=== PATIENT | male | born 1955 | race Caucasian/White ===

== ENCOUNTER 2019-10-31 18:02 | Emergency (ER) | payer MEDICARE, SELFPAY ==
[2019-10-31 18:09] VITALS: BP 168/97; PULSE 69; RESP 18; TEMP 37.2; O2SAT 95
--- NOTE | 2019-10-31 18:10 | ED.WEAKNESS ---
HPI - Weakness General Chief complaint: Weakness Stated complaint: weakness Time Seen by Provider: 10/31/19 18:11 Source: patient, EMS and RN notes reviewed Mode of arrival: EMS Limitations: other (Poor historian) History of Present Illness HPI Narrative: A 64 y/o male presents to the ED via EMS from home d/t generalized weakness. The pt states that he is had some frequent urination but that he is unsure why he is here. Per EMS states that the pt has MS and that he has frequent falls, so they are called out for lift assist. They note that the pt reported generalized weakness and nausea, so they brought him into the ED. The pt denies any fevers, chills, focal weakness, cough, nasal congestion, dysuria, hematuria, diarrhea, vomiting, or ABD pain. MD Complaint: generalized weakness Onset (ago): unknown Location: generalized Associated symptoms: nausea/vomiting (no vomiting) and other (frequent urination) Related Data Home Medications Medication Instructions Recorded Confirmed cholecalciferol (vitamin D3) 10 400 unit PO DAILY 06/18/19 mcg (400 unit) tablet escitalopram oxalate 10 mg tablet 10 mg PO DAILY 06/18/19 melatonin 3 mg capsule 3 mg PO DAILY PRN cap 06/18/19 mirabegron 50 mg tablet,extended 50 mg PO Q24H 06/18/19 release 24 hr pramipexole 0.25 mg tablet 0.25 mg PO TID 06/18/19 teriflunomide 14 mg tablet 14 mg PO DAILY 06/18/19 Allergies Allergy/AdvReac Type Severity Reaction Status Date / Time No Known Allergies Allergy Unknown Verified 07/18/19 15:01 Review of Systems Review of Systems: All systems reviewed & are unremarkable except as noted in HPI and below Constitutional: Constitutional: Denies chills, Denies fever(s) and Reports weakness (generalized) ENT: Denies nasal congestion Respiratory: Respiratory: Denies cough Gastrointestinal: Gastrointestinal: Denies abdominal pain, Denies diarrhea, Reports nausea and Denies vomiting Genitourinary: Genitourinary: Denies hematuria, Denies dysuria and Reports urinary frequency Neurologic: Denies focal weakness PMFSH Past Medical History Medical History Depression Fracture lt wrist Multiple sclerosis Restless leg syndrome Surgical History Surgical History No pertinent past surgical history Family History Family History Father Family history of malignant neoplasm of esophagus Social History Social History Smoking status: Former smoker Smoking end date: 08/06/97 Alcohol intake: never Gender identity (if verbalized by the patient): Male Exam Const: General: healthy appearing and no acute distress Nutritional Appearance: well nourished HENMT: Mouth: Yes lip normal and Yes moist mucous membranes Eyes: Conjunctivae: conjunctivae normal Pupils: Equal, round and reactive pupils present Resp: Effort & Inspection: normal respiratory effort Auscultation: clear to auscultation bilaterally Cardio: Rate: regular rate Rhythm: regular rhythm Heart sounds: no murmurs GI: GI Palp: Yes Soft to palpation and No Tenderness to palpation present (GI) Auscultation: normal bowel sounds Back/Spine/Pelvis: Other: Full ROM. Skin: General skin exam: normal color, dry skin and other (warm) Neuro: General: patient oriented x3 (alert) Speech: normal speech Extrem: General: full ROM Psych: Mental Status: mental status grossly normal Affect: normal affect Course Vital Signs Vital signs: Vital Signs Temperature 37.2 C 10/31/19 18:09 Pulse Rate 69 10/31/19 18:09 Respiratory Rate 18 10/31/19 18:09 Blood Pressure 168/97 H 10/31/19 18:09 Pulse Oximetry 95 10/31/19 18:09 Temperature 37.2 C 10/31/19 18:09 Pulse Rate 89 10/31/19 20:20 Respiratory Rate 16 10/31/19 20:20 Blood Pressure 166/72 H 10/31/19 20:20 Pulse Oximetry 99
--- NOTE | 2019-10-31 18:12 | ECG_ITS ---
Measurements Intervals [place] Rate: 67 P: 45 CT: 213 QRS: 7 QRSD: 104 T: 73 QT: 407 QTc: 430 Interpretive Statements SINUS RHYTHM WITH FIRST DEGREE AV BLOCK NONSPECIFIC T-WAVE ABNORMALITY- LATERAL LEADS BASELINE ARTIFACT- I, III, AVL, V1 ABNORMAL ECG Electronically Signed On 10-31-2019 19:33:18 CDT by Demond Del Valle D.O.
[2019-10-31 18:42] LABS: Basophils Percent Auto 0.5 % (0.2-1.2); Eosinophils Absolute Auto 0.2 K/mm3 (0-0.3); Eosinophils Percent Auto 2.8 % (0-4.4); Hematocrit 38.3 % (42.0-52.0); Hemoglobin 12.4 g/dL (14.0-18.0); Immature Granulocyte Absolute 0.03 K/mm3 (0.00-0.031); Immature Granulocyte Percent A 0.5 % (0-0.5); Lymphocytes Absolute Auto 2.21 K/mm3 (0.9-3.2); Lymphocytes Percent Auto 36.8 % (18.3-44.2); Mean Corpuscular HGB Conc 32.4 g/dl (32-36); Mean Corpuscular Volume 92.7 fl (80-100); Mean Platelet Volume 10.5 fl (7.4-10.4); Monocytes Absolute Auto 0.6 K/mm3 (0.1-0.6); Monocytes Percent Auto 9.3 % (2.6-8.5); Neutrophils Percent Auto 50.1 % (45.5-73.1); Platelet Count Result 180 k/mm3 (150-375); Red Blood Count 4.13 M/mm3 (4.6-6.20); Red Cell Distribution Width 13.7 % (11.5-14.5)
[2019-10-31 18:54] LABS: Alanine Aminotransferase 27 U/L (4-50); Albumin Level 4.2 g/dL (3.5-5.1); Alkaline Phosphatase 46 U/L (38-126); Aspartate Amino Transferase 27 U/L (17-59); Bilirubin,Total 0.2 mg/dL (0.2-1.3); Blood Urea Nitrogen 20 mg/dL (9-20); Calcium 9.2 mg/dL (8.4-10.2); Carbon Dioxide 26 mmol/L (22-30); Chloride 106 mmol/L (98-107); Estimated CRCL calculation 88 ml/min; Estimated Glomerular Filt Rate > 60; Glucose 112 mg/dL (75-110); Potassium 4.2 mmol/L (3.4-5.0); Sodium 138 mmol/L (137-145)
[2019-10-31 19:10] LABS: Add Urine Microscopic? YES; Appearance Urine Clear (Clear); Bilirubin Urine Negative (Negative); Blood Urine 3+ (Negative); Color Urine Straw (Yellow); Glucose Urine UA Negative (Negative); Ketones Urine Negative (Negative); Leukocyte Esterase Ur Trace LEU/UL (Negative); Nitrate Urine Negative (Negative); Protein Urine Negative (Negative); Specific Grav Ur 1.011 (1.001-1.035); Urobilinogen Urine Negative mg/dL (<2.0); WBC Urine 0-3 /hpf
[2019-10-31 19:51] VITALS: BP 155/86; PULSE 63; RESP 18; O2SAT 96
[2019-10-31 20:20] VITALS: BP 166/72; PULSE 89; RESP 16; O2SAT 99
== END 2019-10-31 20:27 | disposition home or self-care (01) ==
PROVIDERS: Emergency Provider Emergency Medicine; PCP Family Medicine
DX: R53.1 Weakness (principal); G25.81 Restless legs syndrome; F32.9 Major depressive disorder, single episode, unspecified; G35 Multiple sclerosis; Z87.891 Personal history of nicotine dependence
CPT/HCPCS: 36415; 80053; 81001; 85025; 93005; 99283

== ENCOUNTER 2020-02-03 19:57 | Emergency (ER) | payer MEDICARE, SELFPAY ==
--- NOTE | ~2020-02-03 | XR_ITS ---
EXAMINATION: XR chest 2V DATE: 02/03/2020 21:18 INDICATION: Weakness, hypotension TECHNIQUE: AP and lateral views of the chest are obtained. COMPARISON: 01/03/2019 FINDINGS: The lungs are free of acute opacities. There is no pleural effusion or pneumothorax. The ca rdiomediastinal silhouette is normal. There is mild thoracic spondylosis. IMPRESSION: 1. No acute cardiopulmonary abnormality. Reviewed, dictated and finalized at location A.
--- NOTE | ~2020-02-03 | XR_ITS ---
EXAMINATION: XR elbow LT min 3V DATE: 02/03/2020 21:19 INDICATION: Left elbow pain TECHNIQUE: Anteroposterior, two oblique and lateral views of the left elbow were obtained. COMPARISON: None. FINDINGS: Alignment is normal. No fracture or joint effusion. Mild osteoarthritis is noted. There is posterior soft tissue swelling of the elbow overlying the olecranon. IMPRESSION: 1. Posterior soft tissue swelling without acute osseous abnormality. Reviewed, dictated and finalized at location A.
--- NOTE | 2020-02-03 20:14 | ECG_ITS ---
Measurements Intervals [place] Rate: 67 P: 44 CA: 215 QRS: 5 QRSD: 100 T: 73 QT: 414 QTc: 440 Interpretive Statements SINUS RHYTHM WITH FIRST DEGREE AV BLOCK NONSPECIFIC T-WAVE ABNORMALITY- ANT/LAT LEADS ABNORMAL ECG Electronically Signed On 02-04-2020 7:08:35 CDT by Demond Del Valle D.O.
[2020-02-03 20:15] VITALS: BP 178/82; PULSE 71; PULSE 78; RESP 18; TEMP 37.1; O2SAT 97
[2020-02-03 20:30] LABS: Basophils Percent Auto 0.5 % (0.2-1.2); Eosinophils Absolute Auto 0.2 K/mm3 (0-0.3); Eosinophils Percent Auto 2.4 % (0-4.4); Hematocrit 38.4 % (42.0-52.0); Hemoglobin 12.8 g/dL (14.0-18.0); Immature Granulocyte Absolute 0.02 K/mm3 (0.00-0.031); Immature Granulocyte Percent A 0.3 % (0-0.5); Lymphocytes Absolute Auto 1.67 K/mm3 (0.9-3.2); Lymphocytes Percent Auto 27.2 % (18.3-44.2); Mean Corpuscular HGB Conc 33.3 g/dl (32-36); Mean Corpuscular Hemoglobin 30.6 pg (26-34); Mean Corpuscular Volume 91.9 fl (80-100); Mean Platelet Volume 10.5 fl (7.4-10.4); Monocytes Absolute Auto 0.6 K/mm3 (0.1-0.6); Monocytes Percent Auto 10.4 % (2.6-8.5); Neutrophils Absolute Auto 3.6 K/mm3 (1.3-6.7); Neutrophils Percent Auto 59.2 % (45.5-73.1); Platelet Count Result 191 k/mm3 (150-375); Red Blood Count 4.18 M/mm3 (4.6-6.20); Red Cell Distribution Width 13.1 % (11.5-14.5); White Blood Count 6.1 K/mm3 (4.5-10.0)
[2020-02-03 20:44] LABS: Alanine Aminotransferase 23 U/L (4-50); Albumin Level 4.1 g/dL (3.5-5.1); Alkaline Phosphatase 53 U/L (38-126); Aspartate Amino Transferase 25 U/L (17-59); Bilirubin,Total 0.3 mg/dL (0.2-1.3); Blood Urea Nitrogen 19 mg/dL (9-20); Carbon Dioxide 27 mmol/L (22-30); Chloride 107 mmol/L (98-107); Estimated CRCL calculation 83 ml/min; Estimated Glomerular Filt Rate > 60; Glucose 115 mg/dL (75-110); Potassium 3.9 mmol/L (3.4-5.0); Sodium 140 mmol/L (137-145)
--- NOTE | 2020-02-03 20:48 | ED.WEAKNESS ---
HPI - Weakness General Chief complaint: Weakness Stated complaint: increasing weakness Time Seen by Provider: 02/03/20 20:39 History of Present Illness HPI Narrative: Patient presents via EMS from home with his for recurrent falls. He has MS and is becoming weak. His neurologist is Dr. Quigley at [facility]. He scheduled to have MRI of his brain and spine on Sunday. They are talking about changing his MS medicine from pills to shots. requests that he be admitted and sent to rehab. He has been falling daily the fire department has been there every day for a week and twice today. He can walk but when he falls she cannot get him up. He has bladder spasm and needs to urinate frequently. She Wants Today to Be Sure That There Is Bladder Emptying. He injured his elbow in a fall last week and they x-rayed the humerus but not the elbow. We will get the elbow x-ray here. She is concerned it might be a UTI which causes him to have increased weakness. He has not been sick in the last 2 weeks he denies fever cough chills sweats. Appetite is good bowels are moving. MD Complaint: generalized weakness Onset (ago): week(s) Duration: constant Location: generalized Relieving factors: none Exacerbating factors: movement and exertion Associated symptoms: denies other symptoms Related Data Home Medications Medication Instructions Recorded Confirmed escitalopram oxalate 20 mg PO DAILY 02/03/20 mirabegron [Myrbetriq] 50 mg PO DAILY 02/03/20 pramipexole 0.25 mg PO TID 02/03/20 Allergies Allergy/AdvReac Type Severity Reaction Status Date / Time No Known Allergies Allergy Unknown Verified 02/03/20 20:19 Review of Systems Review of Systems: Narrative: CONSTITUTIONAL: Denies fever, chills, or sweats. EYES: Denies visual changes, redness, or discharge. ENT: Denies rhinorrhea, congestion, sore throat, or otalgia. CARDIOVASCULAR: Denies chest pain, palpitations, or edema. RESPIRATORY: Denies cough or dyspnea. GASTROINTESTINAL: Denies abdominal pain, nausea, vomiting, or diarrhea. GENITOURINARY: Denies dysuria or hematuria. SKIN: Denies rash or itching. MUSCULOSKELETAL: Denies back pain, joint pain, or myalgia. NEUROLOGIC: Denies headache, numbness, but does have generalized weakness. PSYCHIATRIC: Denies anxiety or depression. PMFSH Past Medical History Medical History Depression Fracture lt wrist Multiple sclerosis Restless leg syndrome Surgical History Surgical History No pertinent past surgical history Social History Social History Smoking status: Former smoker Smoking end date: 08/06/97 Alcohol intake: never Gender identity (if verbalized by the patient): Male Exam Narrative: Exam Narrative: GENERAL: Well-appearing, well-nourished, and in no acute distress. Overweight. Very pleasant. HEAD: Normocephalic, atraumatic. EYES: PERRLA and EOMI. ENT: Nares clear, no rhinorrhea or epistaxis. Mucous membranes moist. NECK: Supple. CHEST: Clear to auscultation. No respiratory distress. HEART: Regular rate and rhythm. No murmur heard. Normal peripheral pulses. ABDOMEN: Soft, nontender, nondistended, normal active bowel sounds. EXTREMITIES: Normal range of motion. No edema. SKIN: Warm, dry, no rash. NEURO: No focal deficits. Alert and oriented x3. PSYCH: Normal mood and affect. Course Reevaluation(s) Reevaluation #1: Went in to tell the patient and his about the good test results, and the admission for rehab. The patient is upset and says he wants to go home, but the says she cannot care for him at home. Date: 02/03/20 Time: 22:54 Consultations Consultation #1: Call Dr. Vargas and she agrees with the admission. She asked me to write for the care coordination consult to get him into rehab. Vital Signs Vital signs: Vital Signs Temperatur
[2020-02-03 21:29] VITALS: BP 169/87; PULSE 76; RESP 17; O2SAT 98
[2020-02-03 21:43] LABS: Add Urine Microscopic? YES; Appearance Urine Clear (Clear); Bilirubin Urine Negative (Negative); Blood Urine 2+ (Negative); Color Urine Yellow (Yellow); Glucose Urine UA Negative (Negative); Ketones Urine Negative (Negative); Leukocyte Esterase Ur Negative LEU/UL (Negative); Mucus Urine Rare /lpf; Nitrate Urine Negative (Negative); Protein Urine 1+ mg/dL (Negative); Specific Grav Ur 1.019 (1.001-1.035); Squamous Epithelial Cell Urine Rare /hpf (Few); Urobilinogen Urine Negative mg/dL (<2.0); WBC Urine 0-3 /hpf
[2020-02-03 22:59] VITALS: BP 172/78; PULSE 82; RESP 18; O2SAT 97
--- NOTE | 2020-02-03 23:00 | PC.NURSE ---
pt in room, arguing with about staying in the hospital. pt adamantly refusing to stay, discharge rn and provider in room speaking to pt and .
--- NOTE | 2020-02-03 23:08 | PC.NURSE ---
PT AND CONTINUE TO ARGUE ABOUT PT STAYING. HE IS ADAMANT ABOUT GOING HOME.
--- NOTE | 2020-02-03 23:39 | PC.NURSE ---
Addendum entered by Juanita Kerr RN 02/03/20 23:43: PT AND TOLD IF THEY NEED TO COME BACK WE ARE MORE THAN HAPPY TO SEE THEM. Original Note: [id number]- THIS RN , DR. SEXTON IN TO SPEAK WITH PATIENT. PT CONTINUES TO REFUSE TO BE ADMITTED TO THE HOSPITAL. PT STATES SHE WILL TAKE HIM HOME PER PERSONAL VEHICLE AND CALL EMS FOR ASSISTANCE ONCE AT HOME. REPORTS SHE IS ATTEMPTING TO GET HELP TO CARE FOR HIM, WELL THE POSSIBILITY OF PLACEMENT. THEY CONTINUE TO ARGUE BACK AND FORTH WITH ONE ANOTHER.
--- NOTE | 2020-02-04 00:06 | PC.NURSE ---
PT LEFT AMA AT [id number]
== END 2020-02-04 00:06 | disposition left against medical advice (07) ==
PROVIDERS: Emergency Provider Emergency Medicine; PCP Family Medicine
DX: G35 Multiple sclerosis (principal); Z91.81 History of falling; Z87.891 Personal history of nicotine dependence; F32.9 Major depressive disorder, single episode, unspecified
CPT/HCPCS: 36415; 71046; 73080; 80053; 81001; 85025; 93005; 99284

== ENCOUNTER 2020-02-22 03:38 | Emergency (ER) | payer MEDICARE, SELFPAY ==
--- NOTE | ~2020-02-22 | XR_ITS ---
EXAMINATION: XR shoulder LT min 2V INDICATION: Left shoulder pain TECHNIQUE: Four views of the left shoulder are obtained on five radiographs. COMPARISON: 02/03/2020 FINDINGS: There is mild widening of the acromioclavicular joint. No fracture is identified. The gleno humeral joint space appears normal. The soft tissues are unremarkable. IMPRESSION: 1. Mild separation of the acromioclavicular joint without acute osseous abnormality. Reviewed, dictated and finalized at location A. IMPRESSION: 1. Mild separation of the acromioclavicular joint without acute osseous abnorma lity.
[2020-02-22 03:39] VITALS: BP 149/75; PULSE 78; RESP 18; TEMP 37.7; O2SAT 95
--- NOTE | 2020-02-22 03:51 | ED.UPPEXIN ---
HPI - Extremity Injury (Upper) General Chief Complaint: Extremity Injury, Upper Stated Complaint: hip pain History of Present Illness HPI narrative: History limited by poor historian. BIBEMS from home for shoulder pain. It is not entirely clear why EMS was called to the house. EMS reports that he was having hip pain. the patient says he was never having hip pain. He reports pain in the left shoulder. This pain has apparently been there since a previous fall. He has had x-rays. He has pain medication, which his is concerned that he may be taking too much of. He has MS and falls frequently. Related Data Home Medications Medication Instructions Recorded Confirmed escitalopram oxalate 20 mg PO DAILY 02/03/20 02/19/20 mirabegron [Myrbetriq] 50 mg PO DAILY 02/03/20 02/19/20 pramipexole 0.25 mg PO TID 02/03/20 02/19/20 gabapentin 300 mg capsule 300 mg PO DAILY 02/19/20 02/19/20 Allergies Allergy/AdvReac Type Severity Reaction Status Date / Time No Known Allergies Allergy Unknown Verified 02/19/20 15:02 Review of Systems Review of Systems: All systems reviewed & are unremarkable except as noted in HPI and below Constitutional: Constitutional: Denies fever(s) Cardiovascular: Cardiovascular: Denies chest pain Respiratory: Respiratory: Denies dyspnea Musculoskeletal: Musculoskeletal: Denies back pain Neurologic: Denies headache(s) [facility] Past Medical History Medical History Depression Fracture lt wrist Multiple sclerosis Restless leg syndrome Surgical History Surgical History No pertinent past surgical history Family History Family History Father Family history of malignant neoplasm of esophagus Social History Social History Smoking status: Former smoker Smoking end date: 08/06/97 Alcohol intake: never Substance use: never Substance use type: does not use Gender identity (if verbalized by the patient): Male Exam Const: General: no acute distress and alert Orientation/consciousness: patient oriented x3 HENMT: Head: normal to inspection Resp: Effort & Inspection: normal respiratory effort Auscultation: clear to auscultation bilaterally Cardio: Rate: regular rate Rhythm: regular rhythm GI: GI Palp: Yes Soft to palpation and No Tenderness to palpation present (GI) Skin: General skin exam: normal color Rashes: no rashes Wounds: no wounds Neuro: General: patient oriented x3 and moves all extremities Extrem: Other: Full spontaneous ROM in left shoulder. Tenderness over left AC and anterior deltoid Course Vital Signs Vital signs: Vital Signs Temperature 37.7 C H 02/22/20 03:39 Pulse Rate 78 02/22/20 03:39 Respiratory Rate 18 02/22/20 03:39 Blood Pressure 149/75 H 02/22/20 03:39 Pulse Oximetry 95 02/22/20 03:39 Temperature 37.7 C H 02/22/20 03:39 Pulse Rate 78 02/22/20 03:39 Respiratory Rate 18 02/22/20 03:39 Blood Pressure 149/75 H 02/22/20 03:39 Pulse Oximetry 95 02/22/20 03:39 MDM - Extremity Injury (Upper) Medical Records Attestation: I reviewed the patient's medical records. Imaging Data Attestation: I personally reviewed and interpreted this imaging study as follows: My impression: No fracture or dislocation Discharge Plan Discharge Clinical Impression: Left shoulder pain Qualifiers: Chronicity: unspecified Qualified Code(s): M25.512 - Pain in left shoulder Patient Disposition: Home, Self-Care Condition: Stable Instructions: Antibiotic Form, Shoulder Pain (ED) Prescriptions: No Action gabapentin 300 mg capsule 300 mg PO DAILY RF: 0 nitrofurantoin macrocrystal 100 mg capsule 100 mg PO Q12H 7 Days Qty: 14 RF: 0 hydrocodone-acetaminophen 5-325 mg tablet 1 tablet PO Q8H MN
[2020-02-22 05:32] VITALS: BP 158/86; PULSE 78; RESP 18; TEMP 36.8; O2SAT 98
--- NOTE | 2020-02-22 05:34 | PC.NURSE ---
attempted to get pt into W/C, pt locked knees and refused to move. pt placed back in bed and will call ems for transport.
--- NOTE | 2020-02-22 08:20 | PC.NURSE ---
awaiting transport via ems to home. no requests or complaints at this time.
== END 2020-02-22 09:20 | disposition home or self-care (01) ==
PROVIDERS: Emergency Provider Emergency Medicine; PCP Family Medicine
DX: M25.512 Pain in left shoulder (principal); F32.9 Major depressive disorder, single episode, unspecified; G35 Multiple sclerosis; G25.81 Restless legs syndrome; Z87.891 Personal history of nicotine dependence
CPT/HCPCS: 73030; 99283

== ENCOUNTER 2020-02-23 17:00 | Observation (INO) | payer MEDICARE, SELFPAY ==
[2020-02-23] VITALS (8 sets, daily range): BP systolic 101–143; BP diastolic 61–104; PULSE 84–113; RESP 17–27; TEMP 37.2–38.6; O2SAT 94–98; BMI 39.1
--- NOTE | ~2020-02-23 | XR_ITS ---
EXAMINATION: XR chest 1V portable INDICATION: Transient alteration of awareness TECHNIQUE: Portable AP chest at 1738 hours COMPARISON: 02/03/2020 FINDINGS: A mild diffuse interstitial pattern is present. There are minimal airspace opacities of the mid and lower lung zones. The heart size is normal. Calcified left hilar lymph nodes are consistent with old granulomatous disease. There is no pleural effusion or pneumothorax. IMPRESSION: 1. Mild interstitial pattern of minimal airspace opacity of the mid and lower lung zones which may re flect pulmonary edema and/or atelectasis and/or pneumonia. Reviewed, dictated and finalized at location A. IMPRESSION: 1. Mild interstitial pattern of minimal airspace opacity of the mid and lower l sanju zones which may reflect pulmonary edema and/or atelectasis and/or pneumonia .
--- NOTE | ~2020-02-23 | CT_ITS ---
EXAMINATION: CT brain wo con INDICATION: Altered mental status COMPARISON: 02/06/2019 TECHNIQUE: Standard unenhanced head CT. The dose-length product (DLP) was 681.00 mGy-cm. The mA was a djusted according to patient size. Iterative reconstruction technique was employed. FINDINGS: There is no acute intraparenchymal hemorrhage. No evidence of mass lesion. No evidence of a cute infarction. There is moderate periventricular and subcortical hypodensity probably related to sm all vessel ischemic disease. There is moderate prominence of the sulci and ventricles related to cere bral atrophy. Intracranial calcified cerebral atherosclerosis is noted. There are no extra-axial leighann ections. There is no mass effect or midline shift. Changes in the globes are likely from ocular lens surgery. There is mild mucosal thickening of the paranasal sinuses. IMPRESSION: 1. No acute intracranial abnormality. 2. Age related findings. Reviewed, dictated and finalized at location A.
--- NOTE | 2020-02-23 17:19 | ECG_ITS ---
Measurements Intervals [place] Rate: 113 P: 47 [place]: 203 QRS: -4 QRSD: 96 T: 69 QT: 308 QTc: 423 Interpretive Statements SINUS TACHYCARDIA BORDERLINE AV CONDUCTION DELAY EARLY PRECORDIAL R/S TRANSITION ABNORMAL ECG Electronically Signed On 02-23-2020 18:01:40 CDT by Demond Del Valle D.O.
--- NOTE | 2020-02-23 17:27 | ED.GENADULT ---
HPI - General Adult General Chief complaint: Altered Mental Status Stated complaint: Altered mental status Time Seen by Provider: 02/23/20 17:06 History of Present Illness HPI narrative: Patient is a 64 y/o male brought in by EMS for mild altered mental status. This has been going for 2 days. There is no alleviating or exacerbating factor. He has history of MS and he is not ambulatory. He does self cath. He denies any headache, chest pain or abdominal pain. He denies any SOB. He states that he feels well. Related Data Home Medications Medication Instructions Recorded Confirmed escitalopram oxalate 20 mg PO DAILY 02/03/20 02/19/20 mirabegron [Myrbetriq] 50 mg PO DAILY 02/03/20 02/19/20 pramipexole 0.25 mg PO TID 02/03/20 02/19/20 Allergies Allergy/AdvReac Type Severity Reaction Status Date / Time No Known Allergies Allergy Unknown Verified 02/19/20 15:02 Review of Systems Constitutional: Constitutional: Denies chills, Denies fever(s), Denies headache(s) and Denies weakness Eyes: Eyes: Denies blurry vision ENT: Denies headache(s) and Denies neck pain Cardiovascular: Cardiovascular: Denies chest pain and Denies dyspnea Respiratory: Respiratory: Denies cough and Denies dyspnea Gastrointestinal: Gastrointestinal: Denies abdominal pain, Denies diarrhea, Denies nausea and Denies vomiting Genitourinary: Genitourinary: Denies hematuria and Denies dysuria Musculoskeletal: Musculoskeletal: Denies back pain and Denies neck pain Neurologic: Denies headache(s) and Denies weakness [facility] Past Medical History Medical History Depression Fracture lt wrist Multiple sclerosis Restless leg syndrome Surgical History Surgical History No pertinent past surgical history Family History Family History Father Family history of malignant neoplasm of esophagus Social History Social History Smoking status: Former smoker Smoking end date: 08/06/97 Alcohol intake: never Substance use: never Substance use type: does not use Gender identity (if verbalized by the patient): Male Exam Const: General: no acute distress and well developed Orientation/consciousness: oriented to person, oriented to place and confusion HENMT: Head: normocephalic Ears: external ears normal General nose exam: Normal external nose present Eyes: General: appearance normal, both eyes and all related structures Conjunctivae: conjunctivae normal Neck: Neck: normal visual inspection and full ROM Chest: Chest palpation & inspection: normal inspection of the chest and no tenderness Resp: Effort & Inspection: normal respiratory effort, able to speak in complete sentences and tachypneic Cardio: Rate: tachycardic Rhythm: regular rhythm GI: GI Palp: No abdominal tenderness and Yes Soft to palpation Skin: General skin exam: normal color and turgor normal Neuro: General: oriented to person and oriented to place Cognition (Neuro): abnormal cognition Extrem: General: normal to inspection, full ROM and no pedal edema Psych: Appearance: grossly normal Mental Status: mental status grossly normal Affect: normal affect Course Consultations Consultation #1: Discussed with Dr. Garcia, who agrees to admit. Date: 02/23/20 Time: 20:08 Vital Signs Vital signs: Vital Signs Temperature 38.6 C H 02/23/20 17:01 Pulse Rate 111 H 02/23/20 17:01 Respiratory Rate 25 H 02/23/20 17:01 Blood Pressure 143/104 H 02/23/20 17:01 Pulse Oximetry 96 02/23/20 17:01 Temperature 37.2 C 02/23/20 20:38 Pulse Rate 91 02/23/20 20:38 Respiratory Rate 17 02/23/20 20:39 Blood Pressure 114/61 02/23/20 20:38 Pulse Oximetry 94 02/23/20 20:38 Medical Decision Making Vital Signs Vital Signs: Vital Signs Temperature 38.6 C
[2020-02-23 17:54] LABS: Basophils Percent Auto 0.2 % (0.2-1.2); Eosinophils Percent Auto 0.1 % (0-4.4); Hematocrit 42.2 % (42.0-52.0); Hemoglobin 13.9 g/dL (14.0-18.0); Immature Granulocyte Percent A 0.6 % (0-0.5); Lymphocytes Absolute Auto 0.83 K/mm3 (0.9-3.2); Lymphocytes Percent Auto 5.1 % (18.3-44.2); Mean Corpuscular HGB Conc 32.9 g/dl (32-36); Mean Corpuscular Hemoglobin 30.5 pg (26-34); Mean Corpuscular Volume 92.5 fl (80-100); Mean Platelet Volume 10.5 fl (7.4-10.4); Monocytes Absolute Auto 0.7 K/mm3 (0.1-0.6); Monocytes Percent Auto 4.5 % (2.6-8.5); Neutrophils Absolute Auto 14.5 K/mm3 (1.3-6.7); Neutrophils Percent Auto 89.5 % (45.5-73.1); Platelet Count Result 191 k/mm3 (150-375); Red Blood Count 4.56 M/mm3 (4.6-6.20); Red Cell Distribution Width 13.6 % (11.5-14.5); White Blood Count 16.2 K/mm3 (4.5-10.0)
[2020-02-23] MEDS: ACETAMINOPHEN 325 MG TABLET 650 MG PO (18:02)
[2020-02-23 18:08] LABS: Lactic Acid Reflex 1.5 mmol/L (0.7-2.1)
[2020-02-23 18:09] LABS: Add Urine Microscopic? YES; Appearance Urine Clear (Clear); Bacteria Urine Trace /hpf; Bilirubin Urine Negative (Negative); Blood Urine 2+ (Negative); Color Urine Yellow (Yellow); Glucose Urine UA Negative (Negative); Ketones Urine Negative (Negative); Leukocyte Esterase Ur 1+ LEU/UL (Negative); Mucus Urine Few /lpf; Nitrate Urine Negative (Negative); Protein Urine 2+ mg/dL (Negative); RBC Urine 21-50 /hpf (0-2); Renal Epithelial Cells Urine Rare /hpf (None Seen); Specific Grav Ur 1.028 (1.001-1.035); Urobilinogen Urine Negative mg/dL (<2.0); WBC Urine 16-20 /hpf
[2020-02-23 18:10] LABS: Alanine Aminotransferase 26 U/L (4-50); Albumin Level 4.4 g/dL (3.5-5.1); Alkaline Phosphatase 74 U/L (38-126); Aspartate Amino Transferase 28 U/L (17-59); Bilirubin,Total 0.7 mg/dL (0.2-1.3); Blood Urea Nitrogen 19 mg/dL (9-20); Calcium 9.3 mg/dL (8.4-10.2); Carbon Dioxide 29 mmol/L (22-30); Chloride 99 mmol/L (98-107); Estimated CRCL calculation 75 ml/min; Estimated Glomerular Filt Rate > 60; Glucose 116 mg/dL (75-110); Potassium 4.3 mmol/L (3.4-5.0); Sodium 135 mmol/L (137-145)
--- NOTE | 2020-02-23 19:14 | PC.NURSE ---
REPORT GIVEN TO JACKSON GUTIERREZ AT THIS TIME, SHE HAS ASSUMED PT CARE.
--- NOTE | 2020-02-23 20:38 | PC.NURSE ---
pt and family updated on poc at this time, pt denies any needs/concerns. continues to rest on stretcher, VS stable, RR even and unlabored.
--- NOTE | 2020-02-23 22:36 | PM.IMHP ---
H&P: HPI History of Present Illness Chief complaint: sepsis, uti Narrative: This is a 64 year old male with known MS and RLS who presented to the hospital with his secondary to acute altered mental status for the past 2 days. The patient has a history of self catheterizing secondary to his MS. The patient admits that he has had fever at home but denies any shortness of breath, cough, headache, abdominal pain, nausea, vomiting or diarrhea. In the ER tonight the patient was found to be septic with fever, tachycardia, tachypnea, and leukocytosis. His urinalysis was grossly abnormal. CT brain was unremarkable for acute pathology. CXR demonstrated a mild interstitial pattern of minimal airspace opacity of the mid and lower lung zones. The patient was swabbed for COVID-19 tonight. On my encounter with the patient he has no specific complaints. He is pleasantly confused and no other family is present. No other further history is obtainable at this time. Review of Systems Review of Systems: All systems reviewed & are unremarkable except as noted in HPI and below PMFSH Past Medical History Medical History Depression Fracture lt wrist Multiple sclerosis Restless leg syndrome Surgical History Surgical History No pertinent past surgical history Family History Family History Father Family history of malignant neoplasm of esophagus Mother Pacemaker Social History Social History Smoking packs per day: 1 Smoking cigarettes per day: 20.0 Years smoked: 6 Smoking pack-years: 6.00 Smoking status: Former smoker Tobacco type: cigarettes Smoking end date: 08/06/97 Alcohol intake: former Drinks per week: 6 Substance use: never Substance use type: does not use Gender identity (if verbalized by the patient): Male Spiritual care concerns: No Meds Home Medications and Allergies Home Medications Medication Instructions Recorded Confirmed Type escitalopram oxalate 20 mg PO DAILY 02/03/20 02/19/20 History mirabegron [Myrbetriq] 50 mg PO DAILY 02/03/20 02/19/20 History pramipexole 0.25 mg PO TID 02/03/20 02/19/20 History hydrocodone 5 mg-acetaminophen 325 1 tablet PO Q8H PRN #30 tablet 02/19/20 02/19/20 Rx mg tablet cholecalciferol (vitamin D3) 125 mcg PO DAILY 02/23/20 02/24/20 History [Vitamin D3] gabapentin 600 mg PO TID 02/23/20 02/24/20 History ibuprofen 200 mg PO Q6H PRN 02/23/20 02/24/20 History melatonin 10 mg PO HS 02/23/20 02/23/20 History teriflunomide [Aubagio] 14 mg PO DAILY 02/23/20 02/23/20 History Allergies Allergy/AdvReac Type Severity Reaction Status Date / Time No Known Allergies Allergy Unknown Verified 02/19/20 15:02 Vital Signs Vital Signs - 24 hr 02/23/20 17:01 02/23/20 17:46 02/23/20 18:32 Temperature 38.6 C H 37.2 C Pulse Rate 111 H 113 H Respiratory Rate 25 H 27 H Blood Pressure 143/104 H 123/94 H Pulse Oximetry 96 98 02/23/20 18:52 02/23/20 20:38 02/23/20 20:39 Temperature 37.2 C 37.2 C Pulse Rate 102 H 91 Respiratory Rate 20 19 17 Blood Pressure 134/83 114/61 Pulse Oximetry 96 94 02/23/20 21:33 Temperature Pulse Rate 88 Respiratory Rate 18 Blood Pressure 101/65 Pulse Oximetry 95 Exam Const: General: cooperative, alert, awake, ill appearing, tired appearing and uncomfortable Nutritional Appearance: obese Orientation/consciousness: oriented to person and oriented to place HENMT: Head: normal to inspection General nose exam: Normal external nose present Face and sinus: normal facial exam Mouth: Yes Normal oral and palatal mucosa present and Yes oropharynx normal Eyes: Pupils: Equal, round and reactive pupils present EOM: EOMs intact bilaterally Neck: Neck: supple and no JVD Thyroid: thyroid normal
--- NOTE | 2020-02-23 22:48 | ADMGEN ---
This patient, Elbert Browning, was admitted to [facility] Surg Room 330-01. Patient/family oriented to hospital policies and general routines including ID bracelet, bed and alarms, visiting hours, pain management, procedures, bathroom and other care routines, personal items, smoking policy, room service/diet, and visiting hours. Valuables list has been completed. Information on how to activate the Rapid Response Team has been discussed. Patient/Family are encouraged to report perceived risks to care and to ask questions if they do not understand what they are told or what they should do.
[2020-02-24 02:00] VITALS: BP 141/79; PULSE 74; RESP 20; TEMP 37.3; O2SAT 96
[2020-02-24] MEDS: ACETAMINOPHEN 325 MG TABLET 650 MG PO ×2 (04:53→11:03)
[2020-02-24 06:00] VITALS: BP 140/79; PULSE 76; RESP 20; TEMP 37.5; O2SAT 96
[2020-02-24 06:04] LABS: Basophils Absolute Auto 0.1 K/mm3 (0.0-0.1); Basophils Percent Auto 0.4 % (0.2-1.2); Eosinophils Absolute Auto 0.1 K/mm3 (0-0.3); Eosinophils Percent Auto 0.4 % (0-4.4); Hematocrit 38.1 % (42.0-52.0); Hemoglobin 12.5 g/dL (14.0-18.0); Immature Granulocyte Absolute 0.06 K/mm3 (0.00-0.031); Immature Granulocyte Percent A 0.4 % (0-0.5); Lymphocytes Absolute Auto 2.02 K/mm3 (0.9-3.2); Lymphocytes Percent Auto 14.4 % (18.3-44.2); Mean Corpuscular HGB Conc 32.8 g/dl (32-36); Mean Corpuscular Hemoglobin 30.1 pg (26-34); Mean Corpuscular Volume 91.8 fl (80-100); Mean Platelet Volume 10.8 fl (7.4-10.4); Monocytes Absolute Auto 1.2 K/mm3 (0.1-0.6); Monocytes Percent Auto 8.2 % (2.6-8.5); Neutrophils Absolute Auto 10.7 K/mm3 (1.3-6.7); Neutrophils Percent Auto 76.2 % (45.5-73.1); Platelet Count Result 189 k/mm3 (150-375); Red Blood Count 4.15 M/mm3 (4.6-6.20); Red Cell Distribution Width 13.6 % (11.5-14.5)
[2020-02-24 06:24] LABS: Blood Urea Nitrogen 18 mg/dL (9-20); Calcium 8.8 mg/dL (8.4-10.2); Carbon Dioxide 26 mmol/L (22-30); Chloride 101 mmol/L (98-107); Estimated CRCL calculation 78 ml/min; Estimated Glomerular Filt Rate > 60; Glucose 109 mg/dL (75-110); Potassium 4.3 mmol/L (3.4-5.0); Sodium 136 mmol/L (137-145)
[2020-02-24] MEDS: PRAMIPEXOLE 0.25 MG TABLET PO ×3 (06:29→17:16)
[2020-02-24 07:24] LABS: Folic Acid 3.6 ng/mL (2.76->20)
[2020-02-24] MEDS: ESCITALOPRAM OXALATE 10 MG TABLET 20 MG PO (08:56)
[2020-02-24] MEDS: MIRABEGRON 50 MG ER TABLET PO (08:57)
[2020-02-24] MEDS: CHOLECALCIFEROL 1,000 UNIT TABLET 8000 UNITS PO (08:58)
[2020-02-24 10:00] VITALS: BP 152/84; PULSE 76; RESP 20; TEMP 36.9; O2SAT 96
[2020-02-24 14:00] VITALS: BP 164/89; PULSE 76; RESP 20; TEMP 36.9; O2SAT 97
[2020-02-24 15:06] LABS: SARS-CoV-2 RNA PCR Negative
--- NOTE | 2020-02-24 15:26 | PC.NURSE ---
Called and notified Mireya HAM that patient COVID is negative.
--- NOTE | 2020-02-24 15:52 | PM.IMPN ---
Progress Note: A&P Assessment and Plan (1) Acute encephalopathy: Code(s): G93.40 - Encephalopathy, unspecified Status: Acute Assessment and Plan: Likely secondary to acute UTI. B12, folate, and TSH are within normal limits. Head CT sows probably small vessel ischemic disease, cerebral atrophy, and cerebral atherosclerosis. Mental status seems to be improving. His baseline is unclear and I was not able to get in touch with his to further inquire about baseline. Continue antibiotics for UTI. Continue to monitor mental status closely. (2) Sepsis: Qualifiers: Sepsis acute organ dysfunction status: unspecified Sepsis type: sepsis due to unspecified organism Qualified Code(s): A41.9 - Sepsis, unspecified organism Code(s): A41.9 - Sepsis, unspecified organism Status: Acute Assessment and Plan: Evident based on fever, tachycardia, and leukocytosis. Source of sepsis appears to be urinary. Vitals have improved. He has remained afebrile today. Continue to closely monitor vital signs and urine output. Continue IV antibiotics. Blood and urine culture pending. (3) UTI (urinary tract infection): Qualifiers: Hematuria presence: without hematuria Urinary tract infection type: site unspecified Qualified Code(s): N39.0 - Urinary tract infection, site not specified Code(s): N39.0 - Urinary tract infection, site not specified Status: Acute Assessment and Plan: UA was grossly abnormal, this may explain his altered mental status. The patient self-caths due to his MS, which puts him at risk for associated infection. Continue IV Rocephin Await results of urine culture (4) Multiple sclerosis: Code(s): G35 - Multiple sclerosis Status: Chronic Assessment and Plan: Chronic and stable. Continue home regimen (5) Restless leg syndrome: Code(s): G25.81 - Restless legs syndrome Status: Chronic Assessment and Plan: Chronic and stable. continue pramipexole. (6) COVID-19 ruled out by laboratory testing: Code(s): Z03.818 - Encounter for observation for suspected exposure to other biological agents ruled out Status: Acute Assessment and Plan: Negative result on 02/24/2020 - discontinue isolation precautions Subjective Date/time seen: 02/24/20 15:52 Interval history: Date of service: 02/24/2020 He reports he is feeling well today. He has no complaints at this time. He had a BM this afternoon which was soft and formed. He self caths and says that he has not done so yet today. He denies any discomfort associated with cathing, burning, pain, etc. He denies fever, chills, nausea, vomiting, diarrhea, shortness of breath, cough, chest pain, headache, dizziness, lightheadedness, or weakness. He states he is aware he was very confused yesterday but feels that his mental status has returned back to normal. He was alert & oriented x4 and responded to almost all questions appropriately. His appetite has been good and he has been drinking water. He has no additional concerns. Review of Systems Review of Systems: Narrative: A 12 point review of systems was reviewed with pertinent positives and negatives as per HPI. Exam Narrative: Exam Narrative: Mr. Browning is examined alone today. He is a well nourished 64 year old male who is lying supine in bed. He appears comfortable and is in NARD. HR 76, BP 140/79, RR 20, T 99.5, 96% on room air Neuro: awake, alert and oriented x4, speech clear, no focal neuro deficits noted HEENMT: normocephalic, atraumatic, EOMI, sclerae anicteric, moist oral mucosa Neck: supple, no lymphadenopathy Respiratory: clear to auscultation bilaterally, nonlabored breathing Cardio: regular rate, regular rhythm, no murmur noted Abdomen: nondistended, normoactive bowel sounds, soft, nontender, no rigidity or guarding Extremities: no edema, erythema, cyanosis,
[2020-02-24 16:00] VITALS: BP 160/88; PULSE 70; RESP 20; TEMP 37.1; O2SAT 97
[2020-02-24 22:00] VITALS: BP 170/94; PULSE 84; RESP 20; TEMP 37.1; O2SAT 96
[2020-02-25 02:24] VITALS: BP 165/86; PULSE 76; RESP 20; TEMP 36.8; O2SAT 96
[2020-02-25 06:00] VITALS: BP 161/91; PULSE 83; RESP 20; TEMP 36.8; O2SAT 97
[2020-02-25 06:04] LABS: Hematocrit 42.3 % (42.0-52.0); Hemoglobin 13.5 g/dL (14.0-18.0); Mean Corpuscular HGB Conc 31.9 g/dl (32-36); Mean Corpuscular Hemoglobin 30.4 pg (26-34); Mean Corpuscular Volume 95.3 fl (80-100); Mean Platelet Volume 11.6 fl (7.4-10.4); Platelet Count Result 141 k/mm3 (150-375); Red Blood Count 4.44 M/mm3 (4.6-6.20); Red Cell Distribution Width 13.5 % (11.5-14.5); White Blood Count 8.9 K/mm3 (4.5-10.0)
[2020-02-25 07:51] LABS: Blood Urea Nitrogen 23 mg/dL (9-20); Carbon Dioxide 26 mmol/L (22-30); Chloride 103 mmol/L (98-107); Estimated CRCL calculation 86 ml/min; Estimated Glomerular Filt Rate > 60; Glucose 107 mg/dL (75-110); Potassium 4.3 mmol/L (3.4-5.0); Sodium 137 mmol/L (137-145)
[2020-02-25 10:00] VITALS: BP 181/91; PULSE 82; RESP 20; TEMP 36.8; O2SAT 97
[2020-02-25] MEDS: MIRABEGRON 50 MG ER TABLET PO (10:04)
[2020-02-25] MEDS: PRAMIPEXOLE 0.25 MG TABLET PO ×3 (10:04→17:34)
[2020-02-25] MEDS: CHOLECALCIFEROL 1,000 UNIT TABLET 8000 UNITS PO (10:05)
[2020-02-25] MEDS: ESCITALOPRAM OXALATE 10 MG TABLET 20 MG PO (10:05)
[2020-02-25] MEDS: amLODIPine BESYLATE 2.5 MG TABLET PO (11:17)
[2020-02-25 14:00] VITALS: BP 158/96; PULSE 75; RESP 18; TEMP 36.8; O2SAT 97
--- NOTE | 2020-02-25 14:45 | PCOTNOTE ---
OT evaluation attempted. Patient adamantly refusing evaluation at this time stating that he will work with therapy tomorrow. Patient refuses despite encouragement. Will attempt OT evaluation at later time.
--- NOTE | 2020-02-25 15:18 | PM.IMPN ---
Progress Note: A&P Assessment and Plan (1) Acute encephalopathy: Code(s): G93.40 - Encephalopathy, unspecified Status: Acute Assessment and Plan: Likely secondary to acute UTI. B12, folate, and TSH are within normal limits. Head CT shows probable small vessel ischemic disease, cerebral atrophy, and cerebral atherosclerosis. Mental status seems to be improving. He is A&Ox4 at baseline. Continue antibiotics for UTI. Continue to monitor mental status closely. (2) Sepsis: Qualifiers: Sepsis acute organ dysfunction status: unspecified Sepsis type: sepsis due to unspecified organism Qualified Code(s): A41.9 - Sepsis, unspecified organism Code(s): A41.9 - Sepsis, unspecified organism Status: Acute Assessment and Plan: Evident at presentation with fever, tachycardia, and leukocytosis. Source of sepsis appears to be urinary. Vitals have improved. He has remained afebrile and leukocytosis has resolved. Continue to closely monitor vital signs and urine output. Continue IV antibiotics. Blood Cx with NGTD and and UCx with >100,000 CFU S. viridans. (3) UTI (urinary tract infection): Qualifiers: Hematuria presence: without hematuria Urinary tract infection type: site unspecified Qualified Code(s): N39.0 - Urinary tract infection, site not specified Code(s): N39.0 - Urinary tract infection, site not specified Status: Acute Assessment and Plan: He was started on an antibiotic by PCP and received 4 doses without improvement. Family is unable to identify the name of the antibiotic. UCx grew >100,000 CFU S. viridans. The patient self-caths once daily due to his MS, which puts him at risk for associated infection. UTI is likely contributing to altered mental state. He has been having episodes of incontinence today and states that is somewhat common. Continue IV Rocephin. Started on 02/22. Today is day 3. Will plan to complete 5 days of abx. Perform bladder scan to evaluate for overflow incontinence. He may need to cath more frequently than once daily. (4) Multiple sclerosis: Code(s): G35 - Multiple sclerosis Status: Chronic Assessment and Plan: Chronic and stable. Continue teriflunomide which is NF so is bringing from home. (5) Restless leg syndrome: Code(s): G25.81 - Restless legs syndrome Status: Chronic Assessment and Plan: Chronic and stable. continue pramipexole. (6) Hypertension: Qualifiers: Hypertension type: essential hypertension Qualified Code(s): I10 - Essential (primary) hypertension Code(s): I10 - Essential (primary) hypertension Status: Acute Assessment and Plan: Blood pressures have been consistently elevated during his stay. He has no documented history of HTN and is not on antihypertensives. Begin amlodipine Continue to monitor BP closely. (7) Generalized weakness: Code(s): R53.1 - Weakness Status: Acute Assessment and Plan: At baseline, patient is weak due to his MS and uses a walker at home. He has had several falls. reports he has been getting weaker and she believes it is due to his infection as he has had an episode similar to this before. PT and OT have been consulted and recommendations are appreciated. (8) COVID-19 ruled out by laboratory testing: Code(s): Z03.818 - Encounter for observation for suspected exposure to other biological agents ruled out Status: Acute Assessment and Plan: Negative result on 02/24/2020 - discontinue isolation precautions Subjective Date/time seen: 02/25/20 15:18 Interval history: Date of service: 02/25/2020 He is pleasantly confused. He is conversational and is able to answer most questions appropriately but some of his responses are inappropriate. He has been asking when his will be coming home. He began complaining
[2020-02-25 18:00] VITALS: BP 166/98; PULSE 75; RESP 20; TEMP 36.7; O2SAT 95
--- NOTE | 2020-02-25 18:52 | PHAR ---
HOME MED VERIFIED TERIFLUNOMIDE 14 MG TABLET ONE DAILY
[2020-02-25] MEDS: MELATONIN 5 MG TABLET 10 MG PO (20:02)
[2020-02-25 22:00] VITALS: BP 150/89; PULSE 74; RESP 20; TEMP 37.1; O2SAT 92
[2020-02-25] MEDS: ACETAMINOPHEN 325 MG TABLET 650 MG PO (22:59)
[2020-02-26 02:00] VITALS: BP 144/63; PULSE 81; RESP 20; TEMP 36.8; O2SAT 96
[2020-02-26 06:00] VITALS: BP 176/89; PULSE 82; RESP 20; TEMP 36.6; O2SAT 98
[2020-02-26 06:30] LABS: Hematocrit 39.2 % (42.0-52.0); Hemoglobin 12.8 g/dL (14.0-18.0); Mean Corpuscular HGB Conc 32.7 g/dl (32-36); Mean Corpuscular Hemoglobin 29.8 pg (26-34); Mean Corpuscular Volume 91.2 fl (80-100); Mean Platelet Volume 10.7 fl (7.4-10.4); Platelet Count Result 220 k/mm3 (150-375); Red Cell Distribution Width 13.2 % (11.5-14.5); White Blood Count 7.9 K/mm3 (4.5-10.0)
[2020-02-26 06:47] LABS: Anion Gap 13.5 mmol/L (7-16); Blood Urea Nitrogen 22 mg/dL (9-20); Calcium 8.8 mg/dL (8.4-10.2); Carbon Dioxide 24 mmol/L (22-30); Chloride 103 mmol/L (98-107); Estimated CRCL calculation 86 ml/min; Estimated Glomerular Filt Rate > 60; Glucose 113 mg/dL (75-110); Potassium 4.5 mmol/L (3.4-5.0); Sodium 136 mmol/L (137-145)
[2020-02-26] MEDS: ESCITALOPRAM OXALATE 10 MG TABLET 20 MG PO (09:08)
[2020-02-26] MEDS: ACETAMINOPHEN 325 MG TABLET 650 MG PO ×2 (09:08→21:01)
[2020-02-26] MEDS: amLODIPine BESYLATE 2.5 MG TABLET 5 MG PO (09:08)
[2020-02-26] MEDS: CHOLECALCIFEROL 1,000 UNIT TABLET 8000 UNITS PO (09:08)
[2020-02-26] MEDS: PRAMIPEXOLE 0.25 MG TABLET PO ×3 (09:09→16:21)
[2020-02-26] MEDS: MIRABEGRON 50 MG ER TABLET PO (09:09)
[2020-02-26 14:00] VITALS: BP 110/61; PULSE 76; RESP 18; TEMP 36.7; O2SAT 97
--- NOTE | 2020-02-26 14:39 | PM.IMPN ---
Progress Note: A&P Assessment and Plan (1) Acute encephalopathy: Code(s): G93.40 - Encephalopathy, unspecified Status: Acute Assessment and Plan: Likely secondary to acute UTI. B12, folate, and TSH are within normal limits. Head CT shows probable small vessel ischemic disease, cerebral atrophy, and cerebral atherosclerosis. Mental status seems to be improving. He is A&Ox4 at baseline. Continue antibiotics for UTI. Continue to monitor mental status closely. (2) Sepsis: Qualifiers: Sepsis acute organ dysfunction status: unspecified Sepsis type: sepsis due to unspecified organism Qualified Code(s): A41.9 - Sepsis, unspecified organism Code(s): A41.9 - Sepsis, unspecified organism Status: Acute Assessment and Plan: Evident at presentation with fever, tachycardia, and leukocytosis. Source of sepsis appears to be urinary. Vitals have improved. He has remained afebrile and leukocytosis has resolved. Continue to closely monitor vital signs and urine output. Continue IV antibiotics. Blood Cx with NGTD and and UCx with >100,000 CFU S. viridans. (3) UTI (urinary tract infection): Qualifiers: Hematuria presence: without hematuria Urinary tract infection type: site unspecified Qualified Code(s): N39.0 - Urinary tract infection, site not specified Code(s): N39.0 - Urinary tract infection, site not specified Status: Acute Assessment and Plan: He was started on antibiotic by PCP and received 4 doses without improvement. Family is unable to identify the name of the antibiotic. UCx grew >100,000 CFU S. viridans. The patient self-caths once daily due to his MS, which puts him at risk for associated infection. UTI is likely contributing to altered mental state. Continue IV Rocephin. Started on 02/22. Today is day 4. Will plan to complete 5 days of abx. He has been having some incontinent voids which says is not abnormal. He may need to cath more frequently than once per day. (4) Multiple sclerosis: Code(s): G35 - Multiple sclerosis Status: Chronic Assessment and Plan: Chronic and stable. Continue teriflunomide which is NF so is bringing from home. (5) Restless leg syndrome: Code(s): G25.81 - Restless legs syndrome Status: Chronic Assessment and Plan: Chronic and stable. continue pramipexole. (6) Hypertension: Qualifiers: Hypertension type: essential hypertension Qualified Code(s): I10 - Essential (primary) hypertension Code(s): I10 - Essential (primary) hypertension Status: Acute Assessment and Plan: Blood pressures have been consistently elevated during his stay. He has no documented history of HTN and is not on antihypertensives. Continue amlodipine 5 mg, started on 02/24. Continue to monitor BP closely. (7) Generalized weakness: Code(s): R53.1 - Weakness Status: Acute Assessment and Plan: At baseline, patient is weak due to his MS and uses a walker at home. He has had several falls. reports he has been getting weaker and she believes it is due to his infection as he has had an episode similar to this before. PT and OT have been consulted and recommendations are appreciated. CC is following for possible SNF placement. Repeat COVID test ordered for placement today. (8) Left shoulder pain: Qualifiers: Chronicity: unspecified Qualified Code(s): M25.512 - Pain in left shoulder Code(s): M25.512 - Pain in left shoulder Status: Inactive Assessment and Plan: Seems to be an ongoing problem. Upon review, he had an ER visit for similar pain one day prior to his admission on 02/22/20. notes that pain has been ongoing since a previous fall. He has had X-rays at outside facility and also had x-rays here on 02/21 which showed mild separation of AC joint without evidence of fra
[2020-02-26] MEDS: polyethylene glycoL 3350 17 GM POWD.PACK PO (16:20)
[2020-02-26] MEDS: MELATONIN 5 MG TABLET 10 MG PO (20:56)
[2020-02-26] MEDS: DOCUSATE SODIUM 100 MG CAPSULE PO (20:57)
[2020-02-26 22:00] VITALS: BP 135/81; PULSE 81; RESP 20; TEMP 37; O2SAT 98
[2020-02-27 02:00] VITALS: BP 154/77; PULSE 74; RESP 18; TEMP 37; O2SAT 97
[2020-02-27 06:00] VITALS: BP 146/78; PULSE 74; RESP 20; TEMP 36.7; O2SAT 96
[2020-02-27 06:27] LABS: Hematocrit 38.6 % (42.0-52.0); Hemoglobin 12.7 g/dL (14.0-18.0); Mean Corpuscular HGB Conc 32.9 g/dl (32-36); Mean Corpuscular Hemoglobin 29.9 pg (26-34); Mean Corpuscular Volume 90.8 fl (80-100); Mean Platelet Volume 10.6 fl (7.4-10.4); Platelet Count Result 228 k/mm3 (150-375); Red Blood Count 4.25 M/mm3 (4.6-6.20); Red Cell Distribution Width 13.3 % (11.5-14.5); White Blood Count 6.9 K/mm3 (4.5-10.0)
[2020-02-27 06:34] LABS: Anion Gap 12.2 mmol/L (7-16); Blood Urea Nitrogen 21 mg/dL (9-20); Calcium 9.1 mg/dL (8.4-10.2); Carbon Dioxide 25 mmol/L (22-30); Chloride 104 mmol/L (98-107); Estimated CRCL calculation 78 ml/min; Estimated Glomerular Filt Rate > 60; Glucose 114 mg/dL (75-110); Potassium 4.2 mmol/L (3.4-5.0); Sodium 137 mmol/L (137-145)
[2020-02-27] MEDS: DOCUSATE SODIUM 100 MG CAPSULE PO (08:33)
[2020-02-27] MEDS: ESCITALOPRAM OXALATE 10 MG TABLET 20 MG PO (08:33)
[2020-02-27] MEDS: CHOLECALCIFEROL 1,000 UNIT TABLET 8000 UNITS PO (08:33)
[2020-02-27] MEDS: polyethylene glycoL 3350 17 GM POWD.PACK PO (08:33)
[2020-02-27] MEDS: PRAMIPEXOLE 0.25 MG TABLET PO ×3 (08:33→16:55)
[2020-02-27] MEDS: MIRABEGRON 50 MG ER TABLET PO (08:34)
[2020-02-27] MEDS: amLODIPine BESYLATE 5 MG TABLET PO (08:35)
[2020-02-27 10:00] VITALS: BP 140/68; PULSE 84; RESP 16; TEMP 37.7; O2SAT 94
[2020-02-27 14:00] VITALS: BP 136/83; PULSE 70; RESP 20; TEMP 36.7; O2SAT 97
--- NOTE | 2020-02-27 14:45 | PM.DS ---
DS: Admitting Diagnosis Admitting Diagnosis Admitting Diagnosis: Encephalopathy, unspecified DS: Discharge Diagnosis Discharge Diagnosis (1) Acute encephalopathy: Code(s): G93.40 - Encephalopathy, unspecified Status: Acute Assessment and Plan: Likely secondary to acute UTI. B12, folate, and TSH were within normal limits. Head CT shows probable small vessel ischemic disease, cerebral atrophy, and cerebral atherosclerosis. His mental status improved and he returned to his baseline A&Ox4. (2) Sepsis: Qualifiers: Sepsis acute organ dysfunction status: unspecified Sepsis type: sepsis due to unspecified organism Qualified Code(s): A41.9 - Sepsis, unspecified organism Code(s): A41.9 - Sepsis, unspecified organism Status: Acute Assessment and Plan: Evident at presentation with fever, tachycardia, and leukocytosis. Source of infection was urinary tract infection. Sepsis resolved. Blood cultures were negative. (3) UTI (urinary tract infection): Qualifiers: Hematuria presence: without hematuria Urinary tract infection type: site unspecified Qualified Code(s): N39.0 - Urinary tract infection, site not specified Code(s): N39.0 - Urinary tract infection, site not specified Status: Acute Assessment and Plan: UCx grew >100,000 CFU S. viridans. The patient self-caths once daily due to his MS, which puts him at risk for associated infection. UTI likely contributed to his altered mental state. He received 5 days of IV Rocephin. (4) Multiple sclerosis: Code(s): G35 - Multiple sclerosis Status: Chronic Assessment and Plan: Chronic and stable. Continue home regimen. (5) Restless leg syndrome: Code(s): G25.81 - Restless legs syndrome Status: Chronic Assessment and Plan: Chronic and stable. Continue pramipexole. (6) Hypertension: Qualifiers: Hypertension type: essential hypertension Qualified Code(s): I10 - Essential (primary) hypertension Code(s): I10 - Essential (primary) hypertension Status: Acute Assessment and Plan: Blood pressures were consistently elevated during his stay. He has no documented history of HTN and was not on antihypertensives. He was started on amlodipine which he will continue. BP improved. Recommended to monitor and record blood pressures at SNF and at home for review by PCP. (7) Generalized weakness: Code(s): R53.1 - Weakness Status: Acute Assessment and Plan: At baseline, patient is weak due to his MS and uses a walker at home. He has had several falls. He was evaluated by PT and OT and was recommended to continue therapy at SNF. He was accepted to [facility]. (8) Left shoulder pain: Qualifiers: Chronicity: unspecified Qualified Code(s): M25.512 - Pain in left shoulder Code(s): M25.512 - Pain in left shoulder Status: Inactive Assessment and Plan: Ongoing issue. Upon review, he had an ER visit for similar pain one day prior to his admission on 02/22/20. notes that pain has been ongoing since a previous fall. He has had X-rays at outside facility and also had x-rays here on 02/21 which showed mild separation of AC joint without evidence of fracture or soft tissue changes. Continue supportive care and he may benefit from outpatient referral to orthopedics if pain persists. (9) COVID-19 ruled out by laboratory testing: Code(s): Z03.818 - Encounter for observation for suspected exposure to other biological agents ruled out Status: Acute Assessment and Plan: Negative result on 02/23/2020 and isolation precautions were discontinued. Repeat testing was required for acceptance to SNF, also negative on 02/27/2020. DS: Summary Hospital Course Reason for hospitalization: Altered mental status Hospital Course: Date of admission: 02/23/2020 Date of discharge: 02/27/2020
[2020-02-27 15:04] LABS: SARS-CoV-2 RNA PCR Negative
[2020-02-27] MEDS: ACETAMINOPHEN 325 MG TABLET 650 MG PO (15:36)
--- NOTE | 2020-02-27 19:51 | PC.NURSE ---
Patient discharged by ambulance with all belongings. called and informed of patients departure.
== END 2020-02-27 20:13 ==
LOC: ANHED 20:22 → ANH3MEDSUR 20:33
PROVIDERS: Physician Assistant; Admitting Provider Family Medicine; Emergency Provider Emergency Medicine; PCP Family Medicine; Visit Provider Internal Medicine
DX: A41.9 Sepsis, unspecified organism (principal); N39.0 Urinary tract infection, site not specified; B96.89 Other specified bacterial agents as the cause of diseases classified elsewhere; G93.40 Encephalopathy, unspecified; G35 Multiple sclerosis; G25.81 Restless legs syndrome; I10 Essential (primary) hypertension; R53.1 Weakness; Z91.81 History of falling; M25.512 Pain in left shoulder; Z20.828 Contact with and (suspected) exposure to other viral communicable diseases; Z79.899 Other long term (current) drug therapy; Z87.891 Personal history of nicotine dependence
CPT/HCPCS: 36415; 70450; 71045; 80048; 80053; 81001; 82607; 82746; 83605; 84443; 85025; 85027; 87040; 87086; 87088; 87635; 93005; 96365; 96376; 97110; 97161; 97165; 97530; 97535; 99285; A9270; C9803; G0378; J0696; U0003

== ENCOUNTER 2020-04-03 18:50 | Observation (INO) | payer MEDICARE, SELFPAY ==
[2020-04-03] VITALS (11 sets, daily range): BP systolic 131–168; BP diastolic 63–92; PULSE 68–95; RESP 14–24; TEMP 36.4–37.4; O2SAT 94–99
--- NOTE | ~2020-04-03 | CT_ITS ---
EXAMINATION: CT brain wo con DATE: 04/03/2020 20:48 INDICATION: Status post fall. Trauma to the face. Headache. TECHNIQUE: Computed tomography (CT) of the head was performed without intravenous contrast. The dose- length product was 1362.00 mGy-cm. The mA was adjusted according to patient size. Iterative reconstru ction technique was employed. COMPARISON: CT dated 02/23/2020 FINDINGS: Generalized atrophy. Stable mild ventriculomegaly. There are scattered mild periventricular and subcortical white matter changes, most likely related to small vessel ischemic disease (microang iopathy). No acute intracranial hemorrhage, infarction, mass or mass effect. There is mucosal thicken ing of the maxillary, ethmoid, frontal and sphenoid sinuses. Mastoids are pneumatized. IMPRESSION: 1. No acute intracranial abnormality. No significant change. 2: Moderate chronic sinusitis. Reviewed, dictated and finalized at location A.
--- NOTE | 2020-04-03 19:42 | PC.NURSE ---
Patient's in room with patient at this time reports that the patient has had 2 falls within the last 2 [facility] and tells me that she was told that the patient did complain of pain to his head and back. Patient still denies pain at this time. She reports that he is having increasing weakness and confusion since [facility] as well.
--- NOTE | 2020-04-03 19:45 | PC.NURSE ---
Patient is having increasing frequent spasms in his legs. Family reports that this is due to his MS and does not believe he has been given his medication for this. Patient states the same.
[2020-04-03 19:58] LABS: Add Urine Microscopic? YES; Appearance Urine Clear (Clear); Bilirubin Urine Negative (Negative); Blood Urine 2+ (Negative); Color Urine Yellow (Yellow); Glucose Urine UA Negative (Negative); Ketones Urine Trace mg/dL (Negative); Leukocyte Esterase Ur Trace LEU/UL (Negative); Mucus Urine Rare /lpf; Nitrate Urine Positive (Negative); Protein Urine 1+ mg/dL (Negative); Specific Grav Ur 1.025 (1.001-1.035); Squamous Epithelial Cell Urine Rare /hpf (Few); Urobilinogen Urine Negative mg/dL (<2.0)
--- NOTE | 2020-04-03 20:41 | PC.NURSE ---
Patient to CT at this time.
[2020-04-03 20:46] LABS: Basophils Percent Auto 0.7 % (0.2-1.2); Eosinophils Absolute Auto 0.1 K/mm3 (0-0.3); Eosinophils Percent Auto 1.5 % (0-4.4); Hematocrit 38.9 % (42.0-52.0); Hemoglobin 12.8 g/dL (14.0-18.0); Immature Granulocyte Absolute 0.01 K/mm3 (0.00-0.031); Immature Granulocyte Percent A 0.2 % (0-0.5); Lymphocytes Absolute Auto 1.55 K/mm3 (0.9-3.2); Lymphocytes Percent Auto 37.6 % (18.3-44.2); Mean Corpuscular HGB Conc 32.9 g/dl (32-36); Mean Corpuscular Hemoglobin 29.3 pg (26-34); Mean Platelet Volume 11.6 fl (7.4-10.4); Monocytes Absolute Auto 0.4 K/mm3 (0.1-0.6); Monocytes Percent Auto 8.7 % (2.6-8.5); Neutrophils Absolute Auto 2.1 K/mm3 (1.3-6.7); Neutrophils Percent Auto 51.3 % (45.5-73.1); Platelet Count Result 167 k/mm3 (150-375); Red Blood Count 4.37 M/mm3 (4.6-6.20); Red Cell Distribution Width 13.1 % (11.5-14.5); White Blood Count 4.1 K/mm3 (4.5-10.0)
[2020-04-03 20:57] LABS: Alanine Aminotransferase 62 U/L (4-50); Alkaline Phosphatase 70 U/L (38-126); Anion Gap 8 mmol/L (8-16); Aspartate Amino Transferase 62 U/L (17-59); Bilirubin,Total 0.3 mg/dL (0.2-1.3); Blood Urea Nitrogen 14 mg/dL (9-20); Calcium 8.9 mg/dL (8.4-10.2); Carbon Dioxide 25 mmol/L (22-30); Chloride 105 mmol/L (98-107); Estimated CRCL calculation 79 ml/min; Estimated Glomerular Filt Rate > 60; Glucose 87 mg/dL (75-110); Potassium 3.7 mmol/L (3.4-5.0); Sodium 138 mmol/L (137-145)
[2020-04-03] MEDS: HALOPERIDOL LACTATE 5 MG/ML VIAL IV PUSH (22:13)
--- NOTE | 2020-04-03 22:15 | PC.NURSE ---
Per verbal order of Dr. Joshi give 2.5 mg haldol IV and give the second 2.5 mg haldol IV in 10 minutes. First dose given at 1456
--- NOTE | 2020-04-03 22:22 | ED.GENADULT ---
HPI - General Adult General Chief complaint: Unspecified Stated complaint: fall Time Seen by Provider: 04/03/20 19:55 Source: patient and family Mode of arrival: EMS Limitations: altered mental status (Very agitated and at times confused) History of Present Illness HPI narrative: 64-year-old with a history of MS, restless leg syndrome, frequent UTIs [facility] a [facility] with complaints of marked agitation, confusion and frequent falls. Patient states that he fell few days ago complaining of left hip pain left shoulder pain. However patient states that he did not hit his head. He is able to move his shoulder and hip without any difficulty. also reports that his care at the [facility] has been very poor, they make him sit in the wheelchair all day long. She reports that he needs to be frequently cath however they do not do that at the fci. Onset (ago): day(s) (1) Relieving factors: none Exacerbating factors: none Related Data Home Medications Medication Instructions Recorded Confirmed Myrbetriq 50 mg PO DAILY 02/03/20 02/23/20 escitalopram oxalate 20 mg PO DAILY 02/03/20 02/23/20 pramipexole 0.25 mg PO TID 02/03/20 02/23/20 Aubagio 14 mg PO DAILY 02/23/20 02/23/20 cholecalciferol (vitamin D3) 125 mcg PO DAILY 02/23/20 02/24/20 [Vitamin D3] ibuprofen 200 mg PO Q6H PRN 02/23/20 02/24/20 melatonin 10 mg PO HS 02/23/20 02/23/20 Allergies Allergy/AdvReac Type Severity Reaction Status Date / Time No Known Allergies Allergy Unknown Verified 02/19/20 15:02 Review of Systems Review of Systems: All systems reviewed & are unremarkable except as noted in HPI and below Constitutional: Constitutional: Reports no additional constitutional complaints Eyes: Eyes: Reports no additional eye complaints ENT: Reports system reviewed and no additional complaints, except as documented Cardiovascular: Cardiovascular: Reports no additional cardiovascular complaints Respiratory: Respiratory: Reports no additional respiratory complaints Genitourinary: Genitourinary: Reports hematuria and Reports urinary frequency Musculoskeletal: Musculoskeletal: Reports no additional musculoskeletal complaints Neurologic: Reports system reviewed and no additional complaints, except as documented [facility] Past Medical History Medical History Depression Fracture lt wrist Multiple sclerosis Restless leg syndrome Surgical History Surgical History No pertinent past surgical history Family History Family History Father Family history of malignant neoplasm of esophagus Mother Pacemaker Social History Social History Smoking packs per day: 1 Smoking cigarettes per day: 20.0 Years smoked: 6 Smoking pack-years: 6.00 Smoking status: Former smoker Tobacco type: cigarettes Smoking end date: 08/06/97 Alcohol intake: former Drinks per week: 6 Substance use: never Substance use type: does not use Gender identity (if verbalized by the patient): Male Spiritual care concerns: No Exam Narrative: Exam Narrative: GENERAL well-nourished, and in no acute distress very agitated. HEAD: Normocephalic, atraumatic. EYES: PERRLA and EOMI. ENT: Nares clear, no rhinorrhea or epistaxis. Mucous membranes moist. NECK: Supple. CHEST: Clear to auscultation. No respiratory distress. HEART: Regular rate and rhythm. No murmur heard. Normal peripheral pulses. ABDOMEN: Soft, nontender, nondistended, normal active bowel sounds. EXTREMITIES: Normal range of motion. No edema. Restless legs SKIN: Warm, dry, no rash. NEURO: No focal deficits. Alert and oriented x3. PSYCH: Normal mood and affect. Course Vital Signs Vital signs: Vital Signs Temperature 36.6 C 04/03/20 18:59 Pulse Rate 68
--- NOTE | 2020-04-03 22:28 | PC.NURSE ---
Patient continues to be very restless, complaining of spasms in his legs with pain. He is unable to find a position of comfort at this time.
--- NOTE | 2020-04-03 22:30 | PC.NURSE ---
As per verbal order of Dr. Joshi, the second dose of 2.5 mg Haldol was given at this time.
[2020-04-04] VITALS (9 sets, daily range): BP systolic 135–161; BP diastolic 68–95; PULSE 63–96; RESP 16–24; TEMP 36.7–38.4; O2SAT 96–98
--- NOTE | 2020-04-04 | ADMGEN ---
This patient, Elbert Browning, was admitted to Medical Room [facility]- at 2350. Patient/family oriented to hospital policies and general routines including ID bracelet, bed and alarms, visiting hours, pain management, procedures, bathroom and other care routines, personal items, smoking policy, room service/diet, and visiting hours. Valuables list has been completed. Information on how to activate the Rapid Response Team has been discussed. Patient/Family are encouraged to report perceived risks to care and to ask questions if they do not understand what they are told or what they should do.
[2020-04-04] MEDS: SODIUM CHLORIDE 0.9% IV 1,000 ML 75 ML IV CONT ×2 (00:10→12:29)
[2020-04-04] MEDS: TOLNAFTATE 1% POWDER 45 GM BTL 1 APPLIC TOPICAL ×3 (00:20→21:18)
--- NOTE | 2020-04-04 04:54 | PM.IMHP ---
H&P: HPI History of Present Illness Date/Time: 04/04/20 04:54 Chief complaint: altered mental status, uti, agitation Narrative: This is a 64 year old male with known history of Multiple sclerosis and RLS who presented to the hospital from the [facility] to acute agitation and suffering a fall a few days ago. The patient has a history of intermittent urinary catheterizing. The patient's had reported to ER staff that she felt that he was not being taken care of well at the snf and that they let him sit in his wheelchair all day. She also reports that they have not been straight cathing him at the snf. The patient was found to be very agitated in the ER and was treated with ativan and haldol. On my encounter with the patient he appears very confused and cannot answer my questions appropriately. When I ask him where he is, he says, [place] . The patient was found to have an abnormal urinalysis and has been started on IV antibiotics. Brain CT was unremarkable. The patient has no complaints. Nursing staff has alerted me several times tonight that the patient has been trying to rip out his IV and continually trying to get out of his bed. Review of Systems Review of Systems: ROS unobtainable: Yes unobtainable due to mental status PMFSH Past Medical History Medical History Depression Fracture lt wrist Multiple sclerosis Restless leg syndrome Surgical History Surgical History No pertinent past surgical history Family History Family History Father Family history of malignant neoplasm of esophagus Mother Pacemaker Social History Social History Smoking packs per day: 1 Smoking cigarettes per day: 20.0 Years smoked: 6 Smoking pack-years: 6.00 Smoking status: Unknown if ever smoked Tobacco type: cigarettes Smoking end date: 08/06/97 Alcohol intake: former Drinks per week: 6 Substance use: former Substance use type: does not use Gender identity (if verbalized by the patient): Male Spiritual care concerns: No Meds Home Medications and Allergies Home Medications Medication Instructions Recorded Confirmed Type Myrbetriq 50 mg PO DAILY 02/03/20 04/04/20 History escitalopram oxalate 20 mg PO DAILY 02/03/20 04/04/20 History Aubagio 14 mg PO DAILY 02/23/20 04/04/20 History cholecalciferol (vitamin D3) 125 mcg PO DAILY 02/23/20 04/04/20 History [Vitamin D3] ibuprofen 200 mg PO Q6H PRN 02/23/20 04/04/20 History melatonin 10 mg PO HS 02/23/20 04/04/20 History acetaminophen-codeine 1 tablet PO TID 04/03/20 04/04/20 History lorazepam 0.5 mg PO TID PRN 04/03/20 04/04/20 History pramipexole [Mirapex] 0.5 mg PO TID 04/03/20 04/04/20 History Allergies Allergy/AdvReac Type Severity Reaction Status Date / Time No Known Allergies Allergy Unknown Verified 04/03/20 22:53 Vital Signs Vital Signs - 24 hr 04/03/20 18:59 04/03/20 19:09 04/03/20 19:45 Temperature 36.6 C 36.4 C Pulse Rate 68 74 68 Respiratory Rate 21 H 18 21 H Blood Pressure 135/79 153/74 H Pulse Oximetry 99 99 98 04/03/20 20:10 04/03/20 21:45 04/03/20 22:00 Temperature 36.7 C Pulse Rate 72 78 80 Respiratory Rate 18 18 18 Blood Pressure 152/74 H 131/63 Pulse Oximetry 98 94 04/03/20 22:27 04/03/20 22:40 04/03/20 22:45 Temperature 37.4 C Pulse Rate 93 94 95 Respiratory Rate 20 16 21 H Blood Pressure 163/87 H Pulse Oximetry 98 98 97 04/03/20 22:52 04/03/20 23:44 04/04/20 00:18 Temperature 37.4 C 37.3 C 38.4 C H Pulse Rate 87 89 96 Respiratory Rate 24 H 14 22 H Blood Pressure 168/92 H 159/71 H 161/95 H Pulse Oximetry 97 96 96 04/04/20 00:20 04/04/20 01:33 04/04/20 01:41 Temperature 38.4 C H 36.8 C 36.8 C Pulse Rate Respiratory Rate Blood
[2020-04-04] MEDS: OLANZapine 10 MG INJ VIAL IM (05:00)
[2020-04-04 06:07] LABS: Basophils Percent Auto 0.5 % (0.2-1.2); Eosinophils Absolute Auto 0.1 K/mm3 (0-0.3); Eosinophils Percent Auto 1.2 % (0-4.4); Hematocrit 37.7 % (42.0-52.0); Hemoglobin 12.3 g/dL (14.0-18.0); Immature Granulocyte Absolute 0.01 K/mm3 (0.00-0.031); Immature Granulocyte Percent A 0.2 % (0-0.5); Lymphocytes Absolute Auto 1.42 K/mm3 (0.9-3.2); Lymphocytes Percent Auto 34.1 % (18.3-44.2); Mean Corpuscular HGB Conc 32.6 g/dl (32-36); Mean Corpuscular Hemoglobin 29.4 pg (26-34); Monocytes Absolute Auto 0.4 K/mm3 (0.1-0.6); Monocytes Percent Auto 9.1 % (2.6-8.5); Neutrophils Absolute Auto 2.3 K/mm3 (1.3-6.7); Neutrophils Percent Auto 54.9 % (45.5-73.1); Platelet Count Result 152 k/mm3 (150-375); Red Blood Count 4.19 M/mm3 (4.6-6.20); White Blood Count 4.2 K/mm3 (4.5-10.0)
[2020-04-04 06:36] LABS: Anion Gap 7 mmol/L (8-16); Blood Urea Nitrogen 12 mg/dL (9-20); Calcium 8.4 mg/dL (8.4-10.2); Carbon Dioxide 24 mmol/L (22-30); Chloride 107 mmol/L (98-107); Estimated CRCL calculation 87 ml/min; Estimated Glomerular Filt Rate > 60; Glucose 83 mg/dL (75-110); Potassium 3.4 mmol/L (3.4-5.0); Sodium 138 mmol/L (137-145)
[2020-04-04 08:11] LABS: Thyroid Stimulating Hormone Reflex 0.864 uIU/mL (0.465-4.68)
--- NOTE | 2020-04-04 09:44 | PM.IMPN ---
Progress Note: A&P Assessment and Plan (1) Altered mental status: Qualifiers: Altered mental status type: unspecified Qualified Code(s): R41.82 - Altered mental status, unspecified Code(s): R41.82 - Altered mental status, unspecified Status: Acute Assessment and Plan: May be secondary to worsening MS, dementia, UTI, dehydration, metabolic. CT brain was unremarkable. TSH WNL. Vit B12/folate pending. Continue treatment of possible UTI. Neurochecks. Discussed with CC in regards to ED note noting feeling care is poor at [place] (2) Agitation: Code(s): R45.1 - Restlessness and agitation Status: Acute Assessment and Plan: Patient is sleeping today likely due to antipsychotics given overnight Monitor closely Ativan TID Prn for agitation for now, but use sparingly (3) Abnormal urinalysis: Code(s): R82.90 - Unspecified abnormal findings in urine Status: Acute Assessment and Plan: r/o UTI, Rocephin started in ED. UCx pending Continue IV antibiotics. Tailor antibiotics to UCx (4) Tinea corporis: Code(s): B35.4 - Tinea corporis Status: Acute Assessment and Plan: Antifungal powder/ointment to inguinal area, perineum, feet, abd folds. (5) Multiple sclerosis: Code(s): G35 - Multiple sclerosis Status: Chronic Assessment and Plan: Continue Aubagio if able to bring from [place] (6) Restless leg syndrome: Code(s): G25.81 - Restless legs syndrome Status: Chronic Assessment and Plan: Continue mirapex (7) Intermittent self-catheterization of bladder: Code(s): Z78.9 - Other specified health status Status: Chronic Assessment and Plan: Bladder scan PRN and straight cath for >400 cc of urine. Subjective Date/time seen: 04/04/20 09:44 Interval history: Patient is a 64 yo M with history of Multiple sclerosis and RLS who is here for evaluation of AMS likely secondary to a suspected UTI. Patient is obtunded likely secondary to antipsychotics given overnight due to agitation. He opens eyes to verbal/physical stimuli and can tell me his name, but then falls right back to sleep. No other history/ROS were able to be obtained at the moment. Review of Systems Review of Systems: ROS unobtainable: Yes unobtainable due to mental status Exam Narrative: Exam Narrative: General: Patient resting supine in bed in no acute distress. Obtunded. Arousable to physical/verbal stimuli but falls back asleep easily. Able to tell me his name. Nursing in room changing patient. Foul smell noted in room HEENT: Normocephalic, EOMI, oral mucosa moist. Cardiovascular: Rate and rhythm are regular. No notable murmur, rub, or gallop. Respiratory: Lungs clear to auscultation all levy. Non-labored breathing. Abdomen: Soft, non-tender, non-distended, bowel sounds present. Extremities: Peripheral pulses intact. No edema. Stool noted on left LE Neuro: Moves all extremities Objective Data Vital Signs Vital Signs: Last Vital Signs Temp 98.0 F 04/04/20 06:00 Pulse 70 04/04/20 06:00 Resp 16 04/04/20 06:00 BP 135/68 04/04/20 06:00 Pulse Ox 97 04/04/20 06:00 Intake/Output Intake/Output: Intake & Output 04/01/20 04/02/20 04/03/20 04/04/20 23:59 23:59 23:59 23:59 Intake Total 50 100 Output Total 350 Balance -300 100 Meds/Results Medications: Active Medications Generic Name Dose Route Start Last Admin Trade Name Freq PRN Reason Stop Dose Admin Acetaminophen 650 mg 04/03/20 22:35 Tylenol Tablet PO Q4H PRN Mild Pain (1-3) or Fever Sodium Chloride 1,000 mls @ 75 mls/hr 04/03/20 22:35 04/04/20 00:10
[2020-04-04 11:21] LABS: Folic Acid 8.2 ng/mL (2.76->20)
[2020-04-04] MEDS: CHOLECALCIFEROL 1,000 UNITS TABLET 5000 UNITS PO (12:20)
[2020-04-04] MEDS: MIRABEGRON 50 MG ER TABLET PO (12:21)
[2020-04-04] MEDS: PRAMIPEXOLE 0.5 MG TABLET PO ×3 (12:21→21:23)
--- NOTE | 2020-04-04 13:30 | PC.NURSE ---
Patient had episode of urinary incontinence and bladder scanned for post void residual. Patient found to have less than 200ml's in bladder at time of bladder scan.
--- NOTE | 2020-04-04 13:35 | PC.NURSE ---
Per patient's she will obtain Aubagio from [facility] today to bring in for patient to take during hospital stay.
--- NOTE | 2020-04-04 16:00 | PC.NURSE ---
Per patient's Devora she will bring patient's home medication Aubagio to hospital tomorrow 04/05/2020 for patient to take during hospitalization.
[2020-04-04] MEDS: MELATONIN 5 MG TABLET 10 MG PO (21:18)
[2020-04-04] MEDS: LORazepam 0.5 MG TABLET PO (21:18)
[2020-04-05] MEDS: SODIUM CHLORIDE 0.9% IV 1,000 ML 75 ML IV CONT ×2 (01:50→15:44)
[2020-04-05 02:00] VITALS: BP 154/76; PULSE 78; RESP 20; TEMP 36.9; O2SAT 98
[2020-04-05 06:00] VITALS: BP 154/88; PULSE 75; RESP 20; TEMP 36.8; O2SAT 98
[2020-04-05 06:15] LABS: Hematocrit 38.1 % (42.0-52.0); Hemoglobin 12.5 g/dL (14.0-18.0); Mean Corpuscular HGB Conc 32.8 g/dl (32-36); Mean Corpuscular Hemoglobin 29.7 pg (26-34); Mean Corpuscular Volume 90.5 fl (80-100); Mean Platelet Volume 11.6 fl (7.4-10.4); Platelet Count Result 137 k/mm3 (150-375); Red Blood Count 4.21 M/mm3 (4.6-6.20); Red Cell Distribution Width 13.3 % (11.5-14.5); White Blood Count 3.7 K/mm3 (4.5-10.0)
[2020-04-05 06:25] LABS: Anion Gap 6 mmol/L (8-16); Blood Urea Nitrogen 7 mg/dL (9-20); Calcium 8.2 mg/dL (8.4-10.2); Carbon Dioxide 21 mmol/L (22-30); Chloride 111 mmol/L (98-107); Estimated CRCL calculation 97 ml/min; Estimated Glomerular Filt Rate > 60; Glucose 103 mg/dL (75-110); Magnesium 1.9 mg/dL (1.6-2.3); Potassium 3.3 mmol/L (3.4-5.0); Sodium 138 mmol/L (137-145)
[2020-04-05] MEDS: LORazepam 0.5 MG TABLET PO ×2 (08:56→15:44)
[2020-04-05] MEDS: POTASSIUM CHLORIDE 20 MEQ TABLET 60 MEQ PO (08:56)
[2020-04-05] MEDS: ACETAMINOPHEN 325 MG TABLET 650 MG PO ×2 (08:56→15:44)
[2020-04-05] MEDS: TOLNAFTATE 1% POWDER 45 GM BTL 1 APPLIC TOPICAL ×2 (08:57→23:02)
[2020-04-05] MEDS: MIRABEGRON 50 MG ER TABLET PO (08:57)
[2020-04-05] MEDS: CHOLECALCIFEROL 1,000 UNITS TABLET 5000 UNITS PO (08:57)
[2020-04-05] MEDS: PRAMIPEXOLE 0.5 MG TABLET PO ×3 (08:57→16:55)
[2020-04-05 09:50] VITALS: BP 120/65; PULSE 92; RESP 20; TEMP 36.4; O2SAT 98
[2020-04-05 12:00] VITALS: BP 146/79; PULSE 76; RESP 22; TEMP 36.5; O2SAT 95
--- NOTE | 2020-04-05 12:00 | PM.IMPN ---
Progress Note: A&P Assessment and Plan (1) UTI (urinary tract infection): Qualifiers: Hematuria presence: with hematuria Urinary tract infection type: site unspecified Qualified Code(s): N39.0 - Urinary tract infection, site not specified; R31.9 - Hematuria, unspecified Code(s): N39.0 - Urinary tract infection, site not specified Status: Acute Assessment and Plan: UCx growing pseudomonas. Rocephin started in ED; this has been discontinued. Start IV Fortaz today until sensitivities return Tailor antibiotics to UCx (2) Altered mental status: Qualifiers: Altered mental status type: unspecified Qualified Code(s): R41.82 - Altered mental status, unspecified Code(s): R41.82 - Altered mental status, unspecified Status: Acute Assessment and Plan: May be secondary to UTI, worsening MS, dementia, dehydration, metabolic. CT brain was unremarkable. TSH WNL. Vit B12/folate WNL. Continue treatment of possible UTI. Neurochecks. Discussed with CC in regards to ED note noting feeling care is poor at [place] (3) Agitation: Code(s): R45.1 - Restlessness and agitation Status: Acute Assessment and Plan: Patient is more alert and cooperative today. Monitor closely Ativan TID PRN for agitation for now, but use sparingly (4) Tinea corporis: Code(s): B35.4 - Tinea corporis Status: Acute Assessment and Plan: Antifungal powder/ointment to inguinal area, perineum, feet, abd folds. (5) Multiple sclerosis: Code(s): G35 - Multiple sclerosis Status: Chronic Assessment and Plan: Continue Aubagio if able to bring from [place] (6) Restless leg syndrome: Code(s): G25.81 - Restless legs syndrome Status: Chronic Assessment and Plan: Continue mirapex (7) Intermittent self-catheterization of bladder: Code(s): Z78.9 - Other specified health status Status: Chronic Assessment and Plan: Bladder scan PRN and straight cath for >400 cc of urine. (8) Pancytopenia: Code(s): D61.818 - Other pancytopenia Status: Acute Assessment and Plan: Noted today. Suspect due to MS medication Monitor daily Discussed with patient and that he will need to follow up with MS specialist at [facility] for further management Subjective Date/time seen: 04/05/20 12:00 Interval history: Patient is a 64 yo M with history of Multiple sclerosis and RLS who is here for evaluation of AMS likely secondary to a UTI. Patient is more alert today and oriented x 4. Much more conversive. States he was dizzy and confused and that is why he is here in the hospital. He endorses increased urinary frequency. Has some left arm soreness. Occasionally nauseas. No other complaints at the moment Denies f/c/s,headaches, dizziness, lightheadedness,cp/palpitations, sob/cough, d/c, abd pain, changes in BMs, dysuria, hematuria, cloudy urine, calf pain/swelling. Review of Systems Review of Systems: All systems reviewed & are unremarkable except as noted in HPI and below Exam Narrative: Exam Narrative: General: Patient resting supine in bed in no acute distress. A&Ox4. comfrotable HEENT: Normocephalic, EOMI, oral mucosa moist. Cardiovascular: Rate and rhythm are regular. No notable murmur, rub, or gallop. Respiratory: Lungs clear to auscultation all levy. Non-labored breathing. Abdomen: Soft, non-tender, non-distended, bowel sounds present. Extremities: Peripheral pulses intact. No edema. NTTP b/l calves Neuro: Moves all extremities. no focal deficits. Speech clear Objective Data Vital Signs Vital Signs: Last Vital S
[2020-04-05 13:06] LABS: SARS-CoV-2 RNA PCR Positive
[2020-04-05 16:00] VITALS: BP 150/72; PULSE 76; RESP 20; TEMP 36.5; O2SAT 96
--- NOTE | 2020-04-05 16:45 | ADMGEN ---
This patient, Elbert Brwoning, was admitted to [facility] S[facility] Room 327-01. Patient/family oriented to hospital policies and general routines including ID bracelet, bed and alarms, visiting hours, pain management, procedures, bathroom and other care routines, personal items, smoking policy, room service/diet, and visiting hours. Valuables list has been completed. Information on how to activate the Rapid Response Team has been discussed. Patient/Family are encouraged to report perceived risks to care and to ask questions if they do not understand what they are told or what they should do.
--- NOTE | 2020-04-05 16:54 | PC.NURSE ---
This patient, Elbert Browning, was transferred to room 327 on 04/05/20 at 1645. Personal belongings sent with patient. Report given to JACKSON Card. Appropriate documentation sent with patient.
[2020-04-05 20:00] VITALS: BP 129/93; PULSE 86; RESP 18; TEMP 36.6; O2SAT 97
[2020-04-05] MEDS: MELATONIN 5 MG TABLET 10 MG PO (21:46)
[2020-04-06] VITALS: BP 169/77; PULSE 90; RESP 18; TEMP 37.3; O2SAT 97
[2020-04-06] MEDS: LORazepam 0.5 MG TABLET PO ×2 (01:09→12:59)
[2020-04-06] MEDS: ACETAMINOPHEN 325 MG TABLET 650 MG PO (01:15)
[2020-04-06 04:00] VITALS: BP 158/88; PULSE 91; RESP 20; TEMP 36.5; O2SAT 97
[2020-04-06] MEDS: SODIUM CHLORIDE 0.9% IV 1,000 ML 75 ML IV CONT (05:23)
[2020-04-06 06:48] LABS: Basophils Percent Auto 0.4 % (0.2-1.2); Eosinophils Absolute Auto 0.1 K/mm3 (0-0.3); Hematocrit 36.9 % (42.0-52.0); Hemoglobin 11.9 g/dL (14.0-18.0); Immature Granulocyte Absolute 0.02 K/mm3 (0.00-0.031); Immature Granulocyte Percent A 0.4 % (0-0.5); Immature Platelet Fraction Pct 6.6 % (0.9-11.2); Lymphocytes Absolute Auto 1.57 K/mm3 (0.9-3.2); Lymphocytes Percent Auto 34.9 % (18.3-44.2); Mean Corpuscular HGB Conc 32.2 g/dl (32-36); Mean Corpuscular Hemoglobin 28.5 pg (26-34); Mean Corpuscular Volume 88.3 fl (80-100); Mean Platelet Volume 11.4 fl (7.4-10.4); Monocytes Absolute Auto 0.4 K/mm3 (0.1-0.6); Monocytes Percent Auto 7.8 % (2.6-8.5); Neutrophils Absolute Auto 2.5 K/mm3 (1.3-6.7); Neutrophils Percent Auto 54.5 % (45.5-73.1); Platelet Count Result 131 k/mm3 (150-375); Red Blood Count 4.18 M/mm3 (4.6-6.20); Red Cell Distribution Width 13.3 % (11.5-14.5); White Blood Count 4.5 K/mm3 (4.5-10.0)
[2020-04-06 07:04] LABS: Alanine Aminotransferase 52 U/L (4-50); Albumin Level 3.5 g/dL (3.5-5.1); Alkaline Phosphatase 57 U/L (38-126); Anion Gap 5 mmol/L (8-16); Aspartate Amino Transferase 73 U/L (17-59); Bilirubin,Total 0.3 mg/dL (0.2-1.3); Blood Urea Nitrogen 7 mg/dL (9-20); Calcium 8.3 mg/dL (8.4-10.2); Carbon Dioxide 23 mmol/L (22-30); Chloride 111 mmol/L (98-107); Estimated CRCL calculation 97 ml/min; Estimated Glomerular Filt Rate > 60; Glucose 106 mg/dL (75-110); Magnesium 1.9 mg/dL (1.6-2.3); Potassium 3.3 mmol/L (3.4-5.0); Sodium 139 mmol/L (137-145)
[2020-04-06 08:00] VITALS: BP 168/85; PULSE 95; RESP 20; TEMP 36.9; O2SAT 97
[2020-04-06] MEDS: PRAMIPEXOLE 0.5 MG TABLET PO ×3 (08:46→16:40)
[2020-04-06] MEDS: CHOLECALCIFEROL 1,000 UNITS TABLET 5000 UNITS PO (08:46)
[2020-04-06] MEDS: MIRABEGRON 50 MG ER TABLET PO (08:47)
[2020-04-06] MEDS: TOLNAFTATE 1% POWDER 45 GM BTL 1 APPLIC TOPICAL ×2 (08:56→20:40)
[2020-04-06 09:23] LABS: Glucose Point of Care 100 (65-105)
[2020-04-06 12:00] VITALS: BP 175/88; PULSE 63; RESP 20; TEMP 37.1; O2SAT 97
--- NOTE | 2020-04-06 14:32 | PM.DS ---
DS: Admitting Diagnosis Admitting Diagnosis Admitting Diagnosis: altered mental status, uti, agitation DS: Discharge Diagnosis Discharge Diagnosis (1) UTI (urinary tract infection): Qualifiers: Hematuria presence: with hematuria Urinary tract infection type: site unspecified Qualified Code(s): N39.0 - Urinary tract infection, site not specified; R31.9 - Hematuria, unspecified Code(s): N39.0 - Urinary tract infection, site not specified Status: Acute Assessment and Plan: UCx grew pseudomonas. He had fever with T-max 101.1? that resolved. Received 1 time dose IV Rocephin. Transitioned to IV ceftazidime and received 2 days. At discharge, he was transitioned to p.o. Levaquin which he will continue for 3 days to complete a total 5 days antibiotic therapy. He would benefit from outpatient urology evaluation given recent UTIs and self-cathetrization. (2) Altered mental status: Qualifiers: Altered mental status type: unspecified Qualified Code(s): R41.82 - Altered mental status, unspecified Code(s): R41.82 - Altered mental status, unspecified Status: Acute Assessment and Plan: May have been secondary to UTI, worsening MS, dementia, or dehydration. CT brain was unremarkable. TSH WNL. Vit B12/folate WNL. Upon my evaluation, patient was alert and oriented to self, place, and was able to state the year and president but not the month. I suspect he has some underlying dementia and he is likely at baseline. (3) Agitation: Code(s): R45.1 - Restlessness and agitation Status: Acute Assessment and Plan: Patient was noted to be agitated overnight on 04/04 and was given IM Zyprexa. He remained calm and cooperative following that episode. (4) Tinea corporis: Code(s): B35.4 - Tinea corporis Status: Acute Assessment and Plan: Antifungal powder to inguinal area, perineum, feet, and abdominal folds. (5) Multiple sclerosis: Code(s): G35 - Multiple sclerosis Status: Chronic Assessment and Plan: Chronic and stable. Continue home regimen. (6) Restless leg syndrome: Code(s): G25.81 - Restless legs syndrome Status: Chronic Assessment and Plan: Continue mirapex (7) Intermittent self-catheterization of bladder: Code(s): Z78.9 - Other specified health status Status: Chronic Assessment and Plan: Patient self-caths several times per day. This may contribute to UTIs. Urine output was monitored with bladder scans performed prn to ensure no urinary retention. (8) Pancytopenia: Code(s): D61.818 - Other pancytopenia Status: Acute Assessment and Plan: Noted on 04/05. Possibly secondary to his MS medications. Should discuss with his specialist at [facility] for further management. (9) COVID-19: Code(s): U07.1 - COVID-19 Status: Acute Assessment and Plan: Patient was tested for COVID-19 for return to [place] and was found to be positive although he was asymptomatic. He had no oxygen requirements. Continue isolation precautions. DS: Summary Hospital Course Reason for hospitalization: Altered mental status Hospital Course: Date of admission: 04/03/2020 Date of discharge: 04/06/2020 Elbert Browning is a 64 year old male with a history of MS with associated neurogenic bladder for which he performs self-catheterization several times per day, RLS, and recent hospitalization in February 2020 for UTI who presented to the emergency department from assisted secondary to acute agitation after suffering a fall several days prior. At presentation, he was quite agitated and was treated with ativan and haldol. Vital signs were stable, UA with trace leuk esterase, positive nitrates, and 10-15 WBC, and head CT showing no acute intracranial abnormalities. He was admitted to the hospitalist service for further evaluation and management. Please see above for furthe
[2020-04-06 16:00] VITALS: BP 172/83; PULSE 75; RESP 20; TEMP 37; O2SAT 97
--- NOTE | 2020-04-06 17:50 | PC.NURSE ---
Pt is A&O x 1 to 2. Pt has had IV removed, and report has been called to receiving nurse at [facility]. Opportunities for questions provided, and receiving nurse exhibited good understanding of all discharge instructions. Ambulance called for transportation, and Devora notified of pt returning to [facility].
[2020-04-06] MEDS: MELATONIN 5 MG TABLET 10 MG PO (20:40)
== END 2020-04-06 21:08 ==
LOC: ANHED 22:40 → ANH2MED 22:51 → ANH3MEDSUR 04-06 07:42 → ANH2MED 04-08 13:23 → ANH3MEDSUR 04-08 13:23
PROVIDERS: Physician Assistant; Admitting Provider Family Medicine; Emergency Provider Family Medicine; PCP Family Medicine; Visit Provider Physician Assistant
DX: N39.0 Urinary tract infection, site not specified (principal); B96.5 Pseudomonas (aeruginosa) (mallei) (pseudomallei) as the cause of diseases classified elsewhere; U07.1 COVID-19; R41.82 Altered mental status, unspecified; D61.818 Other pancytopenia; N31.9 Neuromuscular dysfunction of bladder, unspecified; R29.6 Repeated falls; R45.1 Restlessness and agitation; G25.81 Restless legs syndrome; G35 Multiple sclerosis; B35.4 Tinea corporis; F32.9 Major depressive disorder, single episode, unspecified; Z87.891 Personal history of nicotine dependence
CPT/HCPCS: 36415; 51701; 70450; 80048; 80053; 81001; 82607; 82746; 83735; 84443; 85025; 85027; 85055; 87077; 87086; 87088; 87186; 87635; 96365; 96366; 96372; 96375; 97110; 97161; 97166; 97530; 99285; A9270; C9803; G0378; J0131; J0696; J0713; J1630; J2060; J7030; U0003

== ENCOUNTER 2020-04-13 18:28 | Emergency (ER) | payer MEDICARE, SELFPAY ==
--- NOTE | ~2020-04-13 | CT_ITS ---
EXAMINATION: CT brain wo con EXAM DATE: 04/13/2020 19:58 INDICATION: Fall, confusion, loss of consciousness. COVID-19 positive. TECHNIQUE: Spiral CT of the head was performed without contrast. Axial, coronal and sagittal images were reviewed. The dose-length product (DLP) for this examination was 832.33 mGy-cm. The exposure w as tailored according to patient size, and iterative reconstruction (ASIR) was used as additional dos e reduction technique. Comparison is made to prior examination from 04/03/2020. FINDINGS: There is no acute intraparenchymal hemorrhage. No evidence of intraparenchymal brain mass lesion. No evidence of acute infarction. Please note that initial head CT has limited sensitivity f or small or acute infarctions. Congenital cavum septum pellucidum and cavum vergae. There is mild p eriventricular and subcortical hypodensity, nonspecific but probably related to small vessel ischemic disease. There is ventricular prominence out of proportion to sulci which is suspected most likely central atrophy rather than hydrocephalus. Normal pressure hydrocephalus cannot be excluded (clinic al triad ataxia/gait disturbance, dementia, urinary incontinence). There is intracranial carotid ar teriosclerosis. There are no extra-axial collections. There is no mass effect or midline shift. Grzegorz tamayo has had bilateral ocular lens surgery. Soft tissue is unremarkable. Extensive ethmoid mucoper iosteal thickening. Some frontal sinus fluid. Mastoid air cells are well aerated. IMPRESSION: 1. No acute intracranial findings. 2. Chronic age related findings. 3. Frontal and ethmoid sinusitis. Reviewed, dictated and finalized at location A.
--- NOTE | ~2020-04-13 | XR_ITS ---
EXAMINATION: XR chest 1V portable EXAM DATE: 04/13/2020 21:49 INDICATION: Transient alteration of awareness. COVID/19 positive. TECHNIQUE: Portable AP frontal chest x-ray was obtained. Comparison is made to prior examination from 02/23/2020. FINDINGS: The lungs are clear. There are no pleural effusions. Cardiac silhouette is prominent but magnified on this AP technique. There is no pneumothorax suspected. The bones and soft tissues are unremarkable. IMPRESSION: No acute cardiopulmonary findings. Reviewed, dictated and finalized at location A.
[2020-04-13 18:32] VITALS: BP 156/101; PULSE 83; RESP 20; TEMP 37; O2SAT 94
--- NOTE | 2020-04-13 18:39 | ECG_ITS ---
Measurements Intervals [place] Rate: 80 P: 46 VA: 168 QRS: -5 QRSD: 101 T: 59 QT: 363 QTc: 420 Interpretive Statements SINUS RHYTHM EARLY PRECORDIAL R/S TRANSITION NONSPECIFIC T-WAVE ABNORMALITY- HIGH LATERAL LEADS BASELINE ARTIFACT- III, AVL BORDERLINE ECG Electronically Signed On 04-14-2020 7:14:11 CDT by Demond Del Valle D.O.
--- NOTE | 2020-04-13 19:04 | ED.AMS ---
HPI - Altered Mental Status General Chief Complaint: Altered Mental Status Stated Complaint: LOC changes; COVID + and UTI Time Seen by Provider: 04/13/20 19:02 History of Present Illness HPI narrative: History limited by dementia. Brought in from longterm for confusion and falls. He tested positive for COVID-19 on 04/05. He may have a UTI. There is also a report of a possible fall. He admits to coughing. Otherwise he has no complaints. No CP, SOB, nausea, weakness. Related Data Home Medications Medication Instructions Recorded Confirmed Myrbetriq 50 mg PO DAILY 02/03/20 04/04/20 escitalopram oxalate 20 mg PO DAILY 02/03/20 04/04/20 Aubagio 14 mg PO DAILY 02/23/20 04/04/20 cholecalciferol (vitamin D3) 125 mcg PO DAILY 02/23/20 04/04/20 [Vitamin D3] ibuprofen 200 mg PO Q6H PRN 02/23/20 04/04/20 melatonin 10 mg PO HS 02/23/20 04/04/20 lorazepam 0.5 mg PO TID PRN 04/03/20 04/04/20 pramipexole [Mirapex] 0.5 mg PO TID 04/03/20 04/04/20 Allergies Allergy/AdvReac Type Severity Reaction Status Date / Time No Known Allergies Allergy Unknown Verified 04/03/20 22:53 Review of Systems Review of Systems: All systems reviewed & are unremarkable except as noted in HPI and below Cardiovascular: Cardiovascular: Denies chest pain Respiratory: Respiratory: Reports cough and Denies dyspnea Gastrointestinal: Gastrointestinal: Denies abdominal pain and Denies nausea Musculoskeletal: Musculoskeletal: Denies back pain Neurologic: Denies dizziness and Denies weakness [facility] Past Medical History Medical History Depression Fracture lt wrist Multiple sclerosis Restless leg syndrome Surgical History Surgical History No pertinent past surgical history Family History Family History Father Family history of malignant neoplasm of esophagus Mother Pacemaker Social History Social History Smoking packs per day: 1 Smoking cigarettes per day: 20.0 Years smoked: 6 Smoking pack-years: 6.00 Smoking status: Unknown if ever smoked Tobacco type: cigarettes Smoking end date: 08/06/97 Alcohol intake: former Drinks per week: 6 Substance use: former Substance use type: does not use Gender identity (if verbalized by the patient): Male Spiritual care concerns: No Exam Const: General: no acute distress, alert and confusion Other: oriented x2 HENMT: Head: normal to inspection Resp: Effort & Inspection: normal respiratory effort Auscultation: clear to auscultation bilaterally Cardio: Rate: regular rate Rhythm: regular rhythm GI: GI Palp: Yes Soft to palpation and No Tenderness to palpation present (GI) Skin: General skin exam: normal color Neuro: General: moves all extremities, no focal motor deficits and CN's II-XI intact bilaterally Speech: normal speech Extrem: General: normal to inspection Course Vital Signs Vital signs: Vital Signs Temperature 37.0 C 04/13/20 18:32 Pulse Rate 83 04/13/20 18:32 Respiratory Rate 20 04/13/20 18:32 Blood Pressure 156/101 H 04/13/20 18:32 Pulse Oximetry 94 04/13/20 18:32 Temperature 36.4 C L 04/13/20 20:04 Pulse Rate 81 04/13/20 23:22 Respiratory Rate 17 04/13/20 23:22 Blood Pressure 134/75 04/13/20 23:22 Pulse Oximetry 95 04/13/20 23:22 MDM - Altered Mental Status MDM Narrative Medical decision making narrative: The patient seems to be at his baseline. He has known COVID-19 infection which could potentially contribute to his mental status changes. No SOB. No UTI. No indication for admission at this time. Differential Diagnosis Differential diagnosis: Likely delirium, dementia and other (UTI, dehydration) Medical Records Attestation: I reviewed the patient's medical records. Lab Data At
[2020-04-13 19:19] LABS: Basophils Percent Auto 0.3 % (0.2-1.2); Eosinophils Absolute Auto 0.1 K/mm3 (0-0.3); Eosinophils Percent Auto 1.7 % (0-4.4); Hematocrit 38.7 % (42.0-52.0); Hemoglobin 13.2 g/dL (14.0-18.0); Immature Granulocyte Absolute 0.03 K/mm3 (0.00-0.031); Immature Granulocyte Percent A 0.5 % (0-0.5); Lymphocytes Absolute Auto 1.33 K/mm3 (0.9-3.2); Lymphocytes Percent Auto 22.4 % (18.3-44.2); Mean Corpuscular HGB Conc 34.1 g/dl (32-36); Mean Corpuscular Hemoglobin 29.9 pg (26-34); Mean Corpuscular Volume 87.6 fl (80-100); Mean Platelet Volume 12.3 fl (7.4-10.4); Monocytes Absolute Auto 0.5 K/mm3 (0.1-0.6); Monocytes Percent Auto 8.1 % (2.6-8.5); Platelet Count Result 163 k/mm3 (150-375); Red Blood Count 4.42 M/mm3 (4.6-6.20)
[2020-04-13 19:28] LABS: Add Urine Microscopic? YES; Appearance Urine Clear (Clear); Bacteria Urine Trace /hpf; Bilirubin Urine Negative (Negative); Blood Urine Negative (Negative); Color Urine Yellow (Yellow); Glucose Urine UA Negative (Negative); Ketones Urine 1+ mg/dL (Negative); Leukocyte Esterase Ur Negative LEU/UL (Negative); Mucus Urine Rare /lpf; Nitrate Urine Negative (Negative); Protein Urine 2+ mg/dL (Negative); RBC Urine 0-2 /hpf (0-2); Specific Grav Ur 1.021 (1.001-1.035); Squamous Epithelial Cell Urine Rare /hpf (Few); Urobilinogen Urine Negative mg/dL (<2.0); WBC Urine 0-3 /hpf
[2020-04-13 19:29] LABS: Alanine Aminotransferase 55 U/L (4-50); Albumin Level 3.9 g/dL (3.5-5.1); Alkaline Phosphatase 80 U/L (38-126); Anion Gap 8 mmol/L (8-16); Aspartate Amino Transferase 67 U/L (17-59); Bilirubin,Total 0.5 mg/dL (0.2-1.3); Blood Urea Nitrogen 17 mg/dL (9-20); Calcium 8.5 mg/dL (8.4-10.2); Carbon Dioxide 25 mmol/L (22-30); Chloride 103 mmol/L (98-107); Estimated CRCL calculation 82 ml/min; Estimated Glomerular Filt Rate > 60; Glucose 96 mg/dL (75-110); Potassium 3.4 mmol/L (3.4-5.0); Sodium 136 mmol/L (137-145)
[2020-04-13 20:04] VITALS: BP 153/88; PULSE 77; RESP 18; TEMP 36.4; O2SAT 92
[2020-04-13] MEDS: SODIUM CHLORIDE 0.9% IV 1,000 ML 999 ML IV CONT (20:05)
[2020-04-13 23:22] VITALS: BP 134/75; PULSE 81; RESP 17; O2SAT 95
== END 2020-04-13 23:23 ==
PROVIDERS: Emergency Medicine; Emergency Provider Emergency Medicine; PCP Family Medicine
DX: R41.82 Altered mental status, unspecified (principal); U07.1 COVID-19; F32.9 Major depressive disorder, single episode, unspecified; G35 Multiple sclerosis; G25.81 Restless legs syndrome; Z87.891 Personal history of nicotine dependence; R94.31 Abnormal electrocardiogram [ECG] [EKG]; J32.1 Chronic frontal sinusitis; J32.2 Chronic ethmoidal sinusitis
CPT/HCPCS: 36415; 51701; 70450; 71045; 80053; 81001; 85025; 93005; 96360; 99284; J7030

== ENCOUNTER 2020-05-01 19:03 | Emergency (ER) | payer MEDICARE, SELFPAY ==
--- NOTE | ~2020-05-01 | CT_ITS ---
EXAMINATION: CT cervical spine wo con DATE: 05/01/2020 19:36 INDICATION: Neck pain TECHNIQUE: Computed tomography (CT) of the cervical spine was performed without intravenous contrast. The dose-length product (DLP) was 477.63 mGy-cm. Automated exposure control and iterative reconstruc tion technique were employed. COMPARISON: 02/06/2019 FINDINGS: There is unchanged mild loss of intervertebral disc space height from C5-6 through C7-T1. T he vertebral body heights are maintained. Bone alignment is normal. The odontoid is intact. The preve rtebral soft tissues are normal. Small degenerative osteophytes project from the anterior endplates o f multiple vertebral bodies. IMPRESSION: 1. Mild cervical spondylosis without acute findings or significant interval change. Reviewed, dictated and finalized at location A. IMPRESSION: 1. Mild cervical spondylosis without acute findings or significant interval julissa nge.
--- NOTE | ~2020-05-01 | XR_ITS ---
EXAMINATION: XR pelvis 1-2V INDICATION: Pelvic pain after fall TECHNIQUE: AP view of the pelvis is obtained. COMPARISON: 01/06/2019 FINDINGS: Bone alignment is normal. There is no fracture. There is unchanged moderate right and mild left hip osteoarthritis. IMPRESSION: 1. No acute osseous abnormality. Reviewed, dictated and finalized at location A.
--- NOTE | ~2020-05-01 | CT_ITS ---
EXAMINATION: CT brain wo con INDICATION: Head injury COMPARISON: 04/13/2020 TECHNIQUE: Standard unenhanced head CT. The dose-length product (DLP) was 605.33 mGy-cm. The mA was a djusted according to patient size. Iterative reconstruction technique was employed. FINDINGS: There is no acute intraparenchymal hemorrhage. No evidence of mass lesion. No evidence of a cute infarction. There is mild periventricular and subcortical hypodensity probably related to small vessel ischemic disease. There is unchanged prominence of the sulci and ventricles related to cerebra l atrophy. Intracranial calcified cerebral atherosclerosis is noted. There are no extra-axial collect ions. There is no mass effect or midline shift. Changes in the globes are likely from ocular lens shellie colin. There is mucosal thickening of the paranasal sinuses, worst in the frontal and ethmoidal sinus es. An old left nasal bone fracture is identified.. IMPRESSION: 1. No acute intracranial abnormality. 2. Age related findings. 3. Sinus disease. Reviewed, dictated and finalized at location A.
--- NOTE | ~2020-05-01 | XR_ITS ---
EXAMINATION: XR chest 1V portable INDICATION: Transient alteration of awareness TECHNIQUE: Portable AP chest at 1938 hours COMPARISON: 04/13/2020 FINDINGS: There are minimal airspace opacities of the left lung. No pleural effusion or pneumothorax is identified. The cardiomediastinal silhouette is normal. Calcified left hilar lymph nodes are consi stent with old granulomatous disease. IMPRESSION: 1. Minimal airspace opacity of the left lung, consistent with atelectasis versus pneumonia. Reviewed, dictated and finalized at location A. IMPRESSION: 1. Minimal airspace opacity of the left lung, consistent with atelectasis versu s pneumonia.
[2020-05-01 19:03] VITALS: BP 140/97; PULSE 72; RESP 18; TEMP 36.8; O2SAT 97
--- NOTE | 2020-05-01 19:22 | ED.FALL ---
HPI - Fall General Chief Complaint: Fall Stated Complaint: fall Time Seen by Provider: 05/01/20 19:15 Source: RN notes reviewed History of Present Illness HPI Narrative: Patient presents emergency department from [facility] via EMS for fall. History is per EMS patient does not recall the episode. Per EMS the patient slid out of his wheelchair unknown if loss of consciousness. The patient denies any injuries at this time. States he normally does not walk with a cane or walker. Patient currently denies any headache, chest pain, shortness of breath abdominal pain or extremity pain Related Data Home Medications Medication Instructions Recorded Confirmed Myrbetriq 50 mg PO DAILY 02/03/20 04/04/20 escitalopram oxalate 20 mg PO DAILY 02/03/20 04/04/20 Aubagio 14 mg PO DAILY 02/23/20 04/04/20 cholecalciferol (vitamin D3) 125 mcg PO DAILY 02/23/20 04/04/20 [Vitamin D3] ibuprofen 200 mg PO Q6H PRN 02/23/20 04/04/20 melatonin 10 mg PO HS 02/23/20 04/04/20 lorazepam 0.5 mg PO TID PRN 04/03/20 04/04/20 pramipexole [Mirapex] 0.5 mg PO TID 04/03/20 04/04/20 Allergies Allergy/AdvReac Type Severity Reaction Status Date / Time No Known Allergies Allergy Unknown Verified 05/01/20 19:06 Review of Systems Review of Systems: Narrative: Gen.: Denies fevers or chills Eyes: Denies eye pain or visual change ENT: Denies congestion Respiratory: Denies shortness of breath or cough CV: Denies chest pain GI: Denies abdominal pain nausea, emesis or diarrhea Musculoskeletal: Denies back pain or muscle pain Neuro: Denies numbness, tingling, weakness or focal weakness Skin: Denies rash Except as documented, all other systems reviewed and negative [facility] Past Medical History Medical History Depression Fracture lt wrist Multiple sclerosis Restless leg syndrome Social History Social History Smoking packs per day: 1 Smoking cigarettes per day: 20.0 Years smoked: 6 Smoking pack-years: 6.00 Smoking status: Unknown if ever smoked Tobacco type: cigarettes Smoking end date: 08/06/97 Alcohol intake: former Drinks per week: 6 Substance use: former Substance use type: does not use Gender identity (if verbalized by the patient): Male Spiritual care concerns: No Exam Narrative: Exam Narrative: APPEARANCE: No acute distress, nontoxic, resting in bed EYES: EOMI PERRL HEENT: Normocephalic, atraumatic, OMM Neck: Supple, no midline tenderness palpation RESPIRATORY: No respiratory distress Clear to auscultation bilaterally with no rhonchi wheezing or rales. CARDIOVASCULAR: Regular rate and rhythm without murmurs rubs or gallops. ABDOMINAL: Soft, nontender, nondistended, no rebound or guarding MUSCULOSKELETAl: Moves all extremities. No clubbing, cyanosis or edema. No tenderness to palpation of bilateral upper and lower extremities with full range of motion without pain NEURO: Awake and alert x 2. Following commands, speech normal, no focal deficits SKIN:: Warm, dry. No rashes lesions or abrasions PSYCHIATRIC: Normal affect/mood, Course Vital Signs Vital signs: Vital Signs Temperature 98.2 F 05/01/20 19:03 Pulse Rate 72 05/01/20 19:03 Respiratory Rate 18 05/01/20 19:03 Blood Pressure 140/97 H 05/01/20 19:03 Pulse Oximetry 97 05/01/20 19:03 Temperature 98.2 F 05/01/20 19:03 Pulse Rate 72 05/01/20 19:03 Respiratory Rate 18 05/01/20 19:03 Blood Pressure 140/97 H 05/01/20 19:03 Pulse Oximetry 97 05/01/20 19:03 MDM - Fall Imaging Data Radiologist's impression: ITS Impressions Head CT 05/01/20 19:46 IMPRESSION: 1. No acute intracranial abnormality. 2. Age related findings. 3. Sinus disease. Cervical Spine CT 05/01/20 19:50 IMPRESSION: 1. Mild cervical spondylosis without acute findings or significant interval change. Chest X-Ray 05/01/20 19:55 IMPRESSION
--- NOTE | 2020-05-01 19:50 | PC.NURSE ---
Patient yelling out stating I want to leave!! This nurse informs patient that he fell and is being checked out to make sure everything is ok. Patient still stating he wants to leave.
--- NOTE | 2020-05-01 20:14 | PC.NURSE ---
called [facility] for transport. ETA [id number]
--- NOTE | 2020-05-01 20:25 | PC.NURSE ---
This nurse contacted patient's and informed her that patient is being sent home.
--- NOTE | 2020-05-01 20:28 | PC.NURSE ---
Report called to jeny at [facility].
[2020-05-01 21:08] VITALS: BP 133/80; PULSE 71; RESP 18; O2SAT 95
== END 2020-05-01 21:07 | disposition home or self-care (01) ==
PROVIDERS: Emergency Provider Emergency Medicine; PCP Family Medicine
DX: Z04.3 Encounter for examination and observation following other accident (principal); F32.9 Major depressive disorder, single episode, unspecified; G35 Multiple sclerosis; G25.81 Restless legs syndrome; F17.210 Nicotine dependence, cigarettes, uncomplicated; J32.9 Chronic sinusitis, unspecified; R91.8 Other nonspecific abnormal finding of lung field; M47.812 Spondylosis without myelopathy or radiculopathy, cervical region
CPT/HCPCS: 70450; 71045; 72125; 72170; 99284

== ENCOUNTER 2020-05-07 07:53 | Emergency (ER) | payer MEDICARE, SELFPAY ==
--- NOTE | ~2020-05-07 | CT_ITS ---
EXAMINATION: CT brain wo con, CT cervical spine wo con EXAM DATE: 05/07/2020 08:36 (accession [id number]), 05/07/2020 08:37 (accession [id number]) INDICATION: Fall, head injury. TECHNIQUE: Spiral CT of the head was performed without contrast. Axial, coronal images were reviewed . Spiral CT of the cervical spine was performed without contrast. Axial images were reviewed. Coron al and sagittal reformatted images were also reviewed. The dose-length product (DLP) for this examin ation was 681.00 mGy-cm. The exposure was tailored according to patient size, and iterative reconstr uction (ASIR) was used as additional dose reduction technique. Comparison is made to prior examinatio n from 05/01/2020. 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 There is no acute intraparenchymal hemo rrhage. No evidence of intraparenchymal brain mass lesion. No evidence of acute infarction. There i s moderate periventricular and subcortical hypodensity, nonspecific but probably related to small ves abdon ischemic disease. There is ventricular prominence out of proportion to sulci which is suspected most likely central atrophy rather than hydrocephalus. Normal pressure hydrocephalus cannot be excl uded (clinical triad ataxia/gait disturbance, dementia, urinary incontinence). There is intracrania l carotid arteriosclerosis. There is no mass effect or midline shift. There is no obstructive hydro cephalus suspected. There are no extra-axial collections. There are no acute calvarial fractures. Patient has had bilateral ocular lens surgery. Soft tissue is unremarkable. Moderate sinus mucoperi osteal disease. CERVICAL CT: There is no evidence of acute cervical fracture. The odontoid process is intact. Pre-d ens space is normal. Prevertebral soft tissue is normal. There are no soft tissue abnormalities merritt ntified. There is no disc space widening or traumatic vertebral body subluxation suspected. Overall moderate cervical spondylosis. A detailed level by level evaluation of spondylosis can be added as addendum if requested. IMPRESSION: 1. No acute intracranial findings or cervical fracture. 2. Dilated ventricles, likely central atrophy. Microangiopathy. 3. Moderate mucoperiosteal thickening. 4. Moderate cervical spondylosis. Reviewed, dictated and finalized at location A. IMPRESSION: 1. No acute intracranial findings or cervical fracture. 2. Dilated ventricles, likely central atrophy. Microangiopathy. 3. Moderate mucoperiosteal thickening. 4. Moderate cervical spondylosis.
--- NOTE | ~2020-05-07 | XR_ITS ---
XR pelvis 1-2V DATE: 05/07/2020 08:15 INDICATION: Fall. Pelvic pain. TECHNIQUE: AP view COMPARISON: None FINDINGS: There is a transitional first sacral vertebra. No pelvic fracture or bone destruction is evident. Normal alignment at the pubic symphysis and sacroi liac joints. No hip fracture or dislocation is evident. IMPRESSION: No evidence of pelvic fracture Transitional first sacral vertebra Reviewed, dictated and finalized at location B.
--- NOTE | ~2020-05-07 | XR_ITS ---
XR chest 1V portable DATE: 05/07/2020 08:15 INDICATION: Fall. TECHNIQUE: Portable upright AP chest on 05/07/2020 at 0808 hours COMPARISON: 05/01/2020 portable AP chest FINDINGS: Heart size is normal. Mild aortic unfolding. There are calcified left hilar and aortopulmon speedy window nodes consistent with old granulomatous disease. No pulmonary infiltrate or consolidation, pleural effusion or pulmonary vascular congestion or pneumo thorax is evident. IMPRESSION: No active cardiopulmonary disease Reviewed, dictated and finalized at location B.
[2020-05-07 07:59] VITALS: BP 144/52; PULSE 65; RESP 11; TEMP 36.4; O2SAT 97
--- NOTE | 2020-05-07 08:02 | ED.FALL ---
HPI - Fall General Chief Complaint: Fall Stated Complaint: FALL Source: RN notes reviewed History of Present Illness HPI Narrative: Patient presents emergency department from [facility] for a fall. Patient fell in the bathroom and was found by staff wedged between the toilet and the sink. Patient does not recall the full episodes of the fall but does remember falling. He currently denies any pain. Patient does have a history of frequent falls. Currently denies any fevers or chills chest pain shortness of breath abdominal pain extremity pain or any other symptoms Related Data Home Medications Medication Instructions Recorded Confirmed Myrbetriq 50 mg PO DAILY 02/03/20 05/07/20 escitalopram oxalate 20 mg PO DAILY 02/03/20 05/07/20 Aubagio 14 mg PO DAILY 02/23/20 05/07/20 cholecalciferol (vitamin D3) 125 mcg PO DAILY 02/23/20 05/07/20 [Vitamin D3] ibuprofen 200 mg PO Q6H PRN 02/23/20 05/07/20 melatonin 10 mg PO HS 02/23/20 05/07/20 lorazepam 0.5 mg PO TID PRN 04/03/20 05/07/20 pramipexole [Mirapex] 0.5 mg PO TID 04/03/20 05/07/20 Allergies Allergy/AdvReac Type Severity Reaction Status Date / Time No Known Allergies Allergy Unknown Verified 05/07/20 08:05 Review of Systems Review of Systems: Narrative: Gen.: Denies fevers or chills ENT: Denies congestion Respiratory: Denies shortness of breath or cough CV: Denies chest pain GI: Denies abdominal pain nausea, emesis Musculoskeletal: Denies back pain or muscle pain Neuro: Denies numbness, tingling, weakness or focal weakness Skin: Denies rash Except as documented, all other systems reviewed and negative [facility] Social History Social History Smoking packs per day: 1 Smoking cigarettes per day: 20.0 Years smoked: 6 Smoking pack-years: 6.00 Smoking status: Unknown if ever smoked Tobacco type: cigarettes Smoking end date: 08/06/97 Alcohol intake: former Drinks per week: 6 Substance use: former Substance use type: does not use Gender identity (if verbalized by the patient): Male Spiritual care concerns: No Exam Narrative: Exam Narrative: APPEARANCE: Well appearing, no apparent distress, well-nourished. HEENT: normocephalic atraumtaic. Oral mucosa moist. No tenderness over bilateral zygomatic arch. Full range of motion of jaw without pain. EYES: PERRL NECK: Supple. No midline tenderness to palpation. Full range of motion without pain RESPIRATORY: No respiratory distress. Clear to auscultation bilaterally CARDIOVASCULAR: Regular rate and rhythm without murmurs rubs or gallops. ABDOMINAL: Soft, nontender, nondistended, no rebound or guarding MUSCULOSKELETAl: Moves all extremities. No tenderness to palpation of bilateral upper and lower extremities. No clubbing cyanosis or edema NEURO: Awake and alert ?2 Follows commands. Speech normal. No focal deficits. SKIN:: Warm, dry. Normal Color Course Course Emergency Course: Discussed with patient results of workup and diagnosis. Discussed need for follow-up with primary care, proper use of medication, and reasons to return to the emergency department. Patient understands and agrees to current treatment plan Vital Signs Vital signs: Vital Signs Temperature 97.5 F L 05/07/20 07:59 Pulse Rate 65 05/07/20 07:59 Respiratory Rate 11 L 05/07/20 07:59 Blood Pressure 144/52 H 05/07/20 07:59 Pulse Oximetry 97 05/07/20 07:59 Temperature 97.5 F L 05/07/20 07:59 Pulse Rate 65 05/07/20 07:59 Respiratory Rate 11 L 05/07/20 07:59 Blood Pressure 144/52 H 05/07/20 07:59 Pulse Oximetry 97 05/07/20 07:59 MDM - Fall Imaging Data Radiologist's impression: ITS Impressions Chest X-Ray 05/07/20 08:19 IMPRESSION: No active cardiopulmonary disease Pelvis X-Ray 05/07/20 08:20 IMPRESSION: No evidence of pelvic fracture Transitional first sacral vertebra Cervical Spine CT 05/07/20 08:40 IMPRESSION: 1. No ac
== END 2020-05-07 10:01 ==
PROVIDERS: Emergency Provider Emergency Medicine; PCP Family Medicine
DX: Z04.3 Encounter for examination and observation following other accident (principal); F32.9 Major depressive disorder, single episode, unspecified; G35 Multiple sclerosis; Z87.891 Personal history of nicotine dependence; M47.812 Spondylosis without myelopathy or radiculopathy, cervical region; I73.9 Peripheral vascular disease, unspecified; W19.XXXA Unspecified fall, initial encounter; G25.81 Restless legs syndrome
CPT/HCPCS: 70450; 71045; 72125; 72170; 99284

== ENCOUNTER 2020-05-26 20:13 | Observation (INO) | payer MEDICARE, SELFPAY ==
--- NOTE | ~2020-05-26 | CT_ITS ---
EXAMINATION: CT brain wo con DATE: 05/27/2020 00:09 INDICATION: Multiple sclerosis presenting with confusion. TECHNIQUE: Computed tomography (CT) of the head was performed without intravenous contrast. Sagittal and coronal reconstructions were performed. The mA was adjusted according to patient size. Iterative reconstruction technique was employed. The dose-length product was 605.33 mGy-cm. COMPARISON: head CT dated 05/07/2020 FINDINGS: No acute intracranial hemorrhage, acute infarction or abnormal extra axial fluid collection. There is mild scattered white matter hypoattenuation consistent with chronic small vessel ischemic disease. Normal variant cavum septum pellucidum et vergae. Symmetric dilation of the lateral ventricles which is disproportionate to the mild enlargement of the sulci and third and fourth ventricles most likely related to central predominant diffuse volume loss. No mass/mass effect. Changes of bilateral intraoc ular lens replacement. Moderate mucosal thickening in bilateral ethmoid sinuses and extending into th e frontal sinuses. Small left mastoid effusion. IMPRESSION: 1. No acute intracranial process. 2. Stable appearance of enlargement of the lateral ventricles which is disproportionate to the sulci most likely central predominant volume loss however differential would include normal pressure hydroc ephalus (NPH: clinical triad ataxia/gait disturbance, dementia, urinary incontinence). 3. Mild scattered white matter hypoattenuation consistent with chronic small vessel ischemic disease. Reviewed, dictated and finalized at location A. IMPRESSION: 1. No acute intracranial process. 2. Stable appearance of enlargement of the lateral ventricles which is dispropo rtionate to the sulci most likely central predominant volume loss however diffe rential would include normal pressure hydrocephalus (NPH: clinical triad ataxia /gait disturbance, dementia, urinary incontinence). 3. Mild scattered white matter hypoattenuation consistent with chronic small ve ssel ischemic disease.
--- NOTE | ~2020-05-26 | XR_ITS ---
EXAMINATION: XR chest 1V portable EXAM DATE: 05/26/2020 21:09 INDICATION: Lethargy, fatigue. Diaphoresis. TECHNIQUE: Portable AP frontal chest x-ray was obtained. Comparison is made to prior examination from 05/07/2020. FINDINGS: The lungs are clear. There are no pleural effusions. Cardiac silhouette is prominent but magnified on this AP technique. There is no pneumothorax suspected. The bones and soft tissues ar e unremarkable. IMPRESSION: No acute cardiopulmonary findings. Reviewed, dictated and finalized at location A.
--- NOTE | ~2020-05-26 | MR_ITS ---
EXAMINATION: MR cervical spine wo/w con DATE: 05/27/2020 12:51 INDICATION: Multiple sclerosis. TECHNIQUE: Magnetic resonance imaging (MRI) of the cervical spine was performed without and with 20 m L MultiHance intravenous contrast. Sequences included sagittal and axial T2-weighted FSE, sagittal ST IR FSE, and sagittal and axial T1-weighted FSE. Postcontrast sequences included sagittal and axial T1 -weighted FS FSE. COMPARISON: Cervical spine MRI 08/04/2011 FINDINGS: There is kyphosis of lower cervical spine. There is mild chronic anterior wedging of T1 milagro tebral body. There is mildly decreased disc height at C5-C6 and C6-C7. There are approximately 5 scat tered lesions of increased T2-weighted signal intensity involving the cervical spinal cord. There are lesions of increased T2-weighted signal intensity involving the medulla, lamont, right cerebral pedunc le, and cerebellar white matter. None of the lesions enhance. The following disc levels are specifica lly discussed: C2-C3: There is a central extrusion. There is no uncovertebral joint osteoarthritis. There is mild bi lateral facet joint osteoarthritis. There is no neural foraminal stenosis. There is mild central cynthia l stenosis. C3-C4: The disc is bulging. There is mild right and moderate left uncovertebral joint osteoarthritis. There is severe bilateral facet joint osteoarthritis. There is moderate right and severe left neural foraminal stenosis. There is mild central canal stenosis. C4-C5: The disc is bulging. There is mild bilateral uncovertebral joint osteoarthritis. There is felipe re right and moderate left facet joint osteoarthritis. There is moderate and mild left neural foramin al stenosis. There is mild central canal stenosis. C5-C6: The disc is bulging. There is mild bilateral uncovertebral joint osteoarthritis. There is mode rate bilateral facet joint osteoarthritis. There is mild bilateral neural foraminal stenosis. There i s moderate central canal stenosis with ventral and dorsal indentation of the spinal cord. C6-C7: The disc is bulging with superimposed central extrusion. There is moderate bilateral uncoverte bral joint osteoarthritis. There is severe right and mild left facet joint osteoarthritis. There is m ild right and severe left neural foraminal stenosis. There is moderate central canal stenosis with ve ntral and dorsal indentation of the spinal cord. C7-T1: The disc does not extend beyond the endplate margin. There is no uncovertebral joint osteoarth ritis. There is severe bilateral facet joint osteoarthritis. There is mild bilateral neural foraminal stenosis. There is no central canal stenosis. IMPRESSION: 1. Lesions of the spinal cord, brainstem, and cerebellar white matter, worsened from 08/04/2011, cons istent with multiple sclerosis. 2. Worsened moderate cervical spondylosis. Reviewed, dictated and finalized at location A. IMPRESSION: 1. Lesions of the spinal cord, brainstem, and cerebellar white matter, worsened from 08/04/2011, consistent with multiple sclerosis. 2. Worsened moderate cervical spondylosis.
--- NOTE | ~2020-05-26 | US_ITS ---
EXAMINATION: US venous doppler [facility] DATE: 05/27/2020 12:49 INDICATION: Immobility presenting with left lower limb swelling TECHNIQUE: Grayscale ultrasound images without and with compression and Doppler ultrasound images of the bilateral lower extremity veins were obtained. COMPARISON: None. FINDINGS: The visualized portions of right common femoral vein, profunda (deep) femoral vein, femoral vein, pop liteal vein, posterior tibial veins, peroneal veins, gastrocnemius vein and greater saphenous vein ou tflow are patent. The visualized portions of left common femoral vein, profunda femoral vein, femoral vein, popliteal v ein, posterior tibial veins, peroneal veins, gastrocnemius vein and greater saphenous vein outflow ar e patent. IMPRESSION: 1. No deep venous thrombosis in either lower limb. Reviewed, dictated and finalized at location A.
--- NOTE | ~2020-05-26 | MR_ITS ---
EXAMINATION: MR brain/brain stem wo/w con DATE: 05/27/2020 12:51 INDICATION: Multiple sclerosis. TECHNIQUE: Magnetic resonance imaging (MRI) of the brain and brainstem was performed without and with 20 mL MultiHance intravenous contrast. Sequences included sagittal and axial T1-weighted FLAIR, axia l T1-weighted FSE, axial diffusion-weighted FS EPI, sagittal T2-weighted FLAIR, axial T2*-weighted GR E, axial T2-weighted FLAIR Propeller, and axial T2-weighted Propeller. Postcontrast sequences include d axial, coronal, and sagittal T1-weighted FSE. Apparent diffusion coefficient (ADC) maps were create d. COMPARISON: Brain MRI 08/21/2011, head CT 05/27/2020 FINDINGS: There is diffuse brain volume loss. There is no intracranial hemorrhage or acute ischemic i nfarct. There are numerous lesions of increased T2-weighted signal intensity involving the deep and p eriventricular cerebral white matter, the cerebellar wall white matter, and the lamont and right cerebr al peduncle. No lesions demonstrate contrast enhancement. There are areas of cystic encephalomalacia in the periventricular cerebral white matter bilaterally. The ventricles are normal in size for the d egree of brain volume loss. Cavum septum pellucidum and vergae are noted. There is mucosal thickening in the paranasal sinuses. There is a trace left mastoid effusion. There are likely changes of ocular lens replacement surgeries. IMPRESSION: 1. Disease involving the cerebral and cerebellar white matter and brainstem, stable from 08/21/2011, l ikely a combination of multiple sclerosis and chronic small vessel ischemic disease. Reviewed, dictated and finalized at location A. IMPRESSION: 1. Disease involving the cerebral and cerebellar white matter and brainstem, st able from 08/21/2011, likely a combination of multiple sclerosis and chronic sma ll vessel ischemic disease.
[2020-05-26 20:19] VITALS: BP 126/86; PULSE 90; RESP 14; TEMP 36.9; O2SAT 97
[2020-05-26 21:00] VITALS: BP 134/83; PULSE 95; RESP 18; O2SAT 97
[2020-05-26 21:12] LABS: Basophils Percent Auto 0.5 % (0.2-1.2); Eosinophils Absolute Auto 0.1 K/mm3 (0-0.3); Eosinophils Percent Auto 0.8 % (0-4.4); Hematocrit 39.5 % (42.0-52.0); Hemoglobin 12.7 g/dL (14.0-18.0); Immature Granulocyte Absolute 0.02 K/mm3 (0.00-0.031); Immature Granulocyte Percent A 0.2 % (0-0.5); Lymphocytes Absolute Auto 2.44 K/mm3 (0.9-3.2); Mean Corpuscular HGB Conc 32.2 g/dl (32-36); Mean Corpuscular Hemoglobin 28.5 pg (26-34); Mean Corpuscular Volume 88.8 fl (80-100); Mean Platelet Volume 12.1 fl (7.4-10.4); Monocytes Absolute Auto 0.5 K/mm3 (0.1-0.6); Monocytes Percent Auto 5.9 % (2.6-8.5); Neutrophils Absolute Auto 5.3 K/mm3 (1.3-6.7); Neutrophils Percent Auto 63.6 % (45.5-73.1); Red Blood Count 4.45 M/mm3 (4.6-6.20); Red Cell Distribution Width 15.4 % (11.5-14.5); White Blood Count 8.4 K/mm3 (4.5-10.0)
[2020-05-26 21:21] LABS: Alanine Aminotransferase 20 U/L (4-50); Albumin Level 3.7 g/dL (3.5-5.1); Alkaline Phosphatase 58 U/L (38-126); Anion Gap 6 mmol/L (8-16); Aspartate Amino Transferase 49 U/L (17-59); Bilirubin,Total 0.8 mg/dL (0.2-1.3); Blood Urea Nitrogen 19 mg/dL (9-20); Calcium 9.3 mg/dL (8.4-10.2); Carbon Dioxide 27 mmol/L (22-30); Chloride 105 mmol/L (98-107); Estimated CRCL calculation 65 ml/min; Estimated Glomerular Filt Rate > 60; Glucose 102 mg/dL (75-110); Potassium 3.9 mmol/L (3.4-5.0); Sodium 138 mmol/L (137-145)
[2020-05-26 21:23] LABS: Platelet Clumps Present
[2020-05-26 22:05] VITALS: BP 138/85; PULSE 94; RESP 19; O2SAT 94
[2020-05-26 22:12] LABS: Lactic Acid Reflex 1.3 mmol/L (0.7-2.1)
[2020-05-26 22:35] LABS: Add Urine Microscopic? YES; Amorphous Sediment Urine Few; Appearance Urine Cloudy (Clear); Bacteria Urine Trace /hpf; Bilirubin Urine 1+ (Negative); Blood Urine Negative (Negative); Color Urine Amber (Yellow); Glucose Urine UA Negative (Negative); Hyaline Casts Urine 20-29 /lpf; Ketones Urine Trace mg/dL (Negative); Leukocyte Esterase Ur 1+ LEU/UL (Negative); Mucus Urine Heavy /lpf; Nitrate Urine Negative (Negative); Protein Urine 2+ mg/dL (Negative); Specific Grav Ur 1.028 (1.001-1.035); WBC Urine 21-30 /hpf
--- NOTE | 2020-05-26 22:37 | ED.GENADULT ---
HPI - General Adult General Chief complaint: Unspecified Stated complaint: slow to respond Time Seen by Provider: 05/26/20 20:35 Source: patient and EMS Limitations: no limitations History of Present Illness HPI narrative: Patient is 65 years old white male came from [facility] with increasing fatigue, looks tired and exhausted with intermittent diaphoresis for the last 24 hours. Patient's reported that patient usually looks different than today. She sees him daily so. Today looks less responsive and generally tired and weak Patient started on Cipro for urinary tract infection few days ago. Patient denies any fever, chills, nausea, vomiting, abdominal pain, chest pain, shortness of breath, headache, back pain. History of MS. Related Data Home Medications Medication Instructions Recorded Confirmed Myrbetriq 50 mg PO DAILY 02/03/20 05/07/20 escitalopram oxalate 20 mg PO DAILY 02/03/20 05/07/20 Aubagio 14 mg PO DAILY 02/23/20 05/07/20 cholecalciferol (vitamin D3) 125 mcg PO DAILY 02/23/20 05/07/20 [Vitamin D3] ibuprofen 200 mg PO Q6H PRN 02/23/20 05/07/20 melatonin 10 mg PO HS 02/23/20 05/07/20 lorazepam 0.5 mg PO TID PRN 04/03/20 05/07/20 pramipexole [Mirapex] 0.5 mg PO TID 04/03/20 05/07/20 ciprofloxacin HCl 500 mg PO BID 05/26/20 hydroxyzine HCl 25 mg PO TID PRN 05/26/20 Allergies Allergy/AdvReac Type Severity Reaction Status Date / Time No Known Allergies Allergy Unknown Verified 05/26/20 20:41 Review of Systems Review of Systems: Narrative: CONSTITUTIONAL: Denies fever, chills, or sweats. EYES: Denies visual changes, redness, or discharge. ENT: Denies rhinorrhea, congestion, sore throat, or otalgia. CARDIOVASCULAR: Denies chest pain, palpitations, or edema. RESPIRATORY: Denies cough or dyspnea. GASTROINTESTINAL: Denies abdominal pain, nausea, vomiting, or diarrhea. GENITOURINARY: Denies dysuria or hematuria. SKIN: Denies rash or itching. MUSCULOSKELETAL: Denies back pain, joint pain, or myalgia. NEUROLOGIC: Denies headache, numbness, or weakness. PSYCHIATRIC: Denies anxiety or depression. [facility] Past Medical History Medical History (Updated 05/26/20 @ 23:05 by Agustin Rubin MD) Depression Fracture lt wrist Multiple sclerosis Restless leg syndrome Surgical History Surgical History No pertinent past surgical history Family History Family History Father Family history of malignant neoplasm of esophagus Mother Pacemaker Social History Social History Smoking packs per day: 1 Smoking cigarettes per day: 20.0 Years smoked: 6 Smoking pack-years: 6.00 Smoking status: Unknown if ever smoked Tobacco type: cigarettes Smoking end date: 08/06/97 Alcohol intake: former Drinks per week: 6 Substance use: former Substance use type: does not use Gender identity (if verbalized by the patient): Male Spiritual care concerns: No Exam Narrative: Exam Narrative: General appearance: Well-developed, well-nourished, looks ill, lethargic. Skin: Normal color Head: Normocephalic, nontraumatic Eyes: Clear conjunctiva ENT: Oropharynx normal, ears normal, nose normal Neck: Supple, nontender Chest and respiratory: Airway patent, no respiratory distress, no accessory muscle use Heart: Regular rate/rhythm Abdomen: Soft, nontender, no organomegaly, quiet bowel sounds, wearing depend Vascular: Normal peripheral pulses, normal capillary refill. Neurologic: Alert and oriented ?3, Course Course Emergency Course: Stable Vital Signs Vital signs: Shreya
[2020-05-26 23:07] VITALS: BP 157/87; PULSE 97; RESP 20; O2SAT 97
--- NOTE | 2020-05-27 00:30 | PM.IMHP ---
H&P: HPI History of Present Illness Date/Time: 05/27/20 00:30 Chief complaint: Confusion, not acting like himself. Narrative: Elbert Browning is an unfortunate 65-year-old male with multiple sclerosis who presented to the emergency department earlier today via EMS from a jail facility for evaluation of confusion and with reports that he is not acting like himself. He is not a good historian and seems to be confused, and as such a majority of this history is obtained via a review of his electronic medical records as well as discussions with his , who is at bedside. The patient is known to the hospitalist service as he was admitted to us in February 2020 with urinary tract infection. He was discharged from [facility] thereafter for rehabilitation; he has not been able to walk since that time. He is now been at a local jail facility and it was documented within the last couple of days that he is ?reached his max potential? and physical therapy and occupational therapy were discontinued. intends on taking him home with 24 hour care when she can get the home ready for him. In any regard, over the last week or so he has reportedly not been acting quite like himself, with confusion and lethargy. It looks like he was started on ciprofloxacin within the last 24 hours or so for a urinary tract infection and is also noted that he was very recently started on Nuedexta for pseudobulbar affect and both Ativan and hydroxyzine as well. At the time my evaluation is alert to name but he cannot provide me much information as to why he was brought to the hospital today. He has no real complaints and specifically denies fever, chills, sweats, headache, paresthesias, diplopia, dysphagia, shortness of breath, cough, nausea, vomiting, diarrhea, dysuria. Of note, the patient's reports that he has been out of his Aubagio for approximately 1 weeks time. Review of Systems Review of Systems: Narrative: 12 systems were reviewed with pertinent positives and negatives as per HPI. Given his clinical condition the accuracy of such is questionable, as he states no to every question asked of him. [facility] Past Medical History Medical History Anxiety Depression Insomnia Left wrist fracture Multiple sclerosis Restless leg syndrome Vitamin D deficiency Surgical History Surgical History No pertinent past surgical history Family History Family History Father Family history of malignant neoplasm of esophagus Mother Pacemaker Social History Social History (Updated 05/27/20 @ 01:17 by Safia Henry PA-C) Social History: The patient is and was living with his in [place] prior to his hospitalization in February 2020. He is now at a jail facility as detailed in HPI. Mr. 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 He smoked remotely many years ago. His Devora is his healthcare power of attorney lawyer and he is a full code. Smoking packs per day: 1 Smoking cigarettes per day: 20.0 Years smoked: 6 Smoking pack-years: 6.00 Smoking status: Unknown if ever smoked Tobacco type: cigarettes Smoking end date: 08/06/97 Alcohol intake: former Drinks per week: 6 Substance use: former Substance use type: does not use Gender identity (if verbalized by the patient): Male Spiritual care concerns: No Meds Home Medications and Allergies Home Medications Medication Instructions Recorded Confirmed Type Myrbetriq 50 mg PO DAILY 02/03/20 05/27/20 History escitalopram oxalate 20 mg PO DAILY 02/03/20 05/27/20 History Aubagio 14 mg PO DAILY 02/23/20 05/27/20 History cholecalciferol (vitamin D3) 125 mcg PO DAILY 02/23/20 05/27/20 History [Vitamin D3] ibuprofen 200
--- NOTE | 2020-05-27 01:13 | ADMGEN ---
This patient, Elbert Browning, was admitted to Medical Room 249-01. Patient/family oriented to hospital policies and general routines including ID bracelet, bed and alarms, visiting hours, pain management, procedures, bathroom and other care routines, personal items, smoking policy, room service/diet, and visiting hours. Information on how to activate the Rapid Response Team has been discussed. Patient/Family are encouraged to report perceived risks to care and to ask questions if they do not understand what they are told or what they should do.
[2020-05-27 01:48] VITALS: BP 136/78; PULSE 93; RESP 18; TEMP 36.3; O2SAT 96
[2020-05-27 01:49] VITALS: BMI 35.9
[2020-05-27] MEDS: SODIUM CHLORIDE 0.9% IV 1,000 ML 100 ML IV CONT (02:10)
[2020-05-27 05:34] LABS: Hematocrit 35.5 % (42.0-52.0); Hemoglobin 11.6 g/dL (14.0-18.0); Mean Corpuscular HGB Conc 32.7 g/dl (32-36); Mean Corpuscular Hemoglobin 29.1 pg (26-34); Mean Corpuscular Volume 89.2 fl (80-100); Mean Platelet Volume 12.1 fl (7.4-10.4); Platelet Count Result 171 k/mm3 (150-375); Red Blood Count 3.98 M/mm3 (4.6-6.20); Red Cell Distribution Width 15.5 % (11.5-14.5); White Blood Count 6.2 K/mm3 (4.5-10.0)
[2020-05-27 05:50] LABS: Alanine Aminotransferase 18 U/L (4-50); Albumin Level 3.2 g/dL (3.5-5.1); Alkaline Phosphatase 51 U/L (38-126); Anion Gap 5 mmol/L (8-16); Aspartate Amino Transferase 49 U/L (17-59); Blood Urea Nitrogen 19 mg/dL (9-20); CRP 2.4 mg/dL (<1.0); Calcium 8.6 mg/dL (8.4-10.2); Carbon Dioxide 30 mmol/L (22-30); Chloride 105 mmol/L (98-107); Estimated CRCL calculation 60 ml/min; Estimated Glomerular Filt Rate > 60; Glucose 89 mg/dL (75-110); Potassium 3.6 mmol/L (3.4-5.0); Sodium 140 mmol/L (137-145)
[2020-05-27 05:55] VITALS: BP 127/75; PULSE 80; RESP 18; TEMP 36.7; O2SAT 96
[2020-05-27 06:52] LABS: Folic Acid 4.8 ng/mL (2.76->20)
[2020-05-27] MEDS: CHOLECALCIFEROL 1,000 UNITS TABLET 5000 UNITS PO (08:27)
[2020-05-27] MEDS: ESCITALOPRAM OXALATE 10 MG TABLET 20 MG PO (08:28)
[2020-05-27] MEDS: PRAMIPEXOLE 0.5 MG TABLET 1 MG PO ×3 (08:35→17:43)
--- NOTE | 2020-05-27 09:01 | PM.IMPN ---
Progress Note: A&P Assessment and Plan (1) Altered mental status: Code(s): R41.82 - Altered mental status, unspecified Status: Acute Assessment and Plan: Likely multifactorial due to UTI, progressive MS, dementia, polypharmacy, metabolic encephalopathy. Brain MRI demonstrates cerebral and cerebellar white matter and brainstem disease consistent with MS and chronic small vessel disease. Cervical spine MRI shows lesions of the spinal cord, brainstem, and cerebellar white matter, worsened since 08/04/11. He was recently prescribed nuedexta, ativan, hydroxyzine, and seroquel which may be contributing to confusion and letharfy. TSH was normal at 1.15. Vitamin B12 and folate are sufficient. Medications felt to be contributing including lorazepam, melatonin, hydroxyzine, myrbetriq, and quetiapine are oh hold. He has improved significantly today. His notes he is much less sedated and confusion has improved. He does have confusion at baseline. He is alert and oriented to person, place, year, president which appears baseline on review of prior notes from previous stays. Neurology is on board. Appreciate neurology input and will await further neurology recommendations. (2) Recent urinary tract infection: Code(s): Z87.440 - Personal history of urinary (tract) infections Status: Acute Assessment and Plan: He was treated with ciprofloxacin for 7 days but urinalysis is still grossly abnormal. His last urine culture demonstrated pseudomonas. He does have confusion noted per his although seems much improved today. Plan to treat with cefepime and await urine culture which is pending. (3) Multiple sclerosis: Code(s): G35 - Multiple sclerosis Status: Chronic Assessment and Plan: His reports that he takes Aubagio intermittently when samples are available but has been out of this for 1 week. He is also prescribed nuedexta which is currently held as it was a new medication and may be contributing to increased confusion. He needs to follow-up with his MS specialist at [facility]. MRI brain and cervical spine were performed and MRI cervical spine shows worsening lesions of the spinal cord, brainstem, and cerebellar white matter consistent with multiple sclerosis. Neurology is on board. Await further neurology input which is appreciated. It was noted that he was felt to have reached max potential with SNF and PT/OT were discontinued. His is planning to take him home with 24 hour care . (4) Neurogenic bladder: Code(s): N31.9 - Neuromuscular dysfunction of bladder, unspecified Status: Chronic Assessment and Plan: He uses self intermittent catheterization at home as needed. Continue to monitor with bladder scan. (5) Chronic anemia: Code(s): D64.9 - Anemia, unspecified Status: Acute Assessment and Plan: Labs are consistent with baseline. Normocytic. Continue to monitor. Vitamin B12 and folate were sufficient. (6) Depression: Code(s): F32.9 - Major depressive disorder, single episode, unspecified Status: Acute Assessment and Plan: Continue escitalopram. (7) Anxiety: Code(s): F41.9 - Anxiety disorder, unspecified Status: Chronic Assessment and Plan: Lorazepam is on hold given concern for polypharmacy and sedation. (8) Insomnia: Code(s): G47.00 - Insomnia, unspecified Status: Chronic Assessment and Plan: Hydroxyzine and melatonin are currently on hold as pt was reported to be confused with sedation which prompted admission. Consider resuming which clinically indicated. (9) Restless leg syndrome: Code(s): G25.81 - Restless legs syndrome Status: Chronic Assessment and Plan: Chronic. Continue pramipexole. (10) Lower extremity edema: Code(s): R60.0 - Localized edema Status: Acute Assessment and Plan: Ve
[2020-05-27 09:50] LABS: Glucose Point of Care 97 (65-105)
--- NOTE | 2020-05-27 11:20 | PCSTNOTE ---
BSS unable to be completed due patient in MRI
[2020-05-27 14:00] VITALS: BP 126/69; PULSE 72; RESP 22; TEMP 36.6; O2SAT 96
--- NOTE | 2020-05-27 15:09 | WPDNEURCNPN ---
Assessment and Plan Assessment and plan (1) Depression: Code(s): F32.9 - Major depressive disorder, single episode, unspecified Status: Acute (2) Restless leg syndrome: Code(s): G25.81 - Restless legs syndrome Status: Chronic Additional Plan stabilize the neuro status also treatment for hallucination Consult date: 05/27/20 Time Seen: 15:00 HPI: Elbert Browning is a 65 year old male admitted to the hospital for confusion . Patient carries the diagnosis of multiple sclerosis for which he has been under the treatment of physician at [facility]. He was transferred here from the senior care facility via EMS with complaints of him not acting himself he had been admitted to the hospital in February of 2020 with UTI and was subsequently discharged for the rehab and also has not been able to walk since that time as per the physical therapy .he has reached his maximal potential at this stage.. is planning to take him home with 24 hours care .most recently he was started on Cipro for UTI and also started on Nuedexta for pseudobulbar affect along with Ativan and hydroxyzine. has ongoing history of anxiety with depression, restless leg syndrome, vitamin-D deficiency and as mentioned above multiple sclerosis ,is a former drinker and smoker pertinent medications at this stage include Myrbetriq 50 mg daily for bladder dysfunction,,citalopram 20 mg daily for ongoing depression p.r.n. medication of hydroxyzine, lorazepam. he also takes pramipexole 1 mg 3 times a day for restless leg syndrome evaluation has documented mild anemia.normal electrolytes.normal hepatic enzymes.. albumin 3.2 UA abnormal abnormal MRI of cervical spine with involvement of the spinal cord brainstem cerebellar white matter which has worsened since July of 2011 MRI of the brain documenting volume loss numerous lesion of increased T2 weighted signal intensities involving the deep and periventricular cerebral white matter cerebellar white matter in the lamont and right cerebral peduncle along with cystic encephalomalacia in the periventricular white matter bilaterally Doppler venous study of the lower extremities negative chest x-ray negative Review of Systems Review of Systems: All systems reviewed & are unremarkable except as noted in HPI and below PMFSH Past Medical History Medical History (Updated 05/27/20 @ 15:30 by Anthony Murphy MD) Anxiety Chronic anemia Depression Insomnia Left wrist fracture Multiple sclerosis Multiple sclerosis not affecting current episode of care Neurogenic bladder Restless leg syndrome Vitamin D deficiency Surgical History Surgical History No pertinent past surgical history Family History Family History Father Family history of malignant neoplasm of esophagus Mother Pacemaker Social History Social History (Updated 05/27/20 @ 01:17 by Safia Henry PA-C) Social History: The patient is and was living with his in [place] prior to his hospitalization in February 2020. He is now at a senior care facility as detailed in HPI. Mr. 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 He smoked remotely many years ago. His Devora is his healthcare power of staff attorney and he is a full code. Smoking packs per day: 1 Smoking cigarettes per day: 20.0 Years smoked: 6 Smoking pack-years: 6.00 Smoking status: Unknown if ever smoked Tobacco type: cigarettes Smoking end date: 08/06/97 Alcohol intake: former Drinks per week: 6 Substance use: former Substance use type: does not use Gender identity (if verbalized by the patient): Male Spiritual care concerns: No Meds Home Medications and Allergies Home Medications Medication Instructions Recorded Confirmed Type Myrbetriq 50 mg PO DAILY 02/03/20 05/27/20 His
[2020-05-27 20:00] VITALS: BP 137/78; PULSE 73; RESP 18; TEMP 36.8; O2SAT 95
[2020-05-27] MEDS: MELATONIN 5 MG TABLET 10 MG PO ×2 (21:24→21:28)
[2020-05-28 04:00] VITALS: BP 132/60; PULSE 74; RESP 18; TEMP 37.2; O2SAT 95
[2020-05-28 05:39] LABS: Hematocrit 34.2 % (42.0-52.0); Hemoglobin 11.3 g/dL (14.0-18.0); Mean Corpuscular Hemoglobin 28.6 pg (26-34); Mean Corpuscular Volume 86.6 fl (80-100); Mean Platelet Volume 11.9 fl (7.4-10.4); Platelet Count Result 167 k/mm3 (150-375); Red Blood Count 3.95 M/mm3 (4.6-6.20); Red Cell Distribution Width 15.2 % (11.5-14.5)
[2020-05-28 05:53] LABS: Anion Gap 9 mmol/L (8-16); Blood Urea Nitrogen 16 mg/dL (9-20); Calcium 8.7 mg/dL (8.4-10.2); Carbon Dioxide 26 mmol/L (22-30); Chloride 105 mmol/L (98-107); Estimated CRCL calculation 71 ml/min; Estimated Glomerular Filt Rate > 60; Glucose 91 mg/dL (75-110); Potassium 3.3 mmol/L (3.4-5.0); Sodium 140 mmol/L (137-145)
[2020-05-28] MEDS: POTASSIUM CHLORIDE 20 MEQ TABLET 40 MEQ PO (08:23)
[2020-05-28] MEDS: CHOLECALCIFEROL 1,000 UNITS TABLET 5000 UNITS PO (08:27)
[2020-05-28] MEDS: ESCITALOPRAM OXALATE 10 MG TABLET 20 MG PO (08:27)
[2020-05-28] MEDS: PRAMIPEXOLE 0.5 MG TABLET 1 MG PO ×3 (08:27→16:50)
--- NOTE | 2020-05-28 12:36 | PM.IMPN ---
Progress Note: A&P Assessment and Plan (1) Altered mental status: Code(s): R41.82 - Altered mental status, unspecified Status: Acute Assessment and Plan: Likely multifactorial due to UTI, progressive MS, dementia, polypharmacy, metabolic encephalopathy. Brain MRI demonstrates cerebral and cerebellar white matter and brainstem disease consistent with MS and chronic small vessel disease. Cervical spine MRI shows lesions of the spinal cord, brainstem, and cerebellar white matter, worsened since 08/04/11. He was recently prescribed nuedexta, ativan, hydroxyzine, and seroquel which may be contributing to confusion and lethargy. TSH was normal at 1.15. Vitamin B12 and folate are sufficient. Medications felt to be contributing including lorazepam, melatonin, hydroxyzine, myrbetriq, and quetiapine are oh hold. He continues to improve per my evaluation and his 's opinion. Neurology is on board. Appreciate neurology input and will await further neurology recommendations. (2) Recent urinary tract infection: Code(s): Z87.440 - Personal history of urinary (tract) infections Status: Acute Assessment and Plan: He was treated with ciprofloxacin for 7 days but urinalysis is still grossly abnormal. He is on empiric cefepime awaiting urine culture which is pending. Await final urine culture and tailor antibiotics appropriately. (3) Multiple sclerosis: Code(s): G35 - Multiple sclerosis Status: Chronic Assessment and Plan: His reports that he takes Aubagio intermittently when samples are available but has been out of this for 1 week. He is also prescribed nuedexta which was held temporarily due to concern for confusion. Plan to resume nudexta now. He needs to follow-up with his MS specialist at [facility]. MRI brain and cervical spine were performed and MRI cervical spine shows worsening lesions of the spinal cord, brainstem, and cerebellar white matter consistent with multiple sclerosis. Neurology is on board. Await further neurology input which is appreciated. It was noted that he was felt to have reached max potential with SNF and PT/OT were discontinued. His is planning to take him home with 24 hour care. I spoke with Dr. Quigley, his neurologist at [facility], who recommends that he schedule a virtual appointment at discharge. Will order PT/OT for further evaluation. (4) Neurogenic bladder: Code(s): N31.9 - Neuromuscular dysfunction of bladder, unspecified Status: Chronic Assessment and Plan: He uses self intermittent catheterization at home as needed. Continue to monitor with scheduled bladder scan. (5) Chronic anemia: Code(s): D64.9 - Anemia, unspecified Status: Acute Assessment and Plan: Labs are consistent with baseline. Normocytic. Continue to monitor. Vitamin B12 and folate were sufficient. (6) Depression: Code(s): F32.9 - Major depressive disorder, single episode, unspecified Status: Acute Assessment and Plan: Continue escitalopram. (7) Anxiety: Code(s): F41.9 - Anxiety disorder, unspecified Status: Chronic Assessment and Plan: Lorazepam is on hold given concern for polypharmacy and sedation. (8) Insomnia: Code(s): G47.00 - Insomnia, unspecified Status: Chronic Assessment and Plan: Hydroxyzine and melatonin are currently on hold as pt was reported to be confused with sedation which prompted admission. Consider resuming which clinically indicated. (9) Restless leg syndrome: Code(s): G25.81 - Restless legs syndrome Status: Chronic Assessment and Plan: Chronic. Continue pramipexole. (10) Lower extremity edema: Code(s): R60.0 - Localized edema Status: Acute Assessment and Plan: Venous doppler US was performed to r/o DVT given immobility and mild lower extremity edema and negative fo
--- NOTE | 2020-05-28 13:35 | WPDNEUROPN ---
Progress Note: A&P Assessment and Plan (1) Insomnia: Code(s): G47.00 - Insomnia, unspecified Status: Chronic (2) Anxiety: Code(s): F41.9 - Anxiety disorder, unspecified Status: Chronic (3) Neurogenic bladder: Code(s): N31.9 - Neuromuscular dysfunction of bladder, unspecified Status: Chronic (4) Lower extremity edema: Code(s): R60.0 - Localized edema Status: Acute (5) Depression: Code(s): F32.9 - Major depressive disorder, single episode, unspecified Status: Acute (6) Chronic anemia: Code(s): D64.9 - Anemia, unspecified Status: Acute (7) Confusion: Code(s): R41.0 - Disorientation, unspecified Status: Acute (8) Mild dehydration: Code(s): E86.0 - Dehydration Status: Acute (9) Recent urinary tract infection: Code(s): Z87.440 - Personal history of urinary (tract) infections Status: Acute (10) Pancytopenia: Code(s): D61.818 - Other pancytopenia Status: Acute (11) Altered mental status: Code(s): R41.82 - Altered mental status, unspecified Status: Acute (12) Agitation: Code(s): R45.1 - Restlessness and agitation Status: Acute (13) Generalized weakness: Code(s): R53.1 - Weakness Status: Acute (14) Hypertension: Qualifiers: Hypertension type: essential hypertension Qualified Code(s): I10 - Essential (primary) hypertension Code(s): I10 - Essential (primary) hypertension Status: Acute (15) Restless leg syndrome: Code(s): G25.81 - Restless legs syndrome Status: Chronic (16) Multiple sclerosis: Code(s): G35 - Multiple sclerosis Status: Chronic (17) UTI (urinary tract infection): Qualifiers: Hematuria presence: without hematuria Urinary tract infection type: site unspecified Qualified Code(s): N39.0 - Urinary tract infection, site not specified Code(s): N39.0 - Urinary tract infection, site not specified Status: Acute Additional Plan the present medical management needs to be continued specifically about the multiple sclerosis more history needs to be taken from his what he was taking or whether any reason for us to even think about it considering significant changes in his brain parenchyma brainstem and the cervical spinal cord Review of Systems Review of Systems: All systems reviewed & are unremarkable except as noted in HPI and below Exam Narrative: Exam Narrative: the patient is awake alert only partially oriented able to communicate with dysarthria nystagmus generalized weakness with the spastic paraparesis of both lower extremities developing contractures at the knee and the ankle with brisk reflexes and 1+ reflexes in the upper extremities examination of the chest hard of been unrevealing extremities as mentioned above Objective Data Vital Signs Vital Signs: Vital Signs - 24 hr 05/27/20 14:00 05/27/20 20:00 05/28/20 04:00 Temperature 36.6 C 36.8 C 37.2 C Pulse Rate 72 73 74 Respiratory Rate 22 H 18 18 Blood Pressure 126/69 137/78 132/60 Pulse Oximetry 96 95 95 Intake/Output Intake/Output: Intake & Output 05/25/20 05/26/20 05/27/20 05/28/20 23:59 23:59 23:59 23:59 Intake Total 50 2080 90 Output Total 450 800 Balance -400 1280 90 Meds/Results Medications: Active Medications Generic Name Dose Route Start Last Admin Trade Name Freq PRN Reason Stop Dose Admin Escitalopram Oxalate 20 mg 05/27/20 09:00 05/28/20 08:27 Escitalopram Oxalate 10 Mg Tablet PO 20 mg DAILY KOKO Administration Cefepime HCl 1 gm in 50 mls @ 100 mls/hr 05/28/20 08:00 05/28/20 09:06 Maxipime 1 Gm/D5w 50 Ml IVPB Infused Q24H KOKO Infusion Melatonin 10 mg 05/27/20 02:00 05/27/20 21:28 Melatonin 5 Mg Tablet PO 10 mg HS KOKO Administration Ondansetron HCl 4 mg 05/26/20 23:14 Ondansetron Inj 4 Mg/2 Ml Vial IV PUSH Q4H PRN
[2020-05-28 14:00] VITALS: BP 148/87; PULSE 69; RESP 15; TEMP 37.1; O2SAT 96
--- NOTE | 2020-05-28 16:23 | PCSTNOTE ---
Evaluation was not able to be completed on 05/28/20 due to patient refusal to take liquids/solids from therapist. Will attempt again tomorrow.
[2020-05-28] MEDS: MELATONIN 5 MG TABLET 10 MG PO (20:17)
[2020-05-28 22:00] VITALS: BP 154/81; PULSE 72; RESP 18; TEMP 36.1; O2SAT 97
[2020-05-29 06:00] VITALS: BP 137/78; PULSE 65; RESP 20; TEMP 36.1; O2SAT 95
[2020-05-29 06:30] LABS: Anion Gap 5 mmol/L (8-16); Blood Urea Nitrogen 12 mg/dL (9-20); Calcium 8.6 mg/dL (8.4-10.2); Carbon Dioxide 27 mmol/L (22-30); Chloride 105 mmol/L (98-107); Estimated CRCL calculation 71 ml/min; Estimated Glomerular Filt Rate > 60; Glucose 95 mg/dL (75-110); Potassium 3.6 mmol/L (3.4-5.0); Sodium 137 mmol/L (137-145)
[2020-05-29] MEDS: CHOLECALCIFEROL 1,000 UNITS TABLET 5000 UNITS PO (08:05)
[2020-05-29] MEDS: PRAMIPEXOLE 0.5 MG TABLET 1 MG PO ×3 (08:06→16:18)
[2020-05-29] MEDS: ESCITALOPRAM OXALATE 10 MG TABLET 20 MG PO (08:06)
--- NOTE | 2020-05-29 11:52 | PCPTNOTE ---
Attempted PT eval this a.m. - pt was eating lunch - will try again this pm.
--- NOTE | 2020-05-29 12:50 | PM.DS ---
DS: Admitting Diagnosis Admitting Diagnosis Admitting Diagnosis: Confusion, not acting like himself. DS: Discharge Diagnosis Discharge Diagnosis (1) Altered mental status: Code(s): R41.82 - Altered mental status, unspecified Status: Acute Assessment and Plan: Discharge Summary (Date of service 05/29/20): Mr. Browning is a 65 y.o. male with PMH significant for multiple sclerosis, neurogenic bladder, restless leg syndrome, depression, and anxiety who presented to the emergency department for the evaluation of confusion. He has a hx of UTI and was discharged to rehab back in February 2020 and eventually to SNF. His reports that he has not walked since March 2020. His noted that PT/OT were discontinued as it was felt he had reached maximum potential. She noted she was planning to take him home with 24 hour care once things were all arranged. He was not acting like himself over the past week with confusion and lethargy. He was treated with ciprofloxacin for a UTI prior to admission and recently started on several medications including seroquel, hydroxyzine, nuedexta, and ativan. He was admitted to the hospitalist service and treated with IV antibiotic for UTI. Initial workup in the emergency department included urinalysis with 1+ leukocyte esterase, 21-30 WBC, mucous, hyaline casts.WBC was 8,400, Hb 12.7, and Hct 39.5. CXR was unremarkable. CT brain showed enlargement of lateral ventricles disproportionate to sulci, likely volume loss due to MS, and mild scattered white matter hypoattenuation. Brain and cervical spine MRI were performed. Brain MRI was performed and demonstrated cerebral and cerebellar white matter and brainstem disease consistent with MS and chronic small vessel disease. Cervical spine MRI shows lesions of the spinal cord, brainstem, and cerebellar white matter, worsened since 08/04/11. Neurology was consulted and recommended that he continue follow-up outpatient with Dr. Quigley. Aggressive PT/OT was recommended given worsening MS. Confusion was likely multifactorial due to UTI, progressive MS, dementia, polypharmacy, and metabolic encephalopathy. TSH was normal at 1.15. Vitamin B12 and folate are sufficient. Medications felt to be contributing to his confusion and lethargy including lorazepam, melatonin, hydroxyzine, myrbetriq, and quetiapine were held. His mentation improved significantly and he returned to baseline. He was alert and oriented x4 the day of discharge. He was felt stable for discharge and discharged in hemodynamically stable condition on the afternoon of 05/29/20. I discussed his case with his neurologist, Dr. Quigley, who recommended he follow-up with him for a virtual visit once discharged. His obtained a record request for his MRI/CT to be sent to Dr. Quigley's office. I was able to discuss his care with his as well and answer all additional questions. (2) Recent urinary tract infection: Code(s): Z87.440 - Personal history of urinary (tract) infections Status: Acute Assessment and Plan: He was treated with ciprofloxacin for 7 days but urinalysis was still grossly abnormal. He was treated with empiric cefepime. Urine culture was still in progress. I called to speak with Chandu who stated that preliminary is showing <50,000 CFU/mL and may be colonizer but final cultures still pending. He was discharged on PO cefdinir and advised that we would call the facility if antibiotics need to be changed. He was not having any urinary symptoms and I feel that his confusion was more likely secondary to polypharmacy as opposed to UTI as he was afebrile with no other symptoms. (3) Multiple sclerosis: Code(s): G35 - Multiple sclerosis Status: Chronic Assessment and Plan: His reports that he takes Aubagio intermittently when samples are available but has been out of this for 1 week. He is also prescribed nuedexta which was held temporarily due to concern for confusi
[2020-05-29 14:00] VITALS: BP 120/76; PULSE 85; RESP 18; TEMP 36.1; O2SAT 100
== END 2020-05-29 17:12 ==
LOC: ANHED 23:05 → ANH2MED 23:47
PROVIDERS: Physician Assistant; Admitting Provider Student in an Organized Health Care Education/Training Program; Emergency Provider Emergency Medicine; PCP Family Medicine; Visit Provider Family Medicine
DX: R41.82 Altered mental status, unspecified (principal); N39.0 Urinary tract infection, site not specified; G35 Multiple sclerosis; R53.83 Other fatigue; E86.0 Dehydration; G25.81 Restless legs syndrome; F41.8 Other specified anxiety disorders; E55.9 Vitamin D deficiency, unspecified; N31.9 Neuromuscular dysfunction of bladder, unspecified; Z87.440 Personal history of urinary (tract) infections; D64.9 Anemia, unspecified; G47.00 Insomnia, unspecified; R60.0 Localized edema; D61.818 Other pancytopenia; R45.1 Restlessness and agitation; I10 Essential (primary) hypertension; Z87.891 Personal history of nicotine dependence
CPT/HCPCS: 36415; 51701; 70450; 70553; 71045; 72156; 80048; 80053; 81001; 82607; 82746; 83605; 84443; 85025; 85027; 86140; 87040; 87077; 87086; 87088; 92610; 93970; 96361; 96365; 96367; 97162; 97166; 99285; A9270; A9577; G0378; J0692; J2543; J7030

== ENCOUNTER 2020-06-06 13:44 | Observation (INO) | payer MEDICARE, SELFPAY ==
--- NOTE | ~2020-06-06 | CT_ITS ---
EXAMINATION: CTA chest PE protocol EXAM DATE: 06/07/2020 13:49 INDICATION: Left upper chest pain. TECHNIQUE: Spiral CTA of the chest (pulmonary arteries) was performed with 100 cc Omnipaque 350 intr avenous contrast injection. Images were acquired during the pulmonary arterial phase. Coronal maxi mum intensity projection 3D-reconstructions were created by the technologist on dedicated workstation . Axial, coronal and sagittal reformatted images were reviewed. The dose-length product (DLP) for t his examination was 965.87 mGy-cm. The exposure was tailored according to patient size (auto mA exp osure control), and iterative reconstruction (ASIR) was used as additional dose reduction technique. There is no prior study for comparison. FINDINGS: There is left upper lobe anterior segmental pulmonary embolism identified, see axial image 111. The basilar segmental pulmonary arteries are poorly evaluated due to respiratory motion. No thor acic aortic dissection. There is an 8 mm right lower lobe superior segmental nodule with punctate ca lcification indicating that this is most likely a granuloma. No acute airspace disease. There are no pleural or pericardial effusions. Tracheobronchial tree is patent. There is no mediastinal, jasmin r or axillary lymphadenopathy. There is no pneumothorax. Heart normal in size. No evidence of c oronary arterial calcification. Upper abdomen is unremarkable. There is thoracic spondylosis witho ut osteoblastic or osteolytic lesions identified. IMPRESSION: 1. Positive for left upper lobe segmental pulmonary embolism. 2. Right lower lobe nodule likely granuloma. I discussed pulmonary embolism with Vahe Gavin MD at 06/07/2020 14:02 LEARNING AND DEVELOPMENT ADMINISTRATOR . Reviewed, dictated and finalized at location B. NING AND DEVELOPMENT ADMINISTRATOR IMPRESSION: 1. Positive for left upper lobe segmental pulmonary embolism. 2. Right lower lobe nodule likely granuloma. I discussed pulmonary embolism with Vahe Gavin MD at 06/07/2020 14:02 CS T .
--- NOTE | ~2020-06-06 | XR_ITS ---
XR chest 1V portable 06/06/2020 14:25 Indication: Rapid heart rate. Lethargy. Procedure: AP portable chest Comparison: Comparison to multiple prior studies sequentially, with oldest reviewed study dated 03/2020. Findings: Heart size normal. Shallow inspiration. Right basilar atelectasis. No focal pneumonia, pulm onary edema, pleural effusion or pneumothorax. Impression: 1: Subsegmental atelectasis right lower lung zone. Reviewed, dictated and finalized at location A. APEUTIC MASSAGE TECHNICIAN Impression: 1: Subsegmental atelectasis right lower lung zone.
[2020-06-06 13:50] VITALS: BP 143/65; PULSE 77; RESP 18; TEMP 36.9; O2SAT 99
--- NOTE | 2020-06-06 13:54 | ECG_ITS ---
Measurements Intervals [place] Rate: 72 P: 42 NC: 202 QRS: 16 QRSD: 101 T: 51 QT: 373 QTc: 411 Interpretive Statements SINUS RHYTHM NONSPECIFIC T-WAVE ABNORMALITY- DIFFUSE LEADS BASELINE ARTIFACT- II, III, AVR, AVL, AVF, V1, V5 BORDERLINE ECG Electronically Signed On 06-06-2020 15:11:44 DENTAL PROFESSIONAL by Demond Del Valle D.O.
--- NOTE | 2020-06-06 13:55 | ED.CHESTPAIN ---
HPI - Chest Pain General Chief Complaint: Chest Pain Stated Complaint: cp Source: RN notes reviewed History of Present Illness HPI narrative: Patient presents to emergency department from [facility] via EMS for chest pain. Patient states that he had chest pain located over the left chest that did not radiate. Described as a pressure. States the pain lasted approximately an hour and resolved. Associate with shortness of breath. Denies any fevers or chills abdominal pain nausea vomiting or any other symptoms states he has no pain at this time Related Data Home Medications Medication Instructions Recorded Confirmed Myrbetriq 50 mg PO DAILY 02/03/20 05/27/20 escitalopram oxalate 20 mg PO DAILY 02/03/20 05/27/20 Aubagio 14 mg PO DAILY 02/23/20 05/27/20 cholecalciferol (vitamin D3) 125 mcg PO DAILY 02/23/20 05/27/20 [Vitamin D3] ibuprofen 200 mg PO Q6H PRN 02/23/20 05/27/20 melatonin 10 mg PO HS 02/23/20 05/27/20 pramipexole [Mirapex] 1 mg PO TID 04/03/20 05/27/20 Nuedexta 1 cap PO DAILY 05/27/20 05/27/20 Allergies Allergy/AdvReac Type Severity Reaction Status Date / Time No Known Allergies Allergy Unknown Verified 05/27/20 02:56 Review of Systems Review of Systems: Narrative: Gen.: Denies fevers or chills ENT: Denies congestion Respiratory: Reports shortness of breath CV: See HPI GI: Denies abdominal pain nausea, emesis or diarrhea Musculoskeletal: Denies back pain or muscle pain Neuro: Denies numbness, tingling, weakness or focal weakness Skin: Denies rash Except as documented, all other systems reviewed and negative [facility] Past Medical History Medical History Anxiety Chronic anemia Depression Insomnia Left wrist fracture Multiple sclerosis Multiple sclerosis not affecting current episode of care Neurogenic bladder Restless leg syndrome Vitamin D deficiency Surgical History Surgical History No pertinent past surgical history Family History Family History Father Family history of malignant neoplasm of esophagus Mother Pacemaker Social History Social History Social History: The patient is and was living with his in [place] prior to his hospitalization in February 2020. He is now at a snf facility as detailed in HPI. Mr. 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 He smoked remotely many years ago. His Devora is his healthcare power of immigration attorney and he is a full code. Smoking packs per day: 1 Smoking cigarettes per day: 20.0 Years smoked: 6 Smoking pack-years: 6.00 Smoking status: Unknown if ever smoked Tobacco type: cigarettes Smoking end date: 08/06/97 Alcohol intake: former Drinks per week: 6 Substance use: former Substance use type: does not use Gender identity (if verbalized by the patient): Male Spiritual care concerns: No Exam Narrative: Exam Narrative: APPEARANCE: No acute distress, nontoxic, resting in bed EYES: EOMI HEENT: Normocephalic, atraumatic, OMM RESPIRATORY: No respiratory distress Clear to auscultation bilaterally with no rhonchi wheezing or rales. CARDIOVASCULAR: Regular rate and rhythm without murmurs rubs or gallops. ABDOMINAL: Soft, nontender, nondistended, no rebound or guarding MUSCULOSKELETAl: Moves all extremities. No clubbing, cyanosis or edema. NEURO: Awake and alert. Following commands, speech normal, no focal deficits SKIN:: Warm, dry. No rashes lesions or abrasions PSYCHIATRIC: Normal affect/mood, Course Course Emergency Course: Patient has had no chest pain in the ED Discussed with JITENDRA Baig for Dr. Ralph presentation work-up. Agrees with admission at this time Discussed with patient and family results of workup and anna
[2020-06-06] MEDS: ASPIRIN 81 MG CHEWABLE TABLET 324 MG PO (14:03)
[2020-06-06 14:29] LABS: Basophils Percent Auto 0.5 % (0.2-1.2); Eosinophils Absolute Auto 0.1 K/mm3 (0-0.3); Eosinophils Percent Auto 1.2 % (0-4.4); Hematocrit 34.2 % (42.0-52.0); Hemoglobin 11.3 g/dL (14.0-18.0); Immature Granulocyte Absolute 0.02 K/mm3 (0.00-0.031); Immature Granulocyte Percent A 0.3 % (0-0.5); Lymphocytes Absolute Auto 1.74 K/mm3 (0.9-3.2); Mean Corpuscular Hemoglobin 28.4 pg (26-34); Mean Corpuscular Volume 85.9 fl (80-100); Mean Platelet Volume 10.5 fl (7.4-10.4); Monocytes Absolute Auto 0.4 K/mm3 (0.1-0.6); Monocytes Percent Auto 6.8 % (2.6-8.5); Neutrophils Absolute Auto 4.1 K/mm3 (1.3-6.7); Neutrophils Percent Auto 64.2 % (45.5-73.1); Platelet Count Result 226 k/mm3 (150-375); Red Blood Count 3.98 M/mm3 (4.6-6.20); White Blood Count 6.4 K/mm3 (4.5-10.0)
[2020-06-06 14:39] LABS: INR 1.1; Prothrombin Time 13.9 Seconds (11.1-14.7)
[2020-06-06 14:40] LABS: Partial Thromboplastin Time 29.8 SECONDS (22.3-36.8)
[2020-06-06 14:46] LABS: Anion Gap 6 mmol/L (8-16); Blood Urea Nitrogen 12 mg/dL (9-20); Calcium 8.8 mg/dL (8.4-10.2); Carbon Dioxide 29 mmol/L (22-30); Chloride 104 mmol/L (98-107); Estimated CRCL calculation 85 ml/min; Estimated Glomerular Filt Rate > 60; Glucose 84 mg/dL (75-110); Potassium 3.8 mmol/L (3.4-5.0); Sodium 139 mmol/L (137-145)
[2020-06-06 14:55] LABS: Troponin I < 0.012 ng/mL (0.000-0.034)
--- NOTE | 2020-06-06 16:57 | ADMGEN ---
This patient, Elbert Browning, was admitted to IMU Room 211-01. Patient/family oriented to hospital policies and general routines including ID bracelet, bed and alarms, visiting hours, pain management, procedures, bathroom and other care routines, personal items, smoking policy, room service/diet, and visiting hours. Information on how to activate the Rapid Response Team has been discussed. Patient/Family are encouraged to report perceived risks to care and to ask questions if they do not understand what they are told or what they should do.
[2020-06-06 16:58] VITALS: BP 147/63; PULSE 69; RESP 20; TEMP 36.1; O2SAT 97
[2020-06-06 17:15] VITALS: BMI 31.8
[2020-06-06 17:58] LABS: Troponin I < 0.012 ng/mL (0.000-0.034)
[2020-06-06 18:00] VITALS: PULSE 71
[2020-06-06 20:00] VITALS: BP 120/61; PULSE 65; PULSE 68; RESP 18; TEMP 36.5; O2SAT 97
--- NOTE | 2020-06-06 20:00 | PM.IMHP ---
H&P: HPI History of Present Illness Date/Time: 06/06/20 20:00 Chief complaint: Chest Pain Narrative: Elbert Browning is an unfortunate 65-year-old male with multiple sclerosis who presented to the emergency department earlier today via EMS from a [facility] facility for evaluation of chest pain. He is known to myself in the hospitalist service with a recent admission on 05/27/2020 in which he presented with confusion, likely multifactorial in etiology including polypharmacy (he had recently been started on several medications including quetiapine, Myrbetriq, lorazepam, and hydroxyzine!), recent urinary tract infection, and progressive MS. His mentation improved significantly after holding the aforementioned medications anti was discharged to [facility] with orders to continue PT/OT. In any event, he seems to suffer from short-term memory loss, and at the time my evaluation he cannot really recall why he was brought to the hospital. I reminded him that he reportedly had chest pain, and he goes on to say that that he began experiencing sharp left-sided chest pain earlier today while doing nothing in particular. It lasted 1 to 2 hours before resolving without intervention. Triage note documents that he was short of breath with that as well, however he adamantly denies that to me. He also denies associated nausea, vomiting, and sweats. Again he denies shortness of breath, pleuritic pain, palpitations, and leg pain. No epigastric pain, abdominal pain, or symptoms of indigestion. He has no complaints currently. Review of Systems Review of Systems: Narrative: Twelve systems were reviewed with pertinent positives and negatives as per HPI. No fever, chills, or sweats. He denies cough and shortness of breath. No history of venous thromboembolism. Except as documented, all other systems were reviewed and are negative. [facility] Past Medical History Medical History (Updated 06/06/20 @ 23:02 by Safia Henry PA-C) Anxiety Chronic anemia Depression Insomnia Left wrist fracture Multiple sclerosis Neurogenic bladder Restless leg syndrome Vitamin D deficiency Surgical History Surgical History No pertinent past surgical history Family History Family History Father Family history of malignant neoplasm of esophagus Mother Pacemaker Social History Social History (Updated 06/06/20 @ 23:02 by Safia Henry PA-C) Social History: The patient is and was living with his in [place] prior to his hospitalization in February 2020. He is now at a [facility] facility as detailed in HPI. Mr. Browning is retired from [employer]. 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 He smoked remotely many years ago. His Devora is his healthcare power of bankruptcy attorney and he is a full code. Smoking packs per day: 1 Smoking cigarettes per day: 20.0 Years smoked: 6 Smoking pack-years: 6.00 Smoking status: Former smoker Tobacco type: cigarettes Smoking end date: 08/06/97 Alcohol intake: former Drinks per week: 6 Substance use: former Substance use type: does not use Gender identity (if verbalized by the patient): Male Spiritual care concerns: No Meds Home Medications and Allergies Home Medications Medication Instructions Recorded Confirmed Type escitalopram oxalate 20 mg PO DAILY 02/03/20 06/06/20 History Aubagio 14 mg PO DAILY 02/23/20 06/06/20 History cholecalciferol (vitamin D3) 125 mcg PO DAILY 02/23/20 06/06/20 History [Vitamin D3] ibuprofen 200 mg PO Q6H PRN 02/23/20 06/06/20 History melatonin 10 mg PO HS 02/23/20 06/06/20 History pramipexole [Mirapex] 0.25 mg PO QID 04/03/20 06/06/20 History lorazepam 0.5 mg PO TID 06/06/20 06/06/20 History quetiapine 25 mg PO HS 06/06/20 06/06/20 History Allergies Allergy/AdvReac Type Severity Reaction
[2020-06-06 21:01] LABS: Troponin I < 0.012 ng/mL (0.000-0.034)
[2020-06-06 22:00] VITALS: PULSE 67
[2020-06-06 23:27] VITALS: BP 124/70; PULSE 65; RESP 20; TEMP 36.6; O2SAT 98
[2020-06-06] MEDS: MELATONIN 5 MG TABLET 10 MG PO (23:55)
[2020-06-06] MEDS: PRAMIPEXOLE 0.25 MG TABLET PO (23:56)
[2020-06-06] MEDS: QUEtiapine FUMARATE 25 MG TABLET PO (23:56)
[2020-06-06] MEDS: TOLNAFTATE 1% POWDER 45 GM BTL 1 APPLIC TOPICAL (23:56)
[2020-06-07] VITALS (16 sets, daily range): BP systolic 112–153; BP diastolic 61–83; PULSE 62–71; RESP 18–21; TEMP 35.8–36.7; O2SAT 95–98
--- NOTE | 2020-06-07 | ECHO_ITS ---
Patient Info Name: Elbert Browning Age: 65 years : 1955 Gender: Male Ht: 70 in Wt: 222 lbs BSA: 2.26 m2 HR: 60 bpm BP: 147 / 73 mmHg Heart Rhythm: Sinus Rhythm Technical Quality: Fair Exam Date: 06/07/2020 10:53 AM Exam Location: [facility] Patient Status: Inpatient Admit Date: 06/06/2020 Staff Ordering Physician: Safia Henry PA-C Textile Science Technician: Pee Zimmer RDCS Attending Provider: Petar Hassan MD Referring Physician: Carl DOWLING; Exam Type: CA echo dop color flow w con Study Info Indications R07.9 - Chest pain, unspecified Complete two-dimensional, color flow and Doppler transthoracic echocardiogram is performed with contrast to opacify the left ventricle and to improve the deliniation of the left ventricle endocardial borders. Contrast/Agitated Saline Contrast/Ag. Saline: Definity Amount: 2.00 ml Administered By: Joanie Deleon RN Existing IV Access: Yes History/Risk Factors Chest pain; MS, HTN. Summary 1. Left ventricular chamber dimension is normal. 2. Left ventricular systolic function is normal, estimated at 60-65%. 3. There is mildly increased left ventricular wall thickness. 4. The left ventricular diastolic function is grade I diastolic dysfunction. 5. There is mild aortic valve regurgitation. Left Ventricle Left ventricular chamber dimension is normal. Left ventricular systolic function is normal, estimated at 60-65%. There is mildly increased left ventricular wall thickness. The left ventricular diastolic function is grade I diastolic dysfunction. Right Ventricle Right ventricular chamber dimension is normal. Right ventricular systolic function is normal. Left Atria Left atrial chamber dimension is normal. Right Atria Right atrial chamber dimension is normal. Atrial Septum Intact interatrial septum visualized by color flow imaging. Aortic Valve The aortic valve is probable trileaflet. There is mild aortic valve sclerosis. There is no aortic valve stenosis. There is mild aortic valve regurgitation. Pulmonic Valve The pulmonic valve is not well visualized. There is no pulmonic valve stenosis. There is trace pulmonic regurgitation. Mitral Valve The mitral valve has normal leaflets. There is no mitral valve stenosis. There is trace mitral valve regurgitation. Tricuspid Valve The tricuspid valve leaflets are normal. There is no significant tricuspid valve stenosis. There is trace tricuspid valve regurgitation. Pericardium/Pleural The pericardium appears normal. There is no pericardial effusion. Aorta The aortic root size at the sinus of Valsalva is normal. Left Ventricular Outflow Tract Name Value Normal LVOT 2D LVOT Diameter 2.25 cm LVOT Doppler LVOT Peak Gradient 3 mmHg LVOT Mean Gradient 1 mmHg LVOT VTI 17.22 cm LVOT VTI/AV VTI Ratio 0.80 LVOT Stroke Volume 68.49 ml LVOT CO
[2020-06-07 07:19] LABS: Basophils Percent Auto 0.6 % (0.2-1.2); Eosinophils Absolute Auto 0.2 K/mm3 (0-0.3); Eosinophils Percent Auto 3.3 % (0-4.4); Hematocrit 33.7 % (42.0-52.0); Hemoglobin 11.2 g/dL (14.0-18.0); Immature Granulocyte Absolute 0.02 K/mm3 (0.00-0.031); Immature Granulocyte Percent A 0.4 % (0-0.5); Lymphocytes Absolute Auto 1.85 K/mm3 (0.9-3.2); Lymphocytes Percent Auto 34.1 % (18.3-44.2); Mean Corpuscular HGB Conc 33.2 g/dl (32-36); Mean Corpuscular Volume 87.3 fl (80-100); Monocytes Absolute Auto 0.4 K/mm3 (0.1-0.6); Monocytes Percent Auto 6.8 % (2.6-8.5); Neutrophils Percent Auto 54.8 % (45.5-73.1); Platelet Count Result 212 k/mm3 (150-375); Red Blood Count 3.86 M/mm3 (4.6-6.20); Red Cell Distribution Width 15.5 % (11.5-14.5); White Blood Count 5.4 K/mm3 (4.5-10.0)
[2020-06-07 07:31] LABS: D Dimer 1.03 ug/mL (<0.48)
[2020-06-07 07:33] LABS: Anion Gap 4 mmol/L (8-16); Blood Urea Nitrogen 13 mg/dL (9-20); Calcium 8.5 mg/dL (8.4-10.2); Carbon Dioxide 28 mmol/L (22-30); Chloride 107 mmol/L (98-107); Estimated CRCL calculation 94 ml/min; Estimated Glomerular Filt Rate > 60; Glucose 101 mg/dL (75-110); Potassium 3.6 mmol/L (3.4-5.0); Sodium 139 mmol/L (137-145)
[2020-06-07] MEDS: TOLNAFTATE 1% POWDER 45 GM BTL 1 APPLIC TOPICAL ×2 (08:40→20:50)
[2020-06-07] MEDS: ENOXAPARIN 40 MG/0.4 ML SYRINGE SUB-Q (08:40)
[2020-06-07] MEDS: PRAMIPEXOLE 0.25 MG TABLET PO ×4 (08:41→20:48)
[2020-06-07] MEDS: CHOLECALCIFEROL 1,000 UNITS TABLET 5000 UNITS PO (08:41)
[2020-06-07] MEDS: ESCITALOPRAM OXALATE 10 MG TABLET 20 MG PO (08:41)
--- NOTE | 2020-06-07 10:37 | PM.IMPN ---
Progress Note: A&P Assessment and Plan (1) Chest pain: Code(s): R07.9 - Chest pain, unspecified Status: Acute Assessment and Plan: Atypical CP. Troponin negative x3. CXR RLL atelectasis. EKG reviewed diffuse T-wave changes. consider pericarditis. D-dimer is positive. Patient is at risk for veno thromboembolic disease. Exam concerning for left DVT. Will check CTA and lower extremity Doppler. Continue aspirin. Cardiology was consulted CTA showing small segmental Left upper lobe PE. Doppler pending. Will start Eliquis. Echo showing EF 60% wiht grade I DD. (2) Multiple sclerosis: Code(s): G35 - Multiple sclerosis Status: Chronic Assessment and Plan: Stable. Consider PT/OT once testing compelte. Continue current treatment for MS. (3) Chronic anemia: Code(s): D64.9 - Anemia, unspecified Status: Acute Assessment and Plan: B12 374 in May. Mild anemia with hgb running 11-13 range. Hgb 11.3 on admission and felt within his baseline. Continue to monitor. (4) Tinea corporis: Code(s): B35.4 - Tinea corporis Status: Acute Assessment and Plan: Tolnaftate and Miconazole started. Continue current topical care. (5) DVT prophylaxis: Code(s): Z29.9 - Encounter for prophylactic measures, unspecified Status: Acute Assessment and Plan: Lovenox Subjective Date/time seen: 06/07/20 10:37 Interval history: Date of service 06/07 65yo male with MS here for complaints of CP. Patietn states the CP lasted for a few hours. Not palpable or pleuritic. Pain localized to the left chest. no SOB, nausea, radiation to the pain or diaphoresis. Having leg edema recently but no pain. Feels well today. Exam Narrative: Exam Narrative: AF 96.5 147/73 64 20 98% ra Gen - NARD Chest - CTA bilaterally, nml RR CV - RRR S1/S2; Tele showing no significant dysrhythmias Abd - Soft, NT/ND, Positive BS Ext - trace pedal edema, +Homans on the left, cords appreciated left popliteal area. Psych - Nml mood and affect Skin - Warm and dry Objective Data Vital Signs Vital Signs: Vital Signs - 24 hr 06/06/20 13:50 06/06/20 16:58 06/06/20 18:00 Temperature 98.5 F 96.9 F L Pulse Rate 77 69 71 Respiratory Rate 18 20 Blood Pressure 143/65 H 147/63 H Pulse Oximetry 99 97 06/06/20 20:00 06/06/20 22:00 06/06/20 23:27 Temperature 97.7 F 97.9 F Pulse Rate 68 67 65 Respiratory Rate 18 20 Blood Pressure 120/61 124/70 Pulse Oximetry 97 98 06/07/20 00:00 06/07/20 02:00 06/07/20 04:00 Temperature 97.8 F Pulse Rate 68 64 70 Respiratory Rate 20 Blood Pressure 112/70 Pulse Oximetry 95 06/07/20 05:59 06/07/20 08:21 Temperature 96.5 F L Pulse Rate 64 64 Respiratory Rate 20 Blood Pressure 147/73 H Pulse Oximetry 98 Intake/Output Intake/Output: Intake & Output 06/05/20 06/06/20 06/06/20 06/07/20 00:59 00:59 23:59 23:59 Intake Total 870 Output Total 300 Balance 570 Meds/Results Medications: Active Medications Generic Name Dose Route Start Last Admin Trade Name Freq PRN Reason Stop Dose Admin Aspirin 81 mg 06/07/20 08:00 Aspirin 81 Mg Chewable Tablet PO DAILY@0800 [facility] Enoxaparin Sodium 40 mg 06/07/20 09:00 06/07/20 08:40 Enoxaparin 40 Mg/0.4 Ml Syringe SUB-Q 40 mg DAILY KOKO Administration Escitalopram Oxalate 20 mg 06/07/20 09:00 06/07/20 08:41 Escitalopram Oxalate 10 Mg Tablet PO 20 mg DAILY [facility] Administration Lorazepam 0.5 mg 06/06/20 23:10 Lorazepam (*Crx) 0.5 Mg Tablet PO TID PRN Anxiety Melatonin 10 mg 06/06/20 23:15 06/06/20 23:55 Melatonin 5 Mg Tablet PO 10 mg HS KOKO Administration Miconazole Nitrate 1 applic 06/06/20 23:15 06/07/20 08:39 Miconazole 2% Antifungal Ointment 56 Gm TOPICAL 1 applic Q12HR KOKO Administration Non-Formulary Medication 14 mg 06/07/20 09:00 Terifluno
[2020-06-07] MEDS: PERFLUTREN LIPID MICROSPHERES 1.5 ML VIAL DILUTED TO 10 ML TOTAL VOLUME IV PUSH (11:37)
[2020-06-07] MEDS: ASPIRIN 81 MG CHEWABLE TABLET PO (14:34)
[2020-06-07] MEDS: LORazepam (*CRX) 0.5 MG TABLET PO (14:43)
--- NOTE | 2020-06-07 14:44 | PM.CNCAR ---
Assessment and Plan Additional Plan This is a 65-year-old man with a very poor unreliable history in my opinion. He does not seem to be aware that he is coming to the hospital from a skilled care facility. He provides a history of chest pain incident that happened about 2 weeks ago presumably that is also unreliable. Cardiac-fisher there is no evidence of an acute coronary syndrome and it appears that he has been found on CT scan to have a left upper lobe pulmonary embolism. Most likely this is the etiology of the patient's chest pain and systemic anticoagulation has already been started by the hospitalist. At this point I do not believe any additional cardiac evaluation is necessary or appropriate. Please contact me if you have specific cardiovascular questions if not I do not plan to continue to follow this man on rounds Kang Fletcher MD [facility] History of Present Illness History of Present Illness Consult date/time: 06/07/20 14:44 Consult reason: chest pain Reason For Visit: Chest Pain Narrative: This is a 65-year-old man I am seeing at the request of the hospitalist this afternoon because of chest pain. He is unknown to me prior to this consultation. The history is providing I consider to be unreliable. He states to me that he had an episode of chest pain about 2 weeks ago when he was hanging around with some friends. He does not remember where he was are much about the pain but he states that his friends thought he probably had indigestion. He can't remember why he has been brought to the hospital in can't really tell me much about that. 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 The chart indicates that he lives at [facility]. According to the chart he was sent here because of some chest pain and he has been evaluated by hospitalist. He does not have any history of coronary artery disease and really denies any history of any cardiac problems. His cardiac biomarkers are negative x3 sets his electrocardiogram does not show any findings indicative of an acute myocardial infarction. Has an echocardiogram done earlier today interpreted by Dr. collado without any regional wall motion abnormalities and normal left ventricular systolic function. A chest CT was done a short time ago which appears to show a left upper lobe pulmonary embolism. The chart indicates that he has a history of multiple sclerosis. In this setting I am seeing him in consultation. He denies any history of exertional chest pain pressure heaviness he denies any orthopnea PND edema palpitations or syncope. Review of Systems Review of Systems: Narrative: I do not believe use review of systems is reliable or history being reliable. ROS unobtainable: Yes unobtainable due to mental status PMFSH Past Medical History Medical History (Updated 06/07/20 @ 10:49 by Vahe Gavin MD) Anxiety Chronic anemia Depression Insomnia Left wrist fracture Multiple sclerosis Neurogenic bladder Restless leg syndrome Vitamin D deficiency Surgical History Surgical History No pertinent past surgical history Family History Family History Father Family history of malignant neoplasm of esophagus Mother Pacemaker Social History Social History (Updated 06/06/20 @ 23:02 by Safia Henry PA-C) Social History: The patient is and was living with his in [place] prior to his hospitalization in February 2020. [place] [facility] [place] as detailed in HPI. Mr. Browning is retired from [employer]. After he retired he ran a [employer] business. He smoked remotely many years ago. His Devora is his healthcare power of insurance attorney and he is a full code. Smoking packs per day: 1 Smoking cigarettes per day: 20.0 Years smoked: 6 Smoking pack-years: 6.00 Smoking status
[2020-06-07] MEDS: QUEtiapine FUMARATE 25 MG TABLET PO (20:48)
[2020-06-07] MEDS: APIXABAN 5 MG TABLET 10 MG PO (20:48)
[2020-06-07] MEDS: MELATONIN 5 MG TABLET 10 MG PO (20:48)
[2020-06-08] VITALS (9 sets, daily range): BP systolic 122–155; BP diastolic 69–87; PULSE 59–75; RESP 20; TEMP 36.5–36.8; O2SAT 96–98
[2020-06-08] MEDS: ASPIRIN 81 MG CHEWABLE TABLET PO (08:51)
[2020-06-08] MEDS: CHOLECALCIFEROL 1,000 UNITS TABLET 5000 UNITS PO (08:52)
[2020-06-08] MEDS: APIXABAN 5 MG TABLET 10 MG PO (08:52)
[2020-06-08] MEDS: PRAMIPEXOLE 0.25 MG TABLET PO ×3 (08:53→17:16)
[2020-06-08] MEDS: ESCITALOPRAM OXALATE 10 MG TABLET 20 MG PO (08:53)
[2020-06-08] MEDS: TOLNAFTATE 1% POWDER 45 GM BTL 1 APPLIC TOPICAL (08:54)
--- NOTE | 2020-06-08 14:00 | PC.NURSE ---
Called report to JACKSON Mckinnon at [facility] at 1326. Ambulance called for patient transport.
--- NOTE | 2020-06-08 17:45 | PM.DS ---
DS: Admitting Diagnosis Admitting Diagnosis Admitting Diagnosis: Chest Pain DS: Discharge Diagnosis Discharge Diagnosis (1) Chest pain: Code(s): R07.9 - Chest pain, unspecified Status: Acute Assessment and Plan: Atypical CP. Troponin negative x3. CXR RLL atelectasis. EKG reviewed diffuse T-wave changes. D-dimer is positive. also seen by Cardiology and they felt the pain was not cardiac CTA showing small segmental Left upper lobe PE. Doppler refused by patient Eliquis started Echo showing EF 60% with grade I DD and no pulmonary hypertension or right ventricular strain. (2) Multiple sclerosis: Code(s): G35 - Multiple sclerosis Status: Chronic Assessment and Plan: Stable. . Continue current treatment for MS. (3) Chronic anemia: Code(s): D64.9 - Anemia, unspecified Status: Acute Assessment and Plan: B12 374 in May. Mild anemia with hgb running 11-13 range. Hgb 11.3 on admission and felt within his baseline. Continue to monitor. DS: Summary Hospital Course Hospital Course: 65-year-old male with MS intermediate resident presented with atypical chest pain and found to have pulmonary emboli by CTA. He refused venous Doppler but placed on anticoagulation. He was not hypoxic given no further chest pain by the time of discharge. May be a candidate for senior care anticoagulation due to his mobility issues Time Spent with Patient Time attestation: Total time spent providing and/or coordinating discharge services: 35 minutes Exam Narrative: Exam Narrative: condition on discharge blood pressure 146/70 pulse 62 saturating 97% on room air respirations 18 per minute lungs clear CV regular rate rhythm abdomen benign extremities without edema neuro alert cooperative with no new focal deficits patient was taking a diet well with no further complaints of chest pain and able to be discharged back to the intermediate in stable condition Discharge Plan Discharge Attending physician on discharge: Peña Hampton Consulting providers: [facility] ; Eugenio Stout Discharging Clinician: Peña Hampton [place] Disposition[place] [facility] Activity: as tolerated Diet: regular Patient Instructions: Antibiotic Form, Chest Pain (DC), Chest Pain (GEN) Stand Alone Forms: General Discharge Information Follow-up/Referrals: [facility]] - 2 Weeks Discharge Medications: New Eliquis 5 mg Tablet 10 mg PO Q12HR Qty: 24 RF: 0 Eliquis 5 mg Tablet 5 mg PO Q12HR Qty: 60 RF: 0 aspirin [Children's Aspirin] 81 mg Tablet,Chewable 81 mg PO DAILY@0800 Qty: 30 RF: 0 Continued escitalopram oxalate 20 mg Tablet 20 mg PO DAILY RF: 0 pramipexole [Mirapex] 0.5 mg tablet 0.25 mg PO QID RF: 0 quetiapine 25 mg tablet 25 mg PO HS RF: 0 lorazepam 0.5 mg tablet 0.5 mg PO TID RF: 0 cholecalciferol (vitamin D3) [Vitamin D3] 125 mcg (5,000 unit) Tablet 125 mcg PO DAILY RF: 0 Aubagio 14 mg Tablet 14 mg PO DAILY RF: 0 melatonin 10 mg Capsule 10 mg PO HS RF: 0 Discontinued ibuprofen 200 mg Tablet 200 mg PO Q6H PRN (Reason: Pain (Scale Score 4-6)) RF: 0 Date of admission: 06/06/20 15:20 Primary Care Provider: Reji Shaffer Admitting Provider: Petar Hassan V. Attending physician on admission: Petar Hassan V. Condition: Stable Quality VTE Prophylaxis VTE prophylaxis: pharmacologic ordered
== END 2020-06-08 18:58 ==
LOC: ANHED 15:32 → ANHIMU 20:11
PROVIDERS: Physician Assistant; Admitting Provider Internal Medicine; Emergency Provider Emergency Medicine; PCP Family Medicine; Visit Provider Internal Medicine
DX: I26.99 Other pulmonary embolism without acute cor pulmonale (principal); R07.9 Chest pain, unspecified; R06.02 Shortness of breath; F41.9 Anxiety disorder, unspecified; D64.89 Other specified anemias; G35 Multiple sclerosis; Z87.891 Personal history of nicotine dependence; J98.11 Atelectasis; R91.1 Solitary pulmonary nodule; D64.9 Anemia, unspecified; R93.1 Abnormal findings on diagnostic imaging of heart and coronary circulation; B35.4 Tinea corporis; Z29.9 Encounter for prophylactic measures, unspecified
CPT/HCPCS: 36415; 71045; 71275; 80048; 84484; 85025; 85380; 85610; 85730; 93005; 96372; 96374; 99285; A9270; C8929; G0378; J1650; Q9957; Q9967

== ENCOUNTER 2020-07-07 18:08 | Emergency (ER) | payer MEDICARE, SELFPAY ==
--- NOTE | ~2020-07-07 | CT_ITS ---
EXAMINATION: CT brain wo con DATE: 07/07/2020 18:49 INDICATION: Fall with head injury and confusion. Anticoagulated. TECHNIQUE: Computed tomography (CT) of the head was performed without intravenous contrast. Sagittal and coronal reconstructions were performed. The mA was adjusted according to patient size. Iterative reconstruction technique was employed. The dose-length product was 681.00 mGy-cm. COMPARISON: head CT and brain MR dated 05/27/2020 FINDINGS: No fracture. No acute intracranial hemorrhage, acute infarction or abnormal extra axial fluid collect ion. There is mild to moderate scattered white matter hypoattenuation. Normal variant cavum septum pe llucidum et vergae. Symmetric dilation of the lateral ventricles which is disproportionate to the mil d enlargement of the sulci and third and fourth ventricles most likely related to central predominant diffuse volume loss. No mass/mass effect. Changes of bilateral intraocular lens replacement. Moderat e mucosal thickening in bilateral maxillary and ethmoid sinuses, the latter extending into the fronta l sinuses. Mastoid air cells are normal. IMPRESSION: 1. No fracture or acute intracranial process. 2. Stable appearance of enlargement of the lateral ventricles which is disproportionate to the sulci most likely central predominant volume loss however differential would include normal pressure hydroc ephalus (NPH: clinical triad ataxia/gait disturbance, dementia, urinary incontinence). 3. Mild to moderate scattered white matter hypoattenuation likely due to a combination of known histo ry of multiple sclerosis as well as chronic small vessel ischemic disease. Reviewed, dictated and finalized at location A. STITCH BINDER IMPRESSION: 1. No fracture or acute intracranial process. 2. Stable appearance of enlargement of the lateral ventricles which is dispropo rtionate to the sulci most likely central predominant volume loss however diffe rential would include normal pressure hydrocephalus (NPH: clinical triad ataxia /gait disturbance, dementia, urinary incontinence). 3. Mild to moderate scattered white matter hypoattenuation likely due to a comb ination of known history of multiple sclerosis as well as chronic small vessel ischemic disease.
--- NOTE | ~2020-07-07 | CT_ITS ---
EXAMINATION: CT cervical spine wo con DATE: 07/07/2020 18:52 INDICATION: Fall with head injury TECHNIQUE: Computed tomography (CT) of the cervical spine was performed without intravenous contrast. Automated exposure control and iterative reconstruction technique were employed. The dose-length pro duct was 531.73 mGy-cm. COMPARISON: CT dated 05/07/2020 and MRI dated 05/27/2020 FINDINGS: Alignment is normal. Chronic mild anterior wedging at T1. Cervical vertebral body heights are normal. No fracture. Mild disc height loss at C5-C6 and T1-T2 and mild to moderate disc height loss at C6-C7 and C7-T1. Posterior disc bulges and disc osteophyte complex is present resulting in moderate centra l canal stenosis at C5-C6 and mild stenosis at a few other levels. Multilevel mild to moderate uncove rtebral osteoarthritis and moderate to severe multilevel cervical facet osteoarthritis which results in mild to moderate neural foraminal stenosis at multiple levels on both the left and right. See rece nt cervical spine MRI report for level by level analysis. Cervical soft tissues are unremarkable. Vis ualized airway and apices of the lungs are clear. IMPRESSION: 1. Moderate cervical spondylosis. No acute osseous abnormality. Reviewed, dictated and finalized at location A. HER EDUCATION DIRECTOR
[2020-07-07 18:15] VITALS: BP 144/78; PULSE 74; RESP 16; TEMP 36.8; O2SAT 96
--- NOTE | 2020-07-07 19:00 | ED.GENADULT ---
HPI - General Adult General Chief complaint: Head Injury Stated complaint: FALL Time Seen by Provider: 07/07/20 18:21 Source: patient History of Present Illness HPI narrative: Patient is a 65 y/o male sent here by [facility] for a fall prior to arrival. Patient states that he fell out of a chair. He states that he feels fine. He denies any headache, neck pain, chest pain or abdominal pain. He denies any LOC. Related Data Home Medications Medication Instructions Recorded Confirmed acetaminophen 325 mg PO QID 07/07/20 cholecalciferol (vitamin D3) 125 mcg PO DAILY 07/07/20 dextromethorphan-quinidine 1 cap PO Q12H 07/07/20 [Nuedexta] escitalopram oxalate 20 mg PO DAILY 07/07/20 lorazepam 07/07/20 melatonin 10 mg PO HS 07/07/20 mirabegron [Myrbetriq] mg PO 07/07/20 pramipexole mg 07/07/20 quetiapine 07/07/20 teriflunomide [Aubagio] mg 07/07/20 Allergies Allergy/AdvReac Type Severity Reaction Status Date / Time No Known Allergies Allergy Unknown Verified 07/07/20 18:35 Review of Systems Constitutional: Constitutional: Denies chills, Denies fever(s), Denies headache(s) and Denies weakness Eyes: Eyes: Denies blurry vision ENT: Denies headache(s) and Denies neck pain Cardiovascular: Cardiovascular: Denies chest pain and Denies dyspnea Respiratory: Respiratory: Denies cough and Denies dyspnea Gastrointestinal: Gastrointestinal: Denies abdominal pain, Denies diarrhea, Denies nausea and Denies vomiting Genitourinary: Genitourinary: Denies hematuria and Denies dysuria Musculoskeletal: Musculoskeletal: Denies back pain, Denies neck pain and Reports other (fall) Neurologic: Denies headache(s) and Denies weakness PMFSH Past Medical History Medical History Anxiety Chronic anemia Depression Insomnia Left wrist fracture Multiple sclerosis Neurogenic bladder Restless leg syndrome Vitamin D deficiency Surgical History Surgical History No pertinent past surgical history Family History Family History Father Family history of malignant neoplasm of esophagus Mother Pacemaker Social History Social History Social History: The patient is and was living with his in [place] prior to his hospitalization in February 2020. [facility] as detailed in HPI. Mr. Browning is retired from [employer]. 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 He smoked remotely many years ago. His Devora is his healthcare power of attorney law clerk and he is a full code. Smoking packs per day: 1 Smoking cigarettes per day: 20.0 Years smoked: 6 Smoking pack-years: 6.00 Smoking status: Former smoker Tobacco type: cigarettes Smoking end date: 08/06/97 Alcohol intake: former Drinks per week: 6 Substance use: former Substance use type: does not use Gender identity (if verbalized by the patient): Male Spiritual care concerns: No Exam Const: General: no acute distress and well developed Orientation/consciousness: oriented to person, oriented to place, oriented to time and patient oriented x3 HENMT: Head: normocephalic Ears: external ears normal General nose exam: Normal external nose present Eyes: General: appearance normal, both eyes and all related structures Conjunctivae: conjunctivae normal Neck: Neck: normal visual inspection and full ROM Chest: Chest palpation & inspection: normal inspection of the chest and no tenderness Resp: Effort & Inspection: normal respiratory effort Auscultation: clear to auscultation bilaterally Cardio: Rate: regular rate Rhythm: regular rhythm GI: GI Palp: No abdominal tenderness and Yes Soft to palpation Skin: General skin exam: normal color and turgor normal Neuro: General: oriented to person, orient
[2020-07-07 19:26] LABS: Basophils Percent Auto 0.5 % (0.2-1.2); Eosinophils Absolute Auto 0.1 K/mm3 (0-0.3); Eosinophils Percent Auto 1.4 % (0-4.4); Hematocrit 37.2 % (42.0-52.0); Hemoglobin 12.3 g/dL (14.0-18.0); Immature Granulocyte Absolute 0.03 K/mm3 (0.00-0.031); Immature Granulocyte Percent A 0.4 % (0-0.5); Lymphocytes Absolute Auto 1.94 K/mm3 (0.9-3.2); Lymphocytes Percent Auto 24.1 % (18.3-44.2); Mean Corpuscular HGB Conc 33.1 g/dl (32-36); Mean Corpuscular Hemoglobin 29.7 pg (26-34); Mean Corpuscular Volume 89.9 fl (80-100); Mean Platelet Volume 10.7 fl (7.4-10.4); Monocytes Absolute Auto 0.7 K/mm3 (0.1-0.6); Monocytes Percent Auto 8.1 % (2.6-8.5); Neutrophils Absolute Auto 5.3 K/mm3 (1.3-6.7); Neutrophils Percent Auto 65.5 % (45.5-73.1); Platelet Count Result 214 k/mm3 (150-375); Red Blood Count 4.14 M/mm3 (4.6-6.20); Red Cell Distribution Width 16.7 % (11.5-14.5); White Blood Count 8.1 K/mm3 (4.5-10.0)
[2020-07-07 19:35] LABS: INR 1.4; Prothrombin Time 18.2 Seconds (11.1-14.7)
[2020-07-07 19:37] LABS: Partial Thromboplastin Time 36.1 SECONDS (22.3-36.8)
[2020-07-07 19:38] LABS: Alanine Aminotransferase 16 U/L (4-50); Albumin Level 3.8 g/dL (3.5-5.1); Alkaline Phosphatase 55 U/L (38-126); Anion Gap 8 mmol/L (8-16); Aspartate Amino Transferase 27 U/L (17-59); Bilirubin,Total 0.5 mg/dL (0.2-1.3); Blood Urea Nitrogen 18 mg/dL (9-20); Calcium 9.5 mg/dL (8.4-10.2); Carbon Dioxide 25 mmol/L (22-30); Chloride 107 mmol/L (98-107); Estimated CRCL calculation 47 ml/min; Estimated Glomerular Filt Rate 47; Glucose 100 mg/dL (75-110); Potassium 3.7 mmol/L (3.4-5.0); Sodium 140 mmol/L (137-145)
--- NOTE | 2020-07-07 20:06 | PC.NURSE ---
pt refused NS. pt alert, knows name place time, stated he slumped over and fell out of chair, denied MD chelsea aware
[2020-07-07 20:11] VITALS: BP 136/82; PULSE 75; RESP 16; TEMP 36.4; O2SAT 98
[2020-07-08 00:12] VITALS: BP 134/76; PULSE 82; RESP 16; TEMP 36.6; O2SAT 96
== END 2020-07-08 00:14 ==
PROVIDERS: Emergency Provider Emergency Medicine; PCP Family Medicine
DX: Z04.3 Encounter for examination and observation following other accident (principal); F41.9 Anxiety disorder, unspecified; D64.9 Anemia, unspecified; F32.9 Major depressive disorder, single episode, unspecified; G35 Multiple sclerosis; G25.81 Restless legs syndrome; Z87.891 Personal history of nicotine dependence; N31.9 Neuromuscular dysfunction of bladder, unspecified; E55.9 Vitamin D deficiency, unspecified; M47.812 Spondylosis without myelopathy or radiculopathy, cervical region; Z79.01 Long term (current) use of anticoagulants; W07.XXXA Fall from chair, initial encounter
CPT/HCPCS: 36415; 70450; 72125; 80053; 85025; 85610; 85730; 99284

== ENCOUNTER 2022-03-10 09:17 | Observation (INO) | payer MEDICARE, SELFPAY ==
[2022-03-10] VITALS (20 sets, daily range): BP systolic 112–151; BP diastolic 67–89; PULSE 74–90; RESP 14–24; TEMP 36.2–37.1; O2SAT 92–100; BMI 35.6
--- NOTE | ~2022-03-10 | US_ITS ---
US venous doppler [facility] DATE: 03/11/2022 09:53 INDICATION: Limited mobility. History of pulmonary emboli. TECHNIQUE: Real-time and color flow imaging and Doppler analysis of the veins of the lower extremitie s COMPARISON: 05/27/2020 venous duplex examination of the lower extremities FINDINGS: There is flow in the greater saphenous veins. There is spontaneous and phasic flow and norm al augmentation and color flow signal and normal compression of the deep veins of the lower extremiti es. IMPRESSION: No evidence of deep venous thrombosis of the lower extremities Reviewed, dictated and finalized at [facility]. Reviewed, dictated and finalized at location A.
--- NOTE | ~2022-03-10 | XR_ITS ---
EXAMINATION: XR chest 2V DATE: 03/10/2022 09:56 INDICATION: Intermittent chest pain. Cough. TECHNIQUE: Frontal and lateral views of the chest were obtained on 3 radiographs. COMPARISON: Chest single view 06/06/2020, chest CT 06/07/2020 FINDINGS: The lung volumes are small. There is mild atelectasis in right midlung zone. No pleural eff usion or pneumothorax. The heart size is normal. IMPRESSION: 1. Small lung volumes with mild atelectasis in right midlung zone. Reviewed, dictated and finalized at location A.
--- NOTE | ~2022-03-10 | CT_ITS ---
EXAMINATION: CTA chest PE protocol DATE: 03/11/2022 15:48 INDICATION: cp, elevated ddimer TECHNIQUE: Computed tomography angiography (CTA) of the chest was performed with 200 mL Omnipaque-350 intravenous contrast timed to evaluate the pulmonary arteries. Coronal maximum intensity projection 3D-reconstructions were created by the technologist. The dose-length product (DLP) was 1979.54 mGy-cm . Automated exposure control and iterative reconstruction technique were employed. COMPARISON: 06/07/2020. FINDINGS: Lung parenchyma and airways: Bibasilar atelectasis/scar. Pleura: Unremarkable. Thoracic inlet, axillae and chest wall: Unremarkable. Thoracic aorta: Mild arch ectasia and calcification. Mediastinum: Calcified mediastinal lymph nodes. Heart and pericardium: Subtle bowing of the interventricular septum. RV/LV ratio is 1. Cardiomegaly. Coronary artery calcifications: Absent. Upper abdomen: Renal and splenic cysts.. Bones: No acute osseous finding. Pulmonary arteries: Study quality: Degraded primarily by respiratory motion but also arm positioning and injection issues that required a second contrast injection, such that segmental emboli could be m issed. Acute segmental embolus in a left upper lobe, probably lingular branch. Very poor visualizatio n of the bilateral lower lobe arteries. IMPRESSION: Acute segmental left upper lobe nonocclusive pulmonary embolus. Examination was severely limited. Ove rall clot burden difficult to assess. Septal bowing with normal RV/LV ratio, findings that are equivo aníbal for right heart strain. Results reported telephonically to Soco Jensen RN by Dr. Baldwin at 4:30 PM on 03/11/2022. Reviewed, dictated and finalized at location [facility]. IMPRESSION: Acute segmental left upper lobe nonocclusive pulmonary embolus. Examination was severely limited. Overall clot burden difficult to assess. Septal bowing with normal RV/LV ratio, findings that are equivocal for right heart strain. Results reported telephonically to Soco Jensen RN by Dr. Baldwin at 4:30 PM on 03/11/2022.
--- NOTE | 2022-03-10 09:23 | ECG_ITS ---
Measurements Intervals [place] Rate: 85 P: 138 MN: 228 QRS: -7 QRSD: 96 T: 120 QT: 337 QTc: 401 Interpretive Statements SINUS RHYTHM WITH FIRST DEGREE AV BLOCK NONSPECIFIC ST & T-WAVE ABNORMALITY COMPARED TO ECG 06/06/2020 13:48:40 NO SIGNIFICANT DIFFERENCE Electronically Signed On 03-10-2022 16:26:13 CDT by Kang Fletcher M.D.
[2022-03-10 09:46] LABS: Basophils Absolute Auto 0.1 K/mm3 (0.0-0.1); Basophils Percent Auto 0.3 % (0.2-1.2); Eosinophils Absolute Auto 0.1 K/mm3 (0-0.3); Eosinophils Percent Auto 0.5 % (0-4.4); Hematocrit 42.2 % (42.0-52.0); Hemoglobin 13.1 g/dL (14.0-18.0); Immature Granulocyte Absolute 0.06 K/mm3 (0.00-0.031); Immature Granulocyte Percent A 0.4 % (0-0.5); Lymphocytes Absolute Auto 1.68 K/mm3 (0.9-3.2); Mean Corpuscular Hemoglobin 29.6 pg (26-34); Mean Corpuscular Volume 95.3 fl (80-100); Mean Platelet Volume 10.9 fl (7.4-10.4); Monocytes Absolute Auto 1.1 K/mm3 (0.1-0.6); Neutrophils Absolute Auto 12.3 K/mm3 (1.3-6.7); Neutrophils Percent Auto 80.8 % (45.5-73.1); Platelet Count Result 172 k/mm3 (150-375); Red Blood Count 4.43 M/mm3 (4.6-6.20); Red Cell Distribution Width 14.2 % (11.5-14.5); White Blood Count 15.3 K/mm3 (4.5-10.0)
[2022-03-10 09:57] LABS: INR 1.1; Prothrombin Time 13.9 Seconds (11.1-14.7)
[2022-03-10 09:58] LABS: Alanine Aminotransferase 15 U/L (6-50); Albumin Level 4.1 g/dL (3.5-5.1); Alkaline Phosphatase 71 U/L (38-126); Anion Gap 10 mmol/L (8-16); Aspartate Amino Transferase 16 U/L (17-59); Bilirubin,Total 0.7 mg/dL (0.2-1.3); Blood Urea Nitrogen 15 mg/dL (9-20); Calcium 8.6 mg/dL (8.4-10.2); Carbon Dioxide 23 mmol/L (22-30); Chloride 102 mmol/L (98-107); Estimated CRCL calculation 98 ml/min; Estimated Glomerular Filt Rate > 60; Glucose 119 mg/dL (65-110); Lipase 36 U/L (23-300); Partial Thromboplastin Time 31.8 SECONDS (22.3-36.8); Potassium 4.1 mmol/L (3.4-5.0); Sodium 135 mmol/L (137-145)
--- NOTE | 2022-03-10 10:04 | ED.CHESTPAIN ---
HPI - Chest Pain General Chief Complaint: Chest Pain Stated Complaint: CP - resolved Source: RN notes reviewed History of Present Illness HPI narrative: Patient presents emergency room from home for chest pain. Patient states the chest pain began this morning pain was located over the left side of the chest and described as a pressure in nature states it did not radiate mild shortness of breath with the symptoms states he took aspirin at home and chest pain is now resolved he denies any previous cardiac history he denies any abdominal pain nausea vomiting or any other symptoms Related Data Home Medications Medication Instructions Recorded Confirmed acetaminophen 325 mg tablet 325 mg PO QID 07/07/20 cholecalciferol (vitamin D3) 125 125 mcg PO DAILY 07/07/20 mcg (5,000 unit) capsule dextromethorphan 20 mg-quinidine 1 cap PO Q12H 07/07/20 10 mg capsule (Nuedexta) escitalopram oxalate 20 mg tablet 20 mg PO DAILY 07/07/20 melatonin 10 mg tablet 10 mg PO HS 07/07/20 mirabegron 50 mg tablet,extended mg PO 07/07/20 release 24 hr (Myrbetriq) pramipexole 1 mg tablet mg 07/07/20 quetiapine 25 mg tablet 07/07/20 teriflunomide 14 mg tablet mg 07/07/20 (Aubagio) Allergies Allergy/AdvReac Type Severity Reaction Status Date / Time No Known Allergies Allergy Unknown Verified 03/10/22 09:24 Review of Systems Review of Systems: Gen.: Denies fevers or chills ENT: Denies congestion Respiratory: Reports shortness of breath or chest pain CV: reports chest pain GI: Denies abdominal pain nausea, emesis or diarrhea Musculoskeletal: Denies back pain or muscle pain Neuro: Denies numbness, tingling, weakness or focal weakness Skin: Denies rash Except as documented, all other systems reviewed and negative [facility] Past Medical History Medical History Anxiety Chronic anemia Depression Insomnia Left wrist fracture Multiple sclerosis Neurogenic bladder Restless leg syndrome Vitamin D deficiency Surgical History Surgical History No pertinent past surgical history Family History Family History Father Family history of malignant neoplasm of esophagus Mother Pacemaker Social History Social History Social History: The patient is and was living with his in [place] prior to his hospitalization in February 2020. He is now at a long term facility as detailed in HPI. Mr. Browning is retired from [employer]. 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 He smoked remotely many years ago. His Devora is his healthcare power of consumer attorney and he is a full code. Smoking packs per day: 1 Smoking cigarettes per day: 20.0 Years smoked: 6 Smoking pack-years: 6.00 Smoking status: Former smoker Tobacco type: cigarettes Smoking end date: 08/06/97 Alcohol intake: former Drinks per week: 6 Substance use: former Substance use type: does not use Gender identity (if verbalized by the patient): Male Spiritual care concerns: No Exam Narrative: APPEARANCE: No acute distress, nontoxic, resting in bed EYES: EOMI HEENT: Normocephalic, atraumatic, OMM RESPIRATORY: No respiratory distress Clear to auscultation bilaterally with no rhonchi wheezing or rales. CARDIOVASCULAR: Regular rate and rhythm without murmurs rubs or gallops. ABDOMINAL: Soft, nontender, nondistended, no rebound or guarding MUSCULOSKELETAl: Moves all extremities. No clubbing, cyanosis or edema. NEURO: Awake and alert. Following commands, speech normal, no focal deficits SKIN:: Warm, dry. No rashes lesions or abrasions PSYCHIATRIC: Normal affect/mood, Course Course Emergency Course: Discussed with DERIK Montilla for Dr. Fletcher agrees with consult Discussed with Dr Ayala agrees with admission
[2022-03-10 10:10] LABS: Troponin I < 0.012 ng/mL (0.000-0.034)
[2022-03-10 11:15] LABS: SARS-CoV-2 RNA PCR Negative
[2022-03-10 12:39] LABS: Troponin I < 0.012 ng/mL (0.000-0.034)
--- NOTE | 2022-03-10 13:35 | ADMGEN ---
This patient, Elbert Browning, was admitted to IMU Room 232-01 at 1335. Patient/family oriented to hospital policies and general routines including ID bracelet, bed and alarms, visiting hours, pain management, procedures, bathroom and other care routines, personal items, smoking policy, room service/diet, and visiting hours. Information on how to activate the Rapid Response Team has been discussed. Patient/Family are encouraged to report perceived risks to care and to ask questions if they do not understand what they are told or what they should do.
--- NOTE | 2022-03-10 13:45 | PM.IMHP ---
H&P: HPI History of Present Illness Date/Time: 03/10/22 13:45 Chief Complaint: Chest pain. Narrative: This is a 66-year-old male with multiple sclerosis who presented to the emergency department earlier today via EMS from home for evaluation of chest pain. He endorses intermittent chest discomfort which has been going on for ?awhile? but it has gotten more frequent within the past 24 hours. He describes an aching and occasionally heavy feeling in the center of his chest which is self-limiting, lasting only a minute or 2 before resolving without intervention. The discomfort does not radiate he sees no specific pattern as to when it occurs. He denies associated dizziness, sweats, nausea, vomiting, and shortness of breath. With further questioning however he does admit that at times it is relieved with belching but not always. The pain is not reproducible on palpation. He has MS and his mobility is limited but he has not noticed that is brought on by exertion. He also denies epigastric and abdominal discomfort, GERD symptoms, and bloating. Currently he has no chest discomfort or complaints. Review of Systems Review of Systems: Twelve systems were reviewed. No fever, chills, or sweats. No recent cold or flu symptoms. No orthopnea, PND, or edema. He has neurogenic bladder and apparently used to self cath intermittently but no longer. He denies concerns for urinary retention. No dysuria or hematuria. No abdominal or lower back pain. Except as documented, all other systems were reviewed and are negative. [facility] Past Medical History Medical History (Updated 03/10/22 @ 22:04 by Safia Henry PA-C) Anxiety Chronic anemia Depression Insomnia Left wrist fracture Multiple sclerosis Neurogenic bladder Restless leg syndrome Vitamin D deficiency Surgical History Surgical History (Updated 03/10/22 @ 22:00 by Safia Henry PA-C) History of bilateral cataract extraction Family History Family History Father Family history of malignant neoplasm of esophagus Mother Pacemaker Social History Social History (Updated 03/10/22 @ 22:01 by Safia Henry PA-C) Social History: The patient is and lives with his in [place]. 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 He smoked up to 3 packs of cigarettes a day for 30 years and quit in 2001. No alcohol or illicit substance abuse. Surrogate medical decision maker: Devora Browning, . Code status: Full code. Smoking end date: 03/10/02 Spiritual care concerns: No Meds Home Medications and Allergies Home Medications Medication Instructions Recorded Confirmed Type cholecalciferol (vitamin D3) 125 125 mcg PO DAILY 07/07/20 03/10/22 History mcg (5,000 unit) capsule escitalopram oxalate 20 mg tablet 20 mg PO DAILY 07/07/20 03/10/22 History melatonin 10 mg tablet 10 mg PO HS 07/07/20 03/10/22 History teriflunomide 14 mg tablet 14 mg PO DAILY 07/07/20 03/10/22 History (Aubagio) lorazepam 0.5 mg tablet 0.5 mg PO TID PRN anxiety #60 tabs 08/23/20 03/10/22 Rx baclofen 10 mg tablet 20 mg PO HS 03/10/22 03/10/22 History Allergies Allergy/AdvReac Type Severity Reaction Status Date / Time No Known Allergies Allergy Unknown Verified 03/10/22 09:24 Vital Signs Vital Signs - 24 hr 03/10/22 09:17 03/10/22 09:23 03/10/22 09:26 Temperature 98.8 F Pulse Rate 85 86 Respiratory Rate 23 H Blood Pressure 130/88 Pulse Oximetry 94 93 Oxygen Delivery Room Air Room Air 03/10/22 11:48 03/10/22 09:21 03/10/22 09:31 Temperature Pulse Rate 90 83 87 Respiratory Rate 18 17 15 Blood Pressure 150/84 H 130/88 138/81 Pulse Oximetry 100 93 93 Oxygen Delivery 03/10/22 10:46 03/10/22 11:14 03/10/22 11:16 Temperature Pulse Rate 80 82 81 Respiratory Rate 21 H 18 17 Blood Pressure 131/77 146/81 H 124/89 Pulse Oximetry 93 93 9
--- NOTE | 2022-03-10 15:40 | PM.CNCAR ---
Assessment and Plan Assessment and plan (1) Chest pain: Code(s): R07.9 - Chest pain, unspecified Status: Acute Plan This is a 66-year-old man admitted after experiencing some chest pain this morning. The pain seems atypical by history for angina. There is no exertional symptomatology. He has no evidence of acute coronary syndrome looking at his electrocardiogram and troponin levels. If his 3rd troponin level is normal I believe he can be dismissed back to his home without additional cardiac testing being necessary. If he still is in the hospital tomorrow I will see him on rounds but I do not believe he needs to stay in the hospital if his troponins are all unremarkable. Kang Fletcher MD [facility] History of Present Illness History of Present Illness Consult date/time: 03/10/22 15:40 Reason For Visit: chest pain Narrative: This is a 66-year-old patient I am seeing at the request of the hospitalist because of chest pain. He was seen in the emergency room because of some chest pain earlier this morning admitted for rule out ACS. The patient currently says he is not having any symptoms and the pain resolved this morning either in the emergency room her shortly before he got there. He states that he began to experience a dull aching sensation to the center of the chest earlier this morning he can not really tell me what time it was. The patient states he was not having any radiation of the pain to any other location there was no associated shortness of breath diaphoresis or nausea. He is not known to have any cardiac problems prior to this. He states that he thinks he strained his chest wall picking up his yesterday although I consider that history to be unreliable since the nursing staff indicate the patient is nonambulatory. He has a electrocardiogram that demonstrates sinus rhythm with a very mild nonspecific T-wave abnormality. Compared to previous ECG there is no significant difference. He does have 2- troponin sets in the record at this time. He is comfortable at this time and states he wishes he had come to the hospital for evaluation because he knows there is nothing wrong. He denies any symptoms of palpitations shortness of breath syncope orthopnea PND or edema. I did see this patient almost 2 years ago in June of 2020 when he was here with chest pain which appeared to be the result of a left long pulmonary embolism. He was anticoagulated for a period of time after that. We have not followed him in the office as there did not appear to be any cardiac pathology at that time. Review of Systems Constitutional: Comments: Consider system review to be unreliable given his history PMFSH Past Medical History Medical History Anxiety Chronic anemia Depression Insomnia Left wrist fracture Multiple sclerosis Neurogenic bladder Restless leg syndrome Vitamin D deficiency Surgical History Surgical History No pertinent past surgical history Family History Family History Father Family history of malignant neoplasm of esophagus Mother Pacemaker Social History Social History Social History: The patient is and was living with his in [place] prior to his hospitalization in February 2020. He is now at a [facility] facility as detailed in HPI. Mr. Browning is retired from [employer]. 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 He smoked remotely many years ago. His Devora is his healthcare power of contracts attorney and he is a full code. Smoking packs per day: 3 Smoking cigarettes per day: 60.0 Years smoked: 30 Smoking pack-years: 90.00 Smoking status: Former smoker Tobacco type: smokeless tobacco Smoking end date: 03/10/02 Alcohol intake: former
[2022-03-10 16:37] LABS: Troponin I < 0.012 ng/mL (0.000-0.034)
[2022-03-10] MEDS: BACLOFEN 10 MG TABLET 20 MG PO (22:38)
[2022-03-10] MEDS: LORazepam (*CRX) 0.5 MG TABLET PO (22:38)
[2022-03-10] MEDS: MELATONIN 5 MG TABLET 10 MG PO (22:38)
--- NOTE | 2022-03-10 23:08 | PC.NURSE ---
03/10/22 5089- Spoke with Pt's , Devora and updated her that the Pt will be transferring to room 326.
--- NOTE | 2022-03-10 23:49 | PC.NURSE ---
Elbert Browning to room 326 from [facility].
--- NOTE | 2022-03-10 23:54 | PC.NURSE ---
This patient, Elbert Browning, was transferred to room 326 on 03/10/22 at 2339. Personal belongings sent with patient. Report given to JACKSON Taylor. Appropriate documentation sent with patient.
[2022-03-11 04:00] VITALS: BP 144/77; PULSE 80; RESP 18; TEMP 36.3; O2SAT 97
[2022-03-11 06:27] LABS: Hematocrit 41.1 % (42.0-52.0); Hemoglobin 13.2 g/dL (14.0-18.0); Mean Corpuscular HGB Conc 32.1 g/dl (32-36); Mean Corpuscular Hemoglobin 29.9 pg (26-34); Mean Corpuscular Volume 93.2 fl (80-100); Mean Platelet Volume 11.4 fl (7.4-10.4); Platelet Count Result 199 k/mm3 (150-375); Red Blood Count 4.41 M/mm3 (4.6-6.20); Red Cell Distribution Width 14.3 % (11.5-14.5); White Blood Count 12.6 K/mm3 (4.5-10.0)
[2022-03-11 07:13] LABS: Alanine Aminotransferase 14 U/L (6-50); Albumin Level 4.1 g/dL (3.5-5.1); Alkaline Phosphatase 64 U/L (38-126); Anion Gap 10 mmol/L (8-16); Aspartate Amino Transferase 27 U/L (17-59); Blood Urea Nitrogen 13 mg/dL (9-20); Calcium 8.9 mg/dL (8.4-10.2); Carbon Dioxide 26 mmol/L (22-30); Chloride 100 mmol/L (98-107); Estimated CRCL calculation 86 ml/min; Estimated Glomerular Filt Rate > 60; Glucose 111 mg/dL (65-110); Magnesium 1.9 mg/dL (1.6-2.3); Potassium 4.3 mmol/L (3.4-5.0); Sodium 136 mmol/L (137-145)
[2022-03-11] MEDS: ENOXAPARIN 40 MG/0.4 ML SYRINGE SUB-Q (08:50)
[2022-03-11] MEDS: ESCITALOPRAM OXALATE 10 MG TABLET 20 MG PO (08:51)
[2022-03-11] MEDS: CHOLECALCIFEROL 1,000 UNITS TABLET 5000 UNITS PO (08:51)
[2022-03-11 09:15] VITALS: O2SAT 97
[2022-03-11 14:00] VITALS: BP 119/74; PULSE 74; RESP 20; TEMP 36.8; O2SAT 95
--- NOTE | 2022-03-11 14:07 | PCPTNOTE ---
attempted PT evaluation, ~ 1330; pt was out of the room, discussed pt with RN and she stated d/c is planned for this afternoon, he was w/c bound, with total lift at home with his prior to admission and PT not indicated.
--- NOTE | 2022-03-11 15:56 | PM.DS ---
DS: Admitting Diagnosis Discharge Date 03/11/22 Admitting Diagnosis Chest pain DS: Discharge Diagnosis Discharge Diagnosis (1) Chest pain: Code(s): R07.9 - Chest pain, unspecified Status: Acute Assessment and Plan: Patient presents with chest pain that he has a hard time describing. He states occasionally feels heavy in goes away on its own. Troponins were negative x3. EKG showed sinus rhythm with 1st degree AV block with nonspecific ST and T-wave abnormalities but no significant change when compared to prior EKGs. Cardiology was consulted and did not recommend any further testing as ACS was not suspected. His D-dimer, however, was elevated any has a history of a PE so a CTA was done and was . I spoke to the and the patient who were both okay with discharge and agreed to come back if the chest pain worsens. (2) Leukocytosis: Code(s): D72.829 - Elevated white blood cell count, unspecified Status: Acute Assessment and Plan: No history to suggest underlying infection -improving, could be reactionary -follow-up CBC in 1 week and follow-up with primary care provider (3) Multiple sclerosis: Code(s): G35 - Multiple sclerosis Status: Chronic Assessment and Plan: Continue baclofen and teriflunomide. DS: Summary Hospital Course Reason for hospitalization: Chest pain Hospital Course: Patient is a 66-year-old male with history of MS who presented to the emergency room for chest pain. Troponins were negative x3 and there are no acute changes on the EKG. Cardiology was consulted a did not recommend any further testing. Patient's D-dimer was elevated and he had a history of PE so a CTA was done which showed . His lower extremity Dopplers were negative. The day of discharge the patient was feeling better and ready to go home. at bedside states that he would have to go home by ambulance as he is a [place] lift. They were both educated on the worrisome signs and symptoms to come back to emergency room for and agreed. Please see above for further details Status at Discharge Cognitive/behavioral status at discharge: Stable Time Spent with Patient Time attestation: Total time spent providing and/or coordinating discharge services: 38 minutes Time spent: Greater than 30 minutes Exam Narrative: General: Well developed well nourished patient in NAD HEENT: normocephalic Neck: supple Neuro: Alert and oriented to himself, date but not location ( states this comes and goes) CV:RRR Resp:CTA Abd: Soft, non distended. No pain to palpation. Positive bowel sounds Extremities: Evidence of chronic contractions the lower extremities DS: Data Data Completed and Pending Labs on day of discharge: Labs from last 24 hours 03/11/22 03/11/22 03/11/22 06:11 06:11 06:11 WBC 12.6 H RBC 4.41 L Hgb 13.2 L Hct 41.1 L MCV 93.2 MCH 29.9 MCHC 32.1 RDW 14.3 Plt Count 199 MPV 11.4 H D-Dimer 0.80 H Sodium 136 L Potassium 4.3 Chloride 100 Carbon Dioxide 26 Anion Gap 10 BUN 13 Creatinine 0.90 Estim Creat Clear Calc 86 Estimated GFR > 60 Glucose 111 H Calcium 8.9 Magnesium 1.9 Total Bilirubin 1.0 AST 27 ALT 14 Alkaline Phosphatase 64 Troponin I C-Reactive Protein 7.0 H Total Protein 8.0 Albumin 4.1 03/10/22 15:23 WBC RBC Hgb Hct MCV MCH MCHC RDW Plt Count MPV D-Dimer Sodium Potassium Chloride Carbon Dioxide Anion Gap BUN Creatinine Estim Creat Clear Calc Estimated GFR Glucose Calcium Magnesium Total Bilirubin AST ALT Alkaline Phosphatase Troponin I < 0.012 C-Reactive Protein Total Protein Albumin Discharge Plan Discharge Attending physician on discharge: Librado Gan Consulting providers: Kang Fletcher Discharging Clinician: Kaylie Pompa Patient Disposi
--- NOTE | 2022-03-11 16:47 | PM.IMPN ---
Progress Note: A&P Assessment and Plan (1) Pulmonary embolism: Code(s): I26.99 - Other pulmonary embolism without acute cor pulmonale Status: Acute Assessment and Plan: CTA noted an acute PE in the left lung -Pt is not requiring o2 at this time and has no SOB -likely to be causing his CP -Will do lovenox BID and I would have CC norman eliquis tomorrow and transition to that maybe by tomorrow -Will order BNP and echo to assess for R heart strain (unlikely due to previously neg troponin and no acute distress). Plan discussed with swing shift (2) Leukocytosis: Code(s): D72.829 - Elevated white blood cell count, unspecified Status: Acute Assessment and Plan: Reactionary due to above? -No infection noted on hx or imaging -Monitor with daily labs (3) Chest pain: Code(s): R07.9 - Chest pain, unspecified Status: Acute Assessment and Plan: Due to above -ACS less likely -echo ordered (4) Multiple sclerosis: Code(s): G35 - Multiple sclerosis Status: Chronic Assessment and Plan: Chronic -pt bed bound and will need ambulance scheduled at discharge since he is a daniel lift -he lives at home with his Time Spent With Patient Time with patient: 25 - 35 minutes Subjective Date/time seen: 03/11/22 16:47 Interval history: Pt is a 66 y/o male here for CP found to have a PE. Pt was seen today and states his CP comes and goes but overall he is doing okay. He denies SOB, nausea, vomiting, fevers, chills, or jar/arm pain. He has a hx of PE a few years back. at bedside and stated that he usually doesn't complain of much but he asked to call 911 yesterday. Pt is typically daniel lift due to MS Review of Systems Review of Systems: All systems reviewed & are unremarkable except as noted in HPI and below Exam Narrative: General: Well developed well nourished patient in NAD HEENT: normocephalic Neck: supple Neuro: Alert and oriented to person and time but not to place CV:RRR Resp:CTA Abd: Soft, non distended. No pain to palpation. Positive bowel sounds Extremities: Chronic contraction of the LE Objective Data Vital Signs Vital Signs: Vital Signs - 24 hr 03/10/22 18:00 08/05/22 20:00 03/10/22 20:00 Temperature 97.2 F L Pulse Rate 83 78 78 Respiratory Rate 20 20 Blood Pressure 147/81 H Pulse Oximetry 99 99 Oxygen Delivery Room Air 03/10/22 20:00 03/10/22 21:27 03/10/22 23:57 Temperature 97.7 F Pulse Rate 76 83 77 Respiratory Rate 18 Blood Pressure 128/67 Pulse Oximetry 93 Oxygen Delivery 03/11/22 04:00 03/11/22 09:15 03/11/22 08:00 Temperature 97.3 F L Pulse Rate 80 Respiratory Rate 18 Blood Pressure 144/77 H Pulse Oximetry 97 97 Oxygen Delivery Room Air Room Air 03/11/22 14:00 Temperature 98.2 F Pulse Rate 74 Respiratory Rate 20 Blood Pressure 119/74 Pulse Oximetry 95 Oxygen Delivery Intake/Output Intake/Output: Intake & Output 03/08/22 03/09/22 03/10/22 03/11/22 23:59 23:59 23:59 23:59 Intake Total 240 580 Balance 240 580 Meds/Results Medications: Active Medications Generic Name Dose Route Start Last Admin Trade Name Freq PRN Reason Stop Dose Admin Baclofen 20 mg 03/10/22 21:55 03/10/22 22:38 Baclofen 10 Mg Tablet PO 20 mg HS KOKO Administration Enoxaparin Sodium 40 mg 03/11/22 09:00 03/11/22 08:50 Enoxaparin 40 Mg/0.4 Ml Syringe SUB-Q 40 mg DAILY KOKO Administration Enoxaparin Sodium 108 mg 03/11/22 16:45 Enoxaparin 1 Mg/Kg SUB-Q Q12HR KOKO Escitalopram Oxalate 20 mg 03/11/22 09:00 03/11/22 08:51 Escitalopram Oxalate 10 Mg Tablet PO 20 mg DAILY KOKO Administration Lorazepam 0.5 mg 03/10/22 21:53 03/10/22 22:38 Lorazepam (*Crx) 0.5 Mg Tablet PO 0.5 mg TID PRN Administration anxiety Melatonin 10 mg 03/10/22 21:55 03/10/22 22:38 Melatonin 5 Mg Tablet PO 10 mg HS
[2022-03-11] MEDS: ENOXAPARIN 120 MG/0.8 ML SYRINGE 110 MG SUB-Q (17:50)
[2022-03-11 18:08] LABS: NT Pro B Type Natriuretic Pept 101 pg/mL (5-100); Troponin I < 0.012 ng/mL (0.000-0.034)
[2022-03-11] MEDS: MELATONIN 5 MG TABLET 10 MG PO (20:32)
[2022-03-11] MEDS: BACLOFEN 10 MG TABLET 20 MG PO (20:32)
[2022-03-11 22:00] VITALS: BP 109/82; PULSE 74; RESP 18; TEMP 36.4; O2SAT 93
[2022-03-12] MEDS: ENOXAPARIN 120 MG/0.8 ML SYRINGE 110 MG SUB-Q (05:42)
[2022-03-12 06:00] VITALS: BP 128/91; PULSE 74; RESP 18; TEMP 35.8; O2SAT 94
[2022-03-12 06:29] LABS: Basophils Percent Auto 0.4 % (0.2-1.2); Eosinophils Absolute Auto 0.2 K/mm3 (0-0.3); Eosinophils Percent Auto 1.6 % (0-4.4); Hematocrit 41.4 % (42.0-52.0); Hemoglobin 13.3 g/dL (14.0-18.0); Immature Granulocyte Absolute 0.06 K/mm3 (0.00-0.031); Immature Granulocyte Percent A 0.6 % (0-0.5); Lymphocytes Percent Auto 22.7 % (18.3-44.2); Mean Corpuscular HGB Conc 32.1 g/dl (32-36); Mean Corpuscular Hemoglobin 29.5 pg (26-34); Mean Corpuscular Volume 91.8 fl (80-100); Mean Platelet Volume 11.2 fl (7.4-10.4); Monocytes Absolute Auto 0.9 K/mm3 (0.1-0.6); Monocytes Percent Auto 9.3 % (2.6-8.5); Neutrophils Absolute Auto 6.3 K/mm3 (1.3-6.7); Neutrophils Percent Auto 65.4 % (45.5-73.1); Platelet Count Result 198 k/mm3 (150-375); Red Blood Count 4.51 M/mm3 (4.6-6.20); Red Cell Distribution Width 14.3 % (11.5-14.5); White Blood Count 9.7 K/mm3 (4.5-10.0)
[2022-03-12 06:47] LABS: Anion Gap 10 mmol/L (8-16); Blood Urea Nitrogen 12 mg/dL (9-20); Carbon Dioxide 26 mmol/L (22-30); Chloride 101 mmol/L (98-107); Estimated CRCL calculation 86 ml/min; Estimated Glomerular Filt Rate > 60; Glucose 105 mg/dL (65-110); Potassium 3.8 mmol/L (3.4-5.0); Sodium 137 mmol/L (137-145)
[2022-03-12] MEDS: ENOXAPARIN 40 MG/0.4 ML SYRINGE SUB-Q (09:24)
[2022-03-12] MEDS: CHOLECALCIFEROL 1,000 UNITS TABLET 5000 UNITS PO (09:24)
[2022-03-12] MEDS: ESCITALOPRAM OXALATE 10 MG TABLET 20 MG PO (09:24)
--- NOTE | 2022-03-12 09:48 | PCPTNOTE ---
wrote orders for D/C PT orders due to pt not appropriate for PT evaluation--at baseline of w/c bound and use of daniel lift at home with ;
[2022-03-12 14:00] VITALS: BP 129/69; PULSE 75; RESP 20; TEMP 36.6; O2SAT 94
--- NOTE | 2022-03-12 14:16 | PM.DS ---
DS: Admitting Diagnosis Discharge Date 03/12/2022 Admitting Diagnosis PE DS: Discharge Diagnosis Discharge Diagnosis (1) Pulmonary embolism: Code(s): I26.99 - Other pulmonary embolism without acute cor pulmonale Status: Acute Assessment and Plan: CTA indicates acute PE to the left lung Started Eliquis Venous Doppler negative Ordered echo as outpatient results went to primary care physician (2) Leukocytosis: Code(s): D72.829 - Elevated white blood cell count, unspecified Status: Acute Assessment and Plan: Resolved 12. WBCs6>9.7 (3) Chest pain: Code(s): R07.9 - Chest pain, unspecified Status: Acute Assessment and Plan: Secondary to pulmonary embolism Treat underlying cause Refer to PE (4) Multiple sclerosis: Code(s): G35 - Multiple sclerosis Status: Chronic DS: Summary Hospital Course Reason for hospitalization: When do I need to call the doctor? Activate the emergency medical system right away if you have signs of a heart attack. Call 911 in the [place] or [place]. The sooner treatment begins, the better your chances for recovery. Call for emergency help right away if you have: Signs of heart attack: Chest pain Trouble breathing Fast heartbeat Feeling dizzy Not had chest pain before and it does not go away with rest after [address] yourself to the hospital or have someone drive you. The emergency rescue people can begin to treat you the minute they arrive. Hospital Course: This is a 66-year-old male with multiple sclerosis who presented to the emergency department via EMS from home for evaluation of chest pain. He endorses intermittent chest discomfort was going on for ?awhile? but it had gotten more frequent within the past 24 hours. He described an aching and occasionally heavy feeling in the center of his chest which is self-limiting, lasting only a minute or 2 before resolving without intervention. Patient was found to have a pulmonary embolism. Patient will discharge home with Eliquis. Patient denies any chest pain, shortness of breath, nausea vomiting, dizziness, vertigo, or lightheadedness. Time Spent with Patient Time attestation: Total time spent providing and/or coordinating discharge services: Exam Narrative: General: Well developed well nourished patient in NAD HEENT: normocephalic Neck: supple Neuro: Alert and oriented to person and time but not to place CV:RRR Resp:CTA Abd: Soft, non distended. No pain to palpation. Positive bowel sounds Extremities: Chronic contraction of the LE DS: Data Data Completed and Pending Labs on day of discharge: Labs from last 24 hours 03/12/22 03/12/22 03/11/22 05:55 05:55 17:35 WBC 9.7 RBC 4.51 L Hgb 13.3 L Hct 41.4 L MCV 91.8 MCH 29.5 MCHC 32.1 RDW 14.3 Plt Count 198 MPV 11.2 H Immature Gran % (Auto) 0.6 H Neut % (Auto) 65.4 Lymph % (Auto) 22.7 [place] % (Auto) 9.3 H Eos % (Auto) 1.6 Baso % (Auto) 0.4 Lymph # (Auto) 2.20 [place] # (Auto) 0.9 H Eos # (Auto) 0.2 Baso # (Auto) 0.0 Abs Immat Gran (auto) 0.06 H Absolute Neuts (auto) 6.3 Absolute Nucleated RBC 0.0 Nucleated RBC % 0.0 Sodium 137 Potassium 3.8 Chloride 101 Carbon Dioxide 26 Anion Gap 10 BUN 12 Creatinine 0.90 Estim Creat Clear Calc 86 Estimated GFR > 60 Glucose 105 Calcium 9.0 Troponin I < 0.012 NT-Pro-B Natriuret Pep 101 H Discharge Plan Discharge Attending physician on discharge: Daisy Trotter Consulting providers: Kang Fletcher Discharging Clinician: Cosmo Beatty Anticipated Discharge Date/Time: 03/12/22 09:43 Patient Disposition: Home, Self-Care Activity: as tolerated Diet: regular Discharge Instructions: Follow-up with her primary care physician in 1-2 weeks Take prescriptions as ordered When do I need to call the doctor? Probl
== END 2022-03-12 19:25 | disposition home or self-care (01) ==
LOC: ANHED 11:14 → ANH3MEDSUR 13:05 → ANHIMU 13:05 → ANH3MEDSUR 23:45
PROVIDERS: Physician Assistant; Admitting Provider Family Medicine; Emergency Provider Emergency Medicine; PCP Family Medicine; Visit Provider Physician Assistant
DX: I26.99 Other pulmonary embolism without acute cor pulmonale (principal); D72.829 Elevated white blood cell count, unspecified; G35 Multiple sclerosis; F41.9 Anxiety disorder, unspecified; D64.9 Anemia, unspecified; F32.A Depression, unspecified; G47.00 Insomnia, unspecified; N31.9 Neuromuscular dysfunction of bladder, unspecified; G25.81 Restless legs syndrome; E55.9 Vitamin D deficiency, unspecified; J98.11 Atelectasis; I44.0 Atrioventricular block, first degree; R06.02 Shortness of breath; Z20.822 Contact with and (suspected) exposure to COVID-19; Z87.891 Personal history of nicotine dependence; Z79.01 Long term (current) use of anticoagulants; Z79.1 Long term (current) use of non-steroidal anti-inflammatories (NSAID); Z79.899 Other long term (current) drug therapy
CPT/HCPCS: 36415; 71046; 71275; 80048; 80053; 83690; 83735; 83880; 84484; 85025; 85027; 85380; 85610; 85730; 86140; 93005; 93970; 96372; 99285; A9270; C9803; G0378; J1650; Q9967; U0003; U0005

== ENCOUNTER 2022-04-12 17:16 | Emergency (ER) | payer MEDICARE, SELFPAY ==
--- NOTE | ~2022-04-12 | CT_ITS ---
EXAMINATION: CTA chest PE protocol DATE: 04/12/2022 19:49 INDICATION: Shortness of breath. Recent pulmonary embolism TECHNIQUE: Computed tomography angiography (CTA) of the chest was performed with 100 mL Omnipaque-350 intravenous contrast timed to evaluate the pulmonary arteries. Coronal maximum intensity projection 3D-reconstructions were created by the technologist. Automated exposure control and iterative reconst ruction technique were employed. Exam dose: 952.78 mGy-cm total exam DLP. COMPARISON: 04/12/2022 portable AP chest 03/11/2022 CT pulmonary scan FINDINGS: Examination is limited due to motion and artifact from overlying arms. There are scattered right upper lobe and bilateral pleural lobe subsegmental pulmonary emboli. No thoracic aortic aneurysm or dissection. Normal heart size. No pericardial or pleural effusion. No hilar or mediastinal mass lesion or lymphadenopathy. Dependent atelectasis in the posterior right upper lobe and bilateral lower lobe discoid atelectasis. Subcarinal and left hilar calcified lymph nodes consistent with old pulmonary granulomatous disease. No suspicious osteolytic or osteoblastic lesions IMPRESSION: Scattered subsegmental pulmonary emboli of right upper and both lower lobes Right upper lobe and bilateral lower lobe atelectasis Reviewed, dictated and finalized at [facility]. Reviewed, dictated and finalized at location [facility]. IMPRESSION: Scattered subsegmental pulmonary emboli of right upper and both lo wer lobes Right upper lobe and bilateral lower lobe atelectasis
--- NOTE | ~2022-04-12 | XR_ITS ---
EXAMINATION: XR chest 1V portable Exam Date/Time: 04/12/2022 18:50 CDT HISTORY: COUGH, SOB, HX PE IN MARCH Comparison: None available. RESULT: Lines, tubes, and devices: None. Lungs and pleura: Right mid lung scar/atelectasis. Elevation of the right hemidiaphragm, stable. Cardiomediastinal silhouette: Stable. Other: No acute osseous or upper abdominal finding. IMPRESSION: No acute cardiopulmonary process. Reviewed, dictated and finalized at location [facility].
[2022-04-12 17:12] VITALS: BP 154/81; PULSE 82; RESP 22; TEMP 37; O2SAT 95
--- NOTE | 2022-04-12 17:35 | ECG_ITS ---
Measurements Intervals [place] Rate: 86 P: 42 CA: 212 QRS: -6 QRSD: 88 T: 43 QT: 312 QTc: 374 Interpretive Statements SINUS RHYTHM WITH FIRST DEGREE AV BLOCK NONSPECIFIC T-WAVE ABNORMALITY- DIFFUSE LEADS BASELINE ARTIFACT- I, II, III, AVR, AVL, AVF ABNORMAL ECG COMPARED TO ECG 03/10/2022 09:24:55 NO SIGNIFICANT CHANGES Electronically Signed On 04-12-2022 19:23:02 CDT by Demond Del Valle D.O.
--- NOTE | 2022-04-12 18:16 | ED.FEVER ---
HPI - Fever General Chief Complaint: Fever Stated Complaint: AMS Time Seen by Provider: 04/12/22 18:15 History of Present Illness HPI Narrative: Patient is a 66-year-old male with a history of multiple sclerosis, neurogenic bladder presenting with cough and fever. Patient reports having a productive cough for the last week. He has home health care to assist with his care due to mobility problems. Today, the patient was coughing and the home health aide suggested he come in for evaluation of pneumonia. Patient's reports he was diagnosed with a blood clot in his lung sometime last month. States that he has been taking blood thinners as prescribed but they were not sent home with a refill. He denies headache, numbness or weakness, chest pain, SOB, abdominal pain, nausea or vomiting, diarrhea, leg swelling. He is vaccinated for COVID-19. Related Data Home Medications Medication Instructions Recorded Confirmed cholecalciferol (vitamin D3) 125 125 mcg PO DAILY 07/07/20 03/10/22 mcg (5,000 unit) capsule escitalopram oxalate 20 mg tablet 20 mg PO DAILY 07/07/20 03/10/22 melatonin 10 mg tablet 10 mg PO HS 07/07/20 03/10/22 teriflunomide 14 mg tablet 14 mg PO DAILY 07/07/20 03/10/22 (Aubagio) baclofen 10 mg tablet 20 mg PO HS 03/10/22 03/10/22 Allergies Allergy/AdvReac Type Severity Reaction Status Date / Time No Known Allergies Allergy Unknown Verified 03/10/22 09:24 Review of Systems Review of Systems: All systems reviewed & are unremarkable except as noted in HPI and below PMFSH Past Medical History Medical History Anxiety Chronic anemia Depression Insomnia Left wrist fracture Multiple sclerosis Neurogenic bladder Restless leg syndrome Vitamin D deficiency Surgical History Surgical History History of bilateral cataract extraction Family History Family History Father Family history of malignant neoplasm of esophagus Mother Pacemaker Social History Social History Social History: The patient is and lives with his in [place]. 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 He smoked up to 3 packs of cigarettes a day for 30 years and quit in 2001. No alcohol or illicit substance abuse. Surrogate medical decision maker: Devora Browning, . Code status: Full code. Smoking end date: 03/10/02 Spiritual care concerns: No Exam Narrative: GENERAL: Alert, nontoxic, in no acute distress. HEAD: Normocephalic, atraumatic. EYES: PERRLA and EOMI. ENT: Nares clear, no rhinorrhea or epistaxis. Mucous membranes moist. NECK: Supple. CHEST: +cough. Lungs CTA. No respiratory distress. HEART: Regular rate and rhythm. No murmur heard. Normal peripheral pulses. ABDOMEN: Soft, nontender, nondistended, normal active bowel sounds. EXTREMITIES: chronic contracture LUE, No edema. SKIN: Warm, dry, no rash. NEURO: Alert and oriented x3. PSYCH: Normal mood and affect. Course Vital Signs Vital signs: Vital Signs Temperature 98.6 F 04/12/22 17:12 Pulse Rate 82 04/12/22 17:12 Respiratory Rate 22 H 04/12/22 17:12 Blood Pressure 154/81 H 04/12/22 17:12 Pulse Oximetry 95 04/12/22 17:12 Oxygen Delivery Nasal Cannula 04/12/22 17:12 Oxygen Flow Rate 4 04/12/22 17:12 Temperature 98.6 F 04/12/22 17:12 Pulse Rate 85 04/13/22 01:13 Respiratory Rate 20 04/13/22 01:13 Blood Pressure 110/96 H 04/13/22 01:13 Pulse Oximetry 95 04/13/22 01:13 Oxygen Delivery Nasal Cannula 04/12/22 17:12 Oxygen Flow Rate 4 04/12/22 17:12 MDM - Fever MDM Narrative Medical decision making narrative: Patient is a 66-year-old male with history as above presenting with cough and fever. Pt brought in on [facility]
[2022-04-12 18:26] LABS: Basophils Absolute Auto 0.1 K/mm3 (0.0-0.1); Basophils Percent Auto 0.4 % (0.2-1.2); Eosinophils Absolute Auto 0.1 K/mm3 (0-0.3); Eosinophils Percent Auto 1.1 % (0-4.4); Hematocrit 39.2 % (42.0-52.0); Hemoglobin 12.5 g/dL (14.0-18.0); Immature Granulocyte Absolute 0.06 K/mm3 (0.00-0.031); Immature Granulocyte Percent A 0.5 % (0-0.5); Lymphocytes Absolute Auto 1.75 K/mm3 (0.9-3.2); Lymphocytes Percent Auto 13.4 % (18.3-44.2); Mean Corpuscular HGB Conc 31.9 g/dl (32-36); Mean Corpuscular Hemoglobin 29.4 pg (26-34); Mean Corpuscular Volume 92.2 fl (80-100); Mean Platelet Volume 10.7 fl (7.4-10.4); Monocytes Percent Auto 7.4 % (2.6-8.5); Neutrophils Absolute Auto 10.1 K/mm3 (1.3-6.7); Neutrophils Percent Auto 77.2 % (45.5-73.1); Platelet Count Result 187 k/mm3 (150-375); Red Blood Count 4.25 M/mm3 (4.6-6.20); Red Cell Distribution Width 14.3 % (11.5-14.5); White Blood Count 13.1 K/mm3 (4.5-10.0)
[2022-04-12 18:30] LABS: SARS-CoV-2 RNA PCR Negative
[2022-04-12 18:35] LABS: Alanine Aminotransferase 12 U/L (6-50); Albumin Level 3.9 g/dL (3.5-5.1); Alkaline Phosphatase 73 U/L (38-126); Anion Gap 10 mmol/L (8-16); Aspartate Amino Transferase 15 U/L (17-59); Bilirubin,Total 0.4 mg/dL (0.2-1.3); Blood Urea Nitrogen 15 mg/dL (9-20); Calcium 8.8 mg/dL (8.4-10.2); Carbon Dioxide 25 mmol/L (22-30); Chloride 103 mmol/L (98-107); Estimated Glomerular Filt Rate > 60; Glucose 116 mg/dL (65-110); Sodium 138 mmol/L (137-145)
[2022-04-12 18:37] LABS: INR 1.3; Prothrombin Time 15.7 Seconds (11.1-14.7)
[2022-04-12 18:38] LABS: Partial Thromboplastin Time 39.6 SECONDS (22.3-36.8)
[2022-04-12 20:57] LABS: Appearance Urine Clear (Clear); Bilirubin Urine Negative (Negative); Blood Urine 3+ (Negative); Color Urine Yellow (Yellow); Glucose Urine UA Negative (Negative); Ketones Urine Negative (Negative); Leukocyte Esterase Ur 2+ LEU/UL (Negative); Nitrate Urine Positive (Negative); Protein Urine Negative (Negative); Urobilinogen Urine 0.2 mg/dL (<2.0); pH Urine 6.5 (5.0-9.0)
[2022-04-12 21:02] LABS: Bacteria Urine Trace /hpf; Mucus Urine Rare /lpf; RBC Urine 21-50 /hpf (0-2); WBC Urine 31-50 /hpf
[2022-04-12 21:04] LABS: Add Urine Microscopic? YES
[2022-04-12] MEDS: CEPHALEXIN 500 MG CAPSULE PO (22:58)
[2022-04-13 01:13] VITALS: BP 110/96; PULSE 85; RESP 20; O2SAT 95
== END 2022-04-13 01:19 | disposition home or self-care (01) ==
PROVIDERS: Emergency Medicine; Emergency Provider Emergency Medicine; PCP Family Medicine
DX: I27.82 Chronic pulmonary embolism (principal); N39.0 Urinary tract infection, site not specified; R05.9 Cough, unspecified; Z20.822 Contact with and (suspected) exposure to COVID-19; G35 Multiple sclerosis; D64.9 Anemia, unspecified; E55.9 Vitamin D deficiency, unspecified; N31.9 Neuromuscular dysfunction of bladder, unspecified; G25.81 Restless legs syndrome; F41.9 Anxiety disorder, unspecified; F32.A Depression, unspecified; Z98.42 Cataract extraction status, left eye; Z98.41 Cataract extraction status, right eye; Z87.891 Personal history of nicotine dependence; Z79.01 Long term (current) use of anticoagulants
CPT/HCPCS: 36415; 71045; 71275; 80053; 81001; 85025; 85610; 85730; 87077; 87086; 87186; 93005; 99284; A9270; C9803; Q9967; U0003; U0005

== ENCOUNTER 2022-06-06 11:52 | Inpatient (IN) | payer MEDICARE, SELFPAY ==
[2022-06-06] VITALS (27 sets, daily range): BP systolic 113–140; BP diastolic 70–92; PULSE 78–94; RESP 15–21; TEMP 36.8–37.1; O2SAT 88–98; BMI 35.2
--- NOTE | ~2022-06-06 | CT_ITS ---
EXAMINATION: CTA chest PE protocol DATE: 06/06/2022 13:58 INDICATION: Low oxygen saturation. Elevated d-dimer. TECHNIQUE: Computed tomography angiography (CTA) of the chest was performed with 100 mL Omnipaque-350 intravenous contrast timed to evaluate the pulmonary arteries. Coronal maximum intensity projection 3D-reconstructions were created by the technologist. Automated exposure control and iterative reconst ruction technique were employed. Exam dose: 819.95 mGy-cm total exam DLP. COMPARISON: None. FINDINGS: There is diagnostic contrast enhancement of the pulmonary arteries. There is extensive moris ateral pulmonary embolism, including distal main and left and right pulmonary arteries, bilateral upp er and lower lobes as well as middle lobe, with extensive emboli particularly on the right. There is bowing of the interventricular septum toward the left ventricle suggesting right ventricular strain. Normal heart size. No thoracic aortic aneurysm. No pericardial effusion. No hilar or mediastinal mass lesion or lymphadenopathy. Calcified left hilar and mediastinal lymph nodes, 8.5 mm centrally calcified right lower lobe pulmona ry granuloma consistent with old granulomatous disease. There is mild discoid atelectasis or scarring at the lower lobes. Approximately 2 cm hypoattenuating lesion of the anteroinferior aspect of the spleen. 2.5 cm left renal cyst. The portions of the adrenal glands are normal. No suspicious osteolytic or osteoblastic lesions. IMPRESSION: Extensive bilateral pulmonary embolism with evidence of right ventricular strain Dr. Cabral telephoned the report of pulmonary embolism and right ventricular strain on 06/06/2022 at 141 5 hours to emergency room physician Dr. Thorne. Reviewed, dictated and finalized at [facility]. Reviewed, dictated and finalized at location [facility]. IMPRESSION: Extensive bilateral pulmonary embolism with evidence of right vent ricular strain Dr. Cabral telephoned the report of pulmonary embolism and right ventricular stra in on 06/06/2022 at 1415 hours to emergency room physician Dr. Thorne.
--- NOTE | ~2022-06-06 | XR_ITS ---
EXAMINATION: XR chest 1V portable DATE: 06/06/2022 13:03 INDICATION: Cough. TECHNIQUE: frontal view of the chest was obtained. COMPARISON: Chest radiograph dated 04/22/2022 FINDINGS: Unchanged mild linear discoid atelectasis/scarring along the right minor fissure. Mild opacities at t he medial left lower lung zone including a chronic bandlike opacity consistent with additional atelec tasis/scarring. Cannot exclude additional minimal pneumonia in this region although suspicion is low. No pulmonary edema, pleural effusion or pneumothorax. Heart size is normal. Large calcified mediasti nal lymph nodes consistent with old granulomatous disease. IMPRESSION: 1. Mild opacities at the medial left lung base which includes chronic linear discoid atelectasis/scar ring. Could not exclude associated pneumonia in this region although suspicion is low. Reviewed, dictated and finalized at location [facility]. IMPRESSION: 1. Mild opacities at the medial left lung base which includes chronic linear di scoid atelectasis/scarring. Could not exclude associated pneumonia in this vadim on although suspicion is low.
--- NOTE | 2022-06-06 11:56 | ECG_ITS ---
Measurements Intervals Merlin Rate: 92 P: 49 MO: 211 QRS: 21 QRSD: 98 T: 61 QT: 325 QTc: 403 Interpretive Statements SINUS RHYTHM WITH FIRST DEGREE AV BLOCK BORDERLINE ST-T WAVE ABNORMALITY- DIFFUE LEADS BASELINE ARTIFACT- II, III BORDERLINE ECG COMPARED TO ECG 04/12/2022 17:39:09 NO SIGNIFICANT CHANGES Electronically Signed On 06-06-2022 12:31:03 CDT by Demond Del Valle D.O.
[2022-06-06 12:10] LABS: Basophils Absolute Auto 0.1 K/mm3 (0.0-0.1); Basophils Percent Auto 0.5 % (0.2-1.2); Eosinophils Absolute Auto 0.2 K/mm3 (0-0.3); Eosinophils Percent Auto 1.7 % (0-4.4); Hematocrit 37.4 % (42.0-52.0); Immature Granulocyte Absolute 0.03 K/mm3 (0.00-0.031); Immature Granulocyte Percent A 0.3 % (0-0.5); Lymphocytes Absolute Auto 1.99 K/mm3 (0.9-3.2); Lymphocytes Percent Auto 21.6 % (18.3-44.2); Mean Corpuscular HGB Conc 32.1 g/dl (32-36); Mean Corpuscular Hemoglobin 28.8 pg (26-34); Mean Corpuscular Volume 89.7 fl (80-100); Mean Platelet Volume 10.7 fl (7.4-10.4); Monocytes Absolute Auto 0.7 K/mm3 (0.1-0.6); Monocytes Percent Auto 7.5 % (2.6-8.5); Neutrophils Absolute Auto 6.3 K/mm3 (1.3-6.7); Neutrophils Percent Auto 68.4 % (45.5-73.1); Platelet Count Result 215 k/mm3 (150-375); Red Blood Count 4.17 M/mm3 (4.6-6.20); Red Cell Distribution Width 14.2 % (11.5-14.5); White Blood Count 9.2 K/mm3 (4.5-10.0)
[2022-06-06 12:20] LABS: INR 1.1
[2022-06-06 12:21] LABS: Partial Thromboplastin Time 31.6 SECONDS (22.3-36.8)
[2022-06-06 12:22] LABS: Lactic Acid Reflex 1.2 mmol/L (0.7-2.0)
[2022-06-06 12:32] LABS: Bacteria Urine Trace /hpf; Mucus Urine Rare /lpf; Squamous Epithelial Cell Urine Rare /hpf (Few)
[2022-06-06 12:35] LABS: Appearance Urine Clear (Clear); Bilirubin Urine Negative (Negative); Blood Urine 2+ (Negative); Color Urine Yellow (Yellow); Glucose Urine UA Negative (Negative); Ketones Urine Negative (Negative); Leukocyte Esterase Ur 3+ LEU/UL (Negative); Nitrate Urine Positive (Negative); Protein Urine Negative (Negative); Urobilinogen Urine 0.2 mg/dL (<2.0)
[2022-06-06 12:37] LABS: Add Urine Microscopic? YES
[2022-06-06 13:02] LABS: Alanine Aminotransferase 14 U/L (6-50); Albumin Level 4.2 g/dL (3.5-5.1); Alkaline Phosphatase 77 U/L (38-126); Anion Gap 10 mmol/L (8-16); Aspartate Amino Transferase 16 U/L (17-59); Bilirubin,Total 0.5 mg/dL (0.2-1.3); Blood Urea Nitrogen 14 mg/dL (9-20); Calcium 8.7 mg/dL (8.4-10.2); Carbon Dioxide 25 mmol/L (22-30); Chloride 104 mmol/L (98-107); Estimated CRCL calculation 95 ml/min; Estimated Glomerular Filt Rate > 60; Glucose 124 mg/dL (65-110); Sodium 139 mmol/L (137-145)
[2022-06-06 13:12] LABS: D Dimer 4.92 ug/mL (<0.48)
--- NOTE | 2022-06-06 13:37 | ED.AMS ---
HPI - Altered Mental Status General Chief Complaint: Altered Mental Status Stated Complaint: ?UTI Time Seen by Provider: 06/06/22 12:19 History of Present Illness HPI narrative: Pt states he was confused and disoriented earlier to day but this has improved. Pt admits to cough and some urinary frequency. Pt has history of frequent UTI's and also had a small PE recently per family in room. Pt denies fever, SOB, or CP now. Related Data Home Medications Medication Instructions Recorded Confirmed cholecalciferol (vitamin D3) 125 125 mcg PO DAILY 07/07/20 06/06/22 mcg (5,000 unit) capsule escitalopram oxalate 20 mg tablet 20 mg PO DAILY 07/07/20 06/06/22 melatonin 10 mg tablet 10 mg PO HS 07/07/20 06/06/22 teriflunomide 14 mg tablet 14 mg PO DAILY 07/07/20 06/06/22 (Aubagio) baclofen 10 mg tablet 20 mg PO HS 03/10/22 06/06/22 Allergies Allergy/AdvReac Type Severity Reaction Status Date / Time No Known Allergies Allergy Unknown Verified 03/10/22 09:24 Review of Systems Review of Systems: All systems reviewed & are unremarkable except as noted in HPI and below PMFSH Past Medical History Medical History (Updated 06/06/22 @ 19:02 by Riddhi Juarez NP) Anxiety Chest pain Chronic anemia Depression DVT prophylaxis Insomnia Left wrist fracture Leukocytosis Multiple sclerosis Neurogenic bladder Restless leg syndrome Suspected 2019 novel coronavirus infection Tinea corporis Vitamin D deficiency Surgical History Surgical History History of bilateral cataract extraction Family History Family History Father Family history of malignant neoplasm of esophagus Mother Pacemaker Social History Social History (Updated 06/06/22 @ 18:41 by Riddhi Juarez NP) Social History: The patient is and lives with his in [place]. 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 He smoked up to 3 packs of cigarettes a day for 30 years and quit in 2001. No alcohol or illicit substance abuse. He had 2 children Surrogate medical decision maker: Devora Browning, . Code status: Full code. Smoking packs per day: 1 Smoking cigarettes per day: 20.0 Years smoked: 10 Smoking pack-years: 10.00 Smoking status: Former smoker Tobacco type: cigarettes Second hand tobacco smoke exposure: No Smoking end date: 03/10/02 Alcohol intake: never Substance use: never Has the Lack of Transportation Kept You From Medical Appointments or From Getting Medications?: No Within the Past 12 Months, Were You Worried Whether Your Food Would Run Out Before You Got Money to Buy More?: Never True What is Your Housing Situation Today?: I Have Housing Are You Worried That in the Next 2 Months, You May Not Have Your Own Housing to Live In?: No Do You Have Trouble Paying Your Heating Or Electricity Bill?: No Do You Have Trouble Paying For Medicines?: No Are You Currently Unemployed and Looking for Work?: No Highest Level of Education Completed: High School Diploma/GED Do You Have Trouble With Childcare or the Care of a Family Member?: No Spiritual care concerns: No Exam Const: General: healthy appearing, no acute distress and alert Nutritional Appearance: well nourished Orientation/consciousness: patient oriented x3 Limitations: no limitations HENMT: Head: normal to inspection Face/Nose/Sinus: Normal external nose present Mouth: Yes Normal oral and palatal mucosa present Throat: posterior oropharynx normal Eyes: EOM: EOMs intact bilaterally Neck: Neck: normal visual inspection, no lymphadenopathy and no meningeal signs Chest: Chest palpation & inspection: normal inspection of the chest Resp: Effort & Inspection: normal respiratory effort Auscultation: clear to auscultation bilaterally Cardio: Rate: regular rate Rhythm: regular rh
--- NOTE | 2022-06-06 13:54 | PC.NURSE ---
Pt to CT scan via stretcher at this time.
--- NOTE | 2022-06-06 14:30 | PC.NURSE ---
Pt placed on 2 L NC O2 per [facility] EDP Dr Thorne.
[2022-06-06] MEDS: HEPARIN SODIUM 5,000 UNITS/ML VIAL 9000 UNITS IV PUSH (14:47)
[2022-06-06] MEDS: HEPARIN SOD/D5W 100 UNITS/ML 25,000 UNITS/250 ML BAG 15 UNITS IV CONT (15:11)
--- NOTE | 2022-06-06 16:31 | PM.IMHP ---
H&P: HPI History of Present Illness Date/Time: 06/06/22 16:31 Chief Complaint: Altered mental status Narrative: This is a 67-year-old patient MS. The patient has been staying home with his and his is having difficulty taking care of him. The is present at the bedside. She explained that they did not have a primary care doctor to refill his Eliquis. The patient has not been able to take his Eliquis. The patient has been known to have a PE to the left lung since March of this year. He was started on Eliquis at that time. However the told me that they do not have a primary care doctor and they were not able to get a refill for the Eliquis. H&H is 12.0 in 37.0. Which is his baseline. D-dimer is 4.92. Patient's urine is positive for UTI. The patient was started on Levaquin and heparin drip. The patient has a history of Pseudomonas in the past. The patient is being admitted to inpatient status on 06/06/2022. Review of Systems Review of Systems: See HPI All systems reviewed & are unremarkable except as noted in HPI and below Constitutional: Constitutional: Reports as per HPI and Reports no additional constitutional complaints Eyes: Eyes: Reports as per HPI and Reports no additional eye complaints ENT: Reports system reviewed and no additional complaints, except as documented and Reports Normal hearing present Cardiovascular: Cardiovascular: Reports no additional cardiovascular complaints Respiratory: Respiratory: Reports no additional respiratory complaints and Reports no additional respiratory complaints Gastrointestinal: Gastrointestinal: Reports as per HPI and Reports no additional gastrointestinal complaints Musculoskeletal: Musculoskeletal: Reports no additional musculoskeletal complaints Integumentary/Breasts: Skin/Breast: Reports system reviewed and no additional complaints, except as docu and Reports as per HPI Neurologic: Reports system reviewed and no additional complaints, except as documented, Reports as per HPI and Reports Normal hearing present Psychiatric: Psychiatric: Reports no additional psychiatric complaints and Reports as per HPI Endocrine: Endocrine: Reports no additional endocrine complaints Hematologic/Lymphatic: Hematologic/Lymphatic: Reports no additional hematologic/lymphatic complaints Allergic/Immunologic: Allergic/Immunologic: Reports no additional allergic/immunologic complaints [facility] Past Medical History Medical History (Updated 06/06/22 @ 19:02 by Riddhi Juarez NP) Anxiety Chest pain Chronic anemia Depression DVT prophylaxis Insomnia Left wrist fracture Leukocytosis Multiple sclerosis Neurogenic bladder Restless leg syndrome Suspected 2019 novel coronavirus infection Tinea corporis Vitamin D deficiency Surgical History Surgical History History of bilateral cataract extraction Family History Family History Father Family history of malignant neoplasm of esophagus Mother Pacemaker Social History Social History (Updated 06/06/22 @ 18:41 by Riddhi Juarez NP) Social History: The patient is and lives with his in [place]. 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 He smoked up to 3 packs of cigarettes a day for 30 years and quit in 2001. No alcohol or illicit substance abuse. He had 2 children Surrogate medical decision maker: Devora Browning, . Code status: Full code. Smoking end date: 03/10/02 Spiritual care concerns: No Meds Home Medications and Allergies Home Medications Medication Instructions Recorded Confirmed Type cholecalciferol (vitamin D3) 125 125 mcg PO DAILY 07/07/20 03/10/22 History mcg (5,000 unit) capsule escitalopram oxalate 20 mg tablet 20 mg PO DAILY 07/07/20 03/10/22 History melatonin 10 mg tablet 10 mg PO HS 07/07/20
[2022-06-06 21:33] LABS: Basophils Percent Auto 0.4 % (0.2-1.2); Eosinophils Absolute Auto 0.1 K/mm3 (0-0.3); Eosinophils Percent Auto 1.2 % (0-4.4); Hematocrit 36.5 % (42.0-52.0); Hemoglobin 11.6 g/dL (14.0-18.0); Immature Granulocyte Absolute 0.05 K/mm3 (0.00-0.031); Immature Granulocyte Percent A 0.5 % (0-0.5); Lymphocytes Absolute Auto 2.47 K/mm3 (0.9-3.2); Lymphocytes Percent Auto 24.9 % (18.3-44.2); Mean Corpuscular HGB Conc 31.8 g/dl (32-36); Mean Corpuscular Hemoglobin 28.7 pg (26-34); Mean Corpuscular Volume 90.3 fl (80-100); Mean Platelet Volume 10.8 fl (7.4-10.4); Monocytes Absolute Auto 0.8 K/mm3 (0.1-0.6); Monocytes Percent Auto 7.6 % (2.6-8.5); Neutrophils Absolute Auto 6.5 K/mm3 (1.3-6.7); Neutrophils Percent Auto 65.4 % (45.5-73.1); Platelet Count Result 204 k/mm3 (150-375); Red Blood Count 4.04 M/mm3 (4.6-6.20); Red Cell Distribution Width 14.1 % (11.5-14.5); White Blood Count 9.9 K/mm3 (4.5-10.0)
[2022-06-06 21:45] LABS: INR 1.2; Prothrombin Time 14.8 Seconds (11.1-14.7)
[2022-06-06 21:47] LABS: Partial Thromboplastin Time 96.2 SECONDS (22.3-36.8)
[2022-06-06] MEDS: MELATONIN 5 MG TABLET 10 MG PO (23:35)
[2022-06-06] MEDS: BACLOFEN 10 MG TABLET 20 MG PO (23:36)
[2022-06-07] VITALS (11 sets, daily range): BP systolic 120–149; BP diastolic 77–91; PULSE 75–89; RESP 16–20; TEMP 36.1–37.1; O2SAT 92–94; BMI 11.0
--- NOTE | 2022-06-07 | ECHO_ITS ---
Patient Info Name: Elbert Browning Age: 67 years : 1955 Gender: Male Ht: 69 in Wt: 238 lbs BSA: 2.33 m2 HR: 80 bpm BP: 120 / 82 mmHg Heart Rhythm: Sinus Rhythm Technical Quality: Fair Exam Date: 06/07/2022 11:30 AM Exam Location: [facility] Patient Status: Inpatient Admit Date: 06/06/2022 Staff Ordering Physician: Aleshia Heaton MD Nutrition Therapist: Jennifer Bullock RDCS Attending Provider: Daisy Trotter MD Referring Physician: Florina RAMOS; Exam Type: CA echo doppler color flow Study Info Indications - PE w LV strain on imaging Complete two-dimensional, color flow and Doppler transthoracic echocardiogram is performed. Summary 1. Very technically difficult study with limited views. 2. The left ventricle was not well visualized. Unable to estimate left ventricular size or ejection fraction. 3. Right ventricle S' is 11cm/s, which indicates possibly normal RV function, however, this was an extremely technically difficult study. Cannot estimate RV size. Left Ventricle The left ventricle was not well visualized. Unable to estimate left ventricular size or ejection fraction. Right Ventricle Right ventricle S' is 11cm/s, which indicates possibly normal RV function, however, this was an extremely technically difficult study. Cannot estimate RV size. Right ventricular chamber dimension is not well visualized. Left Atria Left atrial chamber dimension is not well visualized. Right Atria Right atrial chamber dimension is not well visualized. Aortic Valve The aortic valve is not well visualized. Mitral Valve The mitral valve has not well visualized. Tricuspid Valve The tricuspid valve leaflets are not well visualized. Aorta The aortic root size at the sinus of Valsalva is not well visualized. Left Ventricular Outflow Tract Name Value Normal LVOT Doppler LVOT Peak Gradient 1 mmHg LVOT Mean Gradient 1 mmHg LVOT VTI 9 cm LVOT VTI/AV VTI Ratio 1.0 Mitral Valve Name Value Normal MV Doppler MV Decel [place] 565 cm/s2 MV PHT 26 ms MV Area (PHT) 8.5 cm2 4.0-5.0 MV Diastolic Function MV E Peak Velocity 51 cm/s MV A Peak Velocity 39 cm/s MV E/A 1.3 MV Decel Time 90 ms Aorta Name Value Normal Ascending Aorta Ao Root Diameter (MM) 3.9 cm Ao Root Diam Index (MM) 1.7
--- NOTE | 2022-06-07 03:36 | ADMGEN ---
On June 06, 2022 at 2030, this patient, Elbert Browning, was admitted to IMU Room 231-01. Patient/family oriented to hospital policies and general routines including ID bracelet, bed and alarms, visiting hours, pain management, procedures, bathroom and other care routines, personal items, smoking policy, room service/diet, and visiting hours. Information on how to activate the Rapid Response Team has been discussed. Patient/Family are encouraged to report perceived risks to care and to ask questions if they do not understand what they are told or what they should do.
[2022-06-07 05:01] LABS: Basophils Percent Auto 0.4 % (0.2-1.2); Eosinophils Absolute Auto 0.1 K/mm3 (0-0.3); Eosinophils Percent Auto 1.5 % (0-4.4); Hematocrit 35.9 % (42.0-52.0); Hemoglobin 11.7 g/dL (14.0-18.0); Immature Granulocyte Absolute 0.04 K/mm3 (0.00-0.031); Immature Granulocyte Percent A 0.4 % (0-0.5); Lymphocytes Absolute Auto 2.47 K/mm3 (0.9-3.2); Lymphocytes Percent Auto 27.7 % (18.3-44.2); Mean Corpuscular HGB Conc 32.6 g/dl (32-36); Mean Corpuscular Hemoglobin 29.5 pg (26-34); Mean Corpuscular Volume 90.7 fl (80-100); Mean Platelet Volume 10.9 fl (7.4-10.4); Monocytes Absolute Auto 0.7 K/mm3 (0.1-0.6); Neutrophils Absolute Auto 5.5 K/mm3 (1.3-6.7); Platelet Count Result 192 k/mm3 (150-375); Red Blood Count 3.96 M/mm3 (4.6-6.20); Red Cell Distribution Width 14.1 % (11.5-14.5); White Blood Count 8.9 K/mm3 (4.5-10.0)
[2022-06-07 05:08] LABS: Alanine Aminotransferase 12 U/L (6-50); Alkaline Phosphatase 80 U/L (38-126); Anion Gap 9 mmol/L (8-16); Aspartate Amino Transferase 17 U/L (17-59); Bilirubin,Total 0.5 mg/dL (0.2-1.3); Blood Urea Nitrogen 14 mg/dL (9-20); Calcium 8.7 mg/dL (8.4-10.2); Carbon Dioxide 26 mmol/L (22-30); Chloride 104 mmol/L (98-107); Estimated CRCL calculation 76 ml/min; Estimated Glomerular Filt Rate > 60; Glucose 116 mg/dL (65-110); Lipase 61 U/L (23-300); Phosphorus 3.4 mg/dL (2.5-4.5); Sodium 139 mmol/L (137-145)
[2022-06-07 05:09] LABS: Partial Thromboplastin Time 78.4 SECONDS (22.3-36.8)
[2022-06-07] MEDS: HEPARIN SOD/D5W 100 UNITS/ML 25,000 UNITS/250 ML BAG 15 UNITS IV CONT (07:52)
--- NOTE | 2022-06-07 09:46 | PM.IMPN ---
Progress Note: A&P Assessment and Plan (1) Relapsing remitting multiple sclerosis: Code(s): G35 - Multiple sclerosis Status: Acute (2) Pulmonary embolism: Code(s): I26.99 - Other pulmonary embolism without acute cor pulmonale Status: Acute (3) Leukocytosis: Code(s): D72.829 - Elevated white blood cell count, unspecified Status: Acute (4) Insomnia: Code(s): G47.00 - Insomnia, unspecified Status: Chronic (5) Anxiety: Code(s): F41.9 - Anxiety disorder, unspecified Status: Chronic (6) Neurogenic bladder: Code(s): N31.9 - Neuromuscular dysfunction of bladder, unspecified Status: Chronic (7) Depression: Code(s): F32.9 - Major depressive disorder, single episode, unspecified Status: Acute (8) Metabolic encephalopathy: Code(s): G93.41 - Metabolic encephalopathy Status: Acute (9) Recent urinary tract infection: Code(s): Z87.440 - Personal history of urinary (tract) infections Status: Acute Plan 06/06/22 Patient is on a heparin drip at this time. -the patient will need a prescription for Eliquis prior to being discharged.? He will also need to find a primary care doctor. -the patient was started on Levaquin today. -he is had a history of Pseudomonas aeruginosa in the past. -urine and blood cultures are pending and treat accordingly. -the patient is hard of hearing and so was his .? The patient is able to answer some of the questions for me. -this could be related to his urinary tract infection.? -the patient stated he does not feel short of breath. -she also has MS. -the patient his were thinking that the patient may need to go to a penitentiary or rehab or get more help at home is the is no longer able to care for him at home. -continue with lorazepam Continue with Lexapro -the patient will need PT and OT as he has become contracted. -continue with baclofen. -the was tearful and stated that she is not sure if she can continue to take care of him.? I also discussed this with the patient as well and he feels that she may not be able to continue to care for him at home. -ambulatory care nurse consultation greatly be appreciated. -the patient is on aubagio The patient had been self cathing himself. 06/07/22 UTI last culture was +p. aeruginosa pt self caths cont levaquin UCx results pending elevated D dimer imaging -> ?Extensive bilateral pulmonary embolism with evidence of right ventricular strain c/s Cardiology ECHO reviewed no signs of strain on heparin gtt -> Eliquis on D/c 90 day supply referral to new PCP Subjective Date/time seen: 06/07/22 09:46 doing ok on RA comfortable, at bedside. pt has been noncompliant w eliquis because PCP relocated to another city They agree to establish w new PCP and orthodontic treatment coordinator has addressed their transportation issues to help improve compliance LE contracted Review of Systems Review of Systems: All systems reviewed & are unremarkable except as noted in HPI and below Exam Narrative: GEN: NAD, AAOx3, cooperative intermittently confused HEENT: NCAT, MMM, EOMI Neck: no JVD Heart: S1S2 RRR Lungs: crackles on RA Abd: soft, NT, ND, bowel sounds normoactive Ext: moves all DROM of LE b/l unable to extend, no cyanosis, no clubbing, no edema Neuro: CN intact Psych: mood and affect congruent Objective Data Vital Signs Vital Signs: Vital Signs - 24 hr 06/06/22 11:57 06/06/22 12:01 06/06/22 12:42 Temperature 98.7 F Pulse Rate 92 92 90 Respiratory Rate 16 18 Blood Pressure 140/78 124/74 Pulse Oximetry 91 92 Oxygen Delivery Room Air 06/06/22 13:07 06/06/22 14:30 06/06/22 15:13 Temperature Pulse Rate 93 90 91 Respiratory Rate 15 18 19 Blood Pressure 113/72 125/92 H 130/73 Pulse Oximetry 92 94 96 Oxygen Delivery 06/06/22 12:30 06/06/22 12:43 06/06/22 12:45 Temperature Pulse Rate 90 92 92 Respiratory Rate 19 1
[2022-06-07] MEDS: CHOLECALCIFEROL 1,000 UNITS TABLET 5000 UNITS PO (12:22)
[2022-06-07] MEDS: ESCITALOPRAM OXALATE 10 MG TABLET 20 MG PO (12:22)
[2022-06-07] MEDS: levoFLOXacin 500 MG/D5W 100 ML 500 MG/100 ML BAG 100 MG IVPB (12:23)
[2022-06-07 12:45] LABS: Partial Thromboplastin Time 69.9 SECONDS (22.3-36.8)
--- NOTE | 2022-06-07 13:19 | WPDNEURCNPN ---
Assessment and Plan Assessment and plan (1) Pulmonary embolism: Code(s): I26.99 - Other pulmonary embolism without acute cor pulmonale Status: Acute (2) Neurogenic bladder: Code(s): N31.9 - Neuromuscular dysfunction of bladder, unspecified Status: Chronic (3) Depression: Code(s): F32.9 - Major depressive disorder, single episode, unspecified Status: Acute (4) Relapsing remitting multiple sclerosis: Code(s): G35 - Multiple sclerosis Status: Acute Plan 1 relapsing remitting multiple sclerosis for which he is under the care of neurology at [facility] 2 pulmonary emboli 3 depression. recurrent UTI, treatment is being continued as such we discussed with the further Consult date: 06/07/22 Reason for consult: 67 years old right-handed male admitted to the hospital through the emergency room for the complaints of change in the mental status in addition to the possibility of urinary tract infection. In the emergency room it was documented that he was confused and disoriented earlier on the day of visit but was subsequently improved he was having cough with urinary frequency, has been taking Aubagio 14 mg daily for the ongoing diagnosis of relapsing remitting demyelinating disease and has been under the care Dr. modi in [place] has also been taking baclofen 20 mg at night. Additionally he carries the list of problems including depression, neurogenic bladder, restless leg syndrome, and vitamin-D deficiency has smoked for 10 years though he is a former smoker and stopped smoking on 03/10 2 not an alcohol drinker, initial vital signs in the emergency room were normal so as the CBC BMP UA was positive for nitrate leukocyte Estrace 3+, EKG was normal his CT of the chest was compatible with extensive bilateral pulmonary embolism with evidence of right ventricular strain, patient is already receiving apixaban 5 mg b.i.d. in addition to teriflunomide 40 mg daily baclofen 20 mg at night [place] cyto prime 20 mg daily and lorazepam 0.5 mg t.i.d. p.r.n. HPI: Review of Systems Review of Systems: All systems reviewed & are unremarkable except as noted in HPI and below [facility] Past Medical History Medical History (Updated 06/07/22 @ 13:32 by Anthony Murphy MD) Anxiety Chest pain Chronic anemia Depression DVT prophylaxis Insomnia Left wrist fracture Leukocytosis Multiple sclerosis Neurogenic bladder Restless leg syndrome Suspected 2019 novel coronavirus infection Tinea corporis Vitamin D deficiency Surgical History Surgical History History of bilateral cataract extraction Family History Family History Father Family history of malignant neoplasm of esophagus Mother Pacemaker Social History Social History (Updated 06/06/22 @ 18:41 by Riddhi Juarez NP) Social History: The patient is and lives with his in [place]. 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 He smoked up to 3 packs of cigarettes a day for 30 years and quit in 2001. No alcohol or illicit substance abuse. He had 2 children Surrogate medical decision maker: Devora Browning, . Code status: Full code. Smoking packs per day: 1 Smoking cigarettes per day: 20.0 Years smoked: 10 Smoking pack-years: 10.00 Smoking status: Former smoker Tobacco type: cigarettes Second hand tobacco smoke exposure: No Smoking end date: 03/10/02 Alcohol intake: never Substance use: never Has the Lack of Transportation Kept You From Medical Appointments or From Getting Medications?: No Within the Past 12 Months, Were You Worried Whether Your Food Would Run Out Before You Got Money to Buy More?: Never True What is Your Housing Situation Today?: I Have Housing Are You Worried That in the Next 2 Months, You May Not Have Your Own Housing to Live I
--- NOTE | 2022-06-07 13:27 | PM.CNCAR ---
Assessment and Plan Assessment and plan (1) Pulmonary embolism: Code(s): I26.99 - Other pulmonary embolism without acute cor pulmonale Status: Acute Assessment and Plan: His CTA this admission shows progression of PE compared to CTA from March. Likely from not being able to get Eliquis as an outpatient. Patient is currently on room air and hemodynamically stable. He denies any cardiac symptoms. No evidence of gross RV failure on exam. Continue Heparin drip for anticoagulation. Would transition to NOAC upon discharge and ensure patient can receive medication as an outpatient). An echocardiogram has been ordered here - will follow up on results. If patient develops respiratory compromise or has any hemodynamic instability, he would need to be transferred to a center for higher care as we do not have any other treatment options for PE here at [facility]. History of Present Illness History of Present Illness Consult date/time: 06/07/22 13:27 Requesting physician: Aleshia Heaton MD Consult reason: Other (Pulmonary embolism) Reason For Visit: PE Narrative: Patient is a 67-year-old male who we are being consulted for pulmonary embolism. Patient is a poor historian. No family at bedside. Patient denies chest pain, shortness of breath, lightheadedness/dizziness. States he is feeling okay right now. Not on any supplemental oxygen. Hemodynamically stable. Patient initially presented to the ED for altered mental status. Patient was previously diagnosed with PE back in March 2022 and was started on Eliquis, however, per the chart, patient has not been able to take Eliquis as they do not have a primary care to get refills from. Found with a UTI this admission. CTA this admission shows extensive bilateral pulmonary embolism with evidence of right heart strain. His prior CTA from April 2022 shows scattered subsegmental pulmonary emboli of right upper and both lower lobes. His CTA from 2019 showed a left upper lobe segmental PE. His echo at that time normal LVEF, RV size, and RVSF. Patient is currently on Heparin drip. Review of Systems Review of Systems: 12-point ROS obtained. Negative, unless stated in HPI. [facility] Past Medical History Medical History Anxiety Chest pain Chronic anemia Depression DVT prophylaxis Insomnia Left wrist fracture Leukocytosis Multiple sclerosis Neurogenic bladder Restless leg syndrome Suspected 2018 novel coronavirus infection Tinea corporis Vitamin D deficiency Surgical History Surgical History History of bilateral cataract extraction Family History Family History Father Family history of malignant neoplasm of esophagus Mother Pacemaker Social History Social History Social History: The patient is and lives with his in [place]. 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 He smoked up to 3 packs of cigarettes a day for 30 years and quit in 2001. No alcohol or illicit substance abuse. He had 2 children Surrogate medical decision maker: Devora Browning, . Code status: Full code. Smoking packs per day: 1 Smoking cigarettes per day: 20.0 Years smoked: 10 Smoking pack-years: 10.00 Smoking status: Former smoker Tobacco type: cigarettes Second hand tobacco smoke exposure: No Smoking end date: 03/10/02 Alcohol intake: never Substance use: never Has the Lack of Transportation Kept You From Medical Appointments or From Getting Medications?: No Within the Past 12 Months, Were You Worried Whether Your Food Would Run Out Before You Got Money to Buy More?: Never True What is Your Housing Situation Today?: I Have Housing Are You Worried That in the Next 2 Months, You May Not Have Your
[2022-06-07] MEDS: HEPARIN SODIUM 5,000 UNITS/ML VIAL 3500 UNITS IV PUSH (13:38)
--- NOTE | 2022-06-07 15:54 | PC.NURSE ---
This patient, Elbert Browning, was transferred to [ 261] on 06/07/22 at 1556. Personal belongings sent with patient. Report given to [Norma PAZ ]. Appropriate documentation sent with patient.
--- NOTE | 2022-06-07 17:07 | PC.NURSE ---
This patient, Elbert Browning, was received from IMU on 06/07/22 at 1550. Patient/family oriented to unit policies and routines
--- NOTE | 2022-06-07 17:23 | PC.NURSE ---
Left message with asking her to call back so that I can speak with her about home medication (aubagio) that is non-formulary. Will see if she can bring medication if she calls back. Call back number left in voicemail
[2022-06-07] MEDS: APIXABAN 5 MG TABLET PO (20:28)
[2022-06-07] MEDS: MELATONIN 5 MG TABLET 10 MG PO (20:29)
[2022-06-07] MEDS: BACLOFEN 10 MG TABLET 20 MG PO (20:29)
[2022-06-07 20:34] LABS: Partial Thromboplastin Time 127.9 SECONDS (22.3-36.8)
--- NOTE | 2022-06-07 20:36 | PC.NURSE ---
Pt started on eliquis 5mg BID at this time, heparin drip stopped at this time per order from Riddhi Juarez
[2022-06-08] VITALS (9 sets, daily range): BP systolic 120–125; BP diastolic 72–77; PULSE 61–79; RESP 18; TEMP 36.3–36.7; O2SAT 93–95
[2022-06-08] MEDS: ESCITALOPRAM OXALATE 10 MG TABLET 20 MG PO (08:48)
[2022-06-08] MEDS: CHOLECALCIFEROL 1,000 UNITS TABLET 5000 UNITS PO (08:48)
[2022-06-08] MEDS: APIXABAN 5 MG TABLET PO ×2 (08:49→20:26)
--- NOTE | 2022-06-08 10:07 | PM.IMPN ---
Progress Note: A&P Assessment and Plan (1) Relapsing remitting multiple sclerosis: Code(s): G35 - Multiple sclerosis Status: Acute (2) Pulmonary embolism: Code(s): I26.99 - Other pulmonary embolism without acute cor pulmonale Status: Acute (3) Leukocytosis: Code(s): D72.829 - Elevated white blood cell count, unspecified Status: Acute (4) Insomnia: Code(s): G47.00 - Insomnia, unspecified Status: Chronic (5) Anxiety: Code(s): F41.9 - Anxiety disorder, unspecified Status: Chronic (6) Neurogenic bladder: Code(s): N31.9 - Neuromuscular dysfunction of bladder, unspecified Status: Chronic (7) Depression: Code(s): F32.9 - Major depressive disorder, single episode, unspecified Status: Acute (8) Metabolic encephalopathy: Code(s): G93.41 - Metabolic encephalopathy Status: Acute (9) Recent urinary tract infection: Code(s): Z87.440 - Personal history of urinary (tract) infections Status: Acute Plan 06/06/22 Patient is on a heparin drip at this time. -the patient will need a prescription for Eliquis prior to being discharged.? He will also need to find a primary care doctor. -the patient was started on Levaquin today. -he is had a history of Pseudomonas aeruginosa in the past. -urine and blood cultures are pending and treat accordingly. -the patient is hard of hearing and so was his .? The patient is able to answer some of the questions for me. -this could be related to his urinary tract infection.? -the patient stated he does not feel short of breath. -she also has MS. -the patient his were thinking that the patient may need to go to a care home or rehab or get more help at home is the is no longer able to care for him at home. -continue with lorazepam Continue with Lexapro -the patient will need PT and OT as he has become contracted. -continue with baclofen. -the was tearful and stated that she is not sure if she can continue to take care of him.? I also discussed this with the patient as well and he feels that she may not be able to continue to care for him at home. -patient care director consultation greatly be appreciated. -the patient is on aubagio The patient had been self cathing himself. 06/07/22 UTI last culture was +p. aeruginosa pt self caths cont levaquin UCx results pending elevated D dimer imaging ->??Extensive bilateral pulmonary embolism with evidence of right ventricular strain c/s Cardiology ECHO reviewed no signs of strain on heparin gtt? -> Eliquis on D/c 90 day supply referral to new PCP 06/08/22 UTI GNB final UCx pending cont levaquin afebrile VS stable am labs pending spoke w , will try and contact nonprofit organizations for MS pts and provide her a list later today if activities coordinator is unable to help Subjective Date/time seen: 06/08/22 10:07 pt doing ok looking for his this morning spoke w RN and OT pt confused having a hard time caring for him activities coordinator support x dc planning will be requested Review of Systems Review of Systems: All systems reviewed & are unremarkable except as noted in HPI and below Exam Narrative: GEN: NAD, AAOx2, cooperative intermittently confused HEENT: NCAT, MMM, EOMI Neck: no JVD Heart: S1S2 RRR Lungs: CTA b/l Abd: soft, NT, ND, bowel sounds normoactive Ext: moves all DROM of LE b/l unable to extend, no cyanosis, no clubbing, no edema Neuro: CN intact Psych: mood and affect congruent Objective Data Vital Signs Vital Signs: Vital Signs - 24 hr 06/07/22 11:45 06/07/22 12:20 06/07/22 12:00 Temperature 96.9 F L Pulse Rate 79 84 79 Respiratory Rate 20 Blood Pressure 120/77 Pulse Oximetry 94 93 Oxygen Delivery Room Air 06/07/22 15:12 06/07/22 16:00 06/07/22 21:29 Temperature 97.8 F Pulse Rate 83 89 Respiratory Rate 16 Blood Pressure 149/91 H Pulse Oximetry 93 Oxygen Delivery Room
[2022-06-08 10:39] LABS: Basophils Percent Auto 0.6 % (0.2-1.2); Eosinophils Absolute Auto 0.1 K/mm3 (0-0.3); Eosinophils Percent Auto 1.5 % (0-4.4); Hematocrit 38.1 % (42.0-52.0); Hemoglobin 12.2 g/dL (14.0-18.0); Immature Granulocyte Absolute 0.04 K/mm3 (0.00-0.031); Immature Granulocyte Percent A 0.6 % (0-0.5); Lymphocytes Absolute Auto 1.72 K/mm3 (0.9-3.2); Lymphocytes Percent Auto 23.7 % (18.3-44.2); Mean Corpuscular Hemoglobin 29.4 pg (26-34); Mean Corpuscular Volume 91.8 fl (80-100); Mean Platelet Volume 10.9 fl (7.4-10.4); Monocytes Absolute Auto 0.5 K/mm3 (0.1-0.6); Monocytes Percent Auto 6.8 % (2.6-8.5); Neutrophils Absolute Auto 4.9 K/mm3 (1.3-6.7); Neutrophils Percent Auto 66.8 % (45.5-73.1); Platelet Count Result 200 k/mm3 (150-375); Red Blood Count 4.15 M/mm3 (4.6-6.20); Red Cell Distribution Width 14.3 % (11.5-14.5); White Blood Count 7.3 K/mm3 (4.5-10.0)
[2022-06-08 10:48] LABS: Anion Gap 11 mmol/L (8-16); Blood Urea Nitrogen 14 mg/dL (9-20); Calcium 9.1 mg/dL (8.4-10.2); Carbon Dioxide 25 mmol/L (22-30); Chloride 102 mmol/L (98-107); Estimated CRCL calculation 76 ml/min; Estimated Glomerular Filt Rate > 60; Glucose 106 mg/dL (65-110); Potassium 4.1 mmol/L (3.4-5.0); Sodium 138 mmol/L (137-145)
[2022-06-08] MEDS: levoFLOXacin 500 MG/D5W 100 ML 500 MG/100 ML BAG 100 MG IVPB (12:15)
--- NOTE | 2022-06-08 14:48 | PC.NURSE ---
On 06/08/22, the student, [Genoveva Jarvis], provided care and completed [facility] documentation on this patient. I have reviewed the student's documentation and agree with the findings.
[2022-06-08] MEDS: BACLOFEN 10 MG TABLET 20 MG PO (20:26)
[2022-06-08] MEDS: MELATONIN 5 MG TABLET 10 MG PO (20:26)
[2022-06-09] VITALS: BP 138/86; PULSE 74; PULSE 76; RESP 20; TEMP 36.4; O2SAT 92
[2022-06-09 04:00] VITALS: PULSE 77
[2022-06-09 05:13] VITALS: BP 132/84; PULSE 74; RESP 20; TEMP 36.1; O2SAT 94
[2022-06-09 08:00] VITALS: PULSE 68
[2022-06-09] MEDS: ESCITALOPRAM OXALATE 10 MG TABLET 20 MG PO (08:31)
[2022-06-09] MEDS: APIXABAN 5 MG TABLET PO (08:31)
[2022-06-09] MEDS: CHOLECALCIFEROL 1,000 UNITS TABLET 5000 UNITS PO (08:32)
--- NOTE | 2022-06-09 08:42 | PM.DS ---
DS: Admitting Diagnosis Discharge Date 06/09/22 Admitting Diagnosis (1) Pulmonary embolism: ?Code(s): I26.99 - Other pulmonary embolism without acute cor pulmonale ?Status:?Acute (2) Neurogenic bladder: ?Code(s): N31.9 - Neuromuscular dysfunction of bladder, unspecified ?Status:?Chronic (3) Depression: ?Code(s): F32.9 - Major depressive disorder, single episode, unspecified ?Status:?Acute (4) Relapsing remitting multiple sclerosis: ?Code(s): G35 - Multiple sclerosis ?Status:?Acute DS: Discharge Diagnosis Discharge Diagnosis (1) Metabolic encephalopathy: Code(s): G93.41 - Metabolic encephalopathy Status: Acute (2) Relapsing remitting multiple sclerosis: Code(s): G35 - Multiple sclerosis Status: Acute (3) Pulmonary embolism: Code(s): I26.99 - Other pulmonary embolism without acute cor pulmonale Status: Acute (4) Anxiety: Code(s): F41.9 - Anxiety disorder, unspecified Status: Chronic (5) Neurogenic bladder: Code(s): N31.9 - Neuromuscular dysfunction of bladder, unspecified Status: Chronic (6) Insomnia: Code(s): G47.00 - Insomnia, unspecified Status: Chronic (7) Depression: Code(s): F32.9 - Major depressive disorder, single episode, unspecified Status: Acute (8) UTI (urinary tract infection): Code(s): N39.0 - Urinary tract infection, site not specified Status: Acute (9) Multiple sclerosis: Code(s): G35 - Multiple sclerosis Status: Chronic (10) Hypertension: Qualifiers: Hypertension type: essential hypertension Qualified Code(s): I10 - Essential (primary) hypertension Code(s): I10 - Essential (primary) hypertension Status: Acute (11) Intermittent self-catheterization of bladder: Code(s): Z78.9 - Other specified health status Status: Chronic (12) Recent urinary tract infection: Code(s): Z87.440 - Personal history of urinary (tract) infections Status: Acute (13) Urinary tract infection due to Pseudomonas aeruginosa: Code(s): N39.0 - Urinary tract infection, site not specified; B96.5 - Pseudomonas (aeruginosa) (mallei) (pseudomallei) as the cause of diseases classified elsewhere Status: Acute DS: Summary Hospital Course Reason for hospitalization: Chief Complaint: Altered mental status Narrative: This is a 67-year-old patient MS.? The patient has been staying home with his and his is having difficulty taking care of him.? The is? present at the? bedside.? She explained that they did not have a primary care doctor to refill his Eliquis.? The patient has not been able to take his Eliquis.? The patient has been known to have a PE to the left lung since March of this year.? He was started on Eliquis at that time.? However the told me that they do not have a primary care doctor and they were not able to get a refill for the Eliquis.? H&H is 12.0 in 37.0.? Which is his baseline.? D-dimer is 4.92.? Patient's urine is positive for UTI.? The patient was started on Levaquin and heparin drip.? The patient has a history of Pseudomonas in the past.? The patient is being admitted to inpatient status on 06/06/2022.? Hospital Course: 67-year-old gentleman with remitting relapsing MS brought to the hospital with altered mental status. He is found to a urinary tract infection and is placed on Levaquin based on prior UTI sensitivities and culture. patient did well overall and had a benign clinical course. culture did finally result as Pseudomonas again and patient is discharged home on Levaquin to complete 7 day course in total. Additionally, patient has been noncompliant with his Eliquis for his Pulmonary embolism, because he has lost access to healthcare as his provider moved out of the community. during this hospitalization he remained stable on room air despite significantly abnormal findings on CT
[2022-06-09] MEDS: levoFLOXacin 500 MG/D5W 100 ML 500 MG/100 ML BAG 100 MG IVPB (11:07)
[2022-06-09 12:04] VITALS: PULSE 82
--- NOTE | 2022-06-09 12:59 | PC.NURSE ---
On 06/09/22, the student, [Justine Kahn], provided care and completed [facility] documentation on this patient. I have reviewed the student's documentation and agree with the findings.
== END 2022-06-09 13:35 | disposition home or self-care (01) | DRG 175 ==
LOC: ANHED 14:39 → ANHIMU 18:15 → ANH3MEDSUR 19:45 → ANHIMU 19:51 → ANH2MED 06-07 15:34
PROVIDERS: Emergency Medicine; Internal Medicine; Nurse Practitioner; Admitting Provider Family Medicine; Emergency Provider Emergency Medicine; PCP Family Medicine; Visit Provider Hospitalist
DX: I26.99 Other pulmonary embolism without acute cor pulmonale (principal); G93.41 Metabolic encephalopathy; N39.0 Urinary tract infection, site not specified; N31.9 Neuromuscular dysfunction of bladder, unspecified; F32.9 Major depressive disorder, single episode, unspecified; G35 Multiple sclerosis; F41.9 Anxiety disorder, unspecified; B96.5 Pseudomonas (aeruginosa) (mallei) (pseudomallei) as the cause of diseases classified elsewhere; I10 Essential (primary) hypertension; G47.00 Insomnia, unspecified; D64.9 Anemia, unspecified; G25.81 Restless legs syndrome; E55.9 Vitamin D deficiency, unspecified; D72.829 Elevated white blood cell count, unspecified; Z91.14 Patient's other noncompliance with medication regimen; Z98.42 Cataract extraction status, left eye; Z98.41 Cataract extraction status, right eye; Z87.891 Personal history of nicotine dependence
CPT/HCPCS: 36415; 71045; 71275; 80048; 80053; 81001; 82728; 83605; 83690; 83735; 84100; 84443; 85025; 85380; 85610; 85730; 87040; 87077; 87086; 87147; 87181; 87186; 93005; 93306; 97162; 97166; 99285; A9270; J1644; J1956; Q9967

== ENCOUNTER 2022-07-13 14:42 | Emergency (ER) | payer MEDICARE, SELFPAY ==
--- NOTE | ~2022-07-13 | XR_ITS ---
XR chest 1V portable DATE: 07/13/2022 15:42 INDICATION: Cough for several days TECHNIQUE: Portable supine AP views on 07/13/2022 at 15 2019 at 1530 hours COMPARISON: 06/06/2022 CT pulmonary scan; this examination showed extensive bilateral pulmonary emboli 06/06/2022 portable AP chest FINDINGS: Heart size is within normal range. No pulmonary infiltrate or consolidation, pleural effusi on or pulmonary vascular congestion or pneumothorax is evident. IMPRESSION: No active disease Reviewed, dictated and finalized at location B. K DRIVER IMPRESSION: No active disease
[2022-07-13 14:46] VITALS: BP 179/79; PULSE 80; RESP 16; TEMP 37.2; O2SAT 96
--- NOTE | 2022-07-13 14:48 | ECG_ITS ---
Measurements Intervals [place] Rate: 80 P: 32 GA: 190 QRS: -5 QRSD: 107 T: 60 QT: 342 QTc: 396 Interpretive Statements SINUS RHYTHM NONSPECIFIC T-WAVE ABNORMALITY COMPARED TO ECG 06/06/2022 12:06:39 NO SIGNIFICANT CHANGE, GA INTERVAL IS SLIGHTLY SHORTER Electronically Signed On 07-14-2022 7:41:47 REQUISITION APPROVER by Kang Fletcher M.D.
--- NOTE | 2022-07-13 15:15 | ED.URI ---
HPI - URI/Sore Throat General Chief Complaint: Upper Respiratory Infection Stated Complaint: coughing X1 week-HX of blood clots last week Time Seen by Provider: 07/13/22 15:14 Source: patient and EMS Mode of arrival: EMS History of Present Illness HPI Narrative: 67 years old white male came to the emergency room from home by ambulance because of productive cough over the last few days. Patient is telling me that his called EMT, and he disagreed with that, and he is asymptomatic and would like to go home. Patient is awake, alert and oriented x4. He does not know the year. He denies any fever, chills, chest pain, shortness of breath. He is not sure if some of the family member have similar symptoms or not. Patient came by himself, is not at the bedside at this time. Related Data Home Medications Medication Instructions Recorded Confirmed cholecalciferol (vitamin D3) 125 125 mcg PO DAILY 07/07/20 06/06/22 mcg (5,000 unit) capsule escitalopram oxalate 20 mg tablet 20 mg PO DAILY 07/07/20 06/06/22 melatonin 10 mg tablet 10 mg PO HS 07/07/20 06/06/22 teriflunomide 14 mg tablet 14 mg PO DAILY 07/07/20 06/06/22 (Aubagio) baclofen 10 mg tablet 20 mg PO HS 03/10/22 06/06/22 Allergies Allergy/AdvReac Type Severity Reaction Status Date / Time No Known Allergies Allergy Unknown Verified 07/13/22 15:20 Review of Systems Review of Systems: All systems reviewed & are unremarkable except as noted in HPI and below PMFSH Past Medical History Medical History Anxiety Chest pain Chronic anemia Depression DVT prophylaxis Insomnia Left wrist fracture Leukocytosis Multiple sclerosis Neurogenic bladder Restless leg syndrome Suspected 2019 novel coronavirus infection Tinea corporis Vitamin D deficiency Surgical History Surgical History History of bilateral cataract extraction Family History Family History Father Family history of malignant neoplasm of esophagus Mother Pacemaker Social History Social History Social History: The patient is and lives with his in [place]. 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 He smoked up to 3 packs of cigarettes a day for 30 years and quit in 2001. No alcohol or illicit substance abuse. He had 2 children Surrogate medical decision maker: Devora Browning, . Code status: Full code. Smoking packs per day: 1 Smoking cigarettes per day: 20.0 Years smoked: 10 Smoking pack-years: 10.00 Smoking status: Former smoker Tobacco type: cigarettes Second hand tobacco smoke exposure: No Smoking end date: 03/10/02 Alcohol intake: never Substance use: never Lack of Transportation: No Lack of Food: Never True Current Housing: I Have Housing Concerned About Future Housing: No Difficulty Paying Gas/Electric Bills: No Difficulty Paying for Meds: No Currently Unemployed: No Education: High School Diploma/GED Difficulty w/ Childcare or Family Care: No Spiritual care concerns: No Exam Narrative: General appearance: Well-developed, well-nourished Skin: Normal color Head: Normocephalic, nontraumatic Eyes: Clear conjunctiva ENT: Oropharynx normal, ears normal, nose normal Neck: Supple, nontender Chest and respiratory: Airway patent, no respiratory distress, no accessory muscle use Heart: Regular rate/rhythm Abdomen: Soft, nontender, no organomegaly, quiet bowel sounds Vascular: Normal peripheral pulses, normal capillary refill. Musculoskeletal: Normal range of motion, nontender back Neurologic: Alert and oriented ?3, MAP COLORER is normal as tested, no gross motor deficit
[2022-07-13 15:19] VITALS: O2SAT 98
[2022-07-13 15:28] LABS: Basophils Percent Auto 0.3 % (0.2-1.2); Eosinophils Absolute Auto 0.2 K/mm3 (0-0.3); Eosinophils Percent Auto 1.4 % (0-4.4); Hematocrit 37.4 % (42.0-52.0); Immature Granulocyte Absolute 0.06 K/mm3 (0.00-0.031); Immature Granulocyte Percent A 0.5 % (0-0.5); Lymphocytes Absolute Auto 2.11 K/mm3 (0.9-3.2); Lymphocytes Percent Auto 16.9 % (18.3-44.2); Mean Corpuscular HGB Conc 32.1 g/dl (32-36); Mean Corpuscular Hemoglobin 28.6 pg (26-34); Mean Corpuscular Volume 89.3 fl (80-100); Mean Platelet Volume 10.5 fl (7.4-10.4); Monocytes Absolute Auto 0.9 K/mm3 (0.1-0.6); Monocytes Percent Auto 7.2 % (2.6-8.5); Neutrophils Absolute Auto 9.2 K/mm3 (1.3-6.7); Neutrophils Percent Auto 73.7 % (45.5-73.1); Platelet Count Result 252 k/mm3 (150-375); Red Blood Count 4.19 M/mm3 (4.6-6.20); Red Cell Distribution Width 14.4 % (11.5-14.5); White Blood Count 12.5 K/mm3 (4.5-10.0)
[2022-07-13 15:38] LABS: INR 1.2; Prothrombin Time 15.1 Seconds (11.1-14.7)
[2022-07-13 15:39] LABS: Partial Thromboplastin Time 36.5 SECONDS (22.3-36.8)
[2022-07-13 15:41] LABS: Alanine Aminotransferase 13 U/L (6-50); Albumin Level 4.2 g/dL (3.5-5.1); Alkaline Phosphatase 82 U/L (38-126); Anion Gap 6 mmol/L (8-16); Aspartate Amino Transferase 18 U/L (17-59); Bilirubin,Total 0.3 mg/dL (0.2-1.3); Blood Urea Nitrogen 17 mg/dL (9-20); Calcium 8.8 mg/dL (8.4-10.2); Carbon Dioxide 29 mmol/L (22-30); Chloride 104 mmol/L (98-107); Estimated CRCL calculation 79 ml/min; Estimated Glomerular Filt Rate > 60; Glucose 104 mg/dL (65-110); Potassium 4.1 mmol/L (3.4-5.0); Sodium 139 mmol/L (137-145)
[2022-07-13 15:43] LABS: Alveolar/Arterial O2 Gradient 31.6 mmHg; Base Excess ABG 1.9 mEq/l (+/-2.0); Fractional Inspired Oxygen 21 %; HCO3 ABG 25.5 mEq/l (22.0-26.0); Oxygen Content ABG 16.6 %vol (16.0-22.0); Oxygen Saturation ABG 95.8 % (95.0-100.0); Oxyhemoglobin 94.1 % THb (90.0-100.0); PCO2 ABG 36.3 mmHg (35.0-45.0); PO2 ABG 74.7 mmHg (80.0-100.0); PO2 FiO2 Ratio Arterial Blood 3.56 %; Total Hemoglobin 12.5 g/dL (12.0-18.0); pH ABG 7.464 (7.350-7.450)
[2022-07-13 15:44] LABS: Device ROOM AIR; Modified Allen's Test Pass; Site Drawn RIGHT RADIAL
[2022-07-13 15:50] LABS: Influenza A QL RT-PCR Negative (Negative); Influenza B QL RT-PCR Negative (Negative); RSV RNA, RT-PCR Negative (Negative); SARS-CoV-2 RNA PCR Negative
[2022-07-13 16:28] VITALS: PULSE 77; RESP 23; O2SAT 95
[2022-07-13 17:25] VITALS: BP 146/89; PULSE 71; RESP 18; O2SAT 96
[2022-07-13 17:53] VITALS: PULSE 80; RESP 21; O2SAT 99
--- NOTE | 2022-07-13 20:01 | PC.NURSE ---
[facility] crew here for d/c transport back to private residence at this time.
== END 2022-07-13 20:02 | disposition home or self-care (01) ==
PROVIDERS: Family Medicine; Emergency Provider Emergency Medicine; PCP Family Medicine
DX: J06.9 Acute upper respiratory infection, unspecified (principal); Z20.822 Contact with and (suspected) exposure to COVID-19; G35 Multiple sclerosis; N31.9 Neuromuscular dysfunction of bladder, unspecified; D64.9 Anemia, unspecified; G25.81 Restless legs syndrome; E55.9 Vitamin D deficiency, unspecified; F32.A Depression, unspecified; F41.9 Anxiety disorder, unspecified; Z98.42 Cataract extraction status, left eye; Z98.41 Cataract extraction status, right eye; Z87.891 Personal history of nicotine dependence; R94.31 Abnormal electrocardiogram [ECG] [EKG]
CPT/HCPCS: 36415; 36600; 71045; 80053; 82805; 85025; 85610; 85730; 87634; 87636; 93005; 99283

== ENCOUNTER 2023-12-28 11:19 | Inpatient (IN) | payer MEDICARE, SELFPAY ==
[2023-12-28] VITALS (15 sets, daily range): BP systolic 112–152; BP diastolic 66–91; PULSE 68–85; RESP 17–25; TEMP 36.4–37.4; O2SAT 93–98; BMI 29.0
--- NOTE | ~2023-12-28 | XR_ITS ---
EXAMINATION: XR chest 2V DATE: 12/28/2023 12:01 INDICATION: Weakness. TECHNIQUE: Frontal and lateral views of the chest were obtained. COMPARISON: Chest single view 07/13/2022, chest CT 06/06/2022 FINDINGS: There is mild atelectasis in the lower lung zones. Calcified bilateral lung nodules and aníbal cified hilar lymph nodes are consistent with old granulomatous disease. No pleural effusion or pneumo thorax. The heart size is normal. IMPRESSION: 1. Mild atelectasis in the lower lung zones. Reviewed, dictated and finalized at location [facility].
--- NOTE | ~2023-12-28 | CT_ITS ---
EXAMINATION: CT brain wo con DATE: 12/28/2023 12:35 INDICATION: Altered mentation. History of multiple sclerosis. TECHNIQUE: Computed tomography (CT) of the head was performed without intravenous contrast. The mA wa s adjusted according to patient size. Iterative reconstruction technique was employed. Exam dose: 75 6.67 mGy-cm total exam DLP. COMPARISON: 07/07/2020 CT brain FINDINGS: There is chronic prominent third and lateral ventricle enlargement as well as prominence of the cortical sulci and cerebellar folia, consistent with central and cortical cerebral and cerebella r atrophy, present on 07/07/2020 as well. Cavum septum pellucidum and cavum birdie, anatomic variants. Prominent bilateral carotid siphon internal carotid artery calcifications. There is nonspecific dimin ished attenuation 3 white matter, likely due to chronic small vessel ischemic changes in probably mul tiple sclerosis as well. No intracranial mass lesion or hemorrhage, midline shift or mass effect. No subdural or epidural issac hardeep. No fracture or bone destruction of the cranial vault. Focal areas of mildly compressed thickening of the right maxillary sinus and minimal focal mucosal th ickening of left maxillary and sphenoid sinuses and mild soft tissue thickening in the ethmoid air ce lls. The mastoid air cells are well developed and aerated bilaterally with the exception of a few opacifie d inferior right mastoid air cells. IMPRESSION: No acute intracranial finding or significant change since 07/07/2020 Reviewed, dictated and finalized at [facility]. Reviewed, dictated and finalized at location [facility].
--- NOTE | ~2023-12-28 | CT_ITS ---
Clinical Indication: Aspiration pneumonia CT Scan of the Chest with Contrast: Technique: Contiguous sections were acquired throughout the chest after intravenous administration of 75 cc of Omnipaque 350. Dose reduction technique was used on this scan by utilizing automated exposu re control and iterative reconstruction technique. The dose-length product (DLP) was 849.19 mGy-cm. COMPARISON: 06/06/2022 Findings: There is no evidence of any significant mediastinal, hilar or axillary lymphadenopathy. Large calcifi ed subcarinal lymph node present. There is no filling defect in the pulmonary arterial tree to sugges t pulmonary embolus. There is no evidence of aortic dissection or aneurysm. No pericardial effusion. Minimal right pleural effusion present. No left pleural effusion. 1 cm right lower lobe pulmonary nod ule present with central calcification (axial image 52). There is additional nodularity the right upp er lobe peripherally (axial images 34-47, suggestive of chronic scarring. 6 mm left apical nodule pre sent. Images through the upper abdomen reveal moderate bilateral hydronephrosis as well as bilateral renal cysts. Distended gallbladder present. Impression: No evidence of pulmonary embolus, aortic dissection, or aortic aneurysm. Suspected scarring and chronic nodularity right upper lobe, though acute infection is a potential alt ernative consideration. Consider follow-up exam after interval therapy. Moderate bilateral hydronephrosis. Distended gallbladder. Consider additional workup for any possibility acute cholecystitis, as indicat ed. Minimal right pleural effusion. Reviewed, dictated and finalized at [facility]. Impression: No evidence of pulmonary embolus, aortic dissection, or aortic aneurysm. Suspected scarring and chronic nodularity right upper lobe, though acute infect ion is a potential alternative consideration. Consider follow-up exam after int erval therapy. Moderate bilateral hydronephrosis. Distended gallbladder. Consider additional workup for any possibility acute cho lecystitis, as indicated. Minimal right pleural effusion.
--- NOTE | 2023-12-28 11:34 | ECG_ITS ---
SEE SCANNED COPY FOR CONFIRMED REPORT MTDD
[2023-12-28 11:43] LABS: Basophils Absolute Auto 0.1 K/mm3 (0.0-0.1); Basophils Percent Auto 0.5 % (0.2-1.2); Eosinophils Percent Auto 0.2 % (0-4.4); Hematocrit 36.3 % (42.0-52.0); Hemoglobin 11.9 g/dL (14.0-18.0); Immature Granulocyte Absolute 0.06 K/mm3 (0.00-0.031); Immature Granulocyte Percent A 0.5 % (0-0.5); Lymphocytes Absolute Auto 1.92 K/mm3 (0.9-3.2); Lymphocytes Percent Auto 14.4 % (18.3-44.2); Mean Corpuscular HGB Conc 32.8 g/dl (32-36); Mean Corpuscular Hemoglobin 26.5 pg (26-34); Mean Corpuscular Volume 80.8 fl (80-100); Mean Platelet Volume 10.9 fl (7.4-10.4); Monocytes Absolute Auto 1.2 K/mm3 (0.1-0.6); Monocytes Percent Auto 8.6 % (2.6-8.5); Neutrophils Absolute Auto 10.1 K/mm3 (1.3-6.7); Neutrophils Percent Auto 75.8 % (45.5-73.1); Platelet Count Result 245 k/mm3 (150-375); Red Blood Count 4.49 M/mm3 (4.6-6.20); Red Cell Distribution Width 16.3 % (11.5-14.5); White Blood Count 13.3 K/mm3 (4.5-10.0)
[2023-12-28 11:54] LABS: Alanine Aminotransferase 15 U/L (6-50); Albumin Level 3.8 g/dL (3.5-5.1); Alkaline Phosphatase 85 U/L (38-126); Anion Gap 6 mmol/L (4-12); Aspartate Amino Transferase 21 U/L (17-59); Bilirubin,Total 0.9 mg/dL (0.2-1.3); Blood Urea Nitrogen 16 mg/dL (9-20); Calcium 8.8 mg/dL (8.4-10.2); Carbon Dioxide 25 mmol/L (22-30); Chloride 105 mmol/L (98-107); Estimated CRCL calculation 64 ml/min; Estimated Glomerular Filt Rate > 60; Glucose 119 mg/dL (65-110); Sodium 136 mmol/L (137-145)
--- NOTE | 2023-12-28 11:58 | ED.WEAKNESS ---
HPI - Weakness General Chief complaint: Weakness Stated complaint: weakness Time Seen by Provider: 12/28/23 11:57 Source: patient and family ( ) Mode of arrival: EMS History of Present Illness HPI Narrative: Patient presents with weakness Corry stated to be a several areas per triage note the patient's states she really appreciated starting yesterday afternoon. He has a history of multiple sclerosis. patient has chronic lower extremity weakness which leads to bed bound and unable to ambulate. states he has been more lethargic and sluggish with decreased p.o. intake. She also noted that he was breathing heavier than normal. He has a chronic cough which is worse when he laughs or when he drinks fluids. Patient does not have a primary care physician because each time he status was with someone new they leave their practice. Patient's neurologist/ spasticity/multiple sclerosis specialist is Dr. Aaron Quigley of [facility]. patient denies any pain such as chest pain, abdominal pain, extremity pain, headache, or shortness of breath. lives with his who is his primary astrochemist. No sick contacts. No falls or other trauma. Related Data Home Medications Medication Instructions Recorded Confirmed cholecalciferol (vitamin D3) 125 125 mcg PO DAILY 07/07/20 12/28/23 mcg (5,000 unit) capsule escitalopram oxalate 20 mg tablet 20 mg PO DAILY 07/07/20 12/28/23 melatonin 10 mg tablet 10 mg PO HS 07/07/20 12/28/23 teriflunomide 14 mg tablet 14 mg PO DAILY 07/07/20 12/28/23 (Aubagio) baclofen 10 mg tablet 20 mg PO HS 03/10/22 12/28/23 Allergies Allergy/AdvReac Type Severity Reaction Status Date / Time No Known Allergies Allergy Unknown Verified 07/13/22 15:20 [facility] Past Medical History Medical History (Updated 12/29/23 @ 10:59 by Tricia Acosta MD) Anxiety Chest pain Chronic anemia Depression DVT prophylaxis Insomnia Left wrist fracture Leukocytosis Multiple sclerosis Neurogenic bladder Pulmonary embolism (~2021) Restless leg syndrome Suspected 2018 novel coronavirus infection Tinea corporis Vitamin D deficiency Surgical History Surgical History History of bilateral cataract extraction Family History Family History Father Family history of malignant neoplasm of esophagus Mother Pacemaker Social History Social History Social History: The patient is and lives with his in [place]. 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 He smoked up to 3 packs of cigarettes a day for 30 years and quit in 2001. No alcohol or illicit substance abuse. He had 2 children Surrogate medical decision maker: Devora Borwning, . Code status: Full code. Smoking packs per day: 1 Smoking cigarettes per day: 20.0 Years smoked: 10 Smoking pack-years: 10.00 Smoking status: Former smoker Second hand tobacco smoke exposure: No Alcohol intake: never Substance use: never Substance use type: does not use Do You Feel Safe in your Home?: Yes Lack of Transportation: No Lack of Food: Never True Current Housing: I Have Housing Concerned About Future Housing: No Difficulty Paying Gas/Electric Bills: No Difficulty Paying for Meds: No Currently Unemployed: No Education: High School Diploma/GED Difficulty w/ Childcare or Family Care: No Spiritual care concerns: No Exam Narrative: GENERAL: Well-appearing, well-nourished, and in no acute distress. HEAD: Normocephalic, atraumatic. EYES: Non injected, non icteric ENT: Nares clear, no rhinorrhea or epistaxis. dry mucous membranes. NECK: Supple. CHEST: Speaking in full sentences. No respiratory distress. Lungs clear to auscultation anteriorly. HEART: Regular rate and rhythm. ABDOME
[2023-12-28 12:35] LABS: Appearance Urine Turbid (Clear); Bacteria Urine 4+ /hpf; Bilirubin Urine Negative (Negative); Blood Urine 3+ (Negative); Color Urine Yellow (Yellow); Glucose Urine UA Negative (Negative); Ketones Urine Negative (Negative); Leukocyte Esterase Ur 3+ LEU/UL (Negative); Nitrate Urine Positive (Negative); Non Pathogenic Casts >20; Protein Urine 2+ mg/dL (Negative); RBC Urine 21-50 /hpf (0-2); Specific Grav Ur 1.016 (1.001-1.035); Squamous Epithelial Cell Urine Occasional /hpf (Few); Urobilinogen Urine 0.2 mg/dL (<2.0); WBC Clumps Urine Present /HPF; WBC Urine >100 /hpf (0-3)
[2023-12-28 12:40] LABS: Add Urine Microscopic? YES
[2023-12-28] MEDS: SODIUM CHLORIDE 0.9% IV 1,000 ML 999 ML IV CONT (13:01)
[2023-12-28 13:14] LABS: Amphetamine Screen Urine Negative (Negative); Barbiturate Screen Urine Negative (Negative); Benzodiazepines Screen Urine Negative (Negative); Cannabinoid Screen Urine Negative (Negative); Cocaine Screen Urine Negative (Negative); Methadone Screen Urine Negative (Negative); Opiate Screen Urine Negative (Negative); Phencyclidine Screen Urine Negative (Negative)
[2023-12-28 13:18] LABS: Acetaminophen < 10 ug/mL (10-30); Ethanol < 10 mg/dL (<10); Salicylate < 1.0 mg/dL (2-20)
[2023-12-28 13:25] LABS: Troponin I < 0.012 ng/mL (0.000-0.034)
[2023-12-28 13:43] LABS: Creatine Kinase 33 U/L (55-170)
[2023-12-28 14:15] LABS: Thyroid Stimulating Hormone 0.892 uIU/mL (0.465-4.680)
--- NOTE | 2023-12-28 16:11 | ADMGEN ---
This patient, Elbert Browning, was admitted to Medical Room 248-. Patient/family oriented to hospital policies and general routines including ID bracelet, bed and alarms, visiting hours, pain management, procedures, bathroom and other care routines, personal items, smoking policy, room service/diet, and visiting hours. Information on how to activate the Rapid Response Team has been discussed. Patient/Family are encouraged to report perceived risks to care and to ask questions if they do not understand what they are told or what they should do.
--- NOTE | 2023-12-28 16:12 | PM.IMHP ---
H&P: HPI History of Present Illness Date/Time: 12/28/23 20:37 Chief Complaint: Weakness Narrative: 68 y/o M presents here with weakness, decreased appetite, and altered mental status with PMH of multiple sclerosis, chronic anemia, anxiety/depression, neurogenic bladder, RLS, and insomnia. Patient presents here from home for further evaluation of generalized weakness, decreased appetite, and slow responses. [facility] patient's at the bedside in the ED, patient is currently bed bound due to chronic lower extremity weakness related to his MS. She noted he has been increasingly weak over the last 2-3 days. Patient has been answering questions, but has been slower to respond to the questions. Alert to name and birthday upon arrival here. Patient denies fever, chills, body aches, abdominal pain, urinary urgency, or discomfort with cathing. Patient self-caths a few times per day. Reports appetite is slightly improved from this morning. Now alert and orientated self and aware he is in a hospital (provided incorrect hospital), incorrect year given and does know some situational history. Denies focal weakness, new numbness, dysarthria, dysphagia, or changes in vision. Initial VS at presentation: 99.3? F, HR 81, R 23, 116/75, and 98% on RA. ED workup showed: WBC 13.3, hemoglobin 11.9 (12.0 in 2021), sodium 136, creatinine 1.1 and GFR >60, glucose 119, CK 33, and initial troponin negative. CXR shows mild atelectasis in the lower lung zones. Head CT shows no acute intracranial finding ESR significant changes since 2019. Chest CTA showed no PE, dissection, or aneurysm. Suspected scarring chronic nodularity to the right upper lobe. Moderate bilateral hydronephrosis. Distended gallbladder. Minimal right pleural effusion. Review of Systems Review of Systems: limited due to confusion All systems reviewed & are unremarkable except as noted in HPI and below PMFSH Past Medical History Medical History (Updated 12/28/23 @ 16:23 by Shabnam Palomares, CARMELITA) Anxiety Chest pain Chronic anemia Depression DVT prophylaxis Insomnia Left wrist fracture Leukocytosis Multiple sclerosis Neurogenic bladder Pulmonary embolism (~2021) Restless leg syndrome Suspected 2019 novel coronavirus infection Tinea corporis Vitamin D deficiency Surgical History Surgical History History of bilateral cataract extraction Family History Family History Father Family history of malignant neoplasm of esophagus Mother Pacemaker Social History Social History Social History: The patient is and lives with his in [place]. 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 He smoked up to 3 packs of cigarettes a day for 30 years and quit in 2001. No alcohol or illicit substance abuse. He had 2 children Surrogate medical decision maker: Devroa Browning, . Code status: Full code. Smoking packs per day: 1 Smoking cigarettes per day: 20.0 Years smoked: 10 Smoking pack-years: 10.00 Smoking status: Former smoker Second hand tobacco smoke exposure: No Alcohol intake: never Substance use: never Substance use type: does not use Do You Feel Safe in your Home?: Yes Lack of Transportation: No Lack of Food: Never True Current Housing: I Have Housing Concerned About Future Housing: No Difficulty Paying Gas/Electric Bills: No Difficulty Paying for Meds: No Currently Unemployed: No Education: High School Diploma/GED Difficulty w/ Childcare or Family Care: No Spiritual care concerns: No Meds Home Medications and Allergies Home Medications Medication Instructions Recorded Confirmed Type cholecalciferol (vitamin D3) 125 125 mcg PO DAILY 07/07/20 12/28/23 History mcg (5,000 unit) caps
[2023-12-28] MEDS: LACTATED RINGERS 1,000 ML 75 ML IV CONT (21:47)
[2023-12-29 05:00] VITALS: BP 147/77; PULSE 67; RESP 20; TEMP 37; O2SAT 96
[2023-12-29 05:42] LABS: Basophils Absolute Auto 0.1 K/mm3 (0.0-0.1); Basophils Percent Auto 0.6 % (0.2-1.2); Eosinophils Absolute Auto 0.1 K/mm3 (0-0.3); Eosinophils Percent Auto 0.9 % (0-4.4); Hematocrit 32.8 % (42.0-52.0); Hemoglobin 10.5 g/dL (14.0-18.0); Immature Granulocyte Absolute 0.06 K/mm3 (0.00-0.031); Immature Granulocyte Percent A 0.6 % (0-0.5); Lymphocytes Absolute Auto 2.35 K/mm3 (0.9-3.2); Lymphocytes Percent Auto 22.3 % (18.3-44.2); Mean Corpuscular Hemoglobin 26.3 pg (26-34); Mean Corpuscular Volume 82.2 fl (80-100); Mean Platelet Volume 11.2 fl (7.4-10.4); Monocytes Absolute Auto 1.1 K/mm3 (0.1-0.6); Monocytes Percent Auto 10.2 % (2.6-8.5); Neutrophils Absolute Auto 6.9 K/mm3 (1.3-6.7); Neutrophils Percent Auto 65.4 % (45.5-73.1); Platelet Count Result 213 k/mm3 (150-375); Red Blood Count 3.99 M/mm3 (4.6-6.20); Red Cell Distribution Width 16.5 % (11.5-14.5); White Blood Count 10.5 K/mm3 (4.5-10.0)
[2023-12-29 05:49] LABS: Alanine Aminotransferase 14 U/L (6-50); Albumin Level 3.3 g/dL (3.5-5.1); Alkaline Phosphatase 79 U/L (38-126); Anion Gap 6 mmol/L (4-12); Aspartate Amino Transferase 18 U/L (17-59); Bilirubin,Total 0.7 mg/dL (0.2-1.3); Blood Urea Nitrogen 15 mg/dL (9-20); Calcium 8.2 mg/dL (8.4-10.2); Carbon Dioxide 24 mmol/L (22-30); Chloride 107 mmol/L (98-107); Estimated CRCL calculation 56 ml/min; Estimated Glomerular Filt Rate > 60; Glucose 98 mg/dL (65-110); Potassium 3.7 mmol/L (3.4-5.0); Sodium 137 mmol/L (137-145)
[2023-12-29] MEDS: BENZONATATE 100 MG CAPSULE 200 MG PO ×2 (09:21→13:09)
[2023-12-29] MEDS: APIXABAN 5 MG TABLET PO ×2 (09:21→21:48)
[2023-12-29] MEDS: CHOLECALCIFEROL 1,000 UNITS TABLET 1000 UNITS PO (09:21)
[2023-12-29] MEDS: ESCITALOPRAM OXALATE 10 MG TABLET 20 MG PO (09:21)
[2023-12-29] MEDS: CEFEPIME 1 GM/NS 50 ML 1 GM/50 ML BAG IVPB ×2 (09:21→16:49)
--- NOTE | 2023-12-29 10:09 | PM.IMPN ---
Progress Note: A&P Assessment and Plan (1) Confusion: Code(s): R41.0 - Disorientation, unspecified Status: Acute Assessment and Plan: - CT Head: no acute intracranial finding or significant change since 07/07/2020 - no significant anemia, hypoxia, or focal deficits - UDS negative, salicylates and acetaminophen negative, ETOH negative - suspect acute encephalopathy related to UTI, will treat underlying cause - neurochecks QShift 12/28: Awake but remains pleasantly confused (2) UTI (urinary tract infection): Code(s): N39.0 - Urinary tract infection, site not specified Status: Acute Assessment and Plan: - UA: Turbid, 2+ protein, 3+ blood, positive nitrates, 3+ leuks, 21-50 RBC, greater than 100 WBC, WBC clumps present, occasional epithelial cells, 4+ bacteria. - UC pending, obtained on 12/27 - previous micro reviewed, has previously grown Pseudomonas on mutliple occasions without resistances - started on Ceftriaxone on 12/27 12/28: -Antibiotics changed to cefepime due to Pseudomonas on numerous urine cultures -Purulent appearing urine in Purewick collection container -white blood cell count improving from 13.3 on admit to 10.5 with morning labs (3) Multiple sclerosis: Code(s): G35 - Multiple sclerosis Status: Chronic Assessment and Plan: - bedbound due to chronic BLE weakness - is caregiver, lives at home 12/28: PT OT consult for anticipated placement needs Plan Patient here with suspected metabolic encephalopathy secondary to acute UTI. Patient has history of MS and is chronically bed-bound due to chronic lower extremity weakness. Lives at home, is caregiver. voicing concerns that she cannot take care of him due to the generalized weakness at present, may need placement. Diet: Regular GI Prophylaxis: Not indicated DVT Prophylaxis: SCDs Lines: Peripheral Code Status: Full code Time Spent With Patient Time with patient: Greater than 35 minutes Subjective Date/time seen: 12/29/23 10:09 Interval history: This is a 68-year-old male patient with past history of multiple sclerosis sought care in the emergency department for weakness and confusion. Found to have urinary tract infection so patient was started on Rocephin and admitted for possible placement as he is too weak to be cared for at home. He is essentially bed-bound due to MS but cannot assist and rolling due to his current weakness. On evaluation patient remains somewhat confused does answer questions. PureWick in place with purulence urine in collection canister. Prior history of Pseudomonas in urine so antibiotics changed to cefepime pending culture. Blood cultures collected prior to initial dose of cefepime. PT and OT will be consulted. Review of Systems Review of Systems: limited due to confusion Exam Narrative: GENERAL: Awake but confused, generalized weakness, bedbound due to MS HEAD: Normocephalic, atraumatic. ENT:? Mucous membranes moist. CHEST: Clear to auscultation.? No respiratory distress. HEART: Regular rate and rhythm. ? Normal peripheral pulses. ABDOMEN: Soft, nontender, nondistended. EXTREMITIES: Normal range of motion. No peripheral edema. SKIN: Warm dry normal color NEURO: Answers questions, the confused, bilateral generalized weakness in upper extremities, limited mobility bilaterally in lower extremities at baseline PSYCH: Cooperative, pleasantly confused Objective Data Vital Signs Vital Signs: Vital Signs - 24 hr 12/28/23 11:23 12/28/23 11:27 12/28/23 11:31 Temperature 37.4 C Pulse Rate 81 81 82 Respiratory Rate 23 H 21 H 21 H Blood Pressure 116/75 116/77 116/75 Pulse Oximetry 98 97 95 Oxygen Delivery Room Air 12/28/23 11:46 12/28/23 12:02 12/28/23 12:16 Temperature Pulse Rate 79 80 85 Respiratory Rate 22 H 21 H 21 H Blood Pressure 120/71 112/91 H 114/71 Pulse Oximetry 95 95 Oxygen Delivery 12/28/23
[2023-12-29] MEDS: LACTATED RINGERS 1,000 ML 75 ML IV CONT (13:09)
[2023-12-29 14:00] VITALS: BP 124/57; PULSE 70; RESP 18; TEMP 37.1; O2SAT 97
[2023-12-29 21:05] VITALS: BP 126/64; PULSE 71; RESP 18; TEMP 36.3; O2SAT 96
[2023-12-29] MEDS: MELATONIN 5 MG TABLET 10 MG PO (21:48)
[2023-12-29] MEDS: BACLOFEN 10 MG TABLET 20 MG PO (21:48)
[2023-12-30] MEDS: CEFEPIME 1 GM/NS 50 ML 1 GM/50 ML BAG IVPB ×3 (00:54→16:55)
[2023-12-30 05:01] LABS: Basophils Absolute Auto 0.1 K/mm3 (0.0-0.1); Basophils Percent Auto 0.8 % (0.2-1.2); Eosinophils Absolute Auto 0.2 K/mm3 (0-0.3); Eosinophils Percent Auto 1.9 % (0-4.4); Hematocrit 35.6 % (42.0-52.0); Hemoglobin 10.6 g/dL (14.0-18.0); Immature Granulocyte Absolute 0.04 K/mm3 (0.00-0.031); Immature Granulocyte Percent A 0.4 % (0-0.5); Lymphocytes Absolute Auto 1.65 K/mm3 (0.9-3.2); Lymphocytes Percent Auto 18.5 % (18.3-44.2); Mean Corpuscular HGB Conc 29.8 g/dl (32-36); Mean Corpuscular Hemoglobin 27.7 pg (26-34); Mean Corpuscular Volume 93.2 fl (80-100); Mean Platelet Volume 11.4 fl (7.4-10.4); Monocytes Absolute Auto 0.7 K/mm3 (0.1-0.6); Monocytes Percent Auto 7.7 % (2.6-8.5); Neutrophils Absolute Auto 6.3 K/mm3 (1.3-6.7); Neutrophils Percent Auto 70.7 % (45.5-73.1); Platelet Count Result 164 k/mm3 (150-375); Red Blood Count 3.82 M/mm3 (4.6-6.20); Red Cell Distribution Width 17.6 % (11.5-14.5); White Blood Count 8.9 K/mm3 (4.5-10.0)
[2023-12-30 05:16] LABS: Anion Gap 5 mmol/L (4-12); Blood Urea Nitrogen 14 mg/dL (9-20); Carbon Dioxide 24 mmol/L (22-30); Chloride 107 mmol/L (98-107); Estimated CRCL calculation 62 ml/min; Estimated Glomerular Filt Rate > 60; Glucose 100 mg/dL (65-110); Magnesium 1.9 mg/dL (1.6-2.3); Phosphorus 2.9 mg/dL (2.5-4.5); Potassium 3.7 mmol/L (3.4-5.0); Sodium 136 mmol/L (137-145)
[2023-12-30 05:40] LABS: Anisocytosis 1+; Hypochromasia 1+; Platelet Estimate Adequate (Adequate)
[2023-12-30 05:41] LABS: Burr Cells 1+; Schistocytes None Seen
[2023-12-30] MEDS: LACTATED RINGERS 1,000 ML 75 ML IV CONT ×2 (05:42→20:52)
[2023-12-30 06:00] VITALS: BP 129/70; PULSE 63; RESP 18; TEMP 36.4; O2SAT 97
[2023-12-30] MEDS: CHOLECALCIFEROL 1,000 UNITS TABLET 1000 UNITS PO (09:18)
[2023-12-30] MEDS: BENZONATATE 100 MG CAPSULE 200 MG PO ×3 (09:18→16:55)
[2023-12-30] MEDS: APIXABAN 5 MG TABLET PO ×2 (09:18→20:20)
[2023-12-30] MEDS: ESCITALOPRAM OXALATE 10 MG TABLET 20 MG PO (09:18)
--- NOTE | 2023-12-30 13:35 | PM.IMPN ---
Progress Note: A&P Assessment and Plan (1) Confusion: Code(s): R41.0 - Disorientation, unspecified Status: Acute Assessment and Plan: - CT Head: no acute intracranial finding or significant change since 07/07/2020 - no significant anemia, hypoxia, or focal deficits - UDS negative, salicylates and acetaminophen negative, ETOH negative - suspect acute encephalopathy related to UTI, will treat underlying cause - neuro checks Q Shift (2) UTI (urinary tract infection): Code(s): N39.0 - Urinary tract infection, site not specified Status: Acute Assessment and Plan: UA: Turbid, 2+ protein, 3+ blood, positive nitrates, 3+ leuks, 21-50 RBC, greater than 100 WBC, WBC clumps present, occasional epithelial cells, 4+ bacteria. - UC did not grow anything but due to symptoms and appearance of the urine will continue to treat. - previous micro reviewed, has previously grown Pseudomonas on mutliple occasions without resistances - started on Ceftriaxone on 12/27 , changed to cefepime on 12/28 due to Pseudomonas history. (3) Multiple sclerosis: Code(s): G35 - Multiple sclerosis Status: Chronic Assessment and Plan: - bedbound due to chronic BLE weakness - is caregiver, lives at home - PT and OT ordered Plan Code Status: Full code Subjective Date/time seen: 12/30/23 13:35 Interval history: patient is alert oriented to self. says that he does have intermittent confusion. She says that when he is home he knows that he still although he did think he was home today will use in the hospital. I do suspect some underlying dementia. While at home states patient gets intermittently confused it would of not have typically been able to answer orientation questions. He denies any pain. His urine does appear clear but is still cloudy and thick. Exam Narrative: GENERAL: Comfortable, no acute distress HENMT: moist mucous membranes EYES: EOM intact b/l NECK: no lymphadenopathy RESPIRATORY: clear to auscultation, no increased respiratory effort CARDIO: Regular rate and rhythm GI: soft, nontender, bowel sounds present : yellow urine, thick with sediment present SKIN/EXTREMITIES: Bilateral lower extremities contracted NEURO: PROM intact, answers questions appropriately, A&O x4 Objective Data Vital Signs Vital Signs: Vital Signs - 24 hr 12/29/23 14:00 12/29/23 21:05 12/30/23 06:00 Temperature 98.7 F 97.4 F L 97.5 F L Pulse Rate 70 71 63 Respiratory Rate 18 18 18 Blood Pressure 124/57 L 126/64 129/70 Pulse Oximetry 97 96 97 Oxygen Delivery 12/30/23 08:00 Temperature Pulse Rate Respiratory Rate Blood Pressure Pulse Oximetry Oxygen Delivery Room Air Intake/Output Intake/Output: Intake & Output 12/27/23 12/28/23 12/29/23 12/30/23 23:59 23:59 23:59 23:59 Intake Total 1290 1320 1050 Output Total 200 900 Balance 1290 1120 150 Meds/Results Medications: Active Medications Generic Name Dose Route Start Last Admin Trade Name Freq PRN Reason Stop Dose Admin Acetaminophen 650 mg 12/28/23 15:06 Acetaminophen 325 Mg Tablet PO Q4H PRN Mild Pain (1-3) or Fever Apixaban 5 mg 12/29/23 09:00 12/30/23 09:18 Apixaban 5 Mg Tablet PO 5 mg Q12HR KOKO Administration Baclofen 20 mg 12/29/23 21:00 12/29/23 21:48 Baclofen 10 Mg Tablet PO 20 mg HS KOKO Administration Benzonatate 200 mg 12/29/23 09:00 12/30/23 12:46 Benzonatate 100 Mg Capsule PO 01/28/24 08:59 200 mg TID KOKO Administration Escitalopram Oxalate 20 mg 12/29/23 09:00 12/30/23 09:18 Escitalopram Oxalate 10 Mg Tablet PO 20 mg DAILY KOKO Administration Lactated Ringer's 1,000 mls @ 75 mls/hr 12/28/23 20:40 12/30/23 05:42 Lr - Lactated Ringers Iv IV CONT 75 mls/hr .[id number] KOKO Administration Cefepime HCl 1 gm in 50 mls @ 100 mls/hr 12/29/23 08:00 12/30/23 09:22 Maxipime 1 Gm/Ns 50 Ml IVPB 1
[2023-12-30 14:00] VITALS: BP 121/70; PULSE 72; RESP 18; TEMP 36.8; O2SAT 96
[2023-12-30 19:52] VITALS: PULSE 72; RESP 18; O2SAT 96
[2023-12-30] MEDS: BACLOFEN 10 MG TABLET 20 MG PO (20:20)
[2023-12-30] MEDS: MELATONIN 5 MG TABLET 10 MG PO (20:20)
[2023-12-30 20:22] VITALS: BP 147/77; PULSE 73; RESP 17; TEMP 36.9; O2SAT 96
[2023-12-31] MEDS: CEFEPIME 1 GM/NS 50 ML 1 GM/50 ML BAG IVPB ×4 (00:03→23:45)
[2023-12-31 04:36] VITALS: BP 136/66; PULSE 75; RESP 16; TEMP 36.5; O2SAT 94
[2023-12-31 06:10] LABS: Basophils Absolute Auto 0.1 K/mm3 (0.0-0.1); Basophils Percent Auto 0.6 % (0.2-1.2); Eosinophils Percent Auto 0.4 % (0-4.4); Hematocrit 32.4 % (42.0-52.0); Hemoglobin 10.4 g/dL (14.0-18.0); Immature Granulocyte Absolute 0.05 K/mm3 (0.00-0.031); Immature Granulocyte Percent A 0.6 % (0-0.5); Lymphocytes Absolute Auto 0.88 K/mm3 (0.9-3.2); Lymphocytes Percent Auto 10.3 % (18.3-44.2); Mean Corpuscular HGB Conc 32.1 g/dl (32-36); Mean Corpuscular Hemoglobin 26.5 pg (26-34); Mean Corpuscular Volume 82.4 fl (80-100); Mean Platelet Volume 10.9 fl (7.4-10.4); Monocytes Absolute Auto 0.5 K/mm3 (0.1-0.6); Monocytes Percent Auto 5.6 % (2.6-8.5); Neutrophils Absolute Auto 7.1 K/mm3 (1.3-6.7); Neutrophils Percent Auto 82.5 % (45.5-73.1); Platelet Count Result 237 k/mm3 (150-375); Red Blood Count 3.93 M/mm3 (4.6-6.20); Red Cell Distribution Width 15.9 % (11.5-14.5); White Blood Count 8.6 K/mm3 (4.5-10.0)
[2023-12-31 06:33] LABS: Albumin Level 3.2 g/dL (3.5-5.1); Anion Gap 4 mmol/L (4-12); Blood Urea Nitrogen 13 mg/dL (9-20); Carbon Dioxide 24 mmol/L (22-30); Chloride 109 mmol/L (98-107); Estimated CRCL calculation 62 ml/min; Estimated Glomerular Filt Rate > 60; Glucose 122 mg/dL (65-110); Magnesium 1.9 mg/dL (1.6-2.3); Potassium 3.5 mmol/L (3.4-5.0); Sodium 137 mmol/L (137-145)
[2023-12-31] MEDS: BENZONATATE 100 MG CAPSULE 200 MG PO ×3 (08:17→16:24)
[2023-12-31] MEDS: CHOLECALCIFEROL 1,000 UNITS TABLET 1000 UNITS PO (08:18)
[2023-12-31] MEDS: ESCITALOPRAM OXALATE 10 MG TABLET 20 MG PO (08:18)
[2023-12-31] MEDS: APIXABAN 5 MG TABLET PO ×2 (08:19→20:04)
[2023-12-31 08:20] VITALS: O2SAT 95
[2023-12-31 08:28] VITALS: RESP 16; O2SAT 95
[2023-12-31] MEDS: LACTATED RINGERS 1,000 ML 75 ML IV CONT (11:55)
--- NOTE | 2023-12-31 12:34 | PM.IMPN ---
Progress Note: A&P Assessment and Plan (1) Confusion: Code(s): R41.0 - Disorientation, unspecified Status: Acute Assessment and Plan: - CT Head: no acute intracranial finding or significant change since 07/07/2020 - no significant anemia, hypoxia, or focal deficits - UDS negative, salicylates and acetaminophen negative, ETOH negative - suspect acute encephalopathy related to UTI, will treat underlying cause - neuro checks Q Shift (2) UTI (urinary tract infection): Code(s): N39.0 - Urinary tract infection, site not specified Status: Acute Assessment and Plan: UA: Turbid, 2+ protein, 3+ blood, positive nitrates, 3+ leuks, 21-50 RBC, greater than 100 WBC, WBC clumps present, occasional epithelial cells, 4+ bacteria. - UC did not grow anything but due to symptoms and appearance of the urine will continue to treat. - previous micro reviewed, has previously grown Pseudomonas on mutliple occasions without resistances - started on Ceftriaxone on 12/27 , changed to cefepime on 12/28 due to Pseudomonas history. - Plan to change antibiotics over to p.o. tomorrow. Will change to PO Levaquin. (3) Multiple sclerosis: Code(s): G35 - Multiple sclerosis Status: Chronic Assessment and Plan: - bedbound due to chronic BLE weakness - is caregiver, lives at home - PT and OT ordered Plan Code Status: Full code Subjective Date/time seen: 12/31/23 12:34 Interval history: Patient doing better today. Waiting on PT evaluation for placement. Plan to send to SNF. Discussed case with care coordination. Patient is alert oriented to self although says that he is acting more like his normal today. Exam Narrative: GENERAL: Comfortable, no acute distress HENMT: moist mucous membranes EYES: EOM intact b/l NECK: no lymphadenopathy RESPIRATORY: clear to auscultation, no increased respiratory effort CARDIO: Regular rate and rhythm GI: soft, nontender, bowel sounds present : yellow urine, thick with sediment present SKIN/EXTREMITIES: Bilateral lower extremities contracted NEURO: A&O x1 Objective Data Vital Signs Vital Signs: Vital Signs - 24 hr 12/30/23 14:00 12/30/23 19:52 12/30/23 20:22 Temperature 98.3 F 98.5 F Pulse Rate 72 72 73 Respiratory Rate 18 18 17 Blood Pressure 121/70 147/77 H Pulse Oximetry 96 96 96 Oxygen Delivery Room Air Fraction of Inspired Oxygen 12/31/23 04:36 12/31/23 08:28 12/31/23 08:20 Temperature 97.7 F Pulse Rate 75 Respiratory Rate 16 16 Blood Pressure 136/66 Pulse Oximetry 94 95 95 Oxygen Delivery Room Air Room Air Fraction of Inspired Oxygen 21 12/31/23 09:28 Temperature Pulse Rate Respiratory Rate Blood Pressure Pulse Oximetry Oxygen Delivery Room Air Fraction of Inspired Oxygen Intake/Output Intake/Output: Intake & Output 12/28/23 12/29/23 12/30/23 12/31/23 23:59 23:59 23:59 23:59 Intake Total 1290 1320 2150 1333.8 Output Total 200 1225 100 Balance 1290 0156 568 0640.8 Meds/Results Medications: Active Medications Generic Name Dose Route Start Last Admin Trade Name Freq PRN Reason Stop Dose Admin Acetaminophen 650 mg 12/28/23 15:06 Acetaminophen 325 Mg Tablet PO Q4H PRN Mild Pain (1-3) or Fever Apixaban 5 mg 12/29/23 09:00 12/31/23 08:19 Apixaban 5 Mg Tablet PO 5 mg Q12HR KOKO Administration Baclofen 20 mg 12/29/23 21:00 12/30/23 20:20 Baclofen 10 Mg Tablet PO 20 mg HS KOKO Administration Benzonatate 200 mg 12/29/23 09:00 12/31/23 12:33 Benzonatate 100 Mg Capsule PO 01/28/24 08:59 200 mg TID KOKO Administration Escitalopram Oxalate 20 mg 12/29/23 09:00 12/31/23 08:18 Escitalopram Oxalate 10 Mg Tablet PO 20 mg DAILY KOKO Administration Lactated Ringer's 1,000 mls @ 75 mls/hr 12/28/23 20:40 12/31/23 11:55 Lr - Lactated Ringers Iv IV CONT 75 mls/hr .[id number] KOKO Administration Ce
[2023-12-31 14:00] VITALS: BP 148/70; PULSE 62; RESP 18; TEMP 37.2; O2SAT 96
[2023-12-31 14:20] VITALS: BMI 10.0
[2023-12-31 19:36] VITALS: BP 159/84; PULSE 65; RESP 20; TEMP 37; O2SAT 95
[2023-12-31] MEDS: BACLOFEN 10 MG TABLET 20 MG PO (20:04)
[2023-12-31] MEDS: MELATONIN 5 MG TABLET 10 MG PO (20:04)
[2024-01-01] MEDS: LACTATED RINGERS 1,000 ML 75 ML IV CONT (02:10)
[2024-01-01 04:35] VITALS: PULSE 65; RESP 20; TEMP 36.8; O2SAT 97
[2024-01-01 06:03] LABS: Basophils Absolute Auto 0.1 K/mm3 (0.0-0.1); Basophils Percent Auto 0.8 % (0.2-1.2); Eosinophils Absolute Auto 0.2 K/mm3 (0-0.3); Eosinophils Percent Auto 3.5 % (0-4.4); Hematocrit 34.2 % (42.0-52.0); Hemoglobin 10.1 g/dL (14.0-18.0); Immature Granulocyte Absolute 0.04 K/mm3 (0.00-0.031); Immature Granulocyte Percent A 0.7 % (0-0.5); Lymphocytes Absolute Auto 1.38 K/mm3 (0.9-3.2); Lymphocytes Percent Auto 22.9 % (18.3-44.2); Mean Corpuscular HGB Conc 29.5 g/dl (32-36); Mean Corpuscular Hemoglobin 26.2 pg (26-34); Mean Corpuscular Volume 88.6 fl (80-100); Mean Platelet Volume 11.3 fl (7.4-10.4); Monocytes Absolute Auto 0.4 K/mm3 (0.1-0.6); Monocytes Percent Auto 6.5 % (2.6-8.5); Neutrophils Percent Auto 65.6 % (45.5-73.1); Platelet Count Result 186 k/mm3 (150-375); Red Blood Count 3.86 M/mm3 (4.6-6.20); Red Cell Distribution Width 16.3 % (11.5-14.5)
[2024-01-01 06:12] LABS: Anion Gap 5 mmol/L (4-12); Blood Urea Nitrogen 11 mg/dL (9-20); Calcium 7.7 mg/dL (8.4-10.2); Carbon Dioxide 21 mmol/L (22-30); Chloride 109 mmol/L (98-107); Estimated CRCL calculation 68 ml/min; Estimated Glomerular Filt Rate > 60; Glucose 94 mg/dL (65-110); Magnesium 2.1 mg/dL (1.6-2.3); Phosphorus 2.8 mg/dL (2.5-4.5); Potassium 4.2 mmol/L (3.4-5.0); Sodium 135 mmol/L (137-145)
[2024-01-01 06:29] LABS: Anisocytosis 1+; Hypochromasia 1+; Platelet Estimate Adequate (Adequate); Schistocytes None Seen
[2024-01-01] MEDS: CHOLECALCIFEROL 1,000 UNITS TABLET 1000 UNITS PO (09:02)
[2024-01-01] MEDS: ESCITALOPRAM OXALATE 10 MG TABLET 20 MG PO (09:03)
[2024-01-01] MEDS: levoFLOXacin 750 MG TABLET PO (09:03)
[2024-01-01] MEDS: BENZONATATE 100 MG CAPSULE 200 MG PO ×3 (09:03→16:37)
[2024-01-01] MEDS: APIXABAN 5 MG TABLET PO ×2 (09:03→19:54)
[2024-01-01 09:08] VITALS: RESP 20; O2SAT 97
[2024-01-01 14:00] VITALS: BP 157/66; PULSE 56; RESP 18; TEMP 36.8; O2SAT 96
--- NOTE | 2024-01-01 14:48 | PM.IMPN ---
Progress Note: A&P Assessment and Plan (1) Confusion: Code(s): R41.0 - Disorientation, unspecified Status: Acute Assessment and Plan: - CT Head: no acute intracranial finding or significant change since 07/07/2020 - no significant anemia, hypoxia, or focal deficits - UDS negative, salicylates and acetaminophen negative, ETOH negative - suspect acute encephalopathy related to UTI - neuro checks Q Shift - 12/31 At baseline (2) UTI (urinary tract infection): Code(s): N39.0 - Urinary tract infection, site not specified Status: Acute Assessment and Plan: UA: Turbid, 2+ protein, 3+ blood, positive nitrates, 3+ leuks, 21-50 RBC, greater than 100 WBC, WBC clumps present, occasional epithelial cells, 4+ bacteria. - UC did not grow anything but due to symptoms and appearance of the urine will continue to treat. - previous micro reviewed, has previously grown Pseudomonas on mutliple occasions without resistances - started on Ceftriaxone on 12/27 , changed to cefepime on 12/28 due to Pseudomonas history. - Plan to change antibiotics over to p.o. tomorrow. Will change to PO Levaquin. Finish antibiotic therapy on 01/05/2024. (3) Multiple sclerosis: Code(s): G35 - Multiple sclerosis Status: Chronic Assessment and Plan: - bedbound due to chronic BLE weakness - is caregiver, lives at home - PT and OT ordered Plan Code Status: Full code Subjective Date/time seen: 01/01/24 14:48 Interval history: Patient doing much better today. He denies any pain, eating and drinking appropriately, and more awake. Waiting on fci versus SNF placement. Exam Narrative: GENERAL: Comfortable, no acute distress HENMT: moist mucous membranes EYES: EOM intact b/l NECK: no lymphadenopathy RESPIRATORY: clear to auscultation, no increased respiratory effort CARDIO: Regular rate and rhythm GI: soft, nontender, bowel sounds present : yellow urine, thick with sediment present SKIN/EXTREMITIES: Bilateral lower extremities contracted NEURO: A&O x1 Objective Data Vital Signs Vital Signs: Vital Signs - 24 hr 12/31/23 19:35 12/31/23 19:36 01/01/24 04:35 Temperature 98.6 F 98.2 F Pulse Rate 65 65 Respiratory Rate 20 20 Blood Pressure 159/84 H Pulse Oximetry 95 97 Oxygen Delivery Room Air 01/01/24 09:08 01/01/24 14:00 Temperature 98.2 F Pulse Rate 56 L Respiratory Rate 20 18 Blood Pressure 157/66 H Pulse Oximetry 97 96 Oxygen Delivery Room Air Intake/Output Intake/Output: Intake & Output 12/29/23 12/30/23 12/31/23 01/01/24 23:59 23:59 23:59 23:59 Intake Total 1320 2150 2015.0 1638.8 Output Total 200 1569 225 5223 Balance 3449 875 6186.0 638.8 Meds/Results Medications: Active Medications Generic Name Dose Route Start Last Admin Trade Name Freq PRN Reason Stop Dose Admin Acetaminophen 650 mg 12/28/23 15:06 Acetaminophen 325 Mg Tablet PO Q4H PRN Mild Pain (1-3) or Fever Apixaban 5 mg 12/29/23 09:00 01/01/24 09:03 Apixaban 5 Mg Tablet PO 5 mg Q12HR KOKO Administration Baclofen 20 mg 12/29/23 21:00 12/31/23 20:04 Baclofen 10 Mg Tablet PO 20 mg HS KOKO Administration Benzonatate 200 mg 12/29/23 09:00 01/01/24 12:22 Benzonatate 100 Mg Capsule PO 01/28/24 08:59 200 mg TID KOKO Administration Escitalopram Oxalate 20 mg 12/29/23 09:00 01/01/24 09:03 Escitalopram Oxalate 10 Mg Tablet PO 20 mg DAILY KOKO Administration Lactated Ringer's 1,000 mls @ 75 mls/hr 12/28/23 20:40 01/01/24 02:10 Lr - Lactated Ringers Iv IV CONT 75 mls/hr .[id number] KOKO Administration Levofloxacin 750 mg 01/01/24 09:00 01/01/24 09:03 Levofloxacin 750 Mg Tablet PO 01/05/24 09:01 750 mg DAILY KOKO Administration Lorazepam 0.5 mg 12/28/23 23:48 Lorazepam (*Crx) 0.5 Mg Tablet PO TID PRN anxiety Melatonin 10 mg 12/29/23 21:00 12/31/23 20:04 Melatonin 5 Mg
--- NOTE | 2024-01-01 15:25 | PCPTNOTE ---
Attempted to see patient for PT, however patient refused. Patient reported he did not feel well and did not feel up to therapy right now.
[2024-01-01 19:40] VITALS: BP 157/77; PULSE 62; RESP 18; TEMP 36.4; O2SAT 96
[2024-01-01] MEDS: BACLOFEN 10 MG TABLET 20 MG PO (19:54)
[2024-01-01] MEDS: MELATONIN 5 MG TABLET 10 MG PO (19:54)
[2024-01-02 05:15] LABS: Basophils Percent Auto 0.6 % (0.2-1.2); Eosinophils Absolute Auto 0.2 K/mm3 (0-0.3); Eosinophils Percent Auto 3.3 % (0-4.4); Hemoglobin 10.3 g/dL (14.0-18.0); Immature Granulocyte Absolute 0.04 K/mm3 (0.00-0.031); Immature Granulocyte Percent A 0.6 % (0-0.5); Lymphocytes Absolute Auto 1.42 K/mm3 (0.9-3.2); Lymphocytes Percent Auto 21.5 % (18.3-44.2); Mean Corpuscular HGB Conc 32.2 g/dl (32-36); Mean Corpuscular Hemoglobin 26.4 pg (26-34); Mean Corpuscular Volume 82.1 fl (80-100); Mean Platelet Volume 10.8 fl (7.4-10.4); Monocytes Absolute Auto 0.6 K/mm3 (0.1-0.6); Monocytes Percent Auto 9.1 % (2.6-8.5); Neutrophils Absolute Auto 4.3 K/mm3 (1.3-6.7); Neutrophils Percent Auto 64.9 % (45.5-73.1); Platelet Count Result 232 k/mm3 (150-375); Red Cell Distribution Width 15.9 % (11.5-14.5); White Blood Count 6.6 K/mm3 (4.5-10.0)
[2024-01-02 05:35] LABS: Albumin Level 3.2 g/dL (3.5-5.1); Anion Gap 4 mmol/L (4-12); Blood Urea Nitrogen 10 mg/dL (9-20); Calcium 8.1 mg/dL (8.4-10.2); Carbon Dioxide 26 mmol/L (22-30); Chloride 105 mmol/L (98-107); Estimated CRCL calculation 62 ml/min; Estimated Glomerular Filt Rate > 60; Glucose 102 mg/dL (65-110); Magnesium 1.9 mg/dL (1.6-2.3); Phosphorus 3.1 mg/dL (2.5-4.5); Potassium 3.7 mmol/L (3.4-5.0); Sodium 135 mmol/L (137-145)
[2024-01-02 05:37] LABS: Base Excess ABG 3.7 mEq/l (+/-2.0); Carboxyhemoglobin 0.7 % THb (0-2.0); Fractional Inspired Oxygen 21 %; HCO3 ABG 27.7 mEq/l (22.0-26.0); Methemoglobin ABG 0.3 %THb (0-1.5); Oxygen Saturation ABG 95.1 % (95.0-100.0); Oxyhemoglobin 93.8 % THb (90.0-100.0); PCO2 ABG 39.7 mmHg (35.0-45.0); PO2 ABG 71.2 mmHg (80.0-100.0); PO2 FiO2 Ratio Arterial Blood 3.39 %; Reduced Hemoglobin 5.2 %THb (0-5.0); Total Hemoglobin 10.6 g/dL (12.0-18.0); pH ABG 7.462 (7.350-7.450)
[2024-01-02 05:39] LABS: Device ROOM AIR; Modified Allen's Test Pass; Site Drawn RIGHT RADIAL
[2024-01-02 06:00] VITALS: BP 149/83; PULSE 70; RESP 18; TEMP 36.5; O2SAT 96
[2024-01-02] MEDS: ESCITALOPRAM OXALATE 10 MG TABLET 20 MG PO (08:28)
[2024-01-02] MEDS: BENZONATATE 100 MG CAPSULE 200 MG PO ×2 (08:28→17:19)
[2024-01-02] MEDS: APIXABAN 5 MG TABLET PO ×2 (08:28→20:05)
[2024-01-02] MEDS: levoFLOXacin 750 MG TABLET PO (08:28)
[2024-01-02] MEDS: CHOLECALCIFEROL 1,000 UNITS TABLET 1000 UNITS PO (08:29)
--- NOTE | 2024-01-02 08:33 | PM.IMPN ---
Progress Note: A&P Assessment and Plan (1) Confusion: Code(s): R41.0 - Disorientation, unspecified Status: Acute Assessment and Plan: - CT Head: no acute intracranial finding or significant change since 07/07/2020 - no significant anemia, hypoxia, or focal deficits - UDS negative, salicylates and acetaminophen negative, ETOH negative - suspect acute encephalopathy related to UTI - neuro checks Q Shift - 12/31 At baseline Patient now back at baseline. (2) UTI (urinary tract infection): Code(s): N39.0 - Urinary tract infection, site not specified Status: Acute Assessment and Plan: UA: Turbid, 2+ protein, 3+ blood, positive nitrates, 3+ leuks, 21-50 RBC, greater than 100 WBC, WBC clumps present, occasional epithelial cells, 4+ bacteria. - UC did not grow anything but due to symptoms and appearance of the urine will continue to treat. - previous micro reviewed, has previously grown Pseudomonas on multiple occasions without resistances - started on Ceftriaxone on 12/27 , changed to cefepime on 12/28 due to Pseudomonas history. - Antibiotics changed to PO Levaquin. Finish antibiotic therapy on 01/05/2024. (3) Multiple sclerosis: Code(s): G35 - Multiple sclerosis Status: Chronic Assessment and Plan: - bedbound due to chronic BLE weakness - is caregiver, lives at home - PT and OT ordered Time Spent With Patient Time with patient: 25 - 35 minutes Subjective Date/time seen: 01/02/24 08:33 Interval history: 68 y/o M presents here with weakness, decreased appetite, and altered mental status with PMH of multiple sclerosis, chronic anemia, anxiety/depression, neurogenic bladder, RLS, and insomnia. Patient is pleasant lying in bed with family at bedside. He states that his urinary symptoms have improved with the antibiotics. He is no longer having the burning sensation and pain. He remains on levaquin at this time. Peer to peer performed at 13:45 in regards to SNF denial. Insurance states that due to patients decreased mobility need for daniel prior to admission they cannot accept. Discussed with them the PT/OT recommendations and they continue to deny. Care coordination aware and will continue to follow for discharge plans. Review of Systems Review of Systems: All systems reviewed & are unremarkable except as noted in HPI and below Exam Narrative: AF HR 70 RR 18 SpO2 96 BP 149/83 General: male in no acute respiratory distress who is nontoxic appearing, lying semi recumbent in bed. HEENT: Normocephalic. Atraumatic. Pupils equal round reactive to light. Extraocular movement intact. Sclera clear and anicteric. No facial asymmetry. Chest: Lungs are clear to auscultation bilaterally. No wheezes or crackles. CV: Heart was regular rate and rhythm. S1/S2. No murmurs, gallops, or rubs. Abd: Abdomen was soft. Nontender. Nondistended. Positive bowel sounds. No organomegaly or masses. Ext: No clubbing, cyanosis, or edema. 2+ DP pulses bilaterally. Neuro: Patient is alert and oriented x4. Bilateral lower extremity contractors with decreased upper extremity movement. Cranial nerves 2-12 are intact. Speech is clear. Psych: Normal mood and affect. Patient is pleasant and cooperative. Skin: Warm and dry. No rashes noted. Objective Data Vital Signs Vital Signs: Vital Signs - 24 hr 01/01/24 09:08 01/01/24 14:00 01/01/24 19:32 Temperature 98.2 F Pulse Rate 56 L Respiratory Rate 20 18 Blood Pressure 157/66 H Pulse Oximetry 97 96 Oxygen Delivery Room Air Room Air 01/01/24 19:40 01/02/24 06:00 Temperature 97.6 F 97.7 F Pulse Rate 62 70 Respiratory Rate 18 18 Blood Pressure 157/77 H 149/83 H Pulse Oximetry 96 96 Oxygen Delivery Intake/Output Intake/Output: Intake & Output 12/30/23 12/31/23 01/01/24 01/02/24 23:59 23:59 23:59 23:59 Intake Total 2150 2015.0 2878.8 150 Output Total 7429 689 9184 1200 Balance 925 1315.0 728.8 -1050
[2024-01-02 14:00] VITALS: BP 108/64; PULSE 63; RESP 18; TEMP 36.6; O2SAT 95
[2024-01-02] MEDS: BACLOFEN 10 MG TABLET 20 MG PO (20:05)
[2024-01-02] MEDS: MELATONIN 5 MG TABLET 10 MG PO (20:05)
[2024-01-02 22:00] VITALS: BP 116/57; PULSE 62; RESP 18; TEMP 36.9; O2SAT 95
[2024-01-03 05:28] VITALS: BP 117/47; PULSE 58; RESP 18; TEMP 36.8; O2SAT 93
[2024-01-03 05:40] LABS: Basophils Percent Auto 0.6 % (0.2-1.2); Eosinophils Absolute Auto 0.3 K/mm3 (0-0.3); Eosinophils Percent Auto 4.7 % (0-4.4); Hematocrit 31.4 % (42.0-52.0); Hemoglobin 9.8 g/dL (14.0-18.0); Immature Granulocyte Absolute 0.04 K/mm3 (0.00-0.031); Immature Granulocyte Percent A 0.6 % (0-0.5); Lymphocytes Percent Auto 23.4 % (18.3-44.2); Mean Corpuscular HGB Conc 31.2 g/dl (32-36); Mean Corpuscular Hemoglobin 26.1 pg (26-34); Mean Corpuscular Volume 83.5 fl (80-100); Mean Platelet Volume 10.6 fl (7.4-10.4); Monocytes Absolute Auto 0.6 K/mm3 (0.1-0.6); Monocytes Percent Auto 7.6 % (2.6-8.5); Neutrophils Absolute Auto 4.6 K/mm3 (1.3-6.7); Neutrophils Percent Auto 63.1 % (45.5-73.1); Platelet Count Result 235 k/mm3 (150-375); Red Blood Count 3.76 M/mm3 (4.6-6.20); Red Cell Distribution Width 15.9 % (11.5-14.5); White Blood Count 7.3 K/mm3 (4.5-10.0)
[2024-01-03 05:56] LABS: Albumin Level 3.1 g/dL (3.5-5.1); Anion Gap 4 mmol/L (4-12); Blood Urea Nitrogen 11 mg/dL (9-20); Carbon Dioxide 27 mmol/L (22-30); Chloride 105 mmol/L (98-107); Estimated CRCL calculation 62 ml/min; Estimated Glomerular Filt Rate > 60; Glucose 104 mg/dL (65-110); Phosphorus 3.5 mg/dL (2.5-4.5); Potassium 3.7 mmol/L (3.4-5.0); Sodium 136 mmol/L (137-145)
[2024-01-03] MEDS: BENZONATATE 100 MG CAPSULE 200 MG PO ×2 (09:17→12:37)
[2024-01-03] MEDS: CHOLECALCIFEROL 1,000 UNITS TABLET 1000 UNITS PO (09:17)
[2024-01-03] MEDS: levoFLOXacin 750 MG TABLET PO (09:17)
[2024-01-03] MEDS: ESCITALOPRAM OXALATE 10 MG TABLET 20 MG PO (09:17)
[2024-01-03] MEDS: APIXABAN 5 MG TABLET PO (09:17)
[2024-01-03 14:00] VITALS: BP 115/56; PULSE 63; RESP 18; TEMP 36.8; O2SAT 96
--- NOTE | 2024-01-03 14:09 | PM.DS ---
DS: Admitting Diagnosis Discharge Date 01/03/2024 Admitting Diagnosis Confusion UTI Multiple sclerosis DS: Discharge Diagnosis Discharge Diagnosis (1) Confusion: Code(s): R41.0 - Disorientation, unspecified Status: Acute (2) UTI (urinary tract infection): Code(s): N39.0 - Urinary tract infection, site not specified Status: Acute (3) Multiple sclerosis: Code(s): G35 - Multiple sclerosis Status: Chronic DS: Summary Hospital Course Reason for hospitalization: Confusion UTI Multiple sclerosis Hospital Course: 68 y/o M presents here with weakness, decreased appetite, and altered mental status with PMH of multiple sclerosis, chronic anemia, anxiety/depression, neurogenic bladder, RLS, and insomnia. Imaging was unremarkable. UA was concerning for UTI, however the UC did not grow any bacteria. Patient remained on antibiotics due to his symptoms and urine appearance. Patient is now at baseline orientation. He denies chest pain, shortness of breath, abdominal pain, nausea/vomiting, dysuria, burning with urination, hematuria, and changes in bowel. He is tolerating his diet. He will complete his antibiotic course outpatient and follow up with his PCP in 1 week. A peer to peer was performed on 01/01 in regards to insurance denial of SNF placement. Insurance states that due to patients decreased mobility and need for Marquis prior to admission they cannot accept. Discussed with them the PT/OT recommendations and they continue to deny. Care coordination aware was made aware and patient had home health set up. According to patients this has happened in the past and they used home health then as well. Patient discharged home with home health in a stable condition. He will complete the antibiotic as prescribed and follow up with his PCP in 1week. Status at Discharge Functional status at discharge: bed bound Time Spent with Patient Time attestation: Total time spent providing and/or coordinating discharge services: Time spent: Greater than 30 minutes Exam Narrative: AF HR 63 RR 18 SpO2 96 BP 115/56 General: male in no acute respiratory distress who is nontoxic appearing, lying semi recumbent in bed. HEENT: Normocephalic. Atraumatic. Pupils equal round reactive to light. Extraocular movement intact. Sclera clear and anicteric. No facial asymmetry. Chest: Lungs are clear to auscultation bilaterally. No wheezes or crackles. CV: Heart was regular rate and rhythm. S1/S2. No murmurs, gallops, or rubs. Abd: Abdomen was soft. Nontender. Nondistended. Positive bowel sounds. No organomegaly or masses. Ext: No clubbing, cyanosis, or edema. 2+ DP pulses bilaterally. Neuro: Patient is alert and oriented x4. Bilateral lower extremity contractors with decreased upper extremity movement. Cranial nerves 2-12 are intact. Speech is clear. Psych: Normal mood and affect. Patient is pleasant and cooperative. Skin: Warm and dry. No rashes noted. DS: Data Data Completed and Pending Completed studies during hospitalization: Chest CT Head CT Chest XR Labs on day of discharge: Labs from last 24 hours 01/03/24 05:20 WBC 7.3 RBC 3.76 L Hgb 9.8 L Hct 31.4 L MCV 83.5 MCH 26.1 MCHC 31.2 L RDW 15.9 H Plt Count 235 MPV 10.6 H Immature Gran % (Auto) 0.6 H Neut % (Auto) 63.1 Lymph % (Auto) 23.4 Bent % (Auto) 7.6 Eos % (Auto) 4.7 H Baso % (Auto) 0.6 Lymph # (Auto) 1.70 Bent # (Auto) 0.6 Eos # (Auto) 0.3 Baso # (Auto) 0.0 Abs Immat Gran (auto) 0.04 H Absolute Neuts (auto) 4.6 Absolute Nucleated RBC 0.000 Nucleated RBC % 0.0 Sodium 136 L Potassium 3.7 Chloride 105 Carbon Dioxide 27 Anion Gap 4 BUN 11 Creatinine 1.00 Estim Creat Clear Calc 62 Estimated GFR > 60 Glucose 104 Calcium 8.0 L Phosphorus 3.5 Magnesium 2.0 Albumin 3.1 L Preliminary micro results at discharge 12/29/23 09:34 Blood Culture - Preliminary Blood 12/29/23 09:06 Blood Culture - Preli
== END 2024-01-03 16:40 | disposition home health service (06) | DRG 690 ==
LOC: ANHED 12:46 → ANH2MED 15:52
PROVIDERS: Family Medicine; Internal Medicine Critical Care Medicine; Nurse Practitioner; Student in an Organized Health Care Education/Training Program; Admitting Provider Internal Medicine; Emergency Provider Student in an Organized Health Care Education/Training Program; PCP Family Medicine; Visit Provider Student in an Organized Health Care Education/Training Program
DX: N39.0 Urinary tract infection, site not specified (principal); G35 Multiple sclerosis; F41.9 Anxiety disorder, unspecified; D64.9 Anemia, unspecified; F32.A Depression, unspecified; N31.9 Neuromuscular dysfunction of bladder, unspecified; G25.81 Restless legs syndrome; E55.9 Vitamin D deficiency, unspecified; Z86.711 Personal history of pulmonary embolism; Z87.891 Personal history of nicotine dependence; Z74.01 Bed confinement status
CPT/HCPCS: 36415; 36600; 70450; 71046; 71260; 80053; 80069; 80307; 81001; 82375; 82550; 82805; 83050; 83605; 83735; 84443; 84484; 85025; 87040; 87086; 87088; 93005; 96361; 96365; 97110; 97162; 97165; 97530; 99285; A9270; G0378; J0692; J0696; J7030; J7120; Q9967

== ENCOUNTER 2024-01-17 11:47 | Emergency (ER) | payer MEDICARE, SELFPAY ==
[2024-01-17] VITALS (31 sets, daily range): BP systolic 87–151; BP diastolic 48–119; PULSE 56–76; RESP 12–20; O2SAT 95–99
--- NOTE | ~2024-01-17 | XR_ITS ---
EXAMINATION: XR chest 2V 01/17/2024 12:43 INDICATION: Chest pain PROCEDURE: AP and lateral supine views of the chest COMPARISON: Comparison to multiple prior studies sequentially, with oldest reviewed study dated 02/2022. FINDINGS: The lungs are clear. The cardiomediastinal silhouette is within normal limits. There are no pleural effusions. There is no pneumothorax suspected. There is evidence of chronic granulomatou s disease. IMPRESSION: 1: NO ACUTE CARDIOPULMONARY DISEASE. Reviewed, dictated and finalized at location B.
--- NOTE | ~2024-01-17 | US_ITS ---
US abdomen limited INDICATION: PROCEDURE: Realtime right upper abdominal ultrasound. COMPARISON: No prior studies for comparison. FINDINGS: The pancreas is normal without focal mass or pancreatic ductal dilation. Liver echotexture is normal without focal mass or intrahepatic biliary dilatation. There is normal directional flow i n the portal vein. There are gallstones. There is adenomyomatosis. There is gallbladder wall thickening. Common bile du ct measures 4 mm. No sonographic Patterson's sign. IMPRESSION: 1: Cholelithiasis with gallbladder wall thickening and adenomyomatosis. Consider cholecystitis in the appropriate clinical setting. Reviewed, dictated and finalized at location B. IMPRESSION: 1: Cholelithiasis with gallbladder wall thickening and adenomyomatosis. Conside r cholecystitis in the appropriate clinical setting.
--- NOTE | 2024-01-17 11:57 | ECG_ITS ---
Test Date: 2024-01-17 11:53:37 Measurements Intervals [place] Rate: 66 P: 39 WI: 181 QRS: 33 QRSD: 91 T: 32 QT: 376 QTc: 396 Interpretive Statements SINUS RHYTHM NONSPECIFIC ST & T-WAVE ABNORMALITY No previous ECG available for comparison Electronically Signed On 01-17-2024 12:47:36 CDT by Santana Ibrahim M.D.
--- NOTE | 2024-01-17 12:02 | ED.CHESTPAIN ---
HPI - Chest Pain General Chief Complaint: Chest Pain Stated Complaint: chest pain, weakness, n/v Time Seen by Provider: 01/17/24 12:01 History of Present Illness HPI narrative: Patient is a 68-year-old male with history of MS, chronic anemia, anxiety, depression, neurogenic bladder here with an episode of chest pain and near syncope. reports that this morning patient called her attention and stated that his chest was hurting. He was also complaining that his abdomen was hurting. Patient believes that it only lasted for a few seconds. notes that during this episode he became diaphoretic, pale and appeared to be staring off into space. She denies witnessing any loss of consciousness. She states that he does have waxing and waning confusion however this can happen to him due to his history of MS. She does note that he was hospitalized a couple of weeks ago for urinary tract infection. He did receive IV antibiotics while he was in the hospital and upon discharge completed 2 different oral antibiotics. He wears depends and she is unsure if he has had any urinary changes since completing the antibiotics. She notes that this episode seemed to be different than when he was hospitalized a couple of weeks ago for the urinary tract infection. No prior cardiac history. notes he has a chronic cough which is grossly unchanged from his baseline. She denies any fever chills. His last bowel movement was last night and of normal consistency without any blood appreciated. Patient notes that he is currently symptom-free and patient notes that his coloring is back to baseline and he is behaving like his normal self. Related Data Home Medications Medication Instructions Recorded Confirmed cholecalciferol (vitamin D3) 125 125 mcg PO DAILY 07/07/20 12/28/23 mcg (5,000 unit) capsule escitalopram oxalate 20 mg tablet 20 mg PO DAILY 07/07/20 12/28/23 melatonin 10 mg tablet 10 mg PO HS 07/07/20 12/28/23 teriflunomide 14 mg tablet 14 mg PO DAILY 07/07/20 12/28/23 (Aubagio) baclofen 10 mg tablet 20 mg PO HS 03/10/22 12/28/23 Allergies Allergy/AdvReac Type Severity Reaction Status Date / Time No Known Allergies Allergy Unknown Verified 07/13/22 15:20 Review of Systems Review of Systems: All systems reviewed & are unremarkable except as noted in HPI and below PMFSH Past Medical History Medical History (Updated 01/17/24 @ 18:15 by Evie Roman MD) Anxiety Chest pain Chronic anemia Depression DVT prophylaxis Insomnia Left wrist fracture Leukocytosis Multiple sclerosis Neurogenic bladder Pulmonary embolism (~2021) Restless leg syndrome Suspected 2019 novel coronavirus infection Tinea corporis Vitamin D deficiency Surgical History Surgical History History of bilateral cataract extraction Family History Family History Father Family history of malignant neoplasm of esophagus Mother Pacemaker Social History Social History Social History: The patient is and lives with his in [place]. 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 He smoked up to 3 packs of cigarettes a day for 30 years and quit in 2001. No alcohol or illicit substance abuse. He had 2 children Surrogate medical decision maker: Devora Browning, . Code status: Full code. Smoking packs per day: 1 Smoking cigarettes per day: 20.0 Years smoked: 10 Smoking pack-years: 10.00 Smoking status: Former smoker Second hand tobacco smoke exposure: No Alcohol intake: never Substance use: never Substance use type: does not use Do You Feel Safe in your Home?: Yes Lack of Transportation: No Lack of Food: Never True Current Housing: I Have Housing Concerned About Future Housing: No Difficulty Paying
[2024-01-17] MEDS: ASPIRIN 81 MG CHEWABLE TABLET 324 MG PO (12:13)
[2024-01-17 12:16] LABS: Basophils Absolute Auto 0.1 K/mm3 (0.0-0.1); Basophils Percent Auto 0.7 % (0.2-1.2); Eosinophils Absolute Auto 0.1 K/mm3 (0-0.3); Eosinophils Percent Auto 1.5 % (0-4.4); Hematocrit 34.3 % (42.0-52.0); Immature Granulocyte Absolute 0.03 K/mm3 (0.00-0.031); Immature Granulocyte Percent A 0.3 % (0-0.5); Lymphocytes Absolute Auto 1.94 K/mm3 (0.9-3.2); Mean Corpuscular HGB Conc 32.1 g/dl (32-36); Mean Corpuscular Hemoglobin 26.1 pg (26-34); Mean Corpuscular Volume 81.5 fl (80-100); Mean Platelet Volume 10.5 fl (7.4-10.4); Monocytes Absolute Auto 0.4 K/mm3 (0.1-0.6); Monocytes Percent Auto 4.4 % (2.6-8.5); Neutrophils Absolute Auto 6.6 K/mm3 (1.3-6.7); Neutrophils Percent Auto 72.1 % (45.5-73.1); Platelet Count Result 287 k/mm3 (150-375); Red Blood Count 4.21 M/mm3 (4.6-6.20); Red Cell Distribution Width 15.7 % (11.5-14.5); White Blood Count 9.2 K/mm3 (4.5-10.0)
[2024-01-17 12:25] LABS: Alanine Aminotransferase 31 U/L (6-50); Albumin Level 3.6 g/dL (3.5-5.1); Alkaline Phosphatase 126 U/L (38-126); Anion Gap 6 mmol/L (4-12); Aspartate Amino Transferase 103 U/L (17-59); Bilirubin,Total 0.6 mg/dL (0.2-1.3); Blood Urea Nitrogen 22 mg/dL (9-20); Calcium 8.5 mg/dL (8.4-10.2); Carbon Dioxide 25 mmol/L (22-30); Chloride 108 mmol/L (98-107); Estimated CRCL calculation 52 ml/min; Estimated Glomerular Filt Rate 60; Glucose 155 mg/dL (65-110); Lipase 92 U/L (23-300); Potassium 5.2 mmol/L (3.4-5.0); Sodium 139 mmol/L (137-145)
[2024-01-17 12:37] LABS: Troponin I < 0.012 ng/mL (0.000-0.034)
[2024-01-17 12:40] LABS: INR 1.2
[2024-01-17 12:41] LABS: Partial Thromboplastin Time 29.6 Seconds (22.3-36.8)
[2024-01-17 13:29] LABS: Magnesium 2.1 mg/dL (1.6-2.3)
[2024-01-17] MEDS: LACTATED RINGERS 1,000 ML 999 ML IV CONT (14:20)
--- NOTE | 2024-01-17 15:08 | ECG_ITS ---
Test Date: 2024-01-17 15:12:55 Measurements Intervals [place] Rate: 63 P: 51 [place]: 249 QRS: 43 QRSD: 94 T: 48 QT: 423 QTc: 434 Interpretive Statements SINUS RHYTHM WITH FIRST DEGREE AV BLOCK NONSPECIFIC ST & T-WAVE ABNORMALITY ABNORMAL ECG Compared to ECG 01/17/2024 11:53:37 SLIGHTLY LONGER TX INTERVAL, NO OTHER DIFFERENCE Electronically Signed On 01-18-2024 07:00:54 CDT by Kang Fletcher M.D.
--- NOTE | 2024-01-17 15:26 | PC.NURSE ---
Multiple attempts to collect urine from the patient, patient refuses to allow a straight cath to get the urine from his bladder. last attempt the patient stated that come back in 20 minutes and i'll pee but not right now patient educated on importance of getting urine to test and evaluate for a UTI.
[2024-01-17 15:49] LABS: Appearance Urine Cloudy (Clear); Bacteria Urine 4+ /hpf; Bilirubin Urine Negative (Negative); Blood Urine 2+ (Negative); Color Urine Yellow (Yellow); Glucose Urine UA Negative (Negative); Ketones Urine Negative (Negative); Leukocyte Esterase Ur 3+ LEU/UL (Negative); Nitrate Urine Positive (Negative); Non Pathogenic Casts 0-2; Protein Urine Trace mg/dL (Negative); Specific Grav Ur 1.012 (1.001-1.035); Squamous Epithelial Cell Urine None Seen /hpf (Few); Urobilinogen Urine 0.2 mg/dL (<2.0); WBC Urine >100 /hpf (0-3)
[2024-01-17 15:51] LABS: Troponin I < 0.012 ng/mL (0.000-0.034)
[2024-01-17 16:13] LABS: Add Urine Microscopic? YES
--- NOTE | 2024-01-17 21:20 | PC.NURSE ---
Spoke with patients (Devora) and updated her on plan of care with the patient, including follow up instructions, medications prescribed and to return with any worsening symptoms. verbalizes understanding at this time and denies any questions.
== END 2024-01-17 21:10 | disposition home or self-care (01) ==
PROVIDERS: Family Medicine; Emergency Provider Student in an Organized Health Care Education/Training Program
DX: N39.0 Urinary tract infection, site not specified (principal); K80.20 Calculus of gallbladder without cholecystitis without obstruction; R07.89 Other chest pain; R55 Syncope and collapse; G35 Multiple sclerosis; N31.9 Neuromuscular dysfunction of bladder, unspecified; D64.9 Anemia, unspecified; G25.81 Restless legs syndrome; E55.9 Vitamin D deficiency, unspecified; F32.A Depression, unspecified; Z86.711 Personal history of pulmonary embolism; Z79.899 Other long term (current) drug therapy; Z98.42 Cataract extraction status, left eye; Z98.41 Cataract extraction status, right eye; Z87.891 Personal history of nicotine dependence; R94.31 Abnormal electrocardiogram [ECG] [EKG]; I44.0 Atrioventricular block, first degree
CPT/HCPCS: 36415; 71046; 76705; 80053; 81001; 83690; 83735; 84484; 85025; 85610; 85730; 87077; 87086; 87088; 93005; 96360; 99284; A9270; J7120

== ENCOUNTER 2024-05-07 12:58 | Emergency (ER) | payer MEDICARE, SELFPAY ==
[2024-05-07] VITALS (14 sets, daily range): BP systolic 123–134; BP diastolic 70–114; PULSE 72–89; RESP 11–21; TEMP 36.6–36.8; O2SAT 92–96
--- NOTE | ~2024-05-07 | CT_ITS ---
EXAMINATION:CT diagnostic chest wo con DATE: 05/07/2024 15:10 INDICATION: Cough. TECHNIQUE: Computed tomography (CT) of the chest was performed without intravenous contrast. Automate d exposure control and iterative reconstruction technique were employed. The dose-length product (DLP ) was 664.53 mGy-cm. COMPARISON: Chest CT 12/28/2023, 06/06/22 FINDINGS: There is mild elevation of right hemidiaphragm. The lungs demonstrate mild atelectasis. Bhavesh cified pulmonary nodules and calcified hilar mediastinal lymph nodes are consistent with old granulom atous disease. There is a 13 mm nodule in right upper lobe, stable from 12/28/23 and new from 06/06/22. There is a 10 mm nodule in left upper lobe, increased from 4 mm on 12/28/23. There is a worsened 7 mm nodule in left upper lobe. There is a chronic 6 mm nodule in left upper lobe. There is a small right pleural effusion. The heart size is normal. There are coronary artery calcifications. No pericardial effusion. There are cysts in the kidneys measuring up to 2.9 cm on the left. There is bilateral hydr onephrosis. There is mild thoracic spondylosis. IMPRESSION: 1. Worsened pulmonary nodules, which may be infection or malignancy. Consider PET/CT or 3-month follo w-up noncontrast chest CT. 2. Small right pleural effusion. 3. Persistent bilateral hydronephrosis. Reviewed, dictated and finalized at location A. IMPRESSION: 1. Worsened pulmonary nodules, which may be infection or malignancy. Consider P ET/CT or 3-month follow-up noncontrast chest CT. 2. Small right pleural effusion. 3. Persistent bilateral hydronephrosis.
--- NOTE | ~2024-05-07 | XR_ITS ---
XR chest 1V portable Ordering provider: Avtar Livingston MD History: 69 years Male with . cough . Comparison: January 17, 2024 FINDINGS: MEDIASTINUM: The cardiac silhouette is not enlarged. Calcified subcarinal and left hilar lymph nodes are noted. LUNGS: No infiltrates, effusions or pneumothorax. Prominent markings in the lower lobes. OTHER: No free air under the diaphragm. IMPRESSION: No definite acute cardiopulmonary pathology. Reviewed, dictated and finalized at location A.
--- NOTE | 2024-05-07 13:03 | ECG_ITS ---
Test Date: 2024-05-07 13:06:38 Measurements Intervals [place] Rate: 73 P: 53 MS: 204 QRS: 35 QRSD: 95 T: -4 QT: 327 QTc: 361 Interpretive Statements SINUS RHYTHM NONSPECIFIC T-WAVE ABNORMALITY ABNORMAL ECG Compared to ECG 01/17/2024 15:12:55 First degree AV block no longer present T-wave abnormality still present Electronically Signed On 05-07-2024 14:07:35 CDT by Eugenio Stout M.D.
[2024-05-07 14:11] LABS: Basophils Absolute Auto 0.1 K/mm3 (0.0-0.1); Basophils Percent Auto 0.6 % (0.2-1.2); Eosinophils Absolute Auto 0.1 K/mm3 (0-0.3); Eosinophils Percent Auto 0.9 % (0-4.4); Hematocrit 35.2 % (42.0-52.0); Hemoglobin 11.6 g/dL (14.0-18.0); Immature Granulocyte Absolute 0.08 K/mm3 (0.00-0.031); Immature Granulocyte Percent A 0.8 % (0-0.5); Lymphocytes Absolute Auto 1.78 K/mm3 (0.9-3.2); Lymphocytes Percent Auto 17.7 % (18.3-44.2); Mean Corpuscular Hemoglobin 27.8 pg (26-34); Mean Corpuscular Volume 84.4 fl (80-100); Mean Platelet Volume 10.6 fl (7.4-10.4); Monocytes Absolute Auto 0.6 K/mm3 (0.1-0.6); Monocytes Percent Auto 5.9 % (2.6-8.5); Neutrophils Absolute Auto 7.4 K/mm3 (1.3-6.7); Neutrophils Percent Auto 74.1 % (45.5-73.1); Platelet Count Result 220 k/mm3 (150-375); Red Blood Count 4.17 M/mm3 (4.6-6.20); Red Cell Distribution Width 15.1 % (11.5-14.5)
[2024-05-07 14:18] LABS: INR 1.2; Partial Thromboplastin Time 32.7 Seconds (22.3-36.8); Prothrombin Time 15.2 Seconds (11.1-14.7)
[2024-05-07 14:20] LABS: Alanine Aminotransferase 9 U/L (6-50); Albumin Level 3.8 g/dL (3.5-5.1); Alkaline Phosphatase 80 U/L (38-126); Anion Gap 8 mmol/L (4-12); Aspartate Amino Transferase 16 U/L (17-59); Bilirubin,Total 0.3 mg/dL (0.2-1.3); Blood Urea Nitrogen 24 mg/dL (9-20); Calcium 8.7 mg/dL (8.4-10.2); Carbon Dioxide 25 mmol/L (22-30); Chloride 105 mmol/L (98-107); Estimated Glomerular Filt Rate 55; Glucose 116 mg/dL (65-110); Potassium 3.8 mmol/L (3.4-5.0); Sodium 138 mmol/L (137-145)
[2024-05-07 14:32] LABS: NT Pro B Type Natriuretic Pept 103 pg/mL (19.9-100); Troponin I < 0.012 ng/mL (0.000-0.034)
--- NOTE | 2024-05-07 14:54 | ED.SOB ---
HPI - SOB/Dyspnea General Chief Complaint: Shortness of Breath/Dyspnea Stated Complaint: sob Time Seen by Provider: 05/07/24 13:10 History of Present Illness HPI Narrative: Patient is a 69-year-old male with history of MS presenting with cough. Patient's is at bedside and helps with the history. States that he has had a worsening cough over the last couple weeks. He had a severe coughing fit earlier today and then had a brief episode of unresponsiveness. His became concerned and called EMS. Patient denies any complaints other than cough. States that he wants to go home. Related Data Home Medications Medication Instructions Recorded Confirmed cholecalciferol (vitamin D3) 125 125 mcg PO DAILY 07/07/20 12/28/23 mcg (5,000 unit) capsule escitalopram oxalate 20 mg tablet 20 mg PO DAILY 07/07/20 12/28/23 melatonin 10 mg tablet 10 mg PO HS 07/07/20 12/28/23 teriflunomide 14 mg tablet 14 mg PO DAILY 07/07/20 12/28/23 (Aubagio) baclofen 10 mg tablet 20 mg PO HS 03/10/22 12/28/23 Allergies Allergy/AdvReac Type Severity Reaction Status Date / Time No Known Allergies Allergy Unknown Verified 05/07/24 15:54 Review of Systems Review of Systems: All systems reviewed & are unremarkable except as noted in HPI and below PMFSH Past Medical History Medical History Anxiety Chest pain Chronic anemia Depression DVT prophylaxis Insomnia Left wrist fracture Leukocytosis Multiple sclerosis Neurogenic bladder Pulmonary embolism (~2021) Restless leg syndrome Suspected 2019 novel coronavirus infection Tinea corporis Vitamin D deficiency Surgical History Surgical History History of bilateral cataract extraction Family History Family History Father Family history of malignant neoplasm of esophagus Mother Pacemaker Social History Social History Social History: The patient is and lives with his in [place]. 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 He smoked up to 3 packs of cigarettes a day for 30 years and quit in 2001. No alcohol or illicit substance abuse. He had 2 children Surrogate medical decision maker: Devora Browning, . Code status: Full code. Smoking packs per day: 1 Smoking cigarettes per day: 20.0 Years smoked: 10 Smoking pack-years: 10.00 Smoking status: Former smoker Second hand tobacco smoke exposure: No Alcohol intake: never Substance use: never Substance use type: does not use Do You Feel Safe in your Home?: Yes Lack of Transportation: No Lack of Food: Never True Current Housing: I Have Housing Concerned About Future Housing: No Difficulty Paying Gas/Electric Bills: No Difficulty Paying for Meds: No Currently Unemployed: No Education: High School Diploma/GED Difficulty w/ Childcare or Family Care: No Spiritual care concerns: No Exam Narrative: GENERAL: Chronically ill-appearing, no acute distress, pleasant cooperative HEAD: Normocephalic, atraumatic. EYES: PERRLA and EOMI. ENT: Mucous membranes moist. NECK: Supple. CHEST: Coarse breath sounds bilaterally HEART: Regular rate and rhythm ABDOMEN: Soft, nontender, nondistended EXTREMITIES: Normal range of motion SKIN: Warm, dry, no rash. NEURO: Alert and oriented x3. PSYCH: Normal mood and affect. Course Vital Signs Vital signs: Vital Signs Temperature 97.8 F 05/07/24 13:01 Pulse Rate 72 05/07/24 13:01 Respiratory Rate 15 05/07/24 13:01 Blood Pressure 123/70 05/07/24 13:01 Pulse Oximetry 95 05/07/24 13:01 Temperature 97.8 F 05/07/24 13:01 Pulse Rate 76 05/07/24 14:30 Respiratory Rate 17 05/07/24 14:30 Blood Pressure 123/70 05/07/24 13:01 P
[2024-05-07 15:59] LABS: Influenza A QL RT-PCR Negative (Negative); Influenza B QL RT-PCR Negative (Negative); RSV RNA, RT-PCR Negative (Negative); SARS-CoV-2 RNA PCR Negative (Negative)
== END 2024-05-07 23:21 | disposition home or self-care (01) ==
PROVIDERS: Emergency Medicine; Emergency Provider Emergency Medicine
DX: R05.9 Cough, unspecified (principal); R91.8 Other nonspecific abnormal finding of lung field; Z20.822 Contact with and (suspected) exposure to COVID-19; G35 Multiple sclerosis; N31.9 Neuromuscular dysfunction of bladder, unspecified; E55.9 Vitamin D deficiency, unspecified; D64.9 Anemia, unspecified; G25.81 Restless legs syndrome; F32.A Depression, unspecified; F41.9 Anxiety disorder, unspecified; Z86.711 Personal history of pulmonary embolism; Z87.891 Personal history of nicotine dependence; Z98.42 Cataract extraction status, left eye; Z98.41 Cataract extraction status, right eye; Z79.01 Long term (current) use of anticoagulants; Z79.899 Other long term (current) drug therapy; R94.31 Abnormal electrocardiogram [ECG] [EKG]; N13.30 Unspecified hydronephrosis; J90 Pleural effusion, not elsewhere classified
CPT/HCPCS: 36415; 71045; 71250; 80053; 83880; 84484; 85025; 85610; 85730; 87637; 93005; 99284

== ENCOUNTER 2024-09-23 13:59 | Emergency (ER) | payer MEDICARE, SELFPAY ==
--- NOTE | ~2024-09-23 | CT_ITS ---
EXAMINATION: CT brain wo con DATE: 09/23/2024 14:36 INDICATION: Head injury. TECHNIQUE: Computed tomography (CT) of the head was performed without intravenous contrast. The mA wa s adjusted according to patient size. Iterative reconstruction technique was employed. The dose-lengt h product was 681.00 mGy-cm. COMPARISON: Head CT 12/28/2023 FINDINGS: There are scattered areas of low attenuation in the cerebral white matter. There is diffuse brain volume loss. There is no intracranial hemorrhage, acute infarction, or abnormal intracranial m ass lesion. The ventricles are normal in size. Cavum septum pellucidum and vergae are noted. There ar e likely changes of ocular lens replacement surgeries. There is mild mucosal thickening in the parana tamara sinuses. The mastoid air cells are normal. There is right frontal scalp soft tissue swelling. IMPRESSION: 1. Stable moderate nonspecific cerebral white matter disease, which likely represents chronic small v essel ischemic disease. Reviewed, dictated and finalized at location A. [employer] IMPRESSION: 1. Stable moderate nonspecific cerebral white matter disease, which likely repr esents chronic small vessel ischemic disease.
[2024-09-23 14:02] VITALS: BP 147/75; PULSE 66; RESP 15; TEMP 36.3; O2SAT 95
--- OUTSIDE RECORDS SUMMARY | 2024-09-23 14:17 | XMS_ITS | Referral Summary ---
Author Organization [facility] Address [address] [place] [address] Care Team Providers Care Mixing Picker Tender Name Role Phone Unavailable Primary Care Provider Unavailabl e Encounters Date Type Department Care Team Description 09/03/2024 Telephone [facility] [place] [address] [phone] Aaron Quigley MD 07/28/2024 Telephone [facility] [place] [address] [phone] Aaron Quigley MD 07/28/2024 Telephone [facility] [place] [address] [phone] Aaron Quigley MD Test Results 07/25/2024 3:50 PM DIRECTOR FUNERAL Lab [address] [place] [id number] Multiple sclerosis (HCC); Vitamin D deficiency 07/25/2024 2:45 PM DIRECTOR FUNERAL Office Visit [facility] [address] [phone] Aaron Quigley MD Multiple sclerosis (HCC) (Primary Dx); Paraparesis (CMS/HCC) (HCC); Neurogenic bladder; Restless leg syndrome; 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) from Last 3 Months Allergies No known active allergies Medications cholecalciferol (VITAMIN D-3) 2,000 unit tabletIndicatio ns:Vitamin D Deficiency Take 2 caspules (4,000IU) by mouth daily Active IBUPROFEN ORALIndications :Pain Take 200 mg by mouth Alternates daily as needed with Tylenol 2 tabs every 8 hrs PRN for pain CLAY Palmer at Dr Robert's office Active melatonin 5 mg tablet Take 2 tablets (10 mg total) by mouth nightly Active aspirin 81 mg chewable tabletIndicatio ns:prevention of thrombosis Take 1 tablet (81 mg total) by mouth daily Active teriflunomide 14 mg tabletIndicatio ns:relapsing form of multiple sclerosis Take 1 tablet (14 mg total) by mouth daily 90 tablet 3 1 Active Additional Information Patient not taking.Reported on 07/25/2024 acetaminophen (TYLENOL) 500 mg tabletIndicatio ns:Pain Take 1 tablet (500 mg total) by mouth every 6 (six) hours as needed for pain Take 2 caplets every 6 hours as needed for pain while symptoms last, do not exceed 6 caplets in 24 hours. 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 Paraparesis with flexor contractures Baclofen no longer useful for spasms. Botox became ineffective. Previous treatment with Dr. Corine Vasquez. Hospital bed and Marquis lift Decubitus prevention discussed. Off Ampyra Assessment & Plan (11/25/2021 8:19 AM CDT): Paraparesis with flexor contractures Baclofen 20 mg every 8 hours Hospital bed and Marquis lift Decubitus prevention discussed Appointment with Dr. Vasquez for repeat Botox scheduled December 01, 2021. Apparently baclofen pump being considered. Off Ampyra Assessment & Plan (05/27/2021 8:02 AM CDT): Paraparesis with flexor contractures Baclofen 20 mg every 8 hours Hospital bed and Marquis lift Decubitus prevention discussed Appointment with Dr. Vasquez for Botox evaluation scheduled May 31, 2021. Off Ampyra Assessment & Plan (10/08/2020 8:01 AM DIRECTOR FUNERAL): Worsening paraparesis with flexor contractures Start baclofen 10-20 mg every 8 hours as needed Home occupational and physical therapy Hospital bed and Marquis lift Decubitus prevention discussed Appointment with Dr. Vasquez Off Ampyra Assessment & Plan (02/11/2020 11:40 AM CDT): Fall prevention discussed Exercise daily Stretch daily Assessment & Plan (08/05/2019 9:57 AM DIRECTOR FUNERAL): Use recumbent bike regularly Using walker or wheelchair; has electric wheelchair Fall prevention discussed Off Ampyra Assessment & Plan (01/23/2019 6:59 AM CDT): Use recumbent bike regularly Using cane or walker Fall prevention discussed Off Ampyra Assessment & Plan (07/25/2018 7:34 AM DIRECTOR FUNERAL): Use recumbent bike regularly Using cane or walker Fall prevention discussed Off Ampyra Assessment & Plan (01/04/2018 5:48 PM CDT): Use recumbent bike more regularly Ampyra. Risks discussed including seizures. Ongoing home physical therapy Fall prevention discussed Leukocytosis 12/19/2017 Restless leg syndrome 03/09/2017 Assessment & Plan (07/25/2024 5:40 PM DIRECTOR FUNERAL): Improved. Off pramipexole. Assessment & Plan (11/25/2021 8:21 AM CDT): Improved. Off pramipexole. Assessment & Plan (05/27/2021 8:03 AM CDT): Improved. Off pramipexole. Assessment & Plan (10/08/2020 7:53 AM DIRECTOR FUNERAL): Pramipexole 0.25 mg as needed Assessment & Plan (02/11/2020 11:41 AM CDT): Pramipexole 0.25mg 3-4 time per day Initiate gabapentin 300mg BID x 4 days, then TID. Contact me in a week Assessment & Plan (08/05/2019 9:58 AM DIRECTOR FUNERAL): Pramipexole 0.25 mg 3-4 times per day Assessment & Plan (01/23/2019 7:03 AM CDT): Ferritin 12/19/17: 118 (normal) Pramipexole 0.25 mg 3 times a day Assessment & Plan (07/25/2018 7:33 AM DIRECTOR FUNERAL): Pramipexole 0.25 mg 3 times a day Assessment & Plan (01/04/2018 5:49 PM CDT): Discontinue pramipexole Start ropinirole XL 2 mg daily for 1 week, then increase to 4 mg daily. Risks discussed including leg edema, drowsiness, and excessive gambling. Assessment & Plan (03/09/2017 11:35 AM CDT): Pramipexole 0.25 mg every 8 hours as needed. Depression due to multiple sclerosis 03/09/2017 Assessment & Plan (07/25/2024 5:40 PM DIRECTOR FUNERAL): Resume Lexapro 10 mg daily Assessment & Plan (11/25/2021 8:21 AM CDT): Improved on Lexapro 20 mg daily Still can be irritable in the late afternoon. Assessment & Plan (05/27/2021 8:04 AM CDT): Controlled on Lexapro 20 mg daily Assessment & Plan (10/08/2020 7:53 AM DIRECTOR FUNERAL): Lexapro 20 mg daily Assessment & Plan (02/11/2020 11:40 AM CDT): Lexapro 20mg BID. He confirms his agitation is due to these worsening spasms and wants to try gabapentin before making any other changes at this time. Assessment & Plan (08/05/2019 9:58 AM DIRECTOR FUNERAL): Lexapro 20 mg daily Assessment & Plan (01/23/2019 7:00 AM CDT): Lexapro 20 mg daily Assessment & Plan (07/25/2018 7:29 AM DIRECTOR FUNERAL): Lexapro 20 mg daily Assessment & Plan (01/04/2018 5:48 PM CDT): Lexapro 20 mg daily Assessment & Plan (03/09/2017 11:34 AM CDT): Lexapro 20 mg daily Neurogenic bladder 02/27/2014 Assessment & Plan (07/25/2024 5:40 PM DIRECTOR FUNERAL): Off Myrbetriq 50 mg daily No longer performing straight catheterizations Wears undergarments Previously seen by Dr. Shawn Aguirre. Assessment & Plan (11/25/2021 8:20 AM CDT): Off Myrbetriq 50 mg daily No longer performing straight catheterizations Using urinal Wears undergarments Previously seen by Dr. Shawn Aguirre. Assessment & Plan (05/27/2021 8:03 AM CDT): Off Myrbetriq 50 mg daily No longer performing straight catheterizations Follow-up with Dr. Shawn Aguirre Assessment & Plan (10/08/2020 7:52 AM DIRECTOR FUNERAL): Myrbetriq 50 mg daily No longer performing straight catheterizations Follow-up with Dr. Shawn Aguirre Assessment & Plan (08/05/2019 9:57 AM DIRECTOR FUNERAL): Continue catheterization Follow-up appointment with Dr. Timothy Miosebetriq 50 mg daily Assessment & Plan (01/23/2019 7:02 AM CDT): Recent urosepsis after stopping self catheterization Continue catheterization Follow-up appointment with Dr. Timothy Kaisertriq 50 mg daily Assessment & Plan (07/25/2018 7:33 AM DIRECTOR FUNERAL): Myrbetriq Assessment & Plan (01/04/2018 5:50 PM CDT): Myrbetriq Multiple sclerosis 08/12/2012 Overview (11/09/2016): MULTIPLE SCLEROSIS Assessment & Plan (07/25/2024 5:38 PM DIRECTOR FUNERAL): Resume teriflunomide 14 mg daily. Risks discussed including lymphocytopenia, hypertension and hepatotoxicity. Increased risk of serious complications including pneumonia and possibly if develops COVID-19 infection discussed with patient and his . Second COVID-19 vaccine 08/25/20. Booster vaccination advised. They understand that teriflunomide has favorable data regarding influenza vaccination, but potentially may not be protected by the COVID-19 vaccine. Paxlovid advised if he develops COVID- 19. Vitamin D3 supplement 8000 IU daily Last MRI scan performed in 2017. Patient unlikely to be able to tolerate lying flat in machine as discussed with patient's and [id number] at appointment. Assessment & Plan (11/25/2021 8:18 AM CDT): Aubagio 14 mg daily. Risks discussed including office lymphocytopenia and hepatotoxicity. Adherence to labs strongly emphasized since no labs since July 2019. Patient will be at [facility] on December 01 for Botox and will get labs done at that time. Increased risk of serious complications including pneumonia and possibly if develops COVID-19 infection discussed with patient and his . Patient has received his 2nd COVID-19 vaccine in approximately August 2020. Will arrange for home health administer booster. They understand that Aubagio has favorable data regarding influenza vaccination, but potentially may not be protected by the COVID-19 vaccine. Vit D3 supplement 8000 IU daily Assessment & Plan (05/27/2021 8:01 AM CDT): Aubagio 14 mg daily. Risks discussed including office lymphocytopenia and hepatotoxicity. Increased risk of serious complications including pneumonia and possibly if develops COVID-19 infection discussed with patient and his . Patient has received his 2nd COVID-19 vaccine in approximately August 2020. They understand that Aubagio has favorable data regarding influenza vaccination, but potentially may not be protected by the COVID-19 vaccine. Booster vaccination recommended. Vit D3 supplement 8000 IU daily Will arrange for home blood draw of vitamin D, CBC and liver function tests. Assessment & Plan (10/08/2020 8:01 AM DIRECTOR FUNERAL): Worsening paraparesis with flexor contractures. Restart Aubagio 14 mg daily. Risks discussed including hepatotoxicity. COVID-19 pandemic discussed. Patient has received his 2nd COVID-19 vaccine in approximately August 2020. Gabapentin 600 mg 3 times a day Vit D3 supplement 8000 IU daily Home health care with nursing evaluation required. Will arrange for home blood draw of CBC and liver function tests. Assessment & Plan (02/11/2020 11:39 AM CDT): No evidence of exacerbation, but terrible spasms that are likely leading to his falls and worsening his walking. Will initiate gabapentin 300mg BID for 4 days, then TID. Discussed dizziness, fatigue. He will contact me in a week with an update. [facility] [place] might be a great option once spasms controlled and COVID19 environment safer Discussed Aubagio and importance of DMT. He reports he has been taking it for the past few months. MRIs of the brain and cervical spine now. Diazepam 5mg #2 for MRI given if needed that day due to terrible spasms Blood work today Follow up with Dr. Singer mathew in 2 months Assessment & Plan (08/05/2019 9:56 AM DIRECTOR FUNERAL): Resume Aubagio 14 mg daily. Risks discussed including hepatotoxicity. Coverage options discussed including patient assistance programs. Vit D3 supplement 8000 IU daily MRI of the brain and cervical spine December 2019 Home health care arrange with nursing evaluation Assessment & Plan (01/23/2019 6:59 AM CDT): Aubagio 14 mg daily. Risks discussed including hepatotoxicity. Vit D3 supplement 8000 IU daily MRI of the brain and cervical spine December 2019 Home health care arrange with nursing evaluation Assessment & Plan (07/25/2018 7:35 AM DIRECTOR FUNERAL): Aubagio 14 mg daily. Risks discussed including hepatotoxicity. Vit D3 supplement 8000 IU daily MRI of the brain and cervical spine December 2019 Assessment & Plan (01/04/2018 5:47 PM CDT): Aubagio 14 mg daily. Risks discussed including hepatotoxicity. The benefits and risks of Ocrevus discussed including serious infusion reactions, serious infections including PML/fungal infections, and potential malignancy. After discussing the pros and cons of switching to Ocrevus versus continuing Aubagio, patient and would like to continue Aubagio for now. Vit D3 supplement Assessment & Plan (03/09/2017 11:35 AM CDT): Aubagio 14 mg daily. Risks discussed including hepatotoxicity. Risks and benefits of Tysabri discussed including serious infusion reaction, hepatotoxicity, serious infection including PML, and even . The benefits and risks of Ocrevus discussed including serious infusion reactions, serious infections including PML/fungal infections, and potential malignancy. Will switch to Tysabri if JCV ab negative. Vit D3 supplement Use recumbent bike 5 times per week, not twice a week. Ampyra initiation. Risks discussed including seizures. MRI brain and c-spine Mar 2018 Resolved Problems Problem Noted Date Diagnosed Date Resolved Date Falls 12/19/2017 01/04/2018 Generalized weakness 12/19/2017 018 Vitamin D insufficiency 03/09/2017 08/0 11/2016 Mixed anxiety depressive disorder 02/27/2014 01/04/2018 Immunizations Immunization Administration Dates Next Due Sars-CoV-2, Unspecified 08/25/2020,08/04/2020 Social History Tobacco Use Types Packs/Day Years Used Date Smoking Tobacco: Former Smokeless Tobacco: Never Alcohol Use Standard Drinks/Week Comments No 0 (1 standard drink = 0.6 oz pur e alcohol) AUDIT-C Answer Date Recorded Frequency of Alcohol Consumption Never 01/22/2019 Average Number of Drinks Not on file 019 Frequency of Binge Drinking Not on file 01/04 Sex and Gender Information Value Date Recorded Sex Assigned at Not on file Legal Sex Male 10:33 AM DIRECTOR FUNERAL Gender Identity Not on file Sexual Orientation Not on file Last Filed Vital Signs Vital Sign Reading Time Taken Comments Blood Pressure 130/86 07/25/2024 2:51 PM DIRECTOR FUNERAL Pulse 73 07/25/2024 2:51 PM DIRECTOR FUNERAL Temperature 36 C (96.8 F) 07/25/2024 2:51 PM DIRECTOR FUNERAL Respiratory Rate 18 05/22/2022 3:41 PM CDT Oxygen Saturation 94% 07/25/2024 2:5 1 PM DIRECTOR FUNERAL Inhaled Oxygen Concentration - - Weight 90.7 kg (200 lb) 07/25/2024 2:51 PM DIRECTOR FUNERAL Patient estimated Height 175.3 cm (5' 9 ) 07/25/2024 2:51 PM DIRECTOR FUNERAL Body Mass Index 29.53 07/25/2024 2:51 PM DIRECTOR FUNERAL Plan of Treatment Not on file Procedures Procedure Name Priority Date/Time Associated Diagnosis Comments EGFR Routine 07/25/2024 3:55 PM DIRECTOR FUNERAL Multiple sclerosis (HCC) DIFFERENTIAL AUTO Routine 07/25/2024 3:5 5 PM DIRECTOR FUNERAL Multiple sclerosis (HCC) CBC WITH AUTO DIFFERENTIAL Routine 07/25/2024 3:55 PM DIRECTOR FUNERAL Multiple sclerosis (HCC) COMPREHENSIVE METABOLIC PANEL Routine 07/25/2024 3:55 PM DIRECTOR FUNERAL Multiple sclerosis (HCC) VITAMIN D 25 HYDROXY Routine 07/25/2024 3:55 PM DIRECTOR FUNERAL Multiple sclerosis (HCC) Vitamin D deficiency TB TEST, QUANTIFERON GOLD Routine 07/25/2024 3:55 PM DIRECTOR FUNERAL Multiple sclerosis (HCC) from Last 3 Months Results * (ABNORMAL) eGFR (07/25/2024 3:55 PM DIRECTOR FUNERAL) eGFR 44(L) >=60 mL/min/1. 73 m2 Comment: Interpretive Data Reference Interval Normal >/= 90 mL/min/1.73m2 Mildly decreased* 60 - 89 mL/min/1.73m2 Mildly to moderately decreased 45 - 59 mL/min/1.73m2 Moderately to severely decreased 30 - 44 mL/min/1.73m2 Severely decreased 15 - 29 mL/min/1.73m2 Kidney Failure < 15 mL/min/1.73m2 *Relative to young adult level Estimated glomerular filtration rate is determined by the 2020 CKD-EPI equation recommended by the National Kidney Foundation (A Unifying Approach to GFR Estimation: Recommendations of the NKF-ASK Task Force on Reassessing the Inclusion of Race in Diagnosing Kidney Disease, JASN 2020). The CKD-EPI equation should not be used for patients with unstable renal function and has not been validated in children and those over 70. Current interpretive data was last reviewed 2021. Blood 07/25/2024 3:55 PM DIRECTOR FUNERAL 07/25/2024 7:28 PM DIRECTOR FUNERAL us Aaron Quigley MD LAB BLOOD ORDERABLES Final Re sult [facility] [address] Department [place] [address] * Differential, auto (07/25/2024 3:55 PM DIRECTOR FUNERAL) Neutrophil abs 5.7 1.5 - 6.5 K/cumm Imm gran abs 0.0 0.0 - 0.1 K/cumm [facility] Lymphocyte abs 2.3 0.8 - 3.3 K/cumm [facility] Monocyte abs 0.6 0.2 - 0.8 K/cumm [facility] Eosinophil abs 0.2 0.0 - 0.5 K/cumm [facility] Basophil abs 0.1 0.0 - 0.1 K/cumm [facility] Neutrophil pct 64.8 % [facility] Comment: Interpretive Data Percent cell count reference ranges are not reported, since discordance with absolute values may lead to misinterpretation of CBC data. Current Interpretive Data was last revised on 2017. Imm gran pct 0.3 % [facility] Comment: Interpretive Data Percent cell count reference ranges are not reported, since discordance with absolute values may lead to misinterpretation of CBC data. Current Interpretive Data was last revised on 2017. Lymphocyte pct 26.0 % [facility] Comment: Interpretive Data Percent cell count reference ranges are not reported, since discordance with absolute values may lead to misinterpretation of CBC data. Current Interpretive Data was last revised on 2017. Monocyte pct 6.6 % [facility] Comment: Interpretive Data Percent cell count reference ranges are not reported, since discordance with absolute values may lead to misinterpretation of CBC data. Current Interpretive Data was last revised on 2017. Eosinophil pct 1.7 % [facility] Comment: Interpretive Data Percent cell count reference ranges are not reported, since discordance with absolute values may lead to misinterpretation of CBC data. Current Interpretive Data was last revised on 2017. Basophil pct 0.6 % [facility] Comment: Interpretive Data Percent cell count reference ranges are not reported, since discordance with absolute values may lead to misinterpretation of CBC data. Current Interpretive Data was last revised on 2017. Blood 07/25/2024 3:55 PM DIRECTOR FUNERAL 07/25/2024 7:27 PM DIRECTOR FUNERAL us Aaron Quigley MD LAB BLOOD ORDERABLES Final Re sult [facility] Organization Address City/State/ZIP Co de Phone Number [facility] [address] Department [place] [address] * TB test, quantiferon gold (07/25/2024 3:55 PM DIRECTOR FUNERAL) [facility] Quantiferon TB Gold Negative Negative [facility] Comment: No interferon-gamma response to M. tuberculosis antigens was detected. Latent infection with M. tuberculosis is unlikely. A single negative result does not exclude infection with M. tuberculosis. In patients at high risk for M.tuberculosis infection, a second test should be considered in accordance with the 2017 ATS/IDSA/CDC Clinical Practice Guidelines for Diagnosis of Tuberculosis in Adults and Children [Mirella MCNEIL et. al. Clin. Infect. Dis. 2017;64(2):111-115]. The reference range for the 'TB1 Ag minus Nil Result' and 'TB2 Ag minus Nil Result' is an Interferon-gamma level <0.35 IU/mL. TB-Nil 0.04 IUnits/mL [facility] TB2-Nil 0.03 IUnits/mL [facility] Mitogen-Nil 9.99 IUnits/mL [facility] NIL 0.01 IUnits/mL [facility] Comment: Test Performed by: [facility] [address] [id number] [employer] Attorney: Vincenzo Madison Ph.D.; CLIA# [id number] Blood 07/25/2024 3:5 5 PM DIRECTOR FUNERAL 07/25/2024 6:21 PM DIRECTOR FUNERAL us Aaron Quigley MD LAB BLOOD ORDERABLES Final Re sult [facility] [address] Department [place] [address] [facility] * (ABNORMAL) CBC with auto differential (07/25/2024 3:55 PM DIRECTOR FUNERAL) WBC 8.8 3.8 - 9.9 K/cumm Hgb 12.5(L) 13.0 - 17.5 g/dL [facility] Hct 39.7 38.9 - 50.3 % [facility] Plt 276 150 - 400 K/cumm [facility] MPV 11.8 9.1 - 12.3 fL [facility] RBC 4.57 4.30 - 5.80 M/cumm [facility] MCV 86.9 81.3 - 96.4 fL [facility] MCH 27.4 27.1 - 33.3 pg [facility] MCHC 31.5(L) 32.3 - 35.7 g/dL [facility] RDW CV 14.9 11.1 - 14.9 % [facility] RDW SD 47.3 35.7 - 48.1 fL [facility] NRBC abs 0.00 0.00 - 0.01 K/cumm [facility] Blood 07/25/2024 3:55 PM DIRECTOR FUNERAL 07/25/2024 7:27 PM DIRECTOR FUNERAL us Aaron Quigley MD LAB BLOOD ORDERABLES Final Re sult Performing Organization Address [facility] Co de Phone Number [facility] [address] [facility] [place] [address] * Vitamin D 25 hydroxy (07/25/2024 3:55 PM DIRECTOR FUNERAL) Pathologist [facility] Vitamin D 25-OH 76 30 - 80 ng/mL Blood 07/25/2024 3:55 PM DIRECTOR FUNERAL 07/25/2024 7:28 PM DIRECTOR FUNERAL us Aaron Quigley MD LAB BLOOD ORDERABLES Final Re sult Performing Organization Address [facility] Phone Number [facility] [address] [facility] [place] [address] * (ABNORMAL) Comprehensive metabolic panel (07/25/2024 3:55 PM DIRECTOR FUNERAL) [facility] Sodium 139 135 - 145 mmol/L Potassium, pl 4.1 3.3 - 4.9 mmol/L [facility] Chloride 102 97 - 110 mmol/L [facility] CO2 25 22 - 32 mmol/L [facility] Anion gap 12 2 - 15 mmol/L [facility] BUN 30(H) 6 - 25 mg/dL [facility] Creatinine 1.65(H) 0.80 - 1.30 mg/dL [facility] Glucose 115 70 - 199 mg/dL [facility] Comment: Interpretive Data Fasting glucose >/= 126 mg/dl is diagnostic for diabetes. Fasting is defined as no caloric intake for at least 8 hours. Fasting glucose between 100 mg/dl to 125 mg/dl is diagnostic of prediabetes. In a patient with classic symptoms of hyperglycemia or hyperglycemic crisis, a random glucose >/= 200 mg/dl is diagnostic for diabetes. In the absence of unequivocal hyperglycemia, results should be confirmed by repeat testing. The classification and Diagnosis of Diabetes Diabetes Care 202; 46: S19-S40. Current interpretive data was last revised 2022. Calcium 9.2 8.5 - 10.3 mg/dL [facility] Bilirubin, total 0.2 0.1 - 1.2 mg/dL [facility] Protein, pl 8.1 6.5 - 8.5 g/dL [facility] Albumin 4.0 3.5 - 5.0 g/dL [facility] Alk phos 85 40 - 130 Units/L [facility] ALT 10 7 - 55 Units/L [facility] AST 13 10 - 50 Units/L [facility] Blood 07/25/2024 3:55 PM DIRECTOR FUNERAL 07/25/2024 7:28 PM DIRECTOR FUNERAL us Aaron Quigley MD LAB BLOOD ORDERABLES Final Re sult [facility] [address] Department [place] [address] from Last 3 Months Insurance MEDIC[employer] [facility]IC[facility] Address: [facility] [address] [place] [address] MEDICARE [employer] [facility] Address: [address] [address] [place] [address] [facility] HMO/PPO Address: [address] [address] [place] [address] [employer] [facility] MEDIC[facility] Address: [address] [address] [place] [address] MEDICARE [employer] Advance Directives For more information, please contact: [phone] * Full Code (Latest Code Status on File) Date Activated Date Inactivated Comments 01/28/2019 2:40 PM * Full Code Date Activated Date Inactivated Comments 12/27/2017 8:57 PM 01/28/2019 9:44 PM * Full Code Date Activated Date Inactivated Comments 12/26/2017 10:08 PM 12/27/2017 8:57 PM * Full Code Date Activated Date Inactivated Comments 12/19/2017 6:20 PM 12/20/2017 8:38 PM
--- OUTSIDE RECORDS SUMMARY | 2024-09-23 14:17 | XMS_ITS | Encounter Summary ---
Author Organization [facility] Healthcare Address [address] [place] [address] Care Team Providers Care Masonry Contractor Administrator Name Role Phone Unavailable Primary Care Provider Unavailabl e Reason for Visit * Reason Onset Date Comments Prescreening 02/24/2020 Voicemail appt gumrao summers Encounter Details Date Type Department Care Team (Late st Contact Info) Description 02/24/2020 Telephone [facility] - Imaging [address] [place] [address] Lola Starkey RT Prescreening (Voicemail appt reminder) Social History Tobacco Use Types Packs/Day Years [...] on file Legal Sex Male 10:33 AM [employer] INTER[employer] Gender Identity Not on file Sexual Orientation Not on file documented as of this encounter Plan of Treatment Not on file documented as of this encounter Visit Diagnoses Not on filedocumented in this encounter
--- OUTSIDE RECORDS SUMMARY | 2024-09-23 14:17 | XMS_ITS | Continuity of Care Document ---
Author Organization [facility] Address [place], [place] [address] Care Team Providers Care Central Office Installer Name Role Phone Corine Vasquez MD Unavailable Unavailable Allergies, Adverse Reactions, Alerts Substance Reaction Status Criticality No Known Allergies Active No Inform ation Medications Medication Instructions Dosage Effective Dates (start - stop) Status Comments BACLOFEN (unknown strength) Not Available - Active ESCITALOPRAM OXALATE (unknown strength) Not Available - Active AUBAGIO (unknown strength) Not Available - Active Procedures Procedure Date OFFICE/OUTPATIENT VISIT [facility] Advance Directives Directive Yes / No Effective Date File Name No Information Encounters Encounter Description Practice Location Reason(s) For Visit Diagnoses Date Provider Providers Copied on Encounter [facility], [place], [address], [facility] Multiple sclerosisAmbu latory dysfunctionWh eelchair dependent 2 Pedro Pool. [address], [place], [place], [id number] . tel: [phone] [facility], [place], [address], [facility] Spasticity seocndary to MS (chief complaint) Body mass index [BMI] 31.0-31.9, adultMultiple sclerosisRest less leg syndromeDepre ssion with anxietyUnspec ified mental disorder due to known physiological conditionVita min D deficiencyIns omnia due to medical conditionLeft abducens nerve palsyNeuropat hic painNeurogeni c bladderAmbula tory dysfunctionWh eelchair dependent 2 Pedro Pool. [address], [place], [place], [id number] . tel: [phone] [facility], [place], [address], [facility] Spasticity Secondary to MS (chief complaint) Multiple sclerosisRest less leg syndromeDepre ssion with anxietyUnspec ified mental disorder due to known physiological conditionVita min D deficiencyIns omnia due to medical conditionLeft abducens nerve palsyNeuropat hic painNeurogeni c bladderAmbula tory dysfunctionWh eelchair dependentBody mass index [BMI] 31.0-31.9, adult 2 Pedro Pool. [address], [place], [place], [id number] . tel: [phone] [facility], [place], [place], [facility], [facility] Spasticity secondary to MS (chief complaint) Body mass index [BMI] 31.0-31.9, adultMultiple sclerosisRest less leg syndromeDepre ssion with anxietyUnspec ified mental disorder due to known physiological conditionVita min D deficiencyIns omnia due to medical conditionLeft abducens nerve palsyNeuropat hic painNeurogeni c bladderAmbula tory dysfunctionWh eelchair dependent 2 Pedro Pool. [address], [place], [place], [id number] . tel: [phone] OFFICE/OUTPA TIENT VISIT NEW [facility], [place], [place], [facility], [facility] MS (chief complaint) Body mass index [BMI] 31.0-31.9, adultNeurogen ic bladderAmbula tory dysfunctionWh eelchair dependentDepr ession with anxietyInsomn ia due to medical conditionRest less leg syndromeVitam in D deficiencyNeu ropathic painMultiple sclerosisLeft abducens nerve palsyUnspecif ied mental disorder due to known physiological condition 1 Pedro Pool. [address], [place], [place], [id number] . tel: [phone] Family History Family Member Type Diagnosis Age At Onset No Information Payers Payer name Insurance type Covered libertarian ID Authoriza tigiuliano(s) [facility] Medicare Complete PPO/POS OT [id number] Social History Type Description Quantity Date Captured Comments Alcohol Use Details Unknown Caffeine Use Details Unknown Tobacco Use Status No Information Smoking Status No Information Sex Male Chief Complaint And Reason For Visit No Information Reason For Referral Reason For Referral No Information Plan Of Treatment Date Type Action Status Referral Referred To: Marquis Lift Ordered: Referrals: Marquis Lift. Evaluate and treat ordered Referral Referred To: Communications And Signals Supervisor Ordered: Referrals: Communications And Signals Supervisor. Evaluate and treat ordered Nutrition Recommendation Nutrition / feed ing management completed History Of Present Illness Encounter Date Complaint History Of Prese nt Illness Spasticity seocndary to MS Elbert andre s being seen in our office today, accompanied by his for a previously scheduled appointment for botulinum toxin injections. The patient is a very pleasant 66 year old man referred to us by Dr. Aaron Quigley for the management of his multiple sclerosis (MS) related spasticity. Today, Elbert is doing well. He tells me that he was in the hospital about 2 weeks ago because he was having chest pain. Spasticity Secondary to MS Elbert andre s being seen in our office today, accompanied by his for a previously scheduled appointment for botulinum toxin injections. The patient is a very pleasant 66 year old man referred to us by Dr. Aaron Quigley for the management of his multiple sclerosis (MS) related spasticity. He reports that his last round of injections were helpful. He reports that he does stretching at home to help with spasticity. He denies any falls, hospital visits, or changes to medications and allergies. Spasticity secondary to MS Elbert andre s being seen in our office today, accompanied by his for his first round of botulinum toxin injections. The patient is a very pleasant 66 year old man referred to us by Dr. Aaron Quigley for the management of his multiple sclerosis (MS) related spasticity. Elbert was diagnosed with MS 9 years ago. As a result of the MS he has weakness and spasticity in the lower extremities. The spasticity interferes with mobility and with ADLs. It causes discomfort. The patient requires a Marquis lift to transfer. He is not able to ambulate. He denies any falls or hospital visits recently. He is not currently doing any therapy. MS Boswell is being see n in our office today, accompanied by his for a new patient evaluation. The information was obtained from the patient, his , and records provided by Dr. Quigley. The patient is a very pleasant 66 year old man referred to us by Aaron Quigley for the management of his multiple sclerosis (MS) related spasticity. According to the records, Elbert was diagnosed with MS 9 years ago. Elbert could not quite tell me how the MS presented. As a result of the MS he has weakness and spasticity in the lower extremities. In addition, he has urinary urgency and incontinence. The patient tells me that about a year ago (he is unsure when) he was hospitalized with UTI. After his UTI was treated, he was transferred to a rehabilitation facility. Following his stay in the rehabilitation facility, Elbert went into a detention for therapy. Unfortunately, he tells me that he received absolutely no therapy . His says that it was at that time when his lower extremity spasticity and tightness worsened to the point that now is very difficult or impossible to straighten his legs. He is unable to transfer without a Marquis, which was not the case prior to being in the nursing facility. He has not been able to ambulate. His tells me that she has to assist with all of his ADLs, as well as bed mobility and transfers. He uses a roll in shower chair to get in the shower. His helps with the transfers and with bathing as well as with toileting. He tells me that he is able to propel his manual wheelchair. Devora, his of over 30 years, is very supportive. She tells me that someone is always with Elbert, due to the level of assistance that he now requires. Functional Status Date Functional Assessmen t No Information Instructions Date Instruction Additional Infor mation Giving encouragement to exercise Related to Body mass index [BMI] 31.0-31.9, adult Giving encouragement to exercise Related to Body mass index [BMI] 31.0-31.9, adult Giving encouragement to exercise Related to Body mass index [BMI] 31.0-31.9, adult Assessments Type Assessment Date assessment Multiple sclerosis assessment Ambulatory dysfunction assessment Wheelchair dependent Patient Care Teams Name Effective Dates (start - stop) Status Members No Information
--- OUTSIDE RECORDS SUMMARY | 2024-09-23 14:17 | XMS_ITS | Clinical Summary ---
Author Organization [facility] Address [address] [place] [address] Care Team Providers Care Collateral Clerk Name Role Phone Unavailable Primary Care Provider Unavailabl e Source Comments [facility] [place],non-owned Affiliates and Associated Physician Practices is amultiple site organization consisting of ambulatory clinics and hospital sitesin [place], [place], [place] and [place]. This disclosure is being madepursuant to the Care Everywhere program and may not contain all information available regarding this patient. Last updated 18.[facility] [place] Active Problems Problem Noted Date Diagnosed Date Hydrocephalus 08/11/2020 Social History Tobacco Use Types Packs/Day Years Used Date Smoking Tobacco: Never Assessed Sex and Gender Information Value Date Recorded Sex Assigned at Not on file Gender Identity Not on file Sexual Orientation Not on file Plan of Treatment Health Maintenance Due Date Last Done Comments COLOGUARD (AGES 45-75) - COL ON CA SCREENING 1954 COLON MONITORING 1954 COLONOSCOPY - COLON CA SCREENING 1954 CT COLONOGRAPHY - COLON CA SCREENING 1954 Colorectal Cancer Screening 1954 FIT - COLON CA SCREENING 1954 FLEX SIG - COLON CA SCREENING 1954 LIPID TESTING 1954 HEPATITIS C SCREENING 04/30/1972 DTAP/TDAP/TD VACCINES (1 - Tdap) 1973 PNEUMOCOCCAL VACCINE 50+ (1 of 1 - PCV) 2004 ZOSTER VACCINE (1 of 2) 2004 COVID-19 VACCINE ( - 2023-2 5 season) 2024 INFLUENZA VACCINE (#1) 2024 DEPRESSION SCREENING 08/06/2024 MEDICARE AWV CALENDAR YEAR 2024 Respiratory Syncytial Virus (RSV) Vaccine Pt: or over 60 yrs (1 - 1-dose 75+ series) 2029 HEPATITIS B VACCINE Aged Out No longe r eligible based on patient's age to complete this topic HIB VACCINE Aged Out No longer eligi ble based on patient's age to complete this topic HPV VACCINE Aged Out No longer eligi ble based on patient's age to complete this topic MENINGOCOCCAL (Group B) VACCINE Aged Out No longer eligible based on patient's age to complete this topic MENINGOCOCCAL VACCINE Aged Out No lisa pipe eligible based on patient's age to complete this topic
--- OUTSIDE RECORDS SUMMARY | 2024-09-23 14:17 | XMS_ITS | Patient Health Summary ---
Author Organization [facility] Address [address] [place] [address] Care Team Providers Care Office Nurse Practitioner Name Role Phone Unavailable Primary Care Provider Unavailabl e Note from [facility],non-owned Affiliates and Associated Physician Practices is amultiple site organization consisting of ambulatory clinics and hospital sitesin [place], [place], [place] and [place]. This disclosure is being madepursuant to the Care Everywhere program and may not contain all information available regarding this patient. Last updated 18.[facility] Active Problems Problem Noted Date Diagnosed Date Hydrocephalus 08/11/2020 Social History Tobacco Use Types Packs/Day Years Used Date Smoking Tobacco: Never Assessed Sex and Gender Information Value Date Recorded Sex Assigned at Not on file Gender Identity Not on file Sexual Orientation Not on file
--- OUTSIDE RECORDS SUMMARY | 2024-09-23 14:17 | XMS_ITS | Encounter Summary ---
Author Organization [facility] Healthcare Address [address] [place] [address] Care Team Providers Care Luster Applicator Name Role Phone Unavailable Primary Care Provider Unavailabl e Encounter Details Date Type Department Care Team (Late st Contact Info) Description 02/12/[address] 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
--- OUTSIDE RECORDS SUMMARY | 2024-09-23 14:17 | XMS_ITS ---
Author Organization [facility] Address Unknown Problems Problem Status Start Date End Date MULTIPLE SCLEROSIS (Primary) (G35 - ICD-10-CM) ACTIVE 03/25/2020 ENCEPHALOPATHY, UNSPECIFIED (G93.40 - ICD-10-CM) ACTIV E 03/25/2020 RESTLESS LEGS SYNDROME (G25.81 - ICD-10-CM) ACTIVE 03/25/2020 MAJOR DEPRESSIVE DISORDER, S ANJALI EPISODE, UNSPECIFIED (F32.9 - ICD-10-CM) ACTIVE 03/25/2020 ANXIETY DISORDER, UNSPECIFIED (F41.9 - ICD-10-CM) ACTI VE 03/25/2020 INSOMNIA, UNSPECIFIED (G47.00 - ICD-10-CM) ACTIVE 03/25/2020 NEUROMUSCULAR DYSFUNCTION OF BLADDER, UNSPECIFIED (N31.9 - ICD-10-CM) ACTIVE 03/25/2020 MORBID (SEVERE) OBESITY DUE TO EXCESS CALORIES (E66.01 - ICD-10-CM) ACTIVE 03/25/2020 BODY MASS INDEX [BMI]40.0-44.9, ADULT (Z68.41 - ICD-10 -CM) ACTIVE 03/25/2020 MUSCLE WEAKNESS (GENERALIZED) (M62.81 - ICD-10-CM) ACT FIGUEROA 03/29/2020 DIFFICULTY IN WALKING, NOT E LSEWHERE CLASSIFIED (R26.2 - ICD-10-CM) ACTIVE 03/29/2020 ENCOUNTER FOR SCREENING FOR OTHER VIRAL DISEASES (Z11.59 - ICD-10-CM) ACTIVE 03/31/2020 CONTACT WITH AND (SUSPECTED) EXPOSURE TO OTHER VIRAL COMMUNICABLE DISEASES (Z20.828 - ICD-10-CM) ACTIVE 03/31/2020 COVID-19 (U07.1 - ICD-10-CM) ACTIVE 04/06/2020 NEED FOR ASSISTANCE WITH PERSONAL CARE (Z74.1 - ICD-10 -CM) ACTIVE 04/07/2020 PRESENCE OF PROSTHETIC HEART VALVE (Z95.2 - ICD-10-CM) ACTIVE 03/29/2020 PERMANENT ATRIAL FIBRILLATION (I48.21 - ICD-10-CM) ACT FIGUEROA 03/29/2020 UNSPECIFIED DEMENTIA WITH BE HAVIORAL DISTURBANCE (F03.91 - ICD-10-CM) ACTIVE 08/21/2020 UNSPECIFIED PSYCHOSIS NOT DU E TO A SUBSTANCE OR KNOWN PHYSIOLOGICAL CONDITION (F29 - ICD-10-CM) ACTIVE 08/21/2020 Results * Individual Tests: Culture, Urine Performed by: IES Value Range Date CULTURE, URINE . 05/21/2020 07 :57 pm EDT * Individual Tests: Lactic Acid Performed by: IES Value Range Date Lactic Acid Plasma 1.0 mmol/L 0.5-2.2 0 05:36 am EDT * Individual Tests: Urinary Tract Infection ID by PCR / UTI Antibiotic Resistance by PCR Performed by: IES Value Range Date UTI ID by PCR . 05/19/2020 02: 25 pm EDT * UTI Antibiotic Resistance by PCR Performed by: IES Value Range Date UTI ABR by PCR . 05/19/2020 02 :25 pm EDT NULL . 05/19/2020 02:2 5 pm EDT UTI Antibiotic Resistance by PCR See Attachment 05/19/2020 02:25 pm EDT * Hemoglobin A1C Performed by: IES Value Range Date ESTIMATED AVERAGE GLUCOSE 105 MG/DL 04:18 am EDT HEMOGLOBIN A1C 5.3 % HBA1C 4.0-6.0 05/19/2020 04 :18 am EDT * Individual Tests: Ammonia / B12/Folate Panel / Complete Blood Count/Auto Diff Performed by: IES Value Range Date AMMONIA 43.0 UMOL/L 16-53 05/18/2020 03:2 9 pm EDT * B12/Folate Panel Performed by: IES Value Range Date VITAMIN B-12 317 PG/ML 180-914 05/18/2020 03:2 9 pm EDT FOLIC ACID (FOLATE) 2.61 NG/ML >5.8 05/18/20 20 03:29 pm EDT * Complete Blood Count/Auto Diff Performed by: IES Value Range Date HEMOGLOBIN 12.5 G/DL 14.0 - 18.0 05/18/2020 03:2 9 pm EDT RED BLOOD CELLS (RBC) 4.25 M/UL 4.5-6.3 2019 03:29 pm EDT MCHC 32.9 G/DL 32-36 05/18/2020 03:2 9 pm EDT MCH 29.3 PG 27-32 05/18/2020 03:2 9 pm EDT HEMATOCRIT 37.9 % 41.0-51.0 05/18/2020 03:2 9 pm EDT WHITE BLOOD CELLS (WBC) 3.5 K/UL 4.0-10.0 05/06 03:29 pm EDT MCV 89.2 FL 80-94 05/18/2020 03:2 9 pm EDT PLATELET COUNT 166 K/UL 140-440 05/18/2020 03 :29 pm EDT RDW 16.2 % 12.0-16.0 05/18/2020 03:2 9 pm EDT NEUTROPHILS, % 36.9 % 36.0-66.0 05/18/2020 03 :29 pm EDT BASOPHILS, ABS 0.10 K/UL 0.0-0.3 05/18/2020 03 :29 pm EDT LYMPHOCYTES, ABS 1.70 K/UL 0.6-3.4 05/18/2020 03:29 pm EDT LYMPHOCYTES, % 48.0 % 24.0-44.0 05/18/2020 03 :29 pm EDT BASOPHILS, % 1.6 % 0.0-2.5 05/18/2020 03:2 9 pm EDT EOSINOPHILS, % 4.2 % 0.0-4.0 05/18/2020 03 :29 pm EDT MONOCYTES, % 9.3 % 0.0-8.0 05/18/2020 03:2 9 pm EDT NEUTROPHILS, ABS 1.30 K/UL 2.0-6.9 05/18/2020 03:29 pm EDT EOSINOPHILS, ABS 0.10 K/UL 0.0-0.5 05/18/2020 03:29 pm EDT MONOCYTES, ABS 0.30 K/UL 0.0-0.9 05/18/2020 03 :29 pm EDT DIFFERENTIAL TYPE AUTO 05/18/2020 03:29 pm EDT * Urinalysis, Complete with Reflex Performed by: [employer]hands Component Value Range Date BILIRUBIN NEGATIVE MG/DL NEGATIVE 05/18/2020 02 :40 pm EDT GLUCOSE NEGATIVE MG/DL NEGATIVE 05/18/2020 02 :40 pm EDT BLOOD SMALL MG/DL NEGATIVE 05/18/2020 02:4 0 pm EDT KETONE NEGATIVE MG/DL NEGATIVE 05/18/2020 02 :40 pm EDT LEUKOCYTE ESTERASE MODERATE NEGATIVE 0 02:40 pm EDT NITRITE NEGATIVE NEGATIVE 05/18/2020 02:4 0 pm EDT pH 6.0 5.0-7.5 05/18/2020 02:4 0 pm EDT PROTEIN NEGATIVE MG/DL NEGATIVE 05/18/2020 02 :40 pm EDT SPECIFIC GRAVITY 1.018 1.003-1.033 05/18/2020 02:40 pm EDT UROBILINOGEN <2.0 MG/DL <2.0 05/18/2020 02:4 0 pm EDT COLOR YELLOW CLEAR/YEL/STRA W 05/18/2020 02:40 pm EDT WHITE BLOOD CELL 0-4 0-4 05/18/2020 02:40 pm EDT BACTERIA MODERATE NONE 05/18/2020 02:4 0 pm EDT RED BLOOD CELL 0-4 0-4 05/18/2020 02 :40 pm EDT CLARITY CLEAR CLEAR 05/18/2020 02:4 0 pm EDT MUCOUS SMALL NONE/SMALL 05/18/2020 02:4 0 pm EDT CULTURE INDICATED? YES 0 02:40 pm EDT SQUAMOUS EPITHELIAL 0-4 0-4 05/18/20 20 02:40 pm EDT AMORPHOUS CRYSTAL RARE NONE 05/18/2020 02:40 pm EDT * Individual Tests: Spec: Concrete Grinder Operator unable to obtain Performed by: [employer] Component Value Range Spec: Concrete Grinder Operator unable to obtain Complete 05/18/2020 11:33 am EDT * Individual Tests: SARS-CoV-2 (COVID-19) Performed by: [employer] Component Value Range SARS-CoV-2 (COVID-19) NOT DETECTED NOT DETECTED 2019 10:15 pm EDT * Individual Tests: R-Comment Performed by: [employer] Component Value Range Date R-Comment Complete 04/12/2020 10:4 8 am EDT * Individual Tests: SARS-CoV-2 (COVID-19) Performed by: [employer] Component Value Range Date SARS-CoV-2 (COVID-19) NOT DETECTED NOT DETECTED 2019 12:20 pm EDT * Individual Tests: SARS-CoV-2 (COVID-19) Performed by: [employer] Component Value Range Date SARS-CoV-2 (COVID-19) NOT DETECTED NOT DETECTED 2019 06:00 am EDT * KNEE AP OR LAT 1- 2V Performed by: [email or web address] Component Value Range Date KNEE AP OR LAT 1- 2V KNEE AP OR LAT 1- 2 VReason for Study: M25.562 PAIN IN LEFT KNEEPrincipal Result Woodwork Teacher: TRACE CHOUDHURY ([id number])Pick Up And Delivery Driver: TINO TIAN (MTEKA)Melon Packer Pick Up And Delivery Driver: ADIS 06/25/2020 04:50 pm EST * HIP UNI W OR W/O PELVIS 2-3 V Performed by: [email or web address] Component Value Range Date HIP UNI W OR W/O PELVIS 2-3 V HIP UNI W OR W/O PELVIS 2-3 VKNEE AP OR LAT 1- 2V, LEFTResults: No acute fracture or dislocation. The osseous structures appear intact. Joint spaces are narrowed. Soft tissues are unremarkable.Conclusion: No acute osseous abnormality. Degenerative changes.Electronically signed by TRACE CHOUDHURY M.D. 06/25/2020 3:50:29 PM ACCOUNTING OFFICER. HIP UNI W OR W/O PELVIS 2-3 V, LEFTResults: No acute fracture or dislocation. The osseous structures appear intact. Joint spaces are narrowed. Soft tissues are unremarkable.Conclusion: No acute osseous abnormality. Degenerative changes.Electronically signed by TRACE CHOUDHURY M.D. 06/25/2020 3:50:29 PM ACCOUNTING OFFICER.Reason for Study: M25.552 PAIN IN LEFT HIPPrincipal Result Woodwork Teacher: TRACE CHOUDHURY ([id number])Pick Up And Delivery Driver: TINO TIAN (MTEKA)Melon Packer Pick Up And Delivery Driver: ADIS 06/25/2020 04:50 pm EST * XRAY CHEST 1 VIEW Performed by: [employer] Component Value Range Date XRAY CHEST 1 VIEW XRAY CHEST 1 VIEWXRA Y CHEST 1 VIEWResults: The heart is normal in size and configuration. The mediastinum is normalwithout adenopathy. The lung levy are clear without mass, infiltrate, congestion,or effusion. There is hyperinflation consistent with chronic obstructive pulmonarydisease. The osseous structures are unremarkable.Conclusion: Hyperinflation, with clear lungs.Electronically signed by PACHECO KONG M.D. 04/11/2020 5:40:50 PM CDT.Reason for Study: J18.9 PNEUMONIA, UNSPECIFIED ORGANISMPrincipal Result Woodwork Teacher: DINORA KONG ([id number])Pick Up And Delivery Driver: JEANETH HANNA (JGROVES)Melon Packer Pick Up And Delivery Driver: ADIS 04/11/2020 06:41 pm EDT Encounters Encounter Performer Performer Role Encounter Diagnoses Location Date Discharge - Discharged / Transferred to another [facility] 03/25/2020 12:30 pm EDT - 04/03/2020 04:00 pm EDT Discharge - Discharged / Transferred to another [facility] 04/06/2020 07:00 pm EDT - 05/26/2020 09:00 pm EDT Discharge - Discharged / Transferred to another [facility] 05/29/2020 06:15 pm EDT - 06/06/2020 08:00 am EST Discharge - Discharged / Transferred to another [facility] 06/08/2020 08:27 pm EST - 08/11/2020 03:30 pm EST Discharge - Discharged to home or self care - Other - Private home/apt. with home health services [facility] 08/21/2020 06:02 pm EST - 09/21/2020 11:47 am EST Immunizations Vaccine Date SARS-COV-2 (COVID-19) 08/25/2020 11:00 a m EST SARS-COV-2 (COVID-19) 08/04/2020 01:00 a m EST Social History
--- OUTSIDE RECORDS SUMMARY | 2024-09-23 14:17 | XMS_ITS | Continuity of Care Document ---
Author Organization [facility] Address [address] [place] [address] Phone Care Team Providers Care Business Operations Director Name Role Phone Mick Hammond Unavailable Unavailable Procedures Procedure Date Office Consultation Advance Directives Directive Yes / No Effective Date File Name No Information Encounters Encounter Description Practice Location Reason(s) For Visit Diagnoses Date Provider Providers Copied on Encounter Office Consultation [facility], [address], [place], [place], [id number], [place] tel:[phone] [facility] No Information 9-[address] Stephany Barton. [address] , [address], [place], [place], [facility], [place]. tel:[phone] Referring Provider: Avtar Simon MD, [address], [address]. tel:[phone] Family History Family Member Type Diagnosis Age At Onset No Information Payers Payer name Insurance type Covered libertarian ID Authoriza tion(s) No Information Social History Type Description Quantity Date Captured Comments Sex Male Smoking Status No Information Chief Complaint And Reason For Visit No Information Reason For Referral Reason For Referral No Information History Of Present Illness Encounter Date Complaint History Of Prese nt Illness No Information Functional Status Date Functional Assessmen t No Information Instructions Date Instruction Additional Infor mation No Information Assessments Type Assessment Date No Information Patient Care Teams Name Effective Dates (start - stop) Status Members No Information
--- OUTSIDE RECORDS SUMMARY | 2024-09-23 14:17 | XMS_ITS | Referral Summary ---
Author Organization [facility] Address [address] [place] [address] Care Team Providers Care Web Content Executive Name Role Phone Unavailable Primary Care Provider Unavailabl e Source Comments [facility],non-owned Affiliates and Associated Physician Practices is amultiple site organization consisting of ambulatory clinics and hospital sitesin [place], [place], [place] and [place]. This disclosure is being madepursuant to the Care Everywhere program and may not contain all information available regarding this patient. Last updated 18.[facility] Command Information Active Problems Problem Noted Date Diagnosed Date Hydrocephalus 08/11/2020 Social History Tobacco Use Types Packs/Day Years Used Date Smoking Tobacco: Never Assessed Sex and Gender Information Value Date Recorded Sex Assigned at Not on file Gender Identity Not on file Sexual Orientation Not on file Plan of Treatment Not on file
--- OUTSIDE RECORDS SUMMARY | 2024-09-23 14:17 | XMS_ITS | Encounter Summary ---
Author Organization [facility] Healthcare Address [address] [place] [address] Care Team Providers Care Logistician Name Role Phone Unavailable Primary Care Provider Unavailabl e Reason for Visit * Reason Onset Date Comments covid screening/info 02/04/2020 lm for the pt with mri info Encounter Details Date Type Department Care Team (Late st Contact Info) Description 02/04/2020 Telephone [facility] [address] [place] [address] Nia Oconnell [place] covid screening/info (lm for the pt with mri info) Social History Tobacco Use Types Packs/Day Years [...] on file 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
--- OUTSIDE RECORDS SUMMARY | 2024-09-23 14:17 | XMS_ITS | Clinical Summary ---
Author Organization [facility] Address [address] [place] [address] Care Team Providers Care Country Sales Manager Name Role Phone Unavailable Primary Care Provider Unavailabl e Allergies No known active allergies Medications cholecalciferol [...] 01/04/2018 Assessment & Plan (07/25/2024 5:39 PM VENEER MANUFACTURER): Long-term care in assisted facility appropriate as discussed with his . [...] Ampyra Assessment & Plan (10/08/2020 8:01 AM VENEER MANUFACTURER): Worsening paraparesis with flexor contractures Start baclofen 10-20 mg every 8 hours as needed Home occupational and physical therapy Hospital bed and Marquis lift Decubitus prevention discussed Appointment with Dr. Vasquez Off Ampyra Assessment & Plan (02/11/2020 11:40 AM CDT): Fall prevention discussed Exercise daily Stretch daily Assessment & Plan (08/05/2019 9:57 AM VENEER MANUFACTURER): Use recumbent bike regularly Using walker or wheelchair; has electric wheelchair Fall prevention discussed Off Ampyra Assessment & Plan (01/23/2019 6:59 AM CDT): Use recumbent bike regularly Using cane or walker Fall prevention discussed Off Ampyra Assessment & Plan (07/25/2018 7:34 AM VENEER MANUFACTURER): Use recumbent bike regularly Using cane or walker Fall prevention discussed Off Ampyra Assessment & Plan (01/04/2018 5:48 PM CDT): Use recumbent bike more regularly Ampyra. Risks discussed including seizures. Ongoing home physical therapy Fall prevention discussed Leukocytosis 12/19/2017 Restless leg syndrome 03/09/2017 Assessment & Plan (07/25/2024 5:40 PM VENEER MANUFACTURER): Improved. Off pramipexole. Assessment & Plan (11/25/2021 8:21 AM CDT): Improved. Off pramipexole. Assessment & Plan (05/27/2021 8:03 AM CDT): Improved. Off pramipexole. Assessment & Plan (10/08/2020 7:53 AM VENEER MANUFACTURER): Pramipexole 0.25 mg as needed Assessment & Plan (02/11/2020 11:41 AM CDT): Pramipexole 0.25mg 3-4 time per day Initiate gabapentin 300mg BID x 4 days, then TID. Contact me in a week Assessment & Plan (08/05/2019 9:58 AM VENEER MANUFACTURER): Pramipexole 0.25 mg 3-4 times per day Assessment & Plan (01/23/2019 7:03 AM CDT): Ferritin 12/19/17: 118 (normal) Pramipexole 0.25 mg 3 times a day Assessment & Plan (07/25/2018 7:33 AM VENEER MANUFACTURER): Pramipexole 0.25 mg 3 times a day [...] 03/09/2017 Assessment & Plan (07/25/2024 5:40 PM VENEER MANUFACTURER): Resume Lexapro 10 mg daily Assessment & Plan (11/25/2021 8:21 AM CDT): Improved on Lexapro 20 mg daily Still can be irritable in the late afternoon. Assessment & Plan (05/27/2021 8:04 AM CDT): Controlled on Lexapro 20 mg daily Assessment & Plan (10/08/2020 7:53 AM VENEER MANUFACTURER): Lexapro 20 mg daily Assessment & Plan (02/11/2020 11:40 AM CDT): Lexapro 20mg BID. He confirms his agitation is due to these worsening spasms and wants to try gabapentin before making any other changes at this time. Assessment & Plan (08/05/2019 9:58 AM VENEER MANUFACTURER): Lexapro 20 mg daily Assessment & Plan (01/23/2019 7:00 AM CDT): Lexapro 20 mg daily Assessment & Plan (07/25/2018 7:29 AM VENEER MANUFACTURER): Lexapro 20 mg daily Assessment & Plan (01/04/2018 5:48 PM CDT): Lexapro 20 mg daily Assessment & Plan (03/09/2017 11:34 AM CDT): Lexapro 20 mg daily Neurogenic bladder 02/27/2014 Assessment & Plan (07/25/2024 5:40 PM VENEER MANUFACTURER): Off Myrbetriq 50 mg daily No longer [...] Aguirre Assessment & Plan (10/08/2020 7:52 AM VENEER MANUFACTURER): Myrbetriq 50 mg daily No longer performing straight catheterizations Follow-up with Dr. Shawn Aguirre Assessment & Plan (08/05/2019 9:57 AM VENEER MANUFACTURER): Continue catheterization Follow-up appointment with Dr. Timothy Moisebetriq 50 mg daily Assessment & Plan (01/23/2019 7:02 AM CDT): Recent urosepsis after stopping self catheterization Continue catheterization Follow-up appointment with Dr. Timothy Moisebetriq 50 mg daily Assessment & Plan (07/25/2018 7:33 AM VENEER MANUFACTURER): Myrbetriq Assessment & Plan (01/04/2018 5:50 PM CDT): Myrbetriq Multiple sclerosis 08/12/2012 Overview (11/09/2016): MULTIPLE SCLEROSIS Assessment & Plan (07/25/2024 5:38 PM VENEER MANUFACTURER): Resume teriflunomide 14 mg daily. Risks discussed [...] IU daily Last MRI scan performed in 2018. Patient unlikely to be able to tolerate lying flat in machine as discussed with patient's and [id number] at appointment. Assessment & Plan (11/25/2021 8:18 AM CDT): Aubagio 14 mg daily. Risks discussed including office lymphocytopenia and hepatotoxicity. Adherence to labs strongly emphasized since no labs since July 2019. Patient will be at [facility] on December 01 for Botox and will get labs done at that time. Increased risk of serious complications including pneumonia and possibly if develops COVID-19 infection discussed with patient and his . Patient has received his 2nd COVID-19 vaccine in approximately August 2020. Will arrange for home health administer booster. They understand that [facility] has favorable data regarding influenza vaccination, but [...] in approximately August 2020. They understand that [facility] has favorable data regarding influenza vaccination, but potentially may not be protected by the COVID-19 vaccine. Booster vaccination recommended. Vit D3 supplement 8000 IU daily Will arrange for home blood draw of vitamin D, CBC and liver function tests. Assessment & Plan (10/08/2020 8:01 AM VENEER MANUFACTURER): Worsening paraparesis with flexor contractures. Restart Aubagio [...] me in a week with an update. [facility] [place] might be a great option once spasms [...] months Assessment & Plan (08/05/2019 9:56 AM VENEER MANUFACTURER): Resume Aubagio 14 mg daily. Risks discussed [...] evaluation Assessment & Plan (07/25/2018 7:35 AM VENEER MANUFACTURER): Aubagio 14 mg daily. Risks discussed including [...] weakness 12/19/2017 018 Vitamin D insufficiency 03/09/2017 0811/2016 Mixed anxiety depressive disorder 02/27/2014 01/04/2018 Encounters Date Type Department Care Team Description 09/03/2024 Telephone [facility] in Care [address] [place] [id number] Aaron Quigley MD 07/28/2024 Telephone [facility] in [address] [address] Aaron Quigley MD 07/28/2024 Telephone [facility] in [address] [address] Aaron Quigley MD Test Results 07/25/2024 3:50 PM VENEER MANUFACTURER Lab [address] [place] [address] Multiple sclerosis (HCC); Vitamin D deficiency 07/25/2024 2:45 PM VENEER MANUFACTURER Office Visit [facility] in [address] [phone] Aaron Quigley MD Multiple sclerosis (HCC) (Primary Dx); Paraparesis (CMS/HCC) (HCC); Neurogenic bladder; Restless leg syndrome; 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) from Last 3 Months Immunizations Immunization Administration Dates Next Due Sars-CoV-2, Unspecified 08/25/2020,08/04/2020 Medical History Medical History Date Comments Multiple sclerosis (HCC) RLS (restless legs syndrome) Depression Neurogenic bladder Family History Medical History Relation Name Comments Other Father cancer-esophage al; Cause of : cancer-esophageal Hypertension Mother Hypertension; Relation Name Status Comments Father (Age 58) Mother Social History Tobacco Use Types Packs/Day Years [...] on file Legal Sex Male 10:33 AM VENEER MANUFACTURER Gender Identity Not on file Sexual Orientation Not on file Obstetrics History Last Filed Vital Signs Vital Sign Reading Time Taken Comments Blood Pressure 130/86 07/25/2024 2:51 PM VENEER MANUFACTURER Pulse 73 07/25/2024 2:51 PM VENEER MANUFACTURER Temperature 36 C (96.8 F) 07/25/2024 2:51 PM VENEER MANUFACTURER Respiratory Rate 18 05/22/2022 3:41 PM CDT Oxygen Saturation 94% 07/25/2024 2:5 1 PM VENEER MANUFACTURER Inhaled Oxygen Concentration - - Weight 90.7 kg (200 lb) 07/25/2024 2:51 PM VENEER MANUFACTURER Patient estimated Height 175.3 cm (5' 9 ) 07/25/2024 2:51 PM VENEER MANUFACTURER Body Mass Index 29.53 07/25/2024 2:51 PM VENEER MANUFACTURER Plan of Treatment Health Maintenance Due Date Last Done Comments Colon Cancer Screening-Colonoscopy 1955 Depression Screening 1954 Fall Risk Assessment 1955 Hepatitis C Screening 1954 Hepatitis B Screening 1972 Zoster Vaccine (1 of 2) 2004 Abdominal Aortic Aneurysm (AAA) Screen 2019 Pneumococcal vaccine 65+ (1 of 1 - PCV) 2019 Well Visit 65+ 2019 Influenza Vaccine (#1) 2024 DTaP/Tdap/Td Vaccine (2 - Td or Tdap) 02/13/202706/2017, 08/08/2005 Procedures Procedure Name Priority Date/Time Associated Diagnosis Comments EGFR Routine 07/25/2024 3:55 PM VENEER MANUFACTURER Multiple sclerosis (HCC) DIFFERENTIAL AUTO Routine 07/25/2024 3:5 5 PM VENEER MANUFACTURER Multiple sclerosis (HCC) CBC WITH AUTO DIFFERENTIAL Routine 07/25/2024 3:55 PM VENEER MANUFACTURER Multiple sclerosis (HCC) COMPREHENSIVE METABOLIC PANEL Routine 07/25/2024 3:55 PM VENEER MANUFACTURER Multiple sclerosis (HCC) VITAMIN D 25 HYDROXY Routine 07/25/2024 3:55 PM VENEER MANUFACTURER Multiple sclerosis (HCC) Vitamin D deficiency TB TEST, QUANTIFERON GOLD Routine 07/25/2024 3:55 PM VENEER MANUFACTURER Multiple sclerosis (HCC) from Last 3 Months Results * (ABNORMAL) eGFR (07/25/2024 3:55 PM VENEER MANUFACTURER) eGFR 44(L) >=60 mL/min/1. 73 m2 Comment: [...] last reviewed 2021. Blood 07/25/2024 3:55 PM VENEER MANUFACTURER 07/25/2024 7:28 PM VENEER MANUFACTURER us Aaron Quigley MD LAB BLOOD ORDERABLES Final Re sult [facility] [address] Department [place] [address] * Differential, auto (07/25/2024 3:55 PM VENEER MANUFACTURER) Neutrophil abs 5.7 1.5 - 6.5 K/cumm Imm gran abs 0.0 0.0 - 0.1 K/cumm [facility] Lymphocyte abs 2.3 0.8 - 3.3 K/cumm [facility] Monocyte abs 0.6 0.2 - 0.8 K/cumm [facility] Eosinophil abs 0.2 0.0 - 0.5 K/cumm [facility] Basophil abs 0.1 0.0 - 0.1 K/cumm [facility] Neutrophil pct 64.8 % [facility] Comment: Interpretive Data Percent cell count reference ranges are not reported, since discordance with absolute values may lead to misinterpretation of CBC data. Current Interpretive Data was last revised on 2017. Imm gran pct 0.3 % [facility] Comment: Interpretive Data Percent cell count reference ranges are not reported, since discordance with absolute values may lead to misinterpretation of CBC data. Current Interpretive Data was last revised on 2017. Lymphocyte pct 26.0 % [facility] Comment: Interpretive Data Percent cell count reference ranges are not reported, since discordance with absolute values may lead to misinterpretation of CBC data. Current Interpretive Data was last revised on 2017. Monocyte pct 6.6 % [facility] Comment: Interpretive Data Percent cell count reference ranges are not reported, since discordance with absolute values may lead to misinterpretation of CBC data. Current Interpretive Data was last revised on 2017. Eosinophil pct 1.7 % [facility] Comment: Interpretive Data Percent cell count reference ranges are not reported, since discordance with absolute values may lead to misinterpretation of CBC data. Current Interpretive Data was last revised on 2017. Basophil pct 0.6 % [facility] Comment: Interpretive Data Percent cell count reference ranges are not reported, since discordance with absolute values may lead to misinterpretation of CBC data. Current Interpretive Data was last revised on 2017. Blood 07/25/2024 3:55 PM VENEER MANUFACTURER 07/25/2024 7:27 PM VENEER MANUFACTURER Aaron Quigley MD LAB BLOOD ORDERABLES Final Re sult Performing Organization Address [facility] Co de Phone Number [facility] [address] Department [place] [address] * TB test, quantiferon gold (07/25/2024 3:55 PM VENEER MANUFACTURER) [facility] Quantiferon TB Gold Negative Negative [facility] Comment: No interferon-gamma response to [...] Interferon-gamma level <0.35 IU/mL. TB-Nil 0.04 IUnits/mL [facility] TB2-Nil 0.03 IUnits/mL [facility] Mitogen-Nil 9.99 IUnits/mL [facility] NIL 0.01 IUnits/mL [facility] Comment: Test Performed by: [place] [address] Suction Roller: Vincenzo Madison Ph.D.; CLIA# [id number] Blood 07/25/2024 3:55 PM VENEER MANUFACTURER 07/25/2024 6:21 PM VENEER MANUFACTURER Aaron Quigley MD LAB BLOOD ORDERABLES Final Re sult Performing Organization Address [facility] Co de Phone Number [facility] [address] Department [place] [address] [facility] * (ABNORMAL) CBC with auto differential (07/25/2024 3:55 PM VENEER MANUFACTURER) [facility] WBC 8.8 3.8 - 9.9 K/cumm Hgb 12.5(L) 13.0 - 17.5 g/dL [facility] Hct 39.7 38.9 - 50.3 % [facility] Plt 276 150 - 400 K/cumm [facility] MPV 11.8 9.1 - 12.3 fL [facility] RBC 4.57 4.30 - 5.80 M/cumm [facility] MCV 86.9 81.3 - 96.4 fL [facility] MCH 27.4 27.1 - 33.3 pg [facility] MCHC 31.5(L) 32.3 - 35.7 g/dL [facility] RDW CV 14.9 11.1 - 14.9 % [facility] RDW SD 47.3 35.7 - 48.1 fL [facility] NRBC abs 0.00 0.00 - 0.01 K/cumm [facility] Blood 07/25/2024 3:55 PM VENEER MANUFACTURER 07/25/2024 7:27 PM VENEER MANUFACTURER Aaron Quigley MD LAB BLOOD ORDERABLES Final Re sult Performing Organization Address City/[facility]/ZIP Co de Phone Number [facility] [address] [place] [address] * Vitamin D 25 hydroxy (07/25/2024 3:55 PM VENEER MANUFACTURER) [facility] Vitamin D 25-OH 76 30 - 80 ng/mL Blood 07/25/2024 3:55 PM VENEER MANUFACTURER 07/25/2024 7:28 PM VENEER MANUFACTURER Aaron Quigley MD LAB BLOOD ORDERABLES Final Re sult Performing Organization Address City/[facility]/ZIP Co de Phone Number [facility] [address] [place] [address] * (ABNORMAL) Comprehensive metabolic panel (07/25/2024 3:55 PM VENEER MANUFACTURER) Sodium 139 135 - 145 mmol/L Potassium, pl 4.1 3.3 - 4.9 mmol/L [facility] Chloride 102 97 - 110 mmol/L [facility] CO2 25 22 - 32 mmol/L [facility] Anion gap 12 2 - 15 mmol/L [facility] BUN 30(H) 6 - 25 mg/dL [facility] Creatinine 1.65(H) 0.80 - 1.30 mg/dL [facility] Glucose 115 70 - 199 mg/dL [facility] Comment: Interpretive Data Fasting glucose >/= 126 [...] classification and Diagnosis of Diabetes Diabetes Care 2021; 46: S19-S40. Current interpretive data was last revised 2022. Calcium 9.2 8.5 - 10.3 mg/dL [facility] Bilirubin, total 0.2 0.1 - 1.2 mg/dL [facility] Protein, pl 8.1 6.5 - 8.5 g/dL [facility] Albumin 4.0 3.5 - 5.0 g/dL [facility] Alk phos 85 40 - 130 Units/L [facility] ALT 10 7 - 55 Units/L [facility] AST 13 10 - 50 Units/L [facility] Blood 07/25/2024 3:55 PM VENEER MANUFACTURER 07/25/2024 7:28 PM VENEER MANUFACTURER us Aaron Quigley MD LAB BLOOD ORDERABLES Final Re sult [facility] [address] Department [place] [address] from Last 3 Months Insurance [employer] Advance Directives For more information, please contact: [phone] * Full Code (Latest Code Status on [...]
--- OUTSIDE RECORDS SUMMARY | 2024-09-23 14:17 | XMS_ITS | Clinical Summary ---
Author Organization [facility] Address [address] [place] [address] Care Team Providers Care Gaming Host Name Role Phone Avtar Simon MD Primary Care Provider [phone] Social History Tobacco Use Types Packs/Day Years Used Date Smoking Tobacco: Never Assessed Sex and Gender Information Value Date Recorded Sex Assigned at Not on file Legal Sex Male 8:14 PM CDT Gender Identity Not on file Sexual Orientation Not on file Plan of Treatment Health Maintenance Due Date Last Done Comments Colorectal Cancer Screening Colonoscopy (10 Years) 1954 Hepatitis C 1972 Zoster Vaccines (1 of 2) 2004 Pneumococcal Vaccine: 65+ Years (1 of 1 - PCV) 2019 COVID-19 Vaccine ( - 2023-2 5 season) 2024 Influenza Adult (#1) 2024 DTaP, Tdap and Td Vaccines ( 2 - Td or Tdap) 02/13/2027 02/13/2017, 08/08/2005 RSV Immunization or 60+ Years (1 - 1-dose 75+ series) 2029 Meningococcal B Vaccine Aged Out No l onger eligible based on patient's age to complete this topic Meningococcal Vaccine Aged Out No lisa pipe eligible based on patient's age to complete this topic RSV Immunizations Under 20 Months Aged Out No longer eligible b ased on patient's age to complete this topic Care Teams Gaming Host Relationship Specialty Start Date End Date Avtar Simon MD [address] [place] [address] PCP - General 08/23/11
--- NOTE | 2024-09-23 15:25 | ED_ITS ---
HPI - General Adult General Chief complaint: Fall Stated complaint: fall from w/c, no complaints Time Seen by Provider: 09/23/24 14:04 History of Present Illness HPI narrative: 69-year-old male history of MS presenting to the emergency department for evaluation after having a fall from his wheelchair. Patient states he was having some nausea and vomiting of trying to his chest and his wheelchair when he fell forward and struck his head. Patient did have some emesis after the head injury. Upon arrival emergency department patient denies any pain or complaint. Patient does have a hematoma to the center of his forehead. Patient denies any current nausea. Patient has no other complaints of pain or injury. Patient is present with his . Related Data Home Medications ?Medication ?Instructions ?Recorded ?Confirmed ?Last Taken ?Type cholecalciferol (vitamin D3) 125 125 mcg PO DAILY 07/07/20 12/28/23 06/06/22 History mcg (5,000 unit) capsule escitalopram oxalate 20 mg tablet 20 mg PO DAILY 07/07/20 12/28/23 06/06/22 History melatonin 10 mg tablet 10 mg PO HS 07/07/20 12/28/23 06/05/22 History teriflunomide 14 mg tablet 14 mg PO DAILY 07/07/20 12/28/23 06/06/22 History (Aubagio) baclofen 10 mg tablet 20 mg PO HS 03/10/22 12/28/23 06/05/22 History Allergies Allergy/AdvReac Type Severity Reaction Status Date / Time No Known Allergies Allergy Unknown Verified 09/23/24 14:08 Review of Systems Review of Systems: All systems reviewed & are unremarkable except as noted in HPI and below PMFSH Past Medical History Medical History Anxiety Chest pain Chronic anemia Depression DVT prophylaxis Insomnia Left wrist fracture Leukocytosis Multiple sclerosis Neurogenic bladder Pulmonary embolism (~2021) Restless leg syndrome Suspected 2019 novel coronavirus infection Tinea corporis Vitamin D deficiency Surgical History Surgical History History of bilateral cataract extraction Family History Family History Father Family history of malignant neoplasm of esophagus Mother Pacemaker Social History Social History Social History: The patient is and lives with his in [place]. 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 He smoked up to 3 packs of cigarettes a day for 30 years and quit in 2001. No alcohol or illicit substance abuse. He had 2 children Surrogate medical decision maker: Devora Browning, . Code status: Full code. Smoking packs per day: 1 Smoking cigarettes per day: 20.0 Years smoked: 10 Smoking pack-years: 10.00 Smoking status: Former smoker Second hand tobacco smoke exposure: No Alcohol intake: never Substance use: never Substance use type: does not use Do You Feel Safe in your Home?: Yes Lack of Transportation: No Lack of Food: Never True Current Housing: I Have Housing Concerned About Future Housing: No Difficulty Paying Gas/Electric Bills: No Difficulty Paying for Meds: No Currently Unemployed: No Education: High School Diploma/GED Difficulty w/ Childcare or Family Care: No Spiritual care concerns: No Exam Narrative: APPEARANCE: Well appearing, no pain, no distress, well-nourished. HEAD: normocephalic, frontal hematoma. EYES: PERRLA/EOMI, conjunctivae clear. NOSE: Normal no drainage EARS:TMS clear with good light reflex. THROAT: Pharynx clear, no exudate. NECK: Supple. No adenopathy, no masses. RESPIRATORY: Airway patent, respirations nonlabored. Clear to auscultation bilaterally, no rales, rhonchi, wheezing. CARDIOVASCULAR: Regular rate and rhythm without murmurs rubs or gallops. ABDOMINAL: Soft, nontender, nondistended, normal bowel sounds MUSCULOSKELETAL: Contracted lower extremities NEURO: Alert. Lower extremity weakness at baseline SKIN: Warm, dry. Normal Color Course Vital Signs Vital signs: Vital Signs Temperature 97.4 F L 09/23/24 14:02 Pulse Rate 66 09/23/24 14:02 Respiratory Rate 15 09/23/24 14:02 Blood Pressure 147/75 H 09/23/24 14:02 Pulse Oximetry 95 09/23/24 14:02 Oxygen Delivery Room Air 09/23/24 14:02 Temperature 97.8 F 09/23/24 17:23 Pulse Rate 70 09/23/24 17:23 Respiratory Rate 16 09/23/24 17:23 Blood Pressure 139/80 09/23/24 17:23 Pulse Oximetry 98 09/23/24 17:23 Oxygen Delivery Room Air 09/23/24 14:02 Medical Decision Making MDM Narrative Medical decision making narrative: 69-year-old male presents emergency department for evaluation for a fall with head injury. Denies any pending complete but does have a frontal hematoma, CT was negative for fracture subdural or subarachnoid hemorrhage. Patient will be provided p.r.n. Zofran for the nausea. Patient family declined any additional workup for the nausea. Patient denies any abdominal pain and no abdominal tenderness to palpation. Patient family were comfortable plan for discharge and close follow-up. Differential Diagnosis Differential Diagnosis: Subdural hematoma, subarachnoid hemorrhage, skull fracture Vital Signs Vital Signs: Vital Signs Temperature 97.4 F L 09/23/24 14:02 Pulse Rate 66 09/23/24 14:02 Respiratory Rate 15 09/23/24 14:02 Blood Pressure 147/75 H 09/23/24 14:02 Pulse Oximetry 95 09/23/24 14:02 Oxygen Delivery Room Air 09/23/24 14:02 Temperature 97.8 F 09/23/24 17:23 Pulse Rate 70 09/23/24 17:23 Respiratory Rate 16 09/23/24 17:23 Blood Pressure 139/80 09/23/24 17:23 Pulse Oximetry 98 09/23/24 17:23 Oxygen Delivery Room Air 09/23/24 14:02 Imaging Data Radiologist's impression: Impressions Head CT 09/23/24 14:50 IMPRESSION: 1. Stable moderate nonspecific cerebral white matter disease, which likely represents chronic small vessel ischemic disease. Discharge Plan Discharge Clinical Impression: Head injury Patient Disposition: [facility] Condition: Stable Instructions: Antibiotic Form, Head Injury (ED), Acute Nausea and Vomiting (DC) Additional Instructions: Your head CT was negative for acute abnormality. You are being provided Zofran for nausea control as needed. If you have any worsening symptoms please call or return to the emergency department. Have close follow-up with your primary care physician. Patient Language: American Prescriptions: New ondansetron 4 mg tablet,disintegrating 4 mg PO Q8H PRN (Reason: nausea and vomiting) Qty: 14 0RF No Action Eliquis 5 mg tablet 5 mg PO BID Qty: 60 2RF levofloxacin 750 mg tablet 750 mg PO DAILY Qty: 2 0RF benzonatate 100 mg capsule 100 mg PO TID PRN (Reason: cough) Qty: 20 0RF escitalopram oxalate 20 mg Tablet 20 mg PO DAILY melatonin 10 mg Tablet 10 mg PO HS teriflunomide [Aubagio] 14 mg Tablet 14 mg PO DAILY cholecalciferol (vitamin D3) 125 mcg (5,000 unit) Capsule 125 mcg PO DAILY baclofen 10 mg tablet 20 mg PO HS benzonatate 200 mg capsule 200 mg PO TID Qty: 30 0RF cephalexin 500 mg capsule 500 mg PO Q6H 10 Days Qty: 40 0RF lorazepam 0.5 mg tablet 0.5 mg PO TID PRN (Reason: anxiety) Qty: 60 0RF Follow-up/Referrals: UNKNOWN,DOCTOR [Primary Care Provider] -
--- NOTE | 2024-09-23 16:52 | PC.NURSE ---
called [facility] at [place] [id number] and gave pt report to JACKSON Odonnell. all questions answered.
--- NOTE | 2024-09-23 17:19 | PC.NURSE ---
Nia with Crisis called for further details on patient at [phone]. all questions answered.
[2024-09-23 17:23] VITALS: BP 139/80; PULSE 70; RESP 16; TEMP 36.6; O2SAT 98
== END 2024-09-23 17:23 ==
PROVIDERS: Emergency Provider Emergency Medicine
DX: S09.90XA Unspecified injury of head, initial encounter (principal); F41.9 Anxiety disorder, unspecified; F32.A Depression, unspecified; G25.81 Restless legs syndrome; W05.0XXA Fall from non-moving wheelchair, initial encounter
CPT/HCPCS: 70450; 99284